=== PATIENT | female | born 1950 | race Caucasian/White ===

== ENCOUNTER 2017-01-18 14:03 | Emergency (ER) | payer OTHER ==
[~2017-01-18] VITALS: Ht 154.9 cm; Wt 81.5 kg
[~2017-01-18 14:03] MED LIST: ACYC5OIN3 EXT; ASPI325T45 PO; BNT10 PO; CALC-310 PO; LSN5 PO; MELA1TAB54 PO; MULT-506 PO; POLY335019 PO; PRLSR20 PO; RANI300T2 PO
[2017-01-18 14:18] VITALS: Ht 154.9 cm; Wt 81.5 kg
[2017-01-18] MEDS ORDERED: SULF800T23 PO (14:48)
[2017-01-18] MEDS ORDERED: MoRPHine SULFATE 4 MG/ML 1 ML CARP\\VIAL IV STA ×2 (14:50→17:41)
--- NOTE | 2017-01-18 14:50 | EMERGENCY ROOM VISIT NOTE ---
History First contact with patient: 14:27 Chief Complaint: ABDOMINAL PAIN Stated Complaint: PAIN IN STOMACH/BACK Nursing Triage Summary: Triage note: pt reports "i have a lot of right abd pain that goes into my back i have a hx of pancreatitis." pt reports nausea. pt reports symptoms since Monday night. History of Present Illness The patient is a 66 year old female with history of multiple sclerosis, hypertension, CTD stage III and is status post cholecystectomy who presents to the Emergency Room with complaints of abdominal pain. She reports that pain started on Monday, is located in the right upper quadrant and radiates around the right sided to her back. She tried taking Tylenol, but this didn't improve her pain much, it went from an 8 to a 6 out of 10. She feels this episode of pain is exactly like her previous episodes of pancreatitis. The only changes that she has been on Bactrim since Monday for a UTI. Her urinary symptoms and hematuria have improved. She does not have a gallbladder, but she is seeing Dr. Cai, and is getting an ERCP on February 03. She was able to eat breakfast this morning. Currently her pain is an 8 out of 10. Review of Systems See HPI for pertinent positives & negatives. A total of 10 systems reviewed and were otherwise negative. Past Medical/Surgical History Medical Problems: (1) Acute pancreatitis (2) Chronic kidney disease (3) Diverticulosis (4) Elevated liver enzymes (5) Gallstones (6) GERD (gastroesophageal reflux disease) (7) GERD (gastroesophageal reflux disease) (8) HTN (hypertension) (9) Hyperlipidemia (10) Kidney disease, chronic, stage III (GFR 30-59 ml/min) (11) Multiple sclerosis (12) Pancreatic divisum (13) Pancreatitis Surgical Problems: (1) History of abdominal hernia (2) History of back surgery (3) Hx of cholecystectomy (4) S/P bilateral breast reduction (5) S/P bladder repair (6) s/p removal of fibroid in uterus (7) S/P tubal ligation Family History FH: brain aneurysm SISTER FH: cancer MOTHER (Breast CA) SISTER (Breast CA) FH: hypertension FH: multiple sclerosis DAUGHTER Social History Smoking Status: Never Smoker Alcohol Use: none Marital Status: in relationship Housing Status: lives with significant other Occupation Status: employed Current/Historical Medications Scheduled Aspirin (Aspirin), 325 MG PO DAILY Calcium Citrate-Vitamin D (Calcium Citrate + D), 1 TAB PO BID Dicyclomine HCl (Dicyclomine HCl), 10 MG PO BIDM Furosemide (Lasix), 20-40 MG PO DAILY Lisinopril (Lisinopril), 5 MG PO DAILY Melatonin (Melatonin), 5 MG PO HS Multivitamin (Multivitamin), 1 TAB PO DAILY Omeprazole (Prilosec), 20 MG PO QAM Ranitidine (Zantac), 300 MG PO HS Sulfamethoxazole-Trimethoprim (Bactrim Ds 800MG/160MG), 1 TAB PO BID Scheduled PRN Polyethylene Glycol 3350 (Miralax), 17 GM PO DAILY PRN for Constipation Allergies Coded Allergies: Adhesives (Verified Allergy, Unknown, RASH, 01/18/17) Ibuprofen (Verified Allergy, Unknown, 01/18/17) Physical Exam Vital Signs Date Time Temp Pulse Resp B/P Pulse Ox O2 Delivery O2 Flow Rate FiO2 01/18/17 19:13 36.6 73 19 149/58 94 01/18/17 18:28 73 19 149/58 94 Room Air 01/18/17 17:00 71 20 142/72 96 Room Air 01/18/17 15:40 65 20 150/60 91 Room Air 01/18/17 14:18 36.6 75 18 140/64 97 Room Air Physical Exam GENERAL: Awake, alert, well-appearing, in mild distress HENT: Normocephalic, atraumatic. Oropharynx unremarkable. EYES: Normal conjunctiva. Sclera non-icteric. NECK: Supple. No nuchal rigidity. FROM. No JVD. RESPIRATORY: Clear to auscultation. CARDIAC: Regular rate, normal rhythm. Extremities warm and well perfused. Pulses equal. ABDOMEN: Soft, non-distended. Tenderness to the right upper quadrant. No rebound or guarding. No masses. RECTAL: Deferred. MUSCULOSKELETAL: Chest examination reveals no tenderness. The back is symmetrical on inspection without obvious abnormality. There is no CVA tenderness to palpation. No joint edema. LOWER EXTREMITIES: Calves are equal size bilaterally and non-tender. No edema. No discoloration. NEURO: Normal sensorium. No sensory or motor deficits noted. SKIN: No rash or jaundice noted. Medical Decision & Procedures ER Provider Diagnostic Interpretation: KUB CLINICAL HISTORY: Right upper quadrant abdominal pain. FINDINGS: 2 AP supine abdominal radiographs are correlated with abdominal CT dated 11/07/2016 and MRCP dated 11/08/2016. There is a nonobstructed abdominal bowel gas pattern noting mild colonic fecal retention. There is no evidence of intraperitoneal free air on these supine views. Cholecystectomy clips are seen in the right upper quadrant. There is no radiographic evidence of nephrolithiasis. Phleboliths are observed in the pelvis. The skeletal structures are osteopenic. There is moderate lumbosacral spondylosis and scoliosis. Advanced sclerotic change is noted in the pubic symphysis. IMPRESSION: 1. No acute abnormality. 2. Nonobstructed abdominal bowel gas pattern. SINGLE VIEW CHEST CLINICAL HISTORY: CHF. FINDINGS: An AP, portable, upright chest radiograph is compared to study dated 11/07/2016. The examination is degraded by portable technique, large body habitus, and patient rotation. The heart is mildly enlarged. The pulmonary vasculature is noncongested. Chronic interstitial thickening is similar to previous. No airspace consolidation, large pleural effusion, or pneumothorax is seen. The skeletal structures are osteopenic. The bony thorax is grossly intact. Degenerative change and a chronic Hill-Sachs deformity are noted in the right shoulder. Cholecystectomy clips are identified in the right upper quadrant. IMPRESSION: Cardiomegaly with no acute cardiopulmonary abnormality. Laboratory Results 01/18/17 15:04 Red Blood Count 4.50, Mean Corpuscular Volume 88.7, Mean Corpuscular Hemoglobin 29.8, Mean Corpuscular Hemoglobin Concent 33.6, Mean Platelet Volume 10.9, Neutrophils (%) (Auto) 62.7, Lymphocytes (%) (Auto) 28.2, Monocytes (%) (Auto) 8.1, Eosinophils (%) (Auto) 0.6, Basophils (%) (Auto) 0.2, Neutrophils # (Auto) 3.25, Lymphocytes # (Auto) 1.46, Monocytes # (Auto) 0.42, Eosinophils # (Auto) 0.03, Basophils # (Auto) 0.01 01/18/17 15:04 Test 01/18/17 15:04 01/18/17 17:41 White Blood Count 5.18 K/uL (4.8-10.8) Red Blood Count 4.50 M/uL (4.2-5.4) Hemoglobin 13.4 g/dL (12.0-16.0) Hematocrit 39.9 % (37-47) Mean Corpuscular Volume 88.7 fL (80-100) Mean Corpuscular Hemoglobin 29.8 pg (25-34) Mean Corpuscular Hemoglobin Concent 33.6 g/dl (32-36) Platelet Count 211 K/uL (130-400) Mean Platelet Volume 10.9 fL (7.4-10.4) Neutrophils (%) (Auto) 62.7 % Lymphocytes (%) (Auto) 28.2 % Monocytes (%) (Auto) 8.1 % Eosinophils (%) (Auto) 0.6 % Basophils (%) (Auto) 0.2 % Neutrophils # (Auto) 3.25 K/uL (1.4-6.5) Lymphocytes # (Auto) 1.46 K/uL (1.2-3.4) Monocytes # (Auto) 0.42 K/uL (0.11-0.59) Eosinophils # (Auto) 0.03 K/uL (0-0.5) Basophils # (Auto) 0.01 K/uL (0-0.2) RDW Standard Deviation 45.8 fL (36.4-46.3) RDW Coefficient of Variation 14.1 % (11.5-14.5) Immature Granulocyte % (Auto) 0.2 % Immature Granulocyte # (Auto) 0.01 K/uL (0.00-0.02) Anion Gap 10.0 mmol/L (3-11) Est Creatinine Clear Calc Drug Dose 31.9 ml/min Estimated GFR () 36.0 Estimated GFR (Non- 31.1 BUN/Creatinine Ratio 13.0 (10-20) Calcium Level 9.0 mg/dl (8.5-10.1) Total Bilirubin 0.8 mg/dl (0.2-1) Aspartate Amino Transf (AST/SGOT) 24 U/L (15-37) Alanine Aminotransferase (ALT/SGPT) 34 U/L (12-78) Alkaline Phosphatase 121 U/L (45-117) Total Protein 7.0 gm/dl (6.4-8.2) Albumin 3.9 gm/dl (3.4-5.0) Globulin 3.1 gm/dl (2.5-4.0) Albumin/Globulin Ratio 1.3 (0.9-2) Lipase 161 U/L (73-393) Bedside Lactic Acid Venous 0.48 mmol/L (0.90-1.70) Medications Administered Medications (Trade) Dose Ordered Sig/Alycia Route Start Time Stop Time Status Last Admin Dose Admin Sodium Chloride (Nss 1000ml) 1,000 ml @ 999 mls/hr Q1H1M ONCE IV 01/18/17 15:00 01/18/17 16:00 DC 01/18/17 15:43 999 MLS/HR Morphine Sulfate (MoRPHine SULFATE INJ) 4 mg NOW STAT IV 01/18/17 14:50 01/18/17 14:51 DC 01/18/17 15:43 4 MG Morphine Sulfate (MoRPHine SULFATE INJ) 4 mg NOW STAT IV 01/18/17 17:41 01/18/17 17:42 DC 01/18/17 17:59 4 MG ED Course 1430: I evaluated the patient in room B9. A complete history and physical examination were performed. 14:40: I ordered a CBC, CMP, lipase, urine dipstick, and provided her with 4 mg of IV morphine. As well as 1 L of normal saline. 16:19: I also ordered a chest x-ray and [id number] lactic acid. 17:30: I ordered a KUB and another 4 mg of IV morphine as her pain is somewhat returned. 18:00: Patient felt better. Gave her some crackers and peanut butter, which she was able to eat without difficulty. 18:26: She had an ambulatory trial, which he handled well. She denied any return of her abdominal pain and requested to go home. We discussed following up with her PCP and getting repeat BMP within a week. We tried to arrange a follow-up appointment for her but her PCPs office is closed 18:35: She was discharged home in good condition. Medical Decision This is a 66-year-old female with history of recurrent pancreatitis, multiple sclerosis, hypertension, CT stage III and is status post cholecystectomy who presents with abdominal pain except in the right upper quadrant radiating around to the right side. Differential includes: Pancreatitis, retained bile duct cyst, diverticulitis, gastritis, mesenteric ischemia. She had an IV placed and labs drawn. She was provided with 4 mg of IV morphine, and then a further 4 mg 3 hours later when her pain returned. Her lipase was 171, so pancreatitis was actually unlikely. Her white count was normal, however her creatinine was found to be 1.70 on a baseline of 1.0. She was also on Bactrim for a UTI, she had been taking it for 5 days and had resolution of her symptoms as this is likely an uncomplicated UTI and this was stopped. This is likely either prerenal due to dehydration, or as a side effect of Bactrim, which she has been on for 5 days for UTI. She was provided with a liter of IV fluids. KUB did not show any abnormalities. Her pain had improved significantly during her time in the ED. I discussed the case with Dr. Curry. We both believe that she is safe to be discharged home with follow-up with her PCP. She has an ERCP booked for February 03 which will evaluate if she has a retained bile duct stone. She should follow-up with her PCP in a week to recheck her BMP as well. She did not want any pain medications , as they make her feel unwell when she is on them. [place] Drug Monitoring Program Search Results: patient reviewed within database, no issues identified Impression Primary Impression: Right upper quadrant abdominal pain Additional Impression: Pancreatitis Departure Information Dispostion Home / Self-Care Condition GOOD Referrals No Doctor, Assigned (PCP) Patient Instructions My [facility] Additional Instructions Call your PCP to make an appointment for follow up within the week. You will need a BMP test to check your kidney function. Drink plenty of fluids in the meantime, make sure to avoid fatty foods as well. If you develop worsening pain, or have fevers, chills, vomiting, or diarrhea, please return to the ED. Resident Tracking Resident Involvement: Resident Care Provided Care Provided: Adult ED Problem Qualifiers
[2017-01-18] MEDS ORDERED: SODIUM CHLORIDE 0.9% 1000ML 1,000 ML IV ONE (15:00)
[2017-01-18 15:16] LABS: BASO % 0.2 %; BASO ABS # 0.01 K/uL (0-0.2); COMPLETE YES; EOS % 0.6 %; HEMATOCRIT 39.9 % (37-47); IG% 0.2 %; LYMPH % 28.2 %; LYMPH ABS # 1.46 K/uL (1.2-3.4); MEAN CELL VOLUME 88.7 fL (80-100); MEAN CORPUSCULAR HEMOGLOBIN 29.8 pg (25-34); MEAN CORPUSCULAR HGB CONC 33.6 g/dl (32-36); MEAN PLATELET VOLUME 10.9 fL (7.4-10.4); MONO % 8.1 %; NEUT % 62.7 %; PLATELET COUNT 211 K/uL (130-400); WHITE BLOOD COUNT 5.18 K/uL (4.8-10.8)
[2017-01-18 15:40] LABS: CREATININE 1.7 mg/dl (0.60-1.20); POTASSIUM 3.9 mmol/L (3.5-5.1)
[2017-01-18 15:43] LABS: ALB/GLOB RATIO 1.3 (0.9-2)
--- NOTE | 2017-01-18 16:39 | DIAGNOSTIC IMAGING REPORT ---
SINGLE VIEW CHEST CLINICAL HISTORY: CHF. FINDINGS: An AP, portable, upright chest radiograph is compared to study dated 11/07/2016. The examination is degraded by portable technique, large body habitus, and patient rotation. The heart is mildly enlarged. The pulmonary vasculature is noncongested. Chronic interstitial thickening is similar to previous. No airspace consolidation, large pleural effusion, or pneumothorax is seen. The skeletal structures are osteopenic. The bony thorax is grossly intact. Degenerative change and a chronic Hill-Sachs deformity are noted in the right shoulder. Cholecystectomy clips are identified in the right upper quadrant. IMPRESSION: Cardiomegaly with no acute cardiopulmonary abnormality. Electronically signed by: North Weber M.D. 01/18/2017 4:37 PM Dictated Date/Time: 01/18/2017 4:36 PM
--- NOTE | 2017-01-18 18:44 | DIAGNOSTIC IMAGING REPORT ---
KUB CLINICAL HISTORY: Right upper quadrant abdominal pain. FINDINGS: 2 AP supine abdominal radiographs are correlated with abdominal CT dated 11/07/2016 and MRCP dated 11/08/2016. There is a nonobstructed abdominal bowel gas pattern noting mild colonic fecal retention. There is no evidence of intraperitoneal free air on these supine views. Cholecystectomy clips are seen in the right upper quadrant. There is no radiographic evidence of nephrolithiasis. Phleboliths are observed in the pelvis. The skeletal structures are osteopenic. There is moderate lumbosacral spondylosis and scoliosis. Advanced sclerotic change is noted in the pubic symphysis. IMPRESSION: 1. No acute abnormality. 2. Nonobstructed abdominal bowel gas pattern. Electronically signed by: North Weber M.D. 01/18/2017 6:42 PM Dictated Date/Time: 01/18/2017 6:41 PM
[2017-01-18 19:13] VITALS: BP 149/58; PULSE 73; TEMP 36.6; O2SAT 94
[2017-01-19] MEDS ORDERED: DICY10CA12 PO (14:17)
[2017-01-19] MEDS ORDERED: LISI-729 PO (14:17)
[2017-03-27] MEDS ORDERED: FLM4 PO (18:14)
[2017-03-27] MEDS ORDERED: ATOR-24 PO (18:14)
[2017-05-05] MEDS ORDERED: FURO-85 PO (05:24)
[2017-05-06] MEDS ORDERED: TRMCR130WC TOP (02:27)
== END 2017-01-18 19:14 | disposition home or self-care (01) ==
LOC: C.EDB 14:06
DX: K85.90 Acute pancreatitis without necrosis or infection, unspecified (principal); G35 Multiple sclerosis; N18.3 Chronic kidney disease, stage 3 (moderate); I12.9 Hypertensive chronic kidney disease with stage 1 through stage 4 chronic kidney disease, or unspecified chronic kidney disease; N39.0 Urinary tract infection, site not specified; Z90.49 Acquired absence of other specified parts of digestive tract; K21.9 Gastro-esophageal reflux disease without esophagitis; Z98.51 Tubal ligation status; Z80.3 Family history of malignant neoplasm of breast; Z82.49 Family history of ischemic heart disease and other diseases of the circulatory system; Z82.0 Family history of epilepsy and other diseases of the nervous system; Z79.82 Long term (current) use of aspirin; Z79.899 Other long term (current) drug therapy

== ENCOUNTER 2017-02-03 11:33 | Day surgery (SDC) | payer OTHER ==
[2017-01-19 14:17] VITALS: BMI 33.0
[~2017-02-03] VITALS: Ht 154.9 cm; Wt 79.5 kg
--- NOTE | 2017-02-03 09:23 | Endo History and Physical ---
History & Physical Date of Service: Feb 03, 2017. Chief Complaint: Recurrent abdominal pain, suspected SOD Referring Physician: History of Present Illness Patient with a history of recurrent abdominal s/p cholecystectomy. Several episodes have been associated with significant elevation of her liver associated enzymes. Past Medical History Reflux, Hypertension, Kidney Disease Past Surgical History Hx Cardiac Surgery: No Hx Abdominal Surgery: Yes (TUBAL LIGATION, ABDOMINAL HERNIA, UTERINE FIBROID) Hx Post-Op Nausea and Vomiting: No Hx Cancer Surgery: No Hx Thoracic Surgery: No Hx Orthopedic: Yes (LUMBAR DISCECTOMY) Hx Urinary Tract Surgery: Yes (BLADDER REPAIR) Social History Smoking Status: Never Smoker Hx Substance Use: No Hx Alcohol Use: No Allergies Coded Allergies: Ibuprofen (Verified Allergy, Mild, HIVES, 01/19/17) Adhesives (Verified Allergy, Unknown, RASH, 01/19/17) Current Medications Reported Home Medications Medications Dose Route/Sig Max Daily Dose Days Date Category Dose Instructions Dicyclomine Hcl 10 Mg Cap 1 Cap PO HS 01/19/17 Reported Prinivil (Lisinopril) 5 Mg Tab 5 Mg PO QAM 01/19/17 Reported Prilosec (Omeprazole) 20 Mg Capcr 20 Mg PO QAM 06/19/16 Reported Melatonin 5 Mg Tab 5 Mg PO HS 10/23/15 Reported Lasix (Furosemide) 20 Mg Tab 20-40 Mg PO DAILY 09/10/15 Reported Calcium Citrate + D (Calcium Citrate-Vitamin D) 1 Tab Tab 1 Tab PO BID 11/24/14 Reported Multivitamin (Multivitamins) Tab 1 Tab PO QAM 11/24/14 Reported Zantac (Ranitidine HCl) 300 Mg Tab 300 Mg PO HS 01/13/14 Reported Miralax (Polyethylene Glycol 3350) 1 17 Gm PO DAILY PRN 01/13/14 Reported Aspirin 325 Mg Tab 325 Mg PO HS 06/06/13 Reported HOLD ONE WEEK PRIOR Vital Signs Weight (Kilograms): 79.55 Height (Feet): 5 Height (Inches): 0.5 Physical Exam General Appearance: no apparent distress Respiratory/Chest: Auscultation: breath sounds normal Cardiovascular: Heart Auscultation: RRR Abdomen: Inspection & Palpation: soft Assessment and Plan Patient presents for ERCP for evaluation of SOD (mild dilation of CBD + recurrent elevation of LAEs). We have discussed the risks of ERCP to include infection, perforation, pain, pancreatitis (up to 20% in this patient population ), bleeding, and failed cannulation. Plan ERCP today LR 1 liter prior to ERCP (prevention of pancreatitis)
[~2017-02-03 11:33] MED LIST changes: -ACYC5OIN3 EXT; -BNT10 PO; +DICY10CA12 PO; +LACTATED RINGER'S 1000ML 1,000 ML IV SCH; +LISI-729 PO; -LSN5 PO
[2017-02-03] MEDS ORDERED: LACTATED RINGER'S 1000ML 1,000 ML IV ONE (12:00)
[2017-02-03] MEDS ORDERED: GLYCOPYRROLATE INJ 0.2 MG/ML VIAL ONE (12:04)
[2017-02-03] MEDS ORDERED: NEOSTIGMINE METHYLSULFATE 5 MG/5 ML SYR ONE (12:04)
[2017-02-03] MEDS ORDERED: LIDOCAINE HCL 2% 2 ML VIAL (20MG/ML) ONE (12:04)
[2017-02-03] MEDS ORDERED: FENTANYL CITRATE INJ 50 MCG/1 ML 2 ML VIAL ONE (12:04)
[2017-02-03] MEDS ORDERED: DEXAMETHASONE SOD INJ 4 MG/ML VIAL ONE (12:04)
[2017-02-03] MEDS ORDERED: PROPOFOL IV EMULSION 10 MG/ML 20 ML VIAL IV ONE (12:04)
[2017-02-03] MEDS ORDERED: ONDANSETRON INJ 2 MG/ML 2 ML VIAL ONE (12:04)
[2017-02-03] MEDS ORDERED: ROCURONIUM BROMIDE 10 MG/ML 5 ML VIAL ONE (12:04)
[2017-02-03] MEDS ORDERED: MIDAZOLAM HCL 1 MG/ML 2ML VIAL ONE (12:04)
[2017-02-03] MEDS ORDERED: INDOMETHACIN 50 MG SUPP PR ONE ×2 (12:26→12:30)
[2017-02-03 12:28] VITALS: BP 143/58; PULSE 82; TEMP 36.4; O2SAT 98; Ht 154.9 cm; Wt 79.5 kg
--- NOTE | 2017-02-03 14:02 | GI REPORT ---
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 Estimated blood loss: None Estimated Blood Loss: Estimated blood loss was minimal. Procedure: Pre-Anesthesia Assessment: - Prior to the procedure, a History and Physical was performed, and patient medications, allergies and sensitivities were reviewed. The patient's tolerance of previous anesthesia was reviewed. - The risks and benefits of the procedure and the sedation options and risks were discussed with the patient. All questions were answered and informed consent was obtained. - Patient identification and proposed procedure were verified prior to the procedure by the physician, the nurse and the technical product manager. The procedure was verified in the procedure room. - Pre-procedure physical examination revealed no contraindications to sedation. - ASA Grade Assessment: III - A patient with severe systemic disease. - After reviewing the risks and benefits, the patient was deemed in satisfactory condition to undergo the procedure. - The anesthesia plan was to use general anesthesia. - Immediately prior to administration of medications, the patient was re-assessed for adequacy to receive sedatives. - The heart rate, respiratory rate, oxygen saturations, blood pressure, adequacy of pulmonary ventilation, and response to care were monitored throughout the procedure. - The physical status of the patient was re-assessed after the procedure. After obtaining informed consent, the scope was passed under direct vision. Throughout the procedure, the patient's blood pressure, pulse, and oxygen saturations were monitored continuously. The Scope was introduced through the mouth, and advanced to the duodenum and used to inject contrast into the bile duct. The ERCP was accomplished without difficulty. The patient tolerated the procedure well. Findings: A risk developer film of the abdomen was obtained. Surgical clips, consistent with previous cholecystectomy, were seen in the area of the right upper quadrant of the abdomen. The esophagus was successfully intubated under direct vision without detailed examination of the pharynx, larynx, and associated structures, and upper GI tract. The upper GI tract was grossly normal. The major papilla was small. The bile duct could not be cannulated despite use of multiple cannula and wire combinations (Omni 35 and 0.035 in Acrobat, Rx 39 and 0.025 in Dream wire, and Omni 35 with a 0.025 in Acrobat). As I was unable to cannulate the procedure was discontinued. The endoscope was withdrawn from the patient. Impression: - The major papilla appeared to be small. - Failed biliary cannulation Recommendation: - The patient will be observed post-procedure, until all discharge criteria are met. - Continue present medications. - Refer to Tertiary center at appointment to be scheduled (will discuss referral with advanced endoscopy at [facility] [place] Jac Cai D.O. Jac Cai, DO 02/03/2017 2:02:12 PM This report has been signed electronically. Note Initiated On: 02/03/2017 12:52 PM I attest to the content of the Intraoperative Record and orders documented therein, exceptions below
--- NOTE | 2017-02-03 14:15 | [facility] Post Operative Brief Note ---
Immediate Operative Summary Operative Date Feb 03, 2017. Pre-Operative Diagnosis Recurrent abdominal pain, suspected sphincter of Oddi Post-Operative Diagnosis SoD Procedure(s) Performed Endoscopic Retrograde Cholangiopancreatogram with a Failed Cannulation Surgeon Dr. Jac Cai Fruit Inspector Surgeon(s) None Estimated Blood Loss Zero Findings Diminutive papilla Unable to cannulate any ducts today Specimens No specimen Anesthesia General Complication(s) None Disposition Recovery Room / PACU
--- NOTE | 2017-02-03 14:17 | Discharge Instructions ---
Endoscopy Patient Instructions Date / Procedure(s) Performed Feb 03, 2017. ERCP Allergy Information Coded Allergies: Ibuprofen (Verified Allergy, Mild, HIVES, 02/03/17) Adhesives (Verified Allergy, Unknown, RASH, 02/03/17) Discharge Date / Findings Feb 03, 2017. Unable to cannulate any ducts today Small papilla Medication Instructions Reported Home Medications Medications Dose Route/Sig Max Daily Dose Days Date Category Dose Instructions Dicyclomine Hcl 10 Mg Cap 1 Cap PO HS 01/19/17 Reported Prinivil (Lisinopril) 5 Mg Tab 5 Mg PO QAM 01/19/17 Reported Prilosec (Omeprazole) 20 Mg Capcr 20 Mg PO QAM 06/19/16 Reported Melatonin 5 Mg Tab 5 Mg PO HS 10/23/15 Reported Lasix (Furosemide) 20 Mg Tab 20-40 Mg PO DAILY 09/10/15 Reported Calcium Citrate + D (Calcium Citrate-Vitamin D) 1 Tab Tab 1 Tab PO BID 11/24/14 Reported Multivitamin (Multivitamins) Tab 1 Tab PO QAM 11/24/14 Reported Zantac (Ranitidine HCl) 300 Mg Tab 300 Mg PO HS 01/13/14 Reported Miralax (Polyethylene Glycol 3350) 1 Pow Pow 17 Gm PO DAILY PRN 01/13/14 Reported Aspirin 325 Mg Tab 325 Mg PO HS 06/06/13 Reported HOLD ONE WEEK PRIOR Provider Instructions Activity Restrictions - No exercising or heavy lifting for 24 hours. - Do not drink alcohol the day of the procedure. - Do not drive a car or operate machinery until the day after the procedure. - Do not make any important decisions or sign important papers in 24 hours after the procedure. Following Day: - Return to full activity which may include returning to work/school. Diet Clear liquid diet today Treatment For Common After Affects For mild abdominal pain, bloating, or excessive gas: - Rest - Eat lightly - Lie on right side Follow-Up Information We will dicuss a referral to a tertiary center for another attempt at ERCP Anesthesia Information What You Should Know You have had a procedure that required some medicine to reduce anxiety and discomfort. This treatment is called moderate sedation. After receiving the treatment, you may be sleepy, but you will be able to breathe on your own. The effects of the treatment may last for several hours. Follow these instructions along with Activity/Diet recommendations noted above: * Do NOT do anything where dizziness or clumsiness would be dangerous. * Rest quietly at home today, then you can be up and about tomorrow. * Have a responsible person stay with you the rest of today. * You may have had an I.V. today. If so, you may take the dressing off later today. Recommendations Call your doctor if: * Trouble breathing * Continuous vomiting for more than 24 hours * Temperature above 101 degrees * Severe abdominal pain or bloating * Pain not relieved by pain medicine ordered * There is increased drainage or redness from any incision * A large amount of rectal bleeding greater than 2-3 tablespoons. (If you had a polyp/s removed or have hemorrhoids, a small amount of blood - from the rectum is to be expected.) * You have any unanswered questions or concerns. IN THE EVENT OF A SERIOUS EMERGENCY, GO TO THE NEAREST EMERGENCY ROOM Your discharge instructions were prepared by provider Jac Cai. Patient Instructions Signature Page Abigail Desouza Patient (or Guardian) Signature/Date: I have read and understand the instructions given to me by my caregivers. Caregiver/RN/Doctor Signature/Date: The above-named patient and/or guardian has received patient instructions on this date. + Original Patient Signature Page (only) stays with chart. Please make copy for patient.
[2017-02-03] MEDS ORDERED: ONDANSETRON INJ 2 MG/ML 2 ML VIAL IV PRN (14:45)
[2017-02-03 15:00] VITALS: BP 145/65; PULSE 66; TEMP 36.7; O2SAT 92
--- NOTE | 2017-02-03 15:03 | DIAGNOSTIC IMAGING REPORT ---
INTRAOPERATIVE RADIOGRAPH CLINICAL HISTORY: Intraoperative bile duct exploration. Fluoroscopy time: 54 seconds. FINDINGS: A single spot fluoroscopic image of the right upper quadrant is presented. Cholecystectomy clips are noted. The endoscope projects over the stomach. IMPRESSION: Intraoperative image from a bile duct exploration procedure. See operative report for detailed findings. Electronically signed by: North Weber M.D. 02/03/2017 3:02 PM Dictated Date/Time: 02/03/2017 3:01 PM
[2017-02-03 15:30] VITALS: BP 146/66; PULSE 56; TEMP 36.6; O2SAT 95
--- NOTE | 2017-02-03 15:33 | Anesthesiology Progress Note ---
Anesthesia Post Op Note Date & Time Feb 03, 2017 at 15:33 Vital Signs Pain Intensity: 0 Vital Signs Past 12 Hours Date Time Temp Pulse Resp B/P Pulse Ox O2 Delivery O2 Flow Rate FiO2 02/03/17 14:50 36.8 71 19 138/61 94 Room Air 02/03/17 14:40 71 17 132/58 96 Room Air 02/03/17 14:30 68 19 143/61 100 Mask 10 02/03/17 14:20 67 16 145/51 100 Mask 10 02/03/17 14:14 36.4 74 13 142/52 100 Mask 10 02/03/17 12:28 36.4 82 20 143/58 98 Room Air Notes Mental Status: alert / awake / arousable, participated in evaluation Pt Amnestic to Procedure: Yes Nausea / Vomiting: adequately controlled Pain: adequately controlled Airway Patency, RR, SpO2: stable & adequate BP & HR: stable & adequate Hydration State: stable & adequate Anesthetic Complications: no major complications apparent
[2017-02-03] MEDS ORDERED: EpHEDrine SULFATE INJ 50 MG/ML AMP IV PRN (15:45)
[2017-02-03] MEDS ORDERED: ATROPINE SULFATE 0.1 MG/ML 5ML SYR IV PRN (15:45)
[2017-02-03 16:00] VITALS: BP 153/67; PULSE 59; TEMP 36.8; O2SAT 94
[2017-03-27] MEDS ORDERED: FLM4 PO (18:14)
[2017-03-27] MEDS ORDERED: ATOR-24 PO (18:14)
[2017-05-05] MEDS ORDERED: FURO-85 PO (05:24)
[2017-05-06] MEDS ORDERED: TRMCR130WC TOP (02:27)
== END 2017-02-03 16:10 | disposition home or self-care (01) ==
LOC: C.ACU 11:33
PROVIDERS: ATTEND Internal Medicine Gastroenterology
DX: K83.8 Other specified diseases of biliary tract (principal); K21.0 Gastro-esophageal reflux disease with esophagitis; I10 Essential (primary) hypertension; Z98.1 Arthrodesis status; Z98.890 Other specified postprocedural states; Z98.51 Tubal ligation status

== ENCOUNTER 2017-02-06 08:30 | Emergency (ER) | payer OTHER ==
[~2017-02-06] VITALS: Ht 152.4 cm; Wt 75.0 kg
[~2017-02-06 08:30] MED LIST changes: -LACTATED RINGER'S 1000ML 1,000 ML IV SCH
[2017-02-06 08:38] VITALS: TEMP 36.5; Ht 152.4 cm; Wt 75.0 kg
--- NOTE | 2017-02-06 09:38 | DIAGNOSTIC IMAGING REPORT ---
LEFT FOOT 3 VIEWS CLINICAL HISTORY: Left foot injury. FINDINGS: 3 views of left foot are obtained. No prior studies are available for comparison at the time of dictation. The skeletal structures are osteopenic. There is a Lisfranc type fracture/dislocation seen at the base of the second metatarsal. There is approximately 2.5 mm of lateral distraction of the second metatarsal shaft. Overlying soft tissue edema is noted. No additional fracture is clearly seen. There is a large plantar calcaneal enthesophyte. IMPRESSION: Lisfranc type fracture/dislocation at the base of the second metatarsal as above. Electronically signed by: North Weber M.D. 02/06/2017 9:37 AM Dictated Date/Time: 02/06/2017 9:30 AM
[2017-02-06] MEDS ORDERED: HYDROCODONE/ACETAMOPHEN 5/325MG TAB PO STA (09:48)
[2017-02-06] MEDS ORDERED: HYDR-5688 PO (09:58)
--- NOTE | 2017-02-06 09:59 | EMERGENCY ROOM VISIT NOTE ---
ED Visit Note First contact with patient: 08:53 CHIEF COMPLAINT: Left foot injury at work yesterday Patient is a 66-year-old white female who presents the emergency department accompanied by her for evaluation of left foot pain. 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 She noted pain immediately in the dorsum of the foot. She elevated the foot and took Tylenol for discomfort. She notes a throbbing, 10/10 pain presently and is unable to bear weight. She denies any ankle pain. No numbness or weakness. REVIEW OF SYSTEMS: Review of systems as per HPI. All other systems reviewed were negative. At least 6 systems reviewed. PMH: Electronic medical records are reviewed and summarized as above/below. See Problem List. SOCIAL HISTORY: Patient lives at home with her . Nonsmoker. PHYSICAL EXAM: Vital Signs: Reviewed Nurse's notes. CONSTITUTIONAL: Patient is a well-appearing 66-year-old white female who is awake and alert and in no acute distress. MUSCULOSKELETAL: Examination of the left foot notes diffuse soft tissue swelling and ecchymosis across the dorsum of the foot. Patient is tender over palpation of the first and second metatarsals. Skin is otherwise intact. Range of motion was not assessed due to her injury. Sensation to light touch is intact over the foot and toes. Capillary refills less than 2 seconds. EMERGENCY DEPARTMENT COURSE: X-rays of the left foot were obtained and consistent with a Lisfranc fracture dislocation at the base of the second metatarsal. Patient was placed in a short leg posterior Ortho-Glass splint and instructed on a nonweight bearing gait using a walker. She was medicated with 2 tablets of [place] 5 mg orally in the emergency department prior to discharge. She will need to follow-up with orthopedics as covered by her worker's compensation insurance. She will discuss this with her employer later today. Differential diagnosis included fracture, dislocation, sprain, contusion, among others. LEFT FOOT 3 VIEWS CLINICAL HISTORY: Left foot injury. FINDINGS: 3 views of left foot are obtained. No prior studies are available for comparison at the time of dictation. The skeletal structures are osteopenic. There is a Lisfranc type fracture/dislocation seen at the base of the second metatarsal. There is approximately 2.5 mm of lateral distraction of the second metatarsal shaft. Overlying soft tissue edema is noted. No additional fracture is clearly seen. There is a large plantar calcaneal enthesophyte. IMPRESSION: Lisfranc type fracture/dislocation at the base of the second metatarsal as above. Problem List Medical Problems: (1) Acute pancreatitis Status: Resolved (2) Chronic kidney disease Status: Chronic (3) Diverticulosis Status: Chronic (4) Gallstones Status: Resolved (5) GERD (gastroesophageal reflux disease) Status: Chronic (6) GERD (gastroesophageal reflux disease) Status: Chronic (7) HTN (hypertension) Status: Chronic (8) Hyperlipidemia Status: Chronic (9) Kidney disease, chronic, stage III (GFR 30-59 ml/min) Status: Chronic (10) Multiple sclerosis Status: Chronic (11) Pancreatic divisum Status: Chronic (12) Pancreatitis Status: Resolved Surgical Problems: (1) History of abdominal hernia Status: Resolved (2) History of back surgery Status: Chronic (3) Hx of cholecystectomy Status: Chronic (4) S/P bilateral breast reduction Status: Chronic (5) S/P bladder repair Status: Chronic (6) s/p removal of fibroid in uterus Status: Chronic (7) S/P tubal ligation Status: Chronic Current/Historical Medications Scheduled Aspirin (Aspirin), 325 MG PO HS Calcium Citrate-Vitamin D (Calcium Citrate + D), 1 TAB PO BID Dicyclomine Hcl (Dicyclomine Hcl), 1 CAP PO HS Furosemide (Lasix), 20-40 MG PO DAILY Lisinopril (Prinivil), 5 MG PO QAM Melatonin (Melatonin), 5 MG PO HS Multivitamin (Multivitamin), 1 TAB PO QAM Omeprazole (Prilosec), 20 MG PO QAM Ranitidine (Zantac), 300 MG PO HS Scheduled PRN Hydrocodone/Acetaminophen 5MG/325MG ([place] 5MG/325MG), 1-2 TABLETS PO Q4 PRN for Pain Polyethylene Glycol 3350 (Miralax), 17 GM PO DAILY PRN for Constipation Allergies Coded Allergies: Ibuprofen (Verified Allergy, Mild, HIVES, 02/03/17) Adhesives (Verified Allergy, Unknown, RASH, 02/03/17) Vital Signs Date Time Temp Pulse Resp B/P Pulse Ox O2 Delivery O2 Flow Rate FiO2 02/06/17 10:18 78 161/76 96 02/06/17 08:38 36.5 82 16 157/73 96 Room Air Medications Administered Medications (Trade) Dose Ordered Sig/Alycia Route Start Time Stop Time Status Last Admin Dose Admin Acetaminophen/ Hydrocodone Bitart ([place] 5/325 Tab) 2 tab NOW STAT PO 02/06/17 09:48 02/06/17 09:49 DC 02/06/17 09:59 2 TAB Departure Information Impression Primary Impression: Lisfranc fracture Additional Impression: Work related injury Prescriptions Hydrocodone/Acetaminophen 5MG/325MG ([place] 5MG/325MG) Tab 1-2 TABLETS PO Q4 Y for Pain, #30 TAB For Initial Treatment Prov: Katt Marcano PA 02/06/17 Referrals Indy Diop D.O. (PCP) Patient Instructions My [facility] Additional Instructions DO NOT drive, drink alcohol, operate machinery, or perform dangerous activities today. You were given medications in the ER that can affect your ability to safely function or operate a vehicle. Hydrocodone/Acetaminophen ([place]) 5/325 mg: Take 1-2 pills every four hours for breakthrough pain. Avoid alcohol, operating machinery or dangerous equipment, working on ladders or roofs, DRIVING, or situations where being under the influence may be dangerous. It is recommended to use an [id number] stool softener such as Colace, 100mg twice daily while taking this medication to avoid constipation. Ice compresses for 20 minutes at a time four times daily for 2-3 days. Use the walker as instructed with no weight on the left foot. Rest and elevate your injury. Do not get the splint wet. If your splint feels excessively tight, you have worsening pain, develop numbness or tingling, or your digits appear blue, loosen the alina wrap. Then reapply the ailna wrap gently without removing the splint. If your symptoms are not quickly relieved return to the ER for re- evaluation. Continue current medications. Return to the ER immediately for any numbness, tingling, severe pain, extreme swelling in the extremity or as needed. Follow-up with orthopedic surgery as covered by your workers compensation insurance this week for further care and evaluation of your fracture. Problem Qualifiers
[2017-02-06 10:18] VITALS: BP 161/76; PULSE 78; O2SAT 96
[2017-03-27] MEDS ORDERED: FLM4 PO (18:14)
[2017-03-27] MEDS ORDERED: ATOR-24 PO (18:14)
[2017-05-05] MEDS ORDERED: FURO-85 PO (05:24)
[2017-05-06] MEDS ORDERED: TRMCR130WC TOP (02:27)
== END 2017-02-06 10:19 | disposition home or self-care (01) ==
LOC: C.EDB 08:32
DX: S92.322A Displaced fracture of second metatarsal bone, left foot, initial encounter for closed fracture (principal); X50.0XXA Overexertion from strenuous movement or load, initial encounter; Y92.511 Restaurant or cafe as the place of occurrence of the external cause; Y99.0 Civilian activity done for income or pay; K21.9 Gastro-esophageal reflux disease without esophagitis; I12.9 Hypertensive chronic kidney disease with stage 1 through stage 4 chronic kidney disease, or unspecified chronic kidney disease; N18.3 Chronic kidney disease, stage 3 (moderate); G35 Multiple sclerosis; Z90.49 Acquired absence of other specified parts of digestive tract; Z98.51 Tubal ligation status; Z79.82 Long term (current) use of aspirin; Z79.899 Other long term (current) drug therapy

== ENCOUNTER 2017-02-13 13:39 | Emergency (ER) | payer OTHER ==
[~2017-02-13] VITALS: Ht 152.4 cm; Wt 76.0 kg
[~2017-02-13 13:39] MED LIST changes: -CALC-310 PO; +HYDR-5688 PO; -MELA1TAB54 PO; -MULT-506 PO; -POLY335019 PO; -PRLSR20 PO
[2017-02-13 13:58] VITALS: TEMP 36.6; O2SAT 95; Ht 152.4 cm; Wt 76.0 kg
--- NOTE | 2017-02-13 15:07 | DIAGNOSTIC IMAGING REPORT ---
LEFT ELBOW MIN 3 VIEWS ROUTINE CLINICAL HISTORY: fall; L posterior elbow pain trauma. Pain. COMPARISON: None. DISCUSSION: The bones and joint spaces appear intact. There is no evidence of fracture, dislocation or bony disease. Evidence for minimal calcific medial epicondylitis. No significant joint effusion. IMPRESSION: Calcific medial epicondylitis. No acute bony abnormality. Electronically signed by: Caleb Calle M.D. 02/13/2017 3:05 PM Dictated Date/Time: 02/13/2017 3:04 PM
[2017-02-13 15:24] VITALS: BP 141/72; PULSE 68
[2017-02-13] MEDS ORDERED: HYDR-5688 PO (15:25)
--- NOTE | 2017-02-14 10:38 | EMERGENCY ROOM VISIT NOTE ---
ED Visit Note First contact with patient: 14:02 Chief Complaint: Left elbow pain. History of Present Illness: Ms. Layton is a 66-year-old white female who is brought into the ED via wheelchair accompanied by male friend complaining of posterior left elbow point. Historically patient tripped and fell on February 06 and sustained of Lisfranc fracture of her right foot. She was casted and has been using a walker for ambulation. Patient reports over the last 2-3 days since using her walker she has noted increasing posterior left elbow pain. She does not remember injuring it in the fall but feels that was her only recent trauma and expresses concern. Currently she describes her pain as a deep achy sensation. She rates her discomfort 3/10. Her pain worsens with palpation of the distal humerus and flexion and extension of the elbow. She has not identified any alleviating factors related to the pain. She has not taken any medication specifically for this pain but does report the medication she takes for fractures does decrease her discomfort. She denies any associated symptoms including shoulder pain, forearm pain, wrist pain, hand pain, arm weakness/numbness/tingling. She also denies any previous significant injuries or surgeries to the humerus or the elbow. Review of Systems: As noted above in history of present illness. Past Medical History: As previously noted, hypertension, unspecified urinary problems, kidney stones, status post back and breast surgery. Current Medications: Medications Dose Route/Sig Max Daily Dose Days Date Category Dose Instructions [place] 5MG/325MG (Acetaminophen/Hydrocodone Bitart) Tab 1-2 Tablets PO Q4H PRN 02/13/17 Reported PRN PAIN Dicyclomine Hcl 10 Mg Cap 1 Cap PO HS 01/19/17 Reported Prinivil (Lisinopril) 5 Mg Tab 5 Mg PO QAM 01/19/17 Reported Prilosec (Omeprazole) 20 Mg Capcr 20 Mg PO QAM 06/19/16 Reported Melatonin 5 Mg Tab 5 Mg PO HS 10/23/15 Reported Lasix (Furosemide) 20 Mg Tab 20-40 Mg PO DAILY 09/10/15 Reported Calcium Citrate + D (Calcium Citrate-Vitamin D) 1 Tab Tab 1 Tab PO BID 11/24/14 Reported Zantac (Ranitidine HCl) 300 Mg Tab 300 Mg PO HS 01/13/14 Reported Miralax (Polyethylene Glycol 3350) 1 Pow 17 Gm PO DAILY PRN 01/13/14 Reported Aspirin 325 Mg Tab 325 Mg PO HS 06/06/13 Reported HOLD ONE WEEK PRIOR Allergies to Medications: Ibuprofen. Social History: Patient is currently employed; she feels safe in her home environment; she denies tobacco use; she admits to alcohol use. Physical Examination: Vital Signs: Date Time Temp Pulse Resp B/P Pulse Ox O2 Delivery O2 Flow Rate FiO2 02/13/17 15:24 68 141/72 02/13/17 13:58 36.6 77 18 133/64 95 Room Air GENERAL: 66-year-old female in mild distress due to pain, nontoxic-appearing, afebrile and hemodynamically stable. NEUROLOGICAL: Awake, alert and oriented to person, place and time. Answering questions appropriately and following commands. SKIN: Warm, dry and pink. Left Elbow: 2-3 cm contusion noted over the distal humerus over the posterior elbow. LEFT UPPER EXTREMITY: No gross bony deformity. Soft tissue injury as noted above under SKIN. No tenderness throughout the shoulder or proximal humerus. Mild tenderness over the area where it is contused but I do not appreciate any bony deformity or crepitus. Full range of motion in flexion and extension of the elbow and pronation and supination of the forearm. 4/5 muscle strength in all movements of the shoulder, elbow and forearm. Throughout the distal extremity is skin is warm and pink and capillary refill is brisk. Distal pulses are intact. She was able to distinguish light sensations through all dermatomes. ED Course: Patient is assessed as noted above. Patient was given ice for comfort; she was offered pain medications and refused. Left Elbow X-Rays: Were read by myself and the radiologist showing no acute fractures or dislocations. Calcified medial epicondylitis was noted. I discussed with the patient a possible sling but because of her current walker use related to her foot fracture it was decided against. Patient was educated about tonight's findings and instructed on her treatment plan; she verbalizes understanding and agreement with this plan. Clinical Impression: Posterior left elbow contusion. Disposition: Patient discharged home in stable condition accompanied by a male friend; prior to departure she was reassessed and subjectively reported she was feeling the same. Plan: Patient was encouraged to continue her current treatment plan and to use ibuprofen every 6 hours as needed for pain as long as she was not taking her [place]. Patient was encouraged use ice on the area for 5 times a day for 20-30 minutes. Patient was encouraged to follow-up with family physician if no better in 4-5 days. Patient was encouraged return the ED for worsening/uncontrolled pain, uncontrolled swelling, arm weakness/numbness/tingling or any new/concerning symptoms.
[2017-05-05] MEDS ORDERED: FURO-85 PO (05:24)
[2017-10-12] MEDS ORDERED: PRLSR20 PO (02:07)
[2017-10-12] MEDS ORDERED: TRMCR130WC TOP (02:27)
[2017-10-12] MEDS ORDERED: MELA1TAB54 PO (09:13)
[2017-10-12] MEDS ORDERED: CALC-310 PO (11:06)
[2017-10-12] MEDS ORDERED: MULT-506 PO (11:06)
[2017-10-12] MEDS ORDERED: ATOR-24 PO (18:14)
[2017-10-12] MEDS ORDERED: FLM4 PO (18:14)
[2017-10-12] MEDS ORDERED: POLY335019 PO (20:22)
[2017-10-12] MEDS ORDERED: ASPI325T39 PO (21:18)
[2017-10-12] MEDS ORDERED: CEPH500C2 PO (23:12)
== END 2017-02-13 15:40 | disposition home or self-care (01) ==
LOC: C.EDB 13:41 → C.EDD 15:40
DX: S50.02XA Contusion of left elbow, initial encounter (principal); W18.09XA Striking against other object with subsequent fall, initial encounter; I10 Essential (primary) hypertension

== ENCOUNTER 2017-03-27 17:54 | Inpatient (IN) | payer OTHER ==
[~2017-03-27] VITALS: Ht 153.7 cm; Wt 81.4 kg
--- NOTE | 2017-03-27 18:12 | EMERGENCY ROOM VISIT NOTE ---
History Report prepared by Sonia: Víctor Banks Under the Supervision of: Dr. Deyvi Esteban M.D. First contact with patient: 18:01 Chief Complaint: ABDOMINAL PAIN Stated Complaint: STOMACH PAIN AND BLOATING Nursing Triage Summary: Pt states had ERCP in [place] today. Pt reports chills. Diffuse abd pain and bloating. Nausea. Pt called MD at [facility] and was told "it's not normal to have this pain and to go to the ER." Pain started approx 1300. History of Present Illness The patient is a 67 year old female who presents to the Emergency Room with complaints of persistent abdominal pain that started 5 hours ago. The patient had an ERCP done earlier today in [place] to check for stones in her ducts since she kept getting pancreatitis. After the procedure, she complained of diffuse discomfort in her abdomen, chills, bloating and nausea. She called her doctor and he recommended she present to the ED if the symptoms persist. The patient denies chest pain, shortness of breath, back pain, vomiting, or diarrhea at this time. Source of History: patient Onset: 5 hours ago Position: abdomen Timing: other (persistent) Associated Symptoms: + chills, + nausea, No SOB, No back pain, No chest pain , No diarrhea, No vomiting Note: Other associated symptoms: bloating Review of Systems See HPI for pertinent positives & negatives. A total of 10 systems reviewed and were otherwise negative. Past Medical & Surgical Medical Problems: (1) Acute pancreatitis (2) Acute pancreatitis (3) Chronic kidney disease (4) Diverticulosis (5) Elevated liver enzymes (6) Gallstones (7) GERD (gastroesophageal reflux disease) (8) GERD (gastroesophageal reflux disease) (9) HTN (hypertension) (10) Hyperlipidemia (11) Kidney disease, chronic, stage III (GFR 30-59 ml/min) (12) Multiple sclerosis (13) Pancreatic divisum (14) Pancreatitis Surgical Problems: (1) History of abdominal hernia (2) History of back surgery (3) Hx of cholecystectomy (4) S/P bilateral breast reduction (5) S/P bladder repair (6) s/p removal of fibroid in uterus (7) S/P tubal ligation Family History FH: brain aneurysm SISTER FH: cancer MOTHER (Breast CA) SISTER (Breast CA) FH: hypertension FH: multiple sclerosis DAUGHTER Social History Smoking Status: Never Smoker Alcohol Use: none Marital Status: in relationship Housing Status: lives with significant other Occupation Status: employed Current/Historical Medications Scheduled Aspirin (Aspirin), 325 MG PO DAILY Atorvastatin (Lipitor), 40 MG PO QAM Calcium Citrate-Vitamin D (Calcium Citrate + D), 1 TAB PO DAILY Furosemide (Lasix), 20-40 MG PO DAILY Lisinopril (Prinivil), 5 MG PO QAM Melatonin (Melatonin), 5 MG PO HS Multivitamin (Multivitamin), 1 TAB PO QAM Omeprazole (Prilosec), 20 MG PO QAM Ranitidine (Zantac), 300 MG PO HS Tamsulosin HCl (Tamsulosin HCl), 0.4 MG PO HS Scheduled PRN Dicyclomine Hcl (Dicyclomine Hcl), 1 CAP PO DAILY PRN for abdominal pain Polyethylene Glycol 3350 (Miralax), 17 GM PO DAILY PRN for Constipation Allergies Coded Allergies: Ibuprofen (Verified Allergy, Mild, HIVES, 03/27/17) Adhesives (Verified Allergy, Unknown, RASH, 03/27/17) Physical Exam Vital Signs Date Time Temp Pulse Resp B/P Pulse Ox O2 Delivery O2 Flow Rate FiO2 03/27/17 19:55 76 20 135/58 96 Room Air 03/27/17 17:58 37.0 87 18 135/71 95 Room Air Physical Exam GENERAL: Patient is awake, alert, and in no acute distress. Patient is resting comfortably and showing no signs of anxiety EYES: The conjunctivae are clear. The pupils are round and reactive. EARS, NOSE, MOUTH AND THROAT: The nose is without any evidence of any deformity. Mucous membranes are moist tongue is midline NECK: The neck is nontender and supple. RESPIRATORY: Normal respiratory effort is noted there is no evidence of wheezing rhonchi or rales CARDIOVASCULAR: Regular rate and rhythm noted there no murmurs rubs or gallops normal S1 normal S2 GASTROINTESTINAL: Abdomen is moderately distended and diffusely tender, there was no guarding or rigidity appreciated. MUSCULOSKELETAL/EXTREMITIES: There is no evidence of gross deformity full range of motion is noted in the hips and shoulders SKIN: There is no obvious evidence of any rash. There are no petechiae, pallor or cyanosis noted. NEUROLOGIC: Patient is awake alert and oriented x3 Medical Decision & Procedures ER Provider Diagnostic Interpretation: CT results as stated below per my review and radiologist interpretation. CT SCAN OF THE ABDOMEN AND PELVIS WITHOUT IV CONTRAST CLINICAL HISTORY: Upper abdominal pain. COMPARISON STUDY: Prior abdominal CT scans, most recently dated 11/07/2016. TECHNIQUE: CT scan of the abdomen and pelvis is performed from the lung bases to the proximal femora. Images are reviewed in the axial, sagittal, and coronal planes. IV contrast was not administered for this examination as per the referring clinician. Note that the examination was performed in significantly suboptimal fashion without oral and IV contrast. Automated dose control exposure was utilized. CT DOSE: 596.77 mGy.cm FINDINGS: Lung bases: The heart is top normal in size and without pericardial effusion. There is patchy airspace consolidation identified at the right lung base. The left lung base appears clear. No pleural effusion is seen. Scattered calcified granulomas are observed. There is a small hiatal hernia. Liver: The unenhanced liver is normal in size, contour, and attenuation. Pneumobilia is noted. There is no intrahepatic biliary ductal dilatation. Gallbladder: Surgically absent noting clips in the gallbladder fossa. Spleen: Normal in size and attenuation. Pancreas: Minimal stranding is suggested around the pancreatic head. The unenhanced pancreas is otherwise grossly unremarkable. Adrenal glands: Unremarkable. Kidneys: The unenhanced kidneys demonstrate cortical atrophy and are without hydronephrosis. There are no renal calculi identified. There is no evidence of contour deforming renal mass lesion. Abdominal vasculature: The abdominal aorta is normal in course and caliber noting mild atherosclerotic calcification. Bowel: The small bowel and colon are normal in course and caliber. There is mild to moderate sigmoid diverticulosis without CT evidence of acute diverticulitis. The appendix is well-visualized and normal. Peritoneum: There is no intraperitoneal free air or abdominal ascites. Lymphadenopathy: None. Pelvic viscera: The bladder, uterus, and adnexa are normal as visualized. Skeletal structures: The skeletal structures are osteopenic. There is moderate lumbosacral spondylosis and scoliosis. No lytic or blastic lesions are seen. Sclerotic change is identified at the pubic symphysis, left greater than right. IMPRESSION: 1. Suboptimal examination without oral and IV contrast. 2. Question mild stranding around the pancreatic head. Correlate clinically and with serum lipase levels for evidence of mild acute pancreatitis. 3. There is patchy airspace consolidation at the right lung base typical in appearance for pneumonia. Clinical correlation will be required. Radiographic follow-up to resolution is recommended. 4. Mild to moderate sigmoid diverticulosis without CT evidence of acute diverticulitis. 5. There are changes from previous cholecystectomy. There is pneumobilia, likely related to previous sphincterotomy. Correlation with clinical findings and the patient's surgical history will be required. 6. Additional changes as above. Electronically signed by: North Weber M.D. 03/27/2017 7:02 PM Dictated Date/Time: 03/27/2017 6:55 PM Laboratory Results 03/27/17 18:20 Red Blood Count 4.64, Mean Corpuscular Volume 92.5, Mean Corpuscular Hemoglobin 30.2, Mean Corpuscular Hemoglobin Concent 32.6, Mean Platelet Volume 11.0, Neutrophils (%) (Auto) 85.6, Lymphocytes (%) (Auto) 6.3, Monocytes (%) (Auto) 7.7, Eosinophils (%) (Auto) 0.1, Basophils (%) (Auto) 0.1, Neutrophils # (Auto) 10.55, Lymphocytes # (Auto) 0.77, Monocytes # (Auto) 0.95, Eosinophils # (Auto) 0.01, Basophils # (Auto) 0.01 03/27/17 18:20 Test 03/27/17 18:20 White Blood Count 12.31 K/uL (4.8-10.8) Red Blood Count 4.64 M/uL (4.2-5.4) Hemoglobin 14.0 g/dL (12.0-16.0) Hematocrit 42.9 % (37-47) Mean Corpuscular Volume 92.5 fL (80-100) Mean Corpuscular Hemoglobin 30.2 pg (25-34) Mean Corpuscular Hemoglobin Concent 32.6 g/dl (32-36) Platelet Count 183 K/uL (130-400) Mean Platelet Volume 11.0 fL (7.4-10.4) Neutrophils (%) (Auto) 85.6 % Lymphocytes (%) (Auto) 6.3 % Monocytes (%) (Auto) 7.7 % Eosinophils (%) (Auto) 0.1 % Basophils (%) (Auto) 0.1 % Neutrophils # (Auto) 10.55 K/uL (1.4-6.5) Lymphocytes # (Auto) 0.77 K/uL (1.2-3.4) Monocytes # (Auto) 0.95 K/uL (0.11-0.59) Eosinophils # (Auto) 0.01 K/uL (0-0.5) Basophils # (Auto) 0.01 K/uL (0-0.2) RDW Standard Deviation 48.8 fL (36.4-46.3) RDW Coefficient of Variation 14.5 % (11.5-14.5) Immature Granulocyte % (Auto) 0.2 % Immature Granulocyte # (Auto) 0.02 K/uL (0.00-0.02) Anion Gap 6.0 mmol/L (3-11) Est Creatinine Clear Calc Drug Dose 52.7 ml/min Estimated GFR () 68.0 Estimated GFR (Non- 58.7 BUN/Creatinine Ratio 16.6 (10-20) Calcium Level 9.0 mg/dl (8.5-10.1) Total Bilirubin 1.3 mg/dl (0.2-1) Direct Bilirubin 0.2 mg/dl (0-0.2) Aspartate Amino Transf (AST/SGOT) 16 U/L (15-37) Alanine Aminotransferase (ALT/SGPT) 21 U/L (12-78) Alkaline Phosphatase 115 U/L (45-117) Total Protein 6.8 gm/dl (6.4-8.2) Albumin 3.5 gm/dl (3.4-5.0) Lipase 546 U/L (73-393) Laboratory results per my review. Medications Administered Medications (Trade) Dose Ordered Sig/Alycia Route Start Time Stop Time Status Last Admin Dose Admin Sodium Chloride (Nss 1000ml) 1,000 ml @ 999 mls/hr Q1H1M STAT IV 03/27/17 18:18 03/27/17 19:18 DC 03/27/17 18:26 999 MLS/HR Morphine Sulfate (MoRPHine SULFATE INJ) 4 mg Q15M PRN IV 03/27/17 18:30 03/27/17 21:55 DC 03/27/17 18:25 4 MG Ondansetron HCl 4 mg 4 mg NOW STAT IV 03/27/17 18:18 03/27/17 18:19 DC 03/27/17 18:25 4 MG Pantoprazole Sodium/Syringe (Protonix Inj/ Syringe) 10 ml @ 5 mls/min NOW ONCE IV 03/27/17 19:45 03/27/17 19:46 DC 03/27/17 20:04 5 MLS/MIN Famotidine (Pepcid 20mg/100 ml) 20 mg ONE STAT IV 03/27/17 19:41 03/27/17 19:42 DC 03/27/17 20:04 20 MG ED Course 1800: The patient was evaluated in room A2. A complete history and physical examination were performed. 1817: Ordered Zofran Inj 4 mg IV, NSS 1000 ml @ 999 mls/hr IV. 1829: Ordered Morphine Sulfate 4 mg IV. 1937: At this time, I discussed the patient's case with Dr. Cai - [facility] and he recommended that the patient be brought into the hospital for serial lipase and fluids. 1940: Ordered Famotidine 20 mg IV. 1944: Ordered Pantoprazole Sodium 40 mg / Syrine 10 ml @ 5 mls/min IV. 1947: At this time, I discussed the patient's case with Dr. Dewitt - Hospitalist [facility] and he agreed to accept the patient for further evaluation. Medical Decision Differential diagnosis: Etiologies such as appendicitis, diverticulitis, PUD, biliary pathology, UTI, pancreatitis, obstruction, mesenteric ischemia, aortic pathology, infections, inflammatory bowel disease, renal colic, as well as others were entertained. Nursing notes reviewed. The patient is a 67-year-old female who has a history of pancreatitis. The patient has a history of a cholecystectomy in the past. She was evaluated by her primary foundry finisher recently was sent to [facility] for an ERCP because of the patient's difficult . The patient had an ERCP today and started having bloating and upper abdominal pain. She presented to the emergency department for an evaluation. The patient was treated with IV fluids IV pain medicine and IV antiemetics. On subsequent reevaluation she was feeling much better. She was also given proton pump inhibitors and Pepcid. I discussed her presentation with her primary foundry finisher. [facility] to evaluate the patient in emergency department for further management and disposition. The patient was found have an elevation in her lipase although was not significant she did have signs of pancreatitis on CAT scan. It is possible that her recent procedure cause the symptoms. There was no signs of free air and my suspicion for post ERCP rupture is low at this time although she may require further imaging if symptoms do not improve. Consults Time Called: 1932 Consulting Physician: Dr. Cai - [facility] Returned Call: 1937 At this time, I discussed the patient's case with Dr. Cai and he recommended that the patient be brought into the hospital for serial lipase and fluids. Additional Consults: Time Called: 1942 Consulted Physician: Dr. Dewitt - [facility] Returned Call: 1947 Additional Comments: At this time, I discussed the patient's case with Dr. Dewitt and he agreed to accept the patient for further evaluation. Impression Primary Impression: Pancreatitis Additional Impressions: Abdominal pain Post-op pain Scribe Attestation The scribe's documentation has been prepared under my direction and personally reviewed by me in its entirety. I confirm that the note above accurately reflects all work, treatment, procedures, and medical decision making performed by me. Departure Information Dispostion Being Evaluated By Hospitalist Indy Stratton D.O. (PCP) Problem Qualifiers Primary Impression: Pancreatitis Chronicity: acute Pancreatitis type: unspecified pancreatitis type Acute pancreatitis complication: unspecified Qualified Codes: K85.90 - Acute pancreatitis without necrosis or infection, unspecified Additional Impressions: Abdominal pain Abdominal location: upper abdomen, unspecified Qualified Codes: R10.10 - Upper abdominal pain, unspecified
[2017-03-27] MEDS ORDERED: FURO-85 PO (18:14)
[2017-03-27] MEDS ORDERED: SODIUM CHLORIDE 0.9% 1000ML 1,000 ML IV STA (18:18)
[2017-03-27] MEDS ORDERED: ONDANSETRON INJ 2 MG/ML 2 ML VIAL IV STA (18:18)
[2017-03-27] MEDS ORDERED: MoRPHine SULFATE 4 MG/ML 1 ML CARP\\VIAL IV PRN (18:30)
[2017-03-27 18:37] LABS: BASO % 0.1 %; BASO ABS # 0.01 K/uL (0-0.2); COMPLETE YES; EOS % 0.1 %; HEMATOCRIT 42.9 % (37-47); IG% 0.2 %; LYMPH % 6.3 %; LYMPH ABS # 0.77 K/uL (1.2-3.4); MEAN CELL VOLUME 92.5 fL (80-100); MEAN CORPUSCULAR HEMOGLOBIN 30.2 pg (25-34); MEAN CORPUSCULAR HGB CONC 32.6 g/dl (32-36); MONO % 7.7 %; NEUT % 85.6 %; PLATELET COUNT 183 K/uL (130-400); RED BLOOD COUNT 4.64 M/uL (4.2-5.4); WHITE BLOOD COUNT 12.31 K/uL (4.8-10.8)
--- NOTE | 2017-03-27 19:03 | DIAGNOSTIC IMAGING REPORT ---
CT SCAN OF THE ABDOMEN AND PELVIS WITHOUT IV CONTRAST CLINICAL HISTORY: Upper abdominal pain. COMPARISON STUDY: Prior abdominal CT scans, most recently dated 11/07/2016. TECHNIQUE: CT scan of the abdomen and pelvis is performed from the lung bases to the proximal femora. Images are reviewed in the axial, sagittal, and coronal planes. IV contrast was not administered for this examination as per the referring clinician. Note that the examination was performed in significantly suboptimal fashion without oral and IV contrast. Automated dose control exposure was utilized. CT DOSE: 596.77 mGy.cm FINDINGS: Lung bases: The heart is top normal in size and without pericardial effusion. There is patchy airspace consolidation identified at the right lung base. The left lung base appears clear. No pleural effusion is seen. Scattered calcified granulomas are observed. There is a small hiatal hernia. Liver: The unenhanced liver is normal in size, contour, and attenuation. Pneumobilia is noted. There is no intrahepatic biliary ductal dilatation. Gallbladder: Surgically absent noting clips in the gallbladder fossa. Spleen: Normal in size and attenuation. Pancreas: Minimal stranding is suggested around the pancreatic head. The unenhanced pancreas is otherwise grossly unremarkable. Adrenal glands: Unremarkable. Kidneys: The unenhanced kidneys demonstrate cortical atrophy and are without hydronephrosis. There are no renal calculi identified. There is no evidence of contour deforming renal mass lesion. Abdominal vasculature: The abdominal aorta is normal in course and caliber noting mild atherosclerotic calcification. Bowel: The small bowel and colon are normal in course and caliber. There is mild to moderate sigmoid diverticulosis without CT evidence of acute diverticulitis. The appendix is well-visualized and normal. Peritoneum: There is no intraperitoneal free air or abdominal ascites. Lymphadenopathy: None. Pelvic viscera: The bladder, uterus, and adnexa are normal as visualized. Skeletal structures: The skeletal structures are osteopenic. There is moderate lumbosacral spondylosis and scoliosis. No lytic or blastic lesions are seen. Sclerotic change is identified at the pubic symphysis, left greater than right. IMPRESSION: 1. Suboptimal examination without oral and IV contrast. 2. Question mild stranding around the pancreatic head. Correlate clinically and with serum lipase levels for evidence of mild acute pancreatitis. 3. There is patchy airspace consolidation at the right lung base typical in appearance for pneumonia. Clinical correlation will be required. Radiographic follow-up to resolution is recommended. 4. Mild to moderate sigmoid diverticulosis without CT evidence of acute diverticulitis. 5. There are changes from previous cholecystectomy. There is pneumobilia, likely related to previous sphincterotomy. Correlation with clinical findings and the patient's surgical history will be required. 6. Additional changes as above. Electronically signed by: North Weber M.D. 03/27/2017 7:02 PM Dictated Date/Time: 03/27/2017 6:55 PM
[2017-03-27 19:25] LABS: BUN/CREATININE RATIO 16.6 (10-20); POTASSIUM 3.8 mmol/L (3.5-5.1)
[2017-03-27] MEDS ORDERED: FAMOTIDINE 20MG/102 ML D5W IV STA (19:41)
[2017-03-27] MEDS ORDERED: PANTOprazole INJ 40 MG in SYRINGE 0 ML IV ONE (19:45)
[2017-03-27] MEDS ORDERED: ONDANSETRON INJ 2 MG/ML 2 ML VIAL IV PRN (20:15)
[2017-03-27] MEDS ORDERED: ACETAMINOPHEN 325 MG TAB PO PRN (20:15)
--- NOTE | 2017-03-27 21:30 | History and Physical ---
History & Physical Date & Time of Service: March 27, 2017 at 20:47 Chief Complaint: Stomach Pain And Bloating Primary Care Physician: Indy Diop D.O. History of Present Illness Source: patient, clinic records, hospital records This is a 67 y/o female with PMH of recurrent acute pancreatitis, s/p cholecystectomy 11/2015, fatty liver, GERD, HTN, HL, CKD stage III, multiple sclerosis, and other problems listed below who presents to the ED for abdominal pain. Patient underwent [place] this [place] Dr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 On way home from procedure patient stopped a diner and developed epigastric abdominal pain, chills, subjective warmth, bloating, nausea. She had eaten pudding and peaches after the procedure. Patient called [facility] and was told to present to ER if symptoms persist. Patient states abdominal pain was severe rated 8/10 which improved to 6/10 with morphine given in ER. The pain does not radiate. It feels similar to prior pancreatitis. Last BM was normal this morning. Patient is currently in a boot for L foot fracture sustained in January 2017. Using ice packs at night for pain/ swelling. Otherwise was feeling at baseline prior to procedure. Denies fever, URI symptoms, cough, SOB, chest pain, vomiting, diarrhea, GI bleeding, urinary symptoms, weakness. Past Medical/Surgical History Medical Problems: (1) Acute pancreatitis Status: Resolved (2) Chronic kidney disease Status: Chronic (3) Diverticulosis Status: Chronic (4) Gallstones Status: Resolved (5) GERD (gastroesophageal reflux disease) Status: Chronic (6) GERD (gastroesophageal reflux disease) Status: Chronic (7) HTN (hypertension) Status: Chronic (8) Hyperlipidemia Status: Chronic (9) Kidney disease, chronic, stage III (GFR 30-59 ml/min) Status: Chronic (10) Multiple sclerosis Status: Chronic (11) Pancreatic divisum Status: Chronic (12) Pancreatitis Status: Resolved Surgical Problems: (1) History of abdominal hernia Status: Resolved (2) History of back surgery Status: Chronic (3) Hx of cholecystectomy Status: Chronic (4) S/P bilateral breast reduction Status: Chronic (5) S/P bladder repair Status: Chronic (6) s/p removal of fibroid in uterus Status: Chronic (7) S/P tubal ligation Status: Chronic Family History FH: brain aneurysm SISTER FH: cancer MOTHER (Breast CA) SISTER (Breast CA) FH: hypertension FH: multiple sclerosis DAUGHTER Social History Smoking Status: Never Smoker Marital Status: in relationship Housing status: lives with significant other, other Occupational Status: employed Immunizations History of Influenza Vaccine: Yes Influenza Vaccine Date: Sep 15, 2013 History of Tetanus Vaccine?: Yes Tetanus Immunization Date: Jan 14, 2008 History of Pneumococcal: Yes Pneumococcal Date: Sep 15, 2013 History of Hepatitis B Vaccine: No Multi-Drug Resistant Organisms History of MDRO: No Allergies Coded Allergies: Ibuprofen (Verified Allergy, Mild, HIVES, 03/27/17) Adhesives (Verified Allergy, Unknown, RASH, 03/27/17) Home Medications Scheduled Aspirin (Aspirin), 325 MG PO DAILY Atorvastatin (Lipitor), 40 MG PO QAM Calcium Citrate-Vitamin D (Calcium Citrate + D), 1 TAB PO DAILY Furosemide (Lasix), 20-40 MG PO DAILY Lisinopril (Prinivil), 5 MG PO QAM Melatonin (Melatonin), 5 MG PO HS Multivitamin (Multivitamin), 1 TAB PO QAM Omeprazole (Prilosec), 20 MG PO QAM Ranitidine (Zantac), 300 MG PO HS Tamsulosin HCl (Tamsulosin HCl), 0.4 MG PO HS Scheduled PRN Dicyclomine Hcl (Dicyclomine Hcl), 1 CAP PO DAILY PRN for abdominal pain Polyethylene Glycol 3350 (Miralax), 17 GM PO DAILY PRN for Constipation Review of Systems Ten systems reviewed and negative except as listed in HPI. Physical Exam Vital Signs Date Time Temp Pulse Resp B/P Pulse Ox O2 Delivery O2 Flow Rate FiO2 03/27/17 19:55 76 20 135/58 96 Room Air 03/27/17 17:58 37.0 87 18 135/71 95 Room Air General Appearance: no apparent distress, + obese, + pertinent finding ( pleasant alert 67 year old female, lying in bed, no distres) Head: normocephalic, atraumatic Eyes: normal inspection, PERRL ENT: hearing grossly normal, pharynx normal Neck: supple, trachea midline Respiratory/Chest: lungs clear, normal breath sounds, no respiratory distress, no accessory muscle use Cardiovascular: regular rate, rhythm, no murmur Abdomen/GI: normal bowel sounds, soft, + pertinent finding (moderate tenderness in epigastrium. diffuse mild tenderness throughout remainder of abdomen. obese abdomen. ) Extremities/Musculoskelatal: no calf tenderness, + pertinent finding (1+ pedal edema left foot. RLE no edema. ) Neurologic/Psych: alert, normal mood/affect, oriented x 3 Skin: normal color, warm/dry Diagnostics Laboratory Results Results Past 24 Hours Test 03/27/17 18:20 Range/Units White Blood Count 12.31 4.8-10.8 K/uL Red Blood Count 4.64 4.2-5.4 M/uL Hemoglobin 14.0 12.0-16.0 g/dL Hematocrit 42.9 37-47 % Mean Corpuscular Volume 92.5 80-100 fL Mean Corpuscular Hemoglobin 30.2 25-34 pg Mean Corpuscular Hemoglobin Concent 32.6 32-36 g/dl Platelet Count 183 130-400 K/uL Mean Platelet Volume 11.0 7.4-10.4 fL Neutrophils (%) (Auto) 85.6 % Lymphocytes (%) (Auto) 6.3 % Monocytes (%) (Auto) 7.7 % Eosinophils (%) (Auto) 0.1 % Basophils (%) (Auto) 0.1 % Neutrophils # (Auto) 10.55 1.4-6.5 K/uL Lymphocytes # (Auto) 0.77 1.2-3.4 K/uL Monocytes # (Auto) 0.95 0.11-0.59 K/uL Eosinophils # (Auto) 0.01 0-0.5 K/uL Basophils # (Auto) 0.01 0-0.2 K/uL RDW Standard Deviation 48.8 36.4-46.3 fL RDW Coefficient of Variation 14.5 11.5-14.5 % Immature Granulocyte % (Auto) 0.2 % Immature Granulocyte # (Auto) 0.02 0.00-0.02 K/uL Sodium Level 142 136-145 mmol/L Potassium Level 3.8 3.5-5.1 mmol/L Chloride Level 107 98-107 mmol/L Carbon Dioxide Level 29 21-32 mmol/L Anion Gap 6.0 3-11 mmol/L Blood Urea Nitrogen 17 7-18 mg/dl Creatinine 1.00 0.60-1.20 mg/dl Est Creatinine Clear Calc Drug Dose 52.7 ml/min Estimated GFR () 68.0 Estimated GFR (Non- 58.7 BUN/Creatinine Ratio 16.6 10-20 Random Glucose 114 70-99 mg/dl Calcium Level 9.0 8.5-10.1 mg/dl Total Bilirubin 1.3 0.2-1 mg/dl Direct Bilirubin 0.2 0-0.2 mg/dl Aspartate Amino Transf (AST/SGOT) 16 15-37 U/L Alanine Aminotransferase (ALT/SGPT) 21 12-78 U/L Alkaline Phosphatase 115 45-117 U/L Total Protein 6.8 6.4-8.2 gm/dl Albumin 3.5 3.4-5.0 gm/dl Lipase 546 73-393 U/L Diagnostic Radiology CT SCAN OF THE ABDOMEN AND PELVIS WITHOUT IV CONTRAST CLINICAL HISTORY: Upper abdominal pain. COMPARISON STUDY: Prior abdominal CT scans, most recently dated 11/07/2016. TECHNIQUE: CT scan of the abdomen and pelvis is performed from the lung bases to the proximal femora. Images are reviewed in the axial, sagittal, and coronal planes. IV contrast was not administered for this examination as per the referring clinician. Note that the examination was performed in significantly suboptimal fashion without oral and IV contrast. Automated dose control exposure was utilized. CT DOSE: 596.77 mGy.cm FINDINGS: Lung bases: The heart is top normal in size and without pericardial effusion. There is patchy airspace consolidation identified at the right lung base. The left lung base appears clear. No pleural effusion is seen. Scattered calcified granulomas are observed. There is a small hiatal hernia. Liver: The unenhanced liver is normal in size, contour, and attenuation. Pneumobilia is noted. There is no intrahepatic biliary ductal dilatation. Gallbladder: Surgically absent noting clips in the gallbladder fossa. Spleen: Normal in size and attenuation. Pancreas: Minimal stranding is suggested around the pancreatic head. The unenhanced pancreas is otherwise grossly unremarkable. Adrenal glands: Unremarkable. Kidneys: The unenhanced kidneys demonstrate cortical atrophy and are without hydronephrosis. There are no renal calculi identified. There is no evidence of contour deforming renal mass lesion. Abdominal vasculature: The abdominal aorta is normal in course and caliber noting mild atherosclerotic calcification. Bowel: The small bowel and colon are normal in course and caliber. There is mild to moderate sigmoid diverticulosis without CT evidence of acute diverticulitis. The appendix is well-visualized and normal. Peritoneum: There is no intraperitoneal free air or abdominal ascites. Lymphadenopathy: None. Pelvic viscera: The bladder, uterus, and adnexa are normal as visualized. Skeletal structures: The skeletal structures are osteopenic. There is moderate lumbosacral spondylosis and scoliosis. No lytic or blastic lesions are seen. Sclerotic change is identified at the pubic symphysis, left greater than right. IMPRESSION: 1. Suboptimal examination without oral and IV contrast. 2. Question mild stranding around the pancreatic head. Correlate clinically and with serum lipase levels for evidence of mild acute pancreatitis. 3. There is patchy airspace consolidation at the right lung base typical in appearance for pneumonia. Clinical correlation will be required. Radiographic follow-up to resolution is recommended. 4. Mild to moderate sigmoid diverticulosis without CT evidence of acute diverticulitis. 5. There are changes from previous cholecystectomy. There is pneumobilia, likely related to previous sphincterotomy. Correlation with clinical findings and the patient's surgical history will be required. 6. Additional changes as above. Impression Assessment and Plan ABDOMINAL PAIN Due to acute pancreatitis s/[place] [facility] [place] earlier today 03/27/17 ERCP report- papillary stenosis with distal CBD stricture, s/p sphincterotomy and balloon sphincteroplasty Hx recurrent pancreatitis; s/p cholecystectomy 12/2015 Afebrile; WBC 12.3; hemodynamically stable Lipase is 546, total bili 1.3, other LFTs WNL CT a/p: ? mild stranding around pancreatic head, correlate clinically for mild acute pancreatitis, R lung base consolidation, mild-moderate sigmoid diverticulosis without acute diverticulitis, prior cholecystectomy, pneumobilia likely due to sphincterotomy NPO except essential meds Continue IV fluids- NSS at 150 mL/hour Pain control with IV morphine PRN IV PPI daily Recheck lipase/ LFT's in am Consult GI; case d/w Dr. Cai by ER physician RIGHT LUNG BASE CONSOLIDATION Clinically no pneumonia; no cough/ SOB HTN Stable Continue lisinopril Hold Lasix DYSLIPIDEMIA Hold statin for now CKD STAGE III Creat is at baseline Monitor renal function CAROTID STENOSIS Hold aspirin for 1 week post procedure as per Dr. Hawk's note MULTIPLE SCLEROSIS Stable; not undergoing treatment currently DVT PROPHYLAXIS SCD's CODE STATUS FULL CODE DISPOSITION Admit to med/ surg Follows with Dr. Indy Diop for primary care Patient seen in collaboration with Dr. Dewitt. Please see his addendum. Agree with above h and p. Briefly 67f with hx of recurrent pancreatitis who had ercp yesterday morning at [facility] and was discharged home and later developed abdominal pain and came to [facility]. [place] nauseous. Currently pain is better with pain meds.Denies any chest pain or sob. Afebrile. Hemodynamically stable. 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 Y/N: Yes Risk Level: Moderate
[2017-03-27 21:45] VITALS: BP 146/60; PULSE 74; TEMP 36.8; O2SAT 97; Ht 153.7 cm; Wt 81.4 kg
[2017-03-27] MEDS: SODIUM CHLORIDE 0.9% 1000ML 1,000 ML IV SCH (22:13)
[2017-03-27] MEDS: MoRPHine SULFATE 4 MG/ML 1 ML CARP\\VIAL IV PRN (23:28)
[2017-03-27 23:29] LABS: URINE APPEARANCE CLEAR (CLEAR); URINE BILIRUBIN NEG (NEG); URINE COLOR YELLOW; URINE NITRITE NEG (NEG); URINE PH 7.5 (4.5-7.5); URINE SPECIFIC GRAVITY 1.014 (1.000-1.030); UROBILINOGEN NEG (NEG)
[2017-03-27 23:31] LABS: MANUAL MICROSCOPIC REQUIRED? NO; REVIEW REQ? NO
[2017-03-28 00:14] VITALS: BP 113/71; PULSE 70; TEMP 36.8; O2SAT 95
[2017-03-28] MEDS: SODIUM CHLORIDE 0.9% 1000ML 1,000 ML IV SCH ×4 (04:16→23:50)
[2017-03-28] MEDS: MoRPHine SULFATE 4 MG/ML 1 ML CARP\\VIAL IV PRN ×3 (05:12→16:38)
[2017-03-28 05:53] LABS: HEMATOCRIT 38.1 % (37-47); MEAN CELL VOLUME 93.8 fL (80-100); MEAN CORPUSCULAR HEMOGLOBIN 30.3 pg (25-34); MEAN CORPUSCULAR HGB CONC 32.3 g/dl (32-36); MEAN PLATELET VOLUME 10.8 fL (7.4-10.4); PLATELET COUNT 188 K/uL (130-400); RED BLOOD COUNT 4.06 M/uL (4.2-5.4); WHITE BLOOD COUNT 12.79 K/uL (4.8-10.8)
[2017-03-28 06:35] LABS: BUN/CREATININE RATIO 13.8 (10-20); CALCIUM 8.4 mg/dl (8.5-10.1); CREATININE 0.91 mg/dl (0.60-1.20); POTASSIUM 3.8 mmol/L (3.5-5.1)
--- NOTE | 2017-03-28 07:41 | Gastrointestinal Consultation ---
Gastrointestinal Consultation Date of Consultation: March 28, 2017 Consulting Physician: Tab Reason for Consultation: acute panc after ERCP History of Present Illness Patient is a 67 year old female w/ PMH significant for MS, CKD III, HTN, GERD, Hyperlipidemia, recurrent pancreatitis, fatty liver, h/o cholecystectomy who was admitted on 03/28 for post ERCP abdominal pain - GI is consulted for management. ERCP for pancreatic divisum following a history for recurrent acute pancreatitis in 2010, 2014 and 2015. She underwent cholecystectomy in 2015 after EUS with sludge. After another episode of pancreatitis in June 2016, EUS in July with dilated pancreatic duct in the pancreatic body and dilated CBD, with recommendation to offer ERCP if another occurrence of pancreatitis. Pt was seen and evaluated this AM. She reports around noon yesterday there was gradual onset of epigastric and RUQ pain with associated nausea, fever, and chills. This felt exactly the same as previous episodes of pancreatitis. She contacted [facility] who suggested she be evaluated in the ED. Since admission , nausea, fever and chills have resolved. She has infrequent bouts of epigastric and RUQ pain that is resolved with pain medications. No vomiting. Overall she feels 75% improved from yesterday. Denies fever, chills, chest pain , SOB, abdominal pain, black/bloody stools. CT abd 03/27/17: Suboptimal examination without oral and IV contrast.Question mild stranding around the pancreatic head. Correlate clinically and with serum lipase levels for evidence of mild acute pancreatitis. There is patchy airspace consolidation at the right lung base typical in appearance for pneumonia. Clinical correlation will be required. Radiographic follow-up to resolution is recommended. Mild to moderate sigmoid diverticulosis without CT evidence of acute diverticulitis. There are changes from previous cholecystectomy. There is pneumobilia, likely related to previous sphincterotomy. Correlation with clinical findings and the patient's surgical history will be required. ERCP 03/27/17: Papillary stenosis with distal CBD stricture. Needle knife sphincterotomy required for access, followed by balloon sphincteroplasty. No stones on sweep. Avoid aspirin and nonsteroidal anti-inflammatory medicines for 1 week. Repeat ERCP for pancreas divisum treatment if today's procedure does not correct recurrent acute pancreatitis. Past Medical/Surgical History Medical Problems: (1) Abdominal pain Status: Acute (2) Chronic kidney disease Status: Chronic (3) GERD (gastroesophageal reflux disease) Status: Chronic (4) Hematuria Status: Acute (5) Intractable right lower quadrant abdominal pain Status: Acute (6) Left elbow contusion Status: Acute (7) Lisfranc fracture Status: Acute (8) Post-op pain Status: Acute (9) Right upper quadrant abdominal pain Status: Acute (10) Work related injury Status: Acute Past Medical History: Acute pancreatitis, CKD, MS, diverticulosis, gallstones, GERD, HTN, dyslipidemia , pancreatic divisum Past Surgical History: cholecystectomy, back surgery, abdominal hernia, breast reduction, bladder repair, uterine fibroids, tubal ligation, EGD, EUS, ERCP Family History FH: brain aneurysm SISTER FH: cancer MOTHER (Breast CA) SISTER (Breast CA) FH: hypertension FH: multiple sclerosis DAUGHTER Social History Smoking Status: Never Smoker Alcohol Use: none Marital Status: in relationship Housing Status: lives with significant other Occupation Status: employed Allergies Coded Allergies: Ibuprofen (Verified Allergy, Mild, HIVES, 03/27/17) Adhesives (Verified Allergy, Unknown, RASH, 03/27/17) Current Medications Home Meds and Scripts Medications Dose Route/Sig Max Daily Dose Days Date Category Dose Instructions Tamsulosin HCl 0.4 Mg Cap 0.4 Mg PO HS 03/27/17 Reported Lipitor (Atorvastatin Calcium) 40 Mg Tab 40 Mg PO QAM 03/27/17 Reported Dicyclomine Hcl 10 Mg Cap 1 Cap PO DAILY PRN 01/19/17 Reported Prinivil (Lisinopril) 5 Mg Tab 5 Mg PO QAM 01/19/17 Reported Prilosec (Omeprazole) 20 Mg Capcr 20 Mg PO QAM 06/19/16 Reported Melatonin 5 Mg Tab 5 Mg PO HS 10/23/15 Reported Lasix (Furosemide) 20 Mg Tab 20-40 Mg PO DAILY 09/10/15 Reported Calcium Citrate + D (Calcium Citrate-Vitamin D) 1 Tab Tab 1 Tab PO DAILY 11/24/14 Reported Multivitamin (Multivitamins) Tab 1 Tab PO QAM 11/24/14 Reported Zantac (Ranitidine HCl) 300 Mg Tab 300 Mg PO HS 01/13/14 Reported Miralax (Polyethylene Glycol 3350) 1 Pow Pow 17 Gm PO DAILY PRN 01/13/14 Reported Aspirin 325 Mg Tab 325 Mg PO DAILY 06/06/13 Reported HOLD ONE WEEK PRIOR Review of Systems Constitutional: No fever Respiratory: No cough, No shortness of breath Cardiac: No chest pain, No edema Abdomen: + pain, No constipation, No diarrhea, No nausea, No vomiting Physical Exam Date Time Temp Pulse Resp B/P Pulse Ox O2 Delivery O2 Flow Rate FiO2 03/28/17 00:14 36.8 70 20 113/71 95 Room Air 03/28/17 00:00 Room Air 03/27/17 21:45 36.8 74 18 146/60 97 Room Air 03/27/17 19:55 76 20 135/58 96 Room Air 03/27/17 17:58 37.0 87 18 135/71 95 Room Air General Appearance: no apparent distress (pt was sitting upright in bed watching TV) Eyes: PERRL ENT: hearing grossly normal Neck: supple Respiratory/Chest: normal breath sounds, no respiratory distress Cardiovascular: regular rate, rhythm, no murmur Abdomen: normal bowel sounds, soft, no organomegaly, no pulsatile mass, + tenderness (mild epigastric tenderness) Neurologic/Psych: alert, normal mood/affect, oriented x 3 Skin: normal color, no jaundice, warm/dry, no rash Laboratory Results Last 24 Hours Test 03/27/17 18:20 03/27/17 22:45 03/28/17 05:10 White Blood Count 12.31 K/uL 12.79 K/uL Red Blood Count 4.64 M/uL 4.06 M/uL Hemoglobin 14.0 g/dL 12.3 g/dL Hematocrit 42.9 % 38.1 % Mean Corpuscular Volume 92.5 fL 93.8 fL Mean Corpuscular Hemoglobin 30.2 pg 30.3 pg Mean Corpuscular Hemoglobin Concent 32.6 g/dl 32.3 g/dl Platelet Count 183 K/uL 188 K/uL Mean Platelet Volume 11.0 fL 10.8 fL Neutrophils (%) (Auto) 85.6 % Lymphocytes (%) (Auto) 6.3 % Monocytes (%) (Auto) 7.7 % Eosinophils (%) (Auto) 0.1 % Basophils (%) (Auto) 0.1 % Neutrophils # (Auto) 10.55 K/uL Lymphocytes # (Auto) 0.77 K/uL Monocytes # (Auto) 0.95 K/uL Eosinophils # (Auto) 0.01 K/uL Basophils # (Auto) 0.01 K/uL RDW Standard Deviation 48.8 fL 50.5 fL RDW Coefficient of Variation 14.5 % 14.7 % Immature Granulocyte % (Auto) 0.2 % Immature Granulocyte # (Auto) 0.02 K/uL Sodium Level 142 mmol/L 144 mmol/L Potassium Level 3.8 mmol/L 3.8 mmol/L Chloride Level 107 mmol/L 111 mmol/L Carbon Dioxide Level 29 mmol/L 28 mmol/L Anion Gap 6.0 mmol/L 5.0 mmol/L Blood Urea Nitrogen 17 mg/dl 13 mg/dl Creatinine 1.00 mg/dl 0.91 mg/dl Est Creatinine Clear Calc Drug Dose 52.7 ml/min 58.1 ml/min Estimated GFR () 68.0 76.2 Estimated GFR (Non- 58.7 65.7 BUN/Creatinine Ratio 16.6 13.8 Random Glucose 114 mg/dl 88 mg/dl Calcium Level 9.0 mg/dl 8.4 mg/dl Total Bilirubin 1.3 mg/dl 1.8 mg/dl Direct Bilirubin 0.2 mg/dl 0.3 mg/dl Aspartate Amino Transf (AST/SGOT) 16 U/L 11 U/L Alanine Aminotransferase (ALT/SGPT) 21 U/L 16 U/L Alkaline Phosphatase 115 U/L 95 U/L Total Protein 6.8 gm/dl 5.7 gm/dl Albumin 3.5 gm/dl 2.8 gm/dl Lipase 546 U/L 306 U/L Urine Color YELLOW Urine Appearance CLEAR Urine pH 7.5 Urine Specific Driscoll 1.014 Urine Protein NEG Urine Glucose (UA) NEG Urine Ketones NEG Urine Occult Blood 2+ Urine Nitrite NEG Urine Bilirubin NEG Urine Urobilinogen NEG Urine Leukocyte Esterase LARGE Urine WBC (Auto) >30 /hpf Urine RBC (Auto) >30 /hpf Urine Hyaline Casts (Auto) 1-5 /lpf Urine Epithelial Cells (Auto) 10-20 /lpf Urine Bacteria (Auto) NEG Impression Patient is a 67 year old female with gradual onset epigastric abdominal pain, nausea and subjective fever and chills with suspected pancreatitis following ERCP on 03/27/17. CT was suboptimal with mild stranding around the pancreatic head with mildly elevated lipase of 546 on admission, this AM is 306. Plan NPO for bowel rest IVF for hydration 200mL/hr x 48 hours Antiemetics as needed Pain medications as needed Advance to clear liquids tonight and low fat diet if tolerated tomorrow AM if pt continue to improve quickly. ATTESTATION: I have performed a history and physical examination of this patient and reviewed the electronic record. Specifically, on physical examination there is epigastric tenderness but patient reports pain has almost completely resolved. I have discussed the case with MINERVA Wheat. The above note reflects my findings, conclusions, and recommendations. Juan Barth MD
[2017-03-28 07:50] VITALS: BP 112/71; PULSE 62; TEMP 36.8; O2SAT 93
[2017-03-28] MEDS: LISINOPRIL 5 MG TAB PO SCH (08:19)
[2017-03-28] MEDS: PANTOprazole INJ 40 MG in SYRINGE 0 ML IV SCH (10:53)
[2017-03-28 15:34] VITALS: BP 121/72; PULSE 58; TEMP 36.6; O2SAT 97
--- NOTE | 2017-03-28 17:44 | Progress Note ---
Internal Med Progress Note Date of Service: March 28, 2017. Provider Documentation: SUBJECTIVE: The patient was seen and examined Pain and other symptoms are better Clears started OBJECTIVE: Vital Signs-as noted below Exam: General-no distress Eyes-normal ENT-normal Neck-supple Lungs-clear to auscultate bilaterally Heart-Regular Abdomen-Benign,no masses,bowel sound present Minimally tender epigastrium Extremities-No edema Neuro-AAOx3 Lab data as noted below. ASSESSMENT & PLAN: Acute Pancreatitis s/p ERCP at [facility] [place] (Dr. Hawk) earlier today 03/27/17 Presented with ABDOMINAL PAIN ERCP report- papillary stenosis with distal CBD stricture, s/p sphincterotomy and balloon sphincteroplasty History of recurrent pancreatitis; s/p cholecystectomy 12/2015 CT Abdomen and Pelvis : mild stranding around pancreatic head, correlate clinically for mild acute pancreatitis, R lung base consolidation, mild- moderate sigmoid diverticulosis without acute diverticulitis, prior cholecystectomy, pneumobilia likely due to sphincterotomy NPO except essential meds Continue IV fluids- NSS at 150 mL/hour Pain control with IV morphine PRN IV PPI daily Lipase is improving and patient is symptomatically better Consult GI-appreciate input RIGHT LUNG BASE CONSOLIDATION Clinically no pneumonia; no cough/ SOB Will not give any antibiotic, WCC is improving HTN Stable Continue lisinopril Hold Lasix DYSLIPIDEMIA Hold statin for now CKD STAGE III Creat is at baseline Monitor renal function CAROTID STENOSIS Hold aspirin for 1 week post procedure as per Dr. Hawk's note MULTIPLE SCLEROSIS Stable; not undergoing treatment currently No acute symptoms DVT PROPHYLAXIS SCD's CODE STATUS FULL CODE DISPOSITION Admit to med/ surg Follows with Dr. Indy Diop for primary care Vital Signs: Date Time Temp Pulse Resp B/P Pulse Ox O2 Delivery O2 Flow Rate FiO2 03/28/17 16:00 Room Air 03/28/17 15:34 36.6 58 16 121/72 97 Room Air 03/28/17 08:00 Room Air 03/28/17 07:50 36.8 62 18 112/71 93 Room Air 03/28/17 00:14 36.8 70 20 113/71 95 Room Air 03/28/17 00:00 Room Air 03/27/17 21:45 36.8 74 18 146/60 97 Room Air 03/27/17 19:55 76 20 135/58 96 Room Air 03/27/17 17:58 37.0 87 18 135/71 95 Room Air Lab Results: Results Past 24 Hours Test 03/27/17 18:20 03/27/17 22:45 03/28/17 05:10 Range/Units White Blood Count 12.31 12.79 4.8-10.8 K/uL Red Blood Count 4.64 4.06 4.2-5.4 M/uL Hemoglobin 14.0 12.3 12.0-16.0 g/dL Hematocrit 42.9 38.1 37-47 % Mean Corpuscular Volume 92.5 93.8 80-100 fL Mean Corpuscular Hemoglobin 30.2 30.3 25-34 pg Mean Corpuscular Hemoglobin Concent 32.6 32.3 32-36 g/dl Platelet Count 183 188 130-400 K/uL Mean Platelet Volume 11.0 10.8 7.4-10.4 fL Neutrophils (%) (Auto) 85.6 % Lymphocytes (%) (Auto) 6.3 % Monocytes (%) (Auto) 7.7 % Eosinophils (%) (Auto) 0.1 % Basophils (%) (Auto) 0.1 % Neutrophils # (Auto) 10.55 1.4-6.5 K/uL Lymphocytes # (Auto) 0.77 1.2-3.4 K/uL Monocytes # (Auto) 0.95 0.11-0.59 K/uL Eosinophils # (Auto) 0.01 0-0.5 K/uL Basophils # (Auto) 0.01 0-0.2 K/uL RDW Standard Deviation 48.8 50.5 36.4-46.3 fL RDW Coefficient of Variation 14.5 14.7 11.5-14.5 % Immature Granulocyte % (Auto) 0.2 % Immature Granulocyte # (Auto) 0.02 0.00-0.02 K/uL Sodium Level 142 144 136-145 mmol/L Potassium Level 3.8 3.8 3.5-5.1 mmol/L Chloride Level 107 111 98-107 mmol/L Carbon Dioxide Level 29 28 21-32 mmol/L Anion Gap 6.0 5.0 3-11 mmol/L Blood Urea Nitrogen 17 13 7-18 mg/dl Creatinine 1.00 0.91 0.60-1.20 mg/dl Est Creatinine Clear Calc Drug Dose 52.7 58.1 ml/min Estimated GFR () 68.0 76.2 Estimated GFR (Non- 58.7 65.7 BUN/Creatinine Ratio 16.6 13.8 10-20 Random Glucose 114 88 70-99 mg/dl Calcium Level 9.0 8.4 8.5-10.1 mg/dl Total Bilirubin 1.3 1.8 0.2-1 mg/dl Direct Bilirubin 0.2 0.3 0-0.2 mg/dl Aspartate Amino Transf (AST/SGOT) 16 11 15-37 U/L Alanine Aminotransferase (ALT/SGPT) 21 16 12-78 U/L Alkaline Phosphatase 115 95 45-117 U/L Total Protein 6.8 5.7 6.4-8.2 gm/dl Albumin 3.5 2.8 3.4-5.0 gm/dl Lipase 546 306 73-393 U/L Urine Color YELLOW Urine Appearance CLEAR CLEAR Urine pH 7.5 4.5-7.5 Urine Specific [place] 1.014 1.000-1.030 Urine Protein NEG NEG Urine Glucose (UA) NEG NEG Urine Ketones NEG NEG Urine Occult Blood 2+ NEG Urine Nitrite NEG NEG Urine Bilirubin NEG NEG Urine Urobilinogen NEG NEG Urine Leukocyte Esterase LARGE NEG Urine WBC (Auto) >30 0-5 /hpf Urine RBC (Auto) >30 0-4 /hpf Urine Hyaline Casts (Auto) 1-5 0-5 /lpf Urine Epithelial Cells (Auto) 10-20 0-5 /lpf Urine Bacteria (Auto) NEG NEG
[2017-03-28] MEDS: TRAMADOL HCL 50 MG TAB PO PRN (20:30)
[2017-03-28 23:51] VITALS: BP 148/57; PULSE 63; TEMP 36.6; O2SAT 95
[2017-03-29] MEDS: TRAMADOL HCL 50 MG TAB PO PRN ×2 (02:07→18:21)
[2017-03-29] MEDS: SODIUM CHLORIDE 0.9% 1000ML 1,000 ML IV SCH ×3 (06:24→19:49)
[2017-03-29 08:04] VITALS: BP 136/78; PULSE 60; TEMP 36.9; O2SAT 92
[2017-03-29] MEDS: LISINOPRIL 5 MG TAB PO SCH (08:14)
--- NOTE | 2017-03-29 09:08 | Gastroenterology Progress Note ---
Progress Note Date of Service: March 29, 2017 Subjective Pt evaluation today including: conversation w/ patient, physical exam, lab review Pt was seen and examined this morning. Diet was advanced last night to clear liquids and to regular low fat diet this AM. She did not have any increase in her abdominal pain with dietary advancement. Still complaints of intermittent RUQ pain. Spontaneous - feels like a spasm. Epigastric pain resolved. Review of Systems Constitutional: No chills, No fever Respiratory: No cough, No shortness of breath Cardiac: No chest pain, No edema Abdomen: + pain, No constipation, No diarrhea, No nausea, No vomiting Skin: + itch (itch with morphine - this has been held) Medications Current Inpatient Medications Medications (Trade) Dose Ordered Sig/Alycia Route Start Time Stop Time Status Last Admin Dose Admin Acetaminophen (Tylenol Tab) 650 mg Q4H PRN PO 03/27/17 20:15 04/26/17 20:14 Ondansetron HCl 4 mg 4 mg Q6H PRN IV 03/27/17 20:15 04/26/17 20:14 03/27/17 23:28 4 MG Sodium Chloride (Nss 1000ml) 1,000 ml @ 150 mls/hr Q6H40M IV 03/27/17 22:00 04/26/17 21:59 03/29/17 06:24 150 MLS/HR Morphine Sulfate (MoRPHine SULFATE INJ) 4 mg Q4H PRN IV 03/27/17 20:45 04/10/17 20:44 03/28/17 16:38 4 MG Lisinopril 5 mg 5 mg QAM PO 03/28/17 09:00 04/27/17 08:59 03/29/17 08:14 5 MG Pantoprazole Sodium/Syringe (Protonix Inj/ Syringe) 10 ml @ 5 mls/min DAILY@11 IV 03/28/17 11:00 04/27/17 10:59 03/28/17 10:53 5 MLS/MIN Tramadol HCl (Ultram Tab) not relieved by tylenol @ Q6H PRN PO 03/28/17 20:15 04/27/17 20:14 03/29/17 02:07 50 MG Diphenhydramine HCl (Benadryl Cap) 25 mg Q6H PRN PO 03/28/17 20:15 04/27/17 20:14 03/29/17 08:13 25 MG Objective Vital Signs Date Time Temp Pulse Resp B/P Pulse Ox O2 Delivery O2 Flow Rate FiO2 03/29/17 08:04 36.9 60 18 136/78 92 Room Air 03/29/17 00:00 Room Air 03/28/17 23:51 36.6 63 16 148/57 95 Room Air 03/28/17 20:00 Room Air 03/28/17 16:00 Room Air 03/28/17 15:34 36.6 58 16 121/72 97 Room Air Physical Exam General Appearance: no apparent distress Eyes: PERRL ENT: hearing grossly normal Neck: supple Respiratory/Chest: normal breath sounds, no respiratory distress Cardiovascular: regular rate, rhythm Abdomen: normal bowel sounds, soft, no organomegaly, no pulsatile mass, + tenderness (mild RUQ) Neurologic/Psych: alert, normal mood/affect, oriented x 3 Skin: normal color Laboratory Results Last 24 Hours Test 03/29/17 08:38 Assessment and Plan Patient is a 67 year old female with gradual onset epigastric abdominal pain, nausea and subjective fever and chills with suspected pancreatitis following ERCP on 03/27/17. CT was suboptimal with mild stranding around the pancreatic head with mildly elevated lipase of 546 on admission, this AM is 306. She is tolerating regular diet without nausea or vomiting. AM labs are pending Plan IVF for hydration 200mL/hr x 48 hours Antiemetics as needed Pain medications as needed Low fat diet as tolerated GI to sign off. Please call with any questions or concerns. ATTESTATION: I have performed a history and physical examination of this patient and reviewed the electronic record. Specifically, on physical examination there is minimal epigastric tenderness. I have discussed the case with MINERVA Wheat. The above note reflects my findings, conclusions, and recommendations. Juan Barth MD
[2017-03-29] MEDS: PANTOprazole INJ 40 MG in SYRINGE 0 ML IV SCH (11:00)
--- NOTE | 2017-03-29 12:38 | Progress Note ---
Internal Med Progress Note Date of Service: March 29, 2017. Provider Documentation: SUBJECTIVE: The patient was seen and examined Pain and other symptoms are almost gone Advanced diet as tolerated OBJECTIVE: Vital Signs-as noted below Exam: General-no distress at rest Eyes-normal ENT-normal Neck-supple Lungs-clear to auscultate bilaterally Heart-Regular Abdomen-Benign,no masses,bowel sound present No tenderness in epigastrium Minimal tenderness in RUQ Extremities-No edema Neuro-AAOx3 Lab data as noted below. ASSESSMENT & PLAN: [place] [facility] [place] today [place]/27/17 Presented with ABDOMINAL PAIN ERCP report- papillary stenosis with distal CBD stricture, s/p sphincterotomy and balloon sphincteroplasty History of recurrent pancreatitis; s/p cholecystectomy 12/2015 CT Abdomen and Pelvis : mild stranding around pancreatic head, correlate clinically for mild acute pancreatitis, R lung base consolidation, mild- moderate sigmoid diverticulosis without acute diverticulitis, prior cholecystectomy, pneumobilia likely due to sphincterotomy NPO except essential meds Continue IV fluids- NSS at 150 mL/hour Pain control with IV morphine PRN IV PPI daily Lipase is improving and patient is symptomatically better Consult GI-appreciate input. GI signed off 03/29/17 Lipase is Again up today Tolerating regular diet Will check Lipase again before discharge. RIGHT LUNG BASE CONSOLIDATION Clinically no pneumonia; no cough/ SOB Will not give any antibiotic, Some discomfort rith lower chest area and RUQ Check CBC HTN Stable Continue lisinopril Hold Lasix DYSLIPIDEMIA Hold statin for now CKD STAGE III Creat is at baseline Monitor renal function CAROTID STENOSIS Hold aspirin for 1 week post procedure as per Dr. Hawk's note MULTIPLE SCLEROSIS Stable; not undergoing treatment currently No acute symptoms DVT PROPHYLAXIS SCD's CODE STATUS FULL CODE DISPOSITION Admit to med/ surg Follows with Dr. Indy Diop for primary care Vital Signs: Date Time Temp Pulse Resp B/P Pulse Ox O2 Delivery O2 Flow Rate FiO2 03/29/17 10:42 Room Air 03/29/17 08:04 36.9 60 18 136/78 92 Room Air 03/29/17 00:00 Room Air 03/28/17 23:51 36.6 63 16 148/57 95 Room Air 03/28/17 20:00 Room Air 03/28/17 16:00 Room Air 03/28/17 15:34 36.6 58 16 121/72 97 Room Air Lab Results: Results Past 24 Hours Test 03/29/17 08:38 Range/Units Total Bilirubin 1.4 0.2-1 mg/dl Direct Bilirubin 0.3 0-0.2 mg/dl Aspartate Amino Transf (AST/SGOT) 11 15-37 U/L Alanine Aminotransferase (ALT/SGPT) 15 12-78 U/L Alkaline Phosphatase 83 45-117 U/L Total Protein 5.5 6.4-8.2 gm/dl Albumin 2.6 3.4-5.0 gm/dl Lipase 994 73-393 U/L
[2017-03-29 15:04] LABS: HEMATOCRIT 38.4 % (37-47); MEAN CELL VOLUME 95.3 fL (80-100); MEAN CORPUSCULAR HEMOGLOBIN 29.5 pg (25-34); MEAN PLATELET VOLUME 10.9 fL (7.4-10.4); PLATELET COUNT 178 K/uL (130-400); RED BLOOD COUNT 4.03 M/uL (4.2-5.4); WHITE BLOOD COUNT 6.71 K/uL (4.8-10.8)
[2017-03-29 15:38] VITALS: BP 144/84; PULSE 60; TEMP 36.7; O2SAT 95
[2017-03-29 15:40] LABS: BUN/CREATININE RATIO 9.7 (10-20); CALCIUM 8.4 mg/dl (8.5-10.1); CREATININE 0.98 mg/dl (0.60-1.20); POTASSIUM 3.8 mmol/L (3.5-5.1)
[2017-03-29 22:57] VITALS: BP 132/81; PULSE 59; TEMP 36.5; O2SAT 95
[2017-03-30] MEDS: SODIUM CHLORIDE 0.9% 1000ML 1,000 ML IV SCH ×2 (03:51→09:18)
--- NOTE | 2017-03-30 07:30 | Gastroenterology Progress Note ---
Progress Note Date of Service: March 30, 2017 Subjective Pt evaluation today including: conversation w/ patient, physical exam, chart review, lab review Pt was seen and evaluated this AM. She is doing well. Tolerated dinner last night. She slept through the night 10-6 this morning without any discomfort. She is doing well this morning, she was told she was held overnight because her lipase yesterday increased to 900. She is not symptomatic - no abdominal pain, nausea, vomiting and is tolerating PO intake. Denies fever, chills, chest pain, SOB, black/bloody stools. Review of Systems Constitutional: No chills, No fever Respiratory: No cough, No shortness of breath Cardiac: No chest pain Abdomen: No GI bleeding, No constipation, No diarrhea, No nausea, No pain, No vomiting Medications Current Inpatient Medications Medications (Trade) Dose Ordered Sig/Alycia Route Start Time Stop Time Status Last Admin Dose Admin Acetaminophen (Tylenol Tab) 650 mg Q4H PRN PO 03/27/17 20:15 04/26/17 20:14 03/29/17 22:06 650 MG Ondansetron HCl 4 mg 4 mg Q6H PRN IV 03/27/17 20:15 04/26/17 20:14 03/27/17 23:28 4 MG Sodium Chloride (Nss 1000ml) 1,000 ml @ 150 mls/hr Q6H40M IV 03/27/17 22:00 04/26/17 21:59 03/30/17 03:51 150 MLS/HR Morphine Sulfate (MoRPHine SULFATE INJ) 4 mg Q4H PRN IV 03/27/17 20:45 04/10/17 20:44 03/28/17 16:38 4 MG Lisinopril 5 mg 5 mg QAM PO 03/28/17 09:00 04/27/17 08:59 03/29/17 08:14 5 MG Pantoprazole Sodium/Syringe (Protonix Inj/ Syringe) 10 ml @ 5 mls/min DAILY@11 IV 03/28/17 11:00 04/27/17 10:59 03/29/17 11:00 5 MLS/MIN Tramadol HCl (Ultram Tab) not relieved by tylenol @ Q6H PRN PO 03/28/17 20:15 04/27/17 20:14 03/29/17 18:21 50 MG Diphenhydramine HCl (Benadryl Cap) 25 mg Q6H PRN PO 03/28/17 20:15 04/27/17 20:14 03/29/17 08:13 25 MG Objective Vital Signs Date Time Temp Pulse Resp B/P Pulse Ox O2 Delivery O2 Flow Rate FiO2 03/30/17 00:00 Room Air 03/29/17 22:57 36.5 59 18 132/81 95 Room Air 03/29/17 21:15 Room Air 03/29/17 15:38 36.7 60 18 144/84 95 Room Air 03/29/17 10:42 Room Air 03/29/17 08:04 36.9 60 18 136/78 92 Room Air Physical Exam General Appearance: no apparent distress Eyes: PERRL ENT: hearing grossly normal Neck: supple Respiratory/Chest: lungs clear, no respiratory distress Cardiovascular: regular rate, rhythm Abdomen: normal bowel sounds, non tender, soft, no organomegaly, no pulsatile mass Neurologic/Psych: alert, normal mood/affect, oriented x 3 Skin: normal color Laboratory Results Last 24 Hours Test 03/29/17 08:38 03/29/17 14:59 Total Bilirubin 1.4 mg/dl Direct Bilirubin 0.3 mg/dl Aspartate Amino Transf (AST/SGOT) 11 U/L Alanine Aminotransferase (ALT/SGPT) 15 U/L Alkaline Phosphatase 83 U/L Total Protein 5.5 gm/dl Albumin 2.6 gm/dl Lipase 994 U/L 769 U/L White Blood Count 6.71 K/uL Red Blood Count 4.03 M/uL Hemoglobin 11.9 g/dL Hematocrit 38.4 % Mean Corpuscular Volume 95.3 fL Mean Corpuscular Hemoglobin 29.5 pg Mean Corpuscular Hemoglobin Concent 31.0 g/dl RDW Standard Deviation 50.9 fL RDW Coefficient of Variation 14.5 % Platelet Count 178 K/uL Mean Platelet Volume 10.9 fL Sodium Level 146 mmol/L Potassium Level 3.8 mmol/L Chloride Level 112 mmol/L Carbon Dioxide Level 28 mmol/L Anion Gap 6.0 mmol/L Blood Urea Nitrogen 10 mg/dl Creatinine 0.98 mg/dl Est Creatinine Clear Calc Drug Dose 54.0 ml/min Estimated GFR () 69.7 Estimated GFR (Non- 60.1 BUN/Creatinine Ratio 9.7 Random Glucose 87 mg/dl Calcium Level 8.4 mg/dl Assessment and Plan Patient is a 67 year old female with gradual onset epigastric abdominal pain, nausea and subjective fever and chills with suspected pancreatitis following ERCP on 03/27/17. CT was suboptimal with mild stranding around the pancreatic head with mildly elevated lipase of 546 on admission, this AM is 306. She is tolerating regular diet without nausea or vomiting. AM labs are pending Plan Antiemetics as needed Pain medications as needed Low fat diet as tolerated GI to sign off. No GI contraindication to discharge. Please call with any questions or concerns. ATTESTATION: I have performed a history and physical examination of this patient and reviewed the electronic record. Specifically, on physical examination there is no tenderness. I have discussed the case with MINERVA Wheat. The above note reflects my findings, conclusions, and recommendations. Juan Barth MD
[2017-03-30] MEDS: LISINOPRIL 5 MG TAB PO SCH (07:50)
[2017-03-30 07:57] VITALS: BP 144/78; PULSE 55; TEMP 36.4; O2SAT 97
[2017-03-30] MEDS: PANTOprazole INJ 40 MG in SYRINGE 0 ML IV SCH (09:18)
--- NOTE | 2017-03-30 11:35 | Progress Note ---
Internal Med Progress Note Date of Service: March 30, 2017. Provider Documentation: SUBJECTIVE: The patient was seen and examined Pain and other symptoms are almost gone Tolerating Regular diet Ready to be discharged OBJECTIVE: Vital Signs-as noted below Exam: General-no distress at rest Eyes-normal ENT-normal Neck-supple Lungs-clear to auscultate bilaterally Heart-Regular Abdomen-Benign,no masses,bowel sound present No tenderness in epigastrium Bowel soumd present Extremities-No edema Neuro-AAOx3 Lab data as noted below. ASSESSMENT & PLAN: Acute Pancreatitis s/p [place] [facility] [place] Hawk) earlier today 03/27/17 Presented with ABDOMINAL PAIN ERCP report- papillary stenosis with distal CBD stricture, s/p sphincterotomy and balloon sphincteroplasty History of recurrent pancreatitis; s/p cholecystectomy 12/2015 CT Abdomen and Pelvis : mild stranding around pancreatic head, correlate clinically for mild acute pancreatitis, R lung base consolidation, mild- moderate sigmoid diverticulosis without acute diverticulitis, prior cholecystectomy, pneumobilia likely due to sphincterotomy NPO except essential meds Continue IV fluids- NSS at 150 mL/hour Pain control with IV morphine PRN IV PPI daily Lipase is improving and patient is symptomatically better Consult GI-appreciate input. GI signed off 03/29/17 Tolerating Regular diet No more pain ,Lipase is stable Ready to be discharged today RIGHT LUNG BASE CONSOLIDATION Clinically no pneumonia; no cough/ SOB Will not give any antibiotic, Some discomfort rith lower chest area and RUQ Check CBC -no increase in WCC HTN Stable Continue lisinopril Hold Lasix DYSLIPIDEMIA Hold statin for now CKD STAGE III Creat is at baseline Monitor renal function Stable and normal CAROTID STENOSIS Hold aspirin for 1 week post procedure as per Dr. Hawk's note MULTIPLE SCLEROSIS Stable; not undergoing treatment currently No acute symptoms DVT PROPHYLAXIS SCD's CODE STATUS FULL CODE DISPOSITION Admit to med/ surg Follows with Dr. Indy Diop for primary care Vital Signs: Date Time Temp Pulse Resp B/P Pulse Ox O2 Delivery O2 Flow Rate FiO2 03/30/17 11:17 Room Air 03/30/17 07:57 36.4 55 18 144/78 97 Room Air 03/30/17 00:00 Room Air 03/29/17 22:57 36.5 59 18 132/81 95 Room Air 03/29/17 21:15 Room Air 03/29/17 15:38 36.7 60 18 144/84 95 Room Air Lab Results: Results Past 24 Hours Test 03/29/17 14:59 03/30/17 10:12 Range/Units White Blood Count 6.71 4.8-10.8 K/uL Red Blood Count 4.03 4.2-5.4 M/uL Hemoglobin 11.9 12.0-16.0 g/dL Hematocrit 38.4 37-47 % Mean Corpuscular Volume 95.3 80-100 fL Mean Corpuscular Hemoglobin 29.5 25-34 pg Mean Corpuscular Hemoglobin Concent 31.0 32-36 g/dl RDW Standard Deviation 50.9 36.4-46.3 fL RDW Coefficient of Variation 14.5 11.5-14.5 % Platelet Count 178 130-400 K/uL Mean Platelet Volume 10.9 7.4-10.4 fL Sodium Level 146 136-145 mmol/L Potassium Level 3.8 3.5-5.1 mmol/L Chloride Level 112 98-107 mmol/L Carbon Dioxide Level 28 21-32 mmol/L Anion Gap 6.0 3-11 mmol/L Blood Urea Nitrogen 10 7-18 mg/dl Creatinine 0.98 0.60-1.20 mg/dl Est Creatinine Clear Calc Drug Dose 54.0 ml/min Estimated GFR () 69.7 Estimated GFR (Non- 60.1 BUN/Creatinine Ratio 9.7 10-20 Random Glucose 87 70-99 mg/dl Calcium Level 8.4 8.5-10.1 mg/dl Lipase 769 787 73-393 U/L
--- NOTE | 2017-03-30 13:53 | Discharge Instructions ---
Discharge Instructions Date of Service March 30, 2017. Admission Reason for Admission: Abdominal Pain, Acute Pancreatitis Discharge Discharge Diagnosis / Problem: Acute Pancreatitis Discharge Goals Goal(s): Prevent Disease Progression Activity Recommendations Activity Limitations: resume your previous activity . Instructions / Follow-Up Instructions / Follow-Up Dr Isabela Diop on 04/06/17 at 10:45 Current Hospital Diet Patient's current hospital diet: Low Fat Diet Discharge Diet Recommended Diet: Low Fat Diet Pending Studies Studies pending at discharge: no Medical Emergencies . Who to Call and When: Medical Emergencies: If at any time you feel your situation is an emergency, please call 911 immediately. . Non-Emergent Contact Non-Emergency issues call your: Primary Care Provider . Past History Medical & Surgical History: (1) Acute pancreatitis (2) Post-op pain (3) Multiple sclerosis (4) HTN (hypertension) (5) Gallstones (6) Kidney disease, chronic, stage III (GFR 30-59 ml/min) (7) Pancreatic divisum (8) S/P tubal ligation (9) S/P bilateral breast reduction (10) S/P bladder repair (11) s/p removal of fibroid in uterus . "Provider Documentation" section prepared by David Herrera. . VTE Core Measure Inpt VTE Proph given/why not?: SCD's
[2017-03-30 13:56] VITALS: BP 144/78; PULSE 55; TEMP 36.4; O2SAT 97
--- NOTE | 2017-03-31 09:26 | Discharge Summary ---
Discharge Summary Date of Service March 31, 2017. Discharge Summary Admission Date: March 27, 2017 at 20:14 Discharge Date: March 30, 2017 Discharge Disposition: Home Principal Diagnosis: Abdominal Pain, Acute Pancreatitis Secondary Diagnoses/Problems: Please see H&P and Hospital Progress note Consultations: GI Medication Reconciliation Continued Medications: Aspirin (Aspirin) 325 Mg Tab 325 MG PO DAILY HOLD ONE WEEK PRIOR Atorvastatin (Lipitor) 40 Mg Tab 40 MG PO QAM, TAB Calcium Citrate-Vitamin D (Calcium Citrate + D) 1 Tab Tab 1 TAB PO DAILY Dicyclomine Hcl (Dicyclomine Hcl) 10 Mg Cap 1 CAP PO DAILY PRN for abdominal pain, CAP 3 Refills Furosemide (Lasix) 20 Mg Tab 20-40 MG PO DAILY for Ankle Swelling/Edema Lisinopril (Prinivil) 5 Mg Tab 5 MG PO QAM, TAB Melatonin (Melatonin) 5 Mg Tab 5 MG PO HS Multivitamin (Multivitamin) Tab 1 TAB PO QAM Omeprazole (Prilosec) 20 Mg Capcr 20 MG PO QAM, CAP Polyethylene Glycol 3350 (Miralax) 1 Pow Pow 17 GM PO DAILY PRN for Constipation Ranitidine (Zantac) 300 Mg Tab 300 MG PO HS Tamsulosin HCl (Tamsulosin HCl) 0.4 Mg Cap 0.4 MG PO HS Admission Information HPI (per Admitting provider): This is a 67 y/o female with PMH of recurrent acute pancreatitis, s/p cholecystectomy 11/2015, fatty liver, GERD, HTN, HL, CKD stage III, multiple sclerosis, and other problems listed below who presents to the ED for abdominal pain. Patient underwent ERCP this morning by Dr. Hawk at [facility]- found to have papillary stenosis with distal CBD stricture, s/p sphincterotomy and balloon sphincteroplasty. On way home from procedure patient stopped a diner and developed epigastric abdominal pain, chills, subjective warmth, bloating, nausea. She had eaten pudding and peaches after the procedure. Patient called [facility] and was told to present to ER if symptoms persist. Patient states abdominal pain was severe rated 8/10 which improved to 6/10 with morphine given in ER. The pain does not radiate. It feels similar to prior pancreatitis. Last BM was normal this morning. Patient is currently in a boot for L foot fracture sustained in January 2017. Using ice packs at night for pain/ swelling. Otherwise was feeling at baseline prior to procedure. Denies fever, URI symptoms, cough, SOB, chest pain, vomiting, diarrhea, GI bleeding, urinary symptoms, weakness. Past Medical/Surgical History Medical Problems: (1) Acute pancreatitis Status: Resolved (2) Chronic kidney disease Status: Chronic (3) Diverticulosis Status: Chronic (4) Gallstones Status: Resolved (5) GERD (gastroesophageal reflux disease) Status: Chronic (6) GERD (gastroesophageal reflux disease) Status: Chronic (7) HTN (hypertension) Status: Chronic (8) Hyperlipidemia Status: Chronic (9) Kidney disease, chronic, stage III (GFR 30-59 ml/min) Status: Chronic (10) Multiple sclerosis Status: Chronic (11) Pancreatic divisum Status: Chronic (12) Pancreatitis Status: Resolved Surgical Problems: (1) History of abdominal hernia Status: Resolved (2) History of back surgery Status: Chronic (3) Hx of cholecystectomy Status: Chronic (4) S/P bilateral breast reduction Status: Chronic (5) S/P bladder repair Status: Chronic (6) s/p removal of fibroid in uterus Status: Chronic (7) S/P tubal ligation Status: Chronic Family History FH: brain aneurysm SISTER FH: cancer MOTHER (Breast CA) SISTER (Breast CA) FH: hypertension FH: multiple sclerosis DAUGHTER Social History Smoking Status: Never Smoker Marital Status: in relationship Housing status: lives with significant other, other Occupational Status: employed Immunizations History of Influenza Vaccine: Yes Influenza Vaccine Date: Sep 15, 2013 History of Tetanus Vaccine?: Yes Tetanus Immunization Date: Jan 14, 2008 History of Pneumococcal: Yes Pneumococcal Date: Sep 15, 2013 History of Hepatitis B Vaccine: No Multi-Drug Resistant Organisms History of MDRO: No Allergies Coded Allergies: Ibuprofen (Verified Allergy, Mild, HIVES, 03/27/17) Adhesives (Verified Allergy, Unknown, RASH, 03/27/17) Home Medications Scheduled Aspirin (Aspirin), 325 MG PO DAILY Atorvastatin (Lipitor), 40 MG PO QAM Calcium Citrate-Vitamin D (Calcium Citrate + D), 1 TAB PO DAILY Furosemide (Lasix), 20-40 MG PO DAILY Lisinopril (Prinivil), 5 MG PO QAM Melatonin (Melatonin), 5 MG PO HS Multivitamin (Multivitamin), 1 TAB PO QAM Omeprazole (Prilosec), 20 MG PO QAM Ranitidine (Zantac), 300 MG PO HS Tamsulosin HCl (Tamsulosin HCl), 0.4 MG PO HS Scheduled PRN Dicyclomine Hcl (Dicyclomine Hcl), 1 CAP PO DAILY PRN for abdominal pain Polyethylene Glycol 3350 (Miralax), 17 GM PO DAILY PRN for Constipation Review of Systems Ten systems reviewed and negative except as listed in HPI. Physical Ex - H&P Physical Exam Vital Signs Date Time Temp Pulse Resp B/P Pulse Ox O2 Delivery O2 Flow Rate FiO2 03/27/17 19:55 76 20 135/58 96 Room Air 03/27/17 17:58 37.0 87 18 135/71 95 Room Air General Appearance: no apparent distress, + obese, + pertinent finding ( pleasant alert 67 year old female, lying in bed, no distres) Head: normocephalic, atraumatic Eyes: normal inspection, PERRL ENT: hearing grossly normal, pharynx normal Neck: supple, trachea midline Respiratory/Chest: lungs clear, normal breath sounds, no respiratory distress, no accessory muscle use Cardiovascular: regular rate, rhythm, no murmur Abdomen/GI: normal bowel sounds, soft, + pertinent finding (moderate tenderness in epigastrium. diffuse mild tenderness throughout remainder of abdomen. obese abdomen. ) Extremities/Musculoskelatal: no calf tenderness, + pertinent finding (1+ pedal edema left foot. RLE no edema. ) Neurologic/Psych: alert, normal mood/affect, oriented x 3 Skin: normal color, warm/dry Diagnostics - H&P Diagnostics Laboratory Results Results Past 24 Hours Test 03/27/17 18:20 Range/Units White Blood Count 12.31 4.8-10.8 K/uL Red Blood Count 4.64 4.2-5.4 M/uL Hemoglobin 14.0 12.0-16.0 g/dL Hematocrit 42.9 37-47 % Mean Corpuscular Volume 92.5 80-100 fL Mean Corpuscular Hemoglobin 30.2 25-34 pg Mean Corpuscular Hemoglobin Concent 32.6 32-36 g/dl Platelet Count 183 130-400 K/uL Mean Platelet Volume 11.0 7.4-10.4 fL Neutrophils (%) (Auto) 85.6 % Lymphocytes (%) (Auto) 6.3 % Monocytes (%) (Auto) 7.7 % Eosinophils (%) (Auto) 0.1 % Basophils (%) (Auto) 0.1 % Neutrophils # (Auto) 10.55 1.4-6.5 K/uL Lymphocytes # (Auto) 0.77 1.2-3.4 K/uL Monocytes # (Auto) 0.95 0.11-0.59 K/uL Eosinophils # (Auto) 0.01 0-0.5 K/uL Basophils # (Auto) 0.01 0-0.2 K/uL RDW Standard Deviation 48.8 36.4-46.3 fL RDW Coefficient of Variation 14.5 11.5-14.5 % Immature Granulocyte % (Auto) 0.2 % Immature Granulocyte # (Auto) 0.02 0.00-0.02 K/uL Sodium Level 142 136-145 mmol/L Potassium Level 3.8 3.5-5.1 mmol/L Chloride Level 107 98-107 mmol/L Carbon Dioxide Level 29 21-32 mmol/L Anion Gap 6.0 3-11 mmol/L Blood Urea Nitrogen 17 7-18 mg/dl Creatinine 1.00 0.60-1.20 mg/dl Est Creatinine Clear Calc Drug Dose 52.7 ml/min Estimated GFR () 68.0 Estimated GFR (Non- 58.7 BUN/Creatinine Ratio 16.6 10-20 Random Glucose 114 70-99 mg/dl Calcium Level 9.0 8.5-10.1 mg/dl Total Bilirubin 1.3 0.2-1 mg/dl Direct Bilirubin 0.2 0-0.2 mg/dl Aspartate Amino Transf (AST/SGOT) 16 15-37 U/L Alanine Aminotransferase (ALT/SGPT) 21 12-78 U/L Alkaline Phosphatase 115 45-117 U/L Total Protein 6.8 6.4-8.2 gm/dl Albumin 3.5 3.4-5.0 gm/dl Lipase 546 73-393 U/L Diagnostic Radiology CT SCAN OF THE ABDOMEN AND PELVIS WITHOUT IV CONTRAST CLINICAL HISTORY: Upper abdominal pain. COMPARISON STUDY: Prior abdominal CT scans, most recently dated 11/07/2016. TECHNIQUE: CT scan of the abdomen and pelvis is performed from the lung bases to the proximal femora. Images are reviewed in the axial, sagittal, and coronal planes. IV contrast was not administered for this examination as per the referring clinician. Note that the examination was performed in significantly suboptimal fashion without oral and IV contrast. Automated dose control exposure was utilized. CT DOSE: 596.77 mGy.cm FINDINGS: Lung bases: The heart is top normal in size and without pericardial effusion. There is patchy airspace consolidation identified at the right lung base. The left lung base appears clear. No pleural effusion is seen. Scattered calcified granulomas are observed. There is a small hiatal hernia. Liver: The unenhanced liver is normal in size, contour, and attenuation. Pneumobilia is noted. There is no intrahepatic biliary ductal dilatation. Gallbladder: Surgically absent noting clips in the gallbladder fossa. Spleen: Normal in size and attenuation. Pancreas: Minimal stranding is suggested around the pancreatic head. The unenhanced pancreas is otherwise grossly unremarkable. Adrenal glands: Unremarkable. Kidneys: The unenhanced kidneys demonstrate cortical atrophy and are without hydronephrosis. There are no renal calculi identified. There is no evidence of contour deforming renal mass lesion. Abdominal vasculature: The abdominal aorta is normal in course and caliber noting mild atherosclerotic calcification. Bowel: The small bowel and colon are normal in course and caliber. There is mild to moderate sigmoid diverticulosis without CT evidence of acute diverticulitis. The appendix is well-visualized and normal. Peritoneum: There is no intraperitoneal free air or abdominal ascites. Lymphadenopathy: None. Pelvic viscera: The bladder, uterus, and adnexa are normal as visualized. Skeletal structures: The skeletal structures are osteopenic. There is moderate lumbosacral spondylosis and scoliosis. No lytic or blastic lesions are seen. Sclerotic change is identified at the pubic symphysis, left greater than right. IMPRESSION: 1. Suboptimal examination without oral and IV contrast. 2. Question mild stranding around the pancreatic head. Correlate clinically and with serum lipase levels for evidence of mild acute pancreatitis. 3. There is patchy airspace consolidation at the right lung base typical in appearance for pneumonia. Clinical correlation will be required. Radiographic follow-up to resolution is recommended. 4. Mild to moderate sigmoid diverticulosis without CT evidence of acute diverticulitis. 5. There are changes from previous cholecystectomy. There is pneumobilia, likely related to previous sphincterotomy. Correlation with clinical findings and the patient's surgical history will be required. 6. Additional changes as above. Impression - H&P Impression Assessment and Plan ABDOMINAL PAIN Due to acute pancreatitis s/p ERCP at [facility] (Dr. Hawk) earlier today 03/27/17 ERCP report- papillary stenosis with distal CBD stricture, s/p sphincterotomy and balloon sphincteroplasty Hx recurrent pancreatitis; s/p cholecystectomy 12/2015 Afebrile; WBC 12.3; hemodynamically stable Lipase is 546, total bili 1.3, other LFTs WNL CT a/p: ? mild stranding around pancreatic head, correlate clinically for mild acute pancreatitis, R lung base consolidation, mild-moderate sigmoid diverticulosis without acute diverticulitis, prior cholecystectomy, pneumobilia likely due to sphincterotomy NPO except essential meds Continue IV fluids- NSS at 150 mL/hour Pain control with IV morphine PRN IV PPI daily Recheck lipase/ LFT's in am Consult GI; case d/w Dr. Cai by ER physician RIGHT LUNG BASE CONSOLIDATION Clinically no pneumonia; no cough/ SOB HTN Stable Continue lisinopril Hold Lasix DYSLIPIDEMIA Hold statin for now CKD STAGE III Creat is at baseline Monitor renal function CAROTID STENOSIS Hold aspirin for 1 week post procedure as per Dr. Hawk's note MULTIPLE SCLEROSIS Stable; not undergoing treatment currently DVT PROPHYLAXIS SCD's CODE STATUS FULL CODE DISPOSITION Admit to med/ surg Follows with Dr. Indy Diop for primary care Patient seen in collaboration with Dr. Dewitt. Please see his addendum. Agree with above h and p. Briefly 67f with hx of recurrent pancreatitis who had ercp yesterday morning at [place] and was discharged home and later developed abdominal pain and came to [facility] ER. [place] nauseous. Currently pain is better with pain meds.Denies any chest pain or sob. Afebrile. Hemodynamically stable. 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 Y/N: Yes Risk Level: Moderate Physical Exam (per Admitting): General Appearance: no apparent distress, + obese, + pertinent finding ( pleasant alert 67 year old female, lying in bed, no distres) Head: normocephalic, atraumatic Eyes: normal inspection, PERRL ENT: hearing grossly normal, pharynx normal Neck: supple, trachea midline Respiratory/Chest: lungs clear, normal breath sounds, no respiratory distress, no accessory muscle use Cardiovascular: regular rate, rhythm, no murmur Abdomen/GI: normal bowel sounds, soft, + pertinent finding (moderate tenderness in epigastrium. diffuse mild tenderness throughout remainder of abdomen. obese abdomen. ) Extremities/Musculoskelatal: no calf tenderness, + pertinent finding (1+ pedal edema left foot. RLE no edema. ) Neurologic/Psych: alert, normal mood/affect, oriented x 3 Skin: normal color, warm/dry Hospital Course Acute Pancreatitis s/p ERCP at [facility] (Dr. Hawk) earlier today 03/27/17 Presented with ABDOMINAL PAIN ERCP report- papillary stenosis with distal CBD stricture, s/p sphincterotomy and balloon sphincteroplasty History of recurrent pancreatitis; s/p cholecystectomy 12/2015 CT Abdomen and Pelvis : mild stranding around pancreatic head, correlate clinically for mild acute pancreatitis, R lung base consolidation, mild- moderate sigmoid diverticulosis without acute diverticulitis, prior cholecystectomy, pneumobilia likely due to sphincterotomy NPO except essential meds Continue IV fluids- NSS at 150 mL/hour Pain control with IV morphine PRN IV PPI daily Lipase is improving and patient is symptomatically better Consult GI-appreciate input. GI signed off 03/29/17 Tolerating Regular diet No more pain ,Lipase is stable Ready to be discharged today RIGHT LUNG BASE CONSOLIDATION Clinically no pneumonia; no cough/ SOB Will not give any antibiotic, Some discomfort rith lower chest area and RUQ Check CBC -no increase in WCC HTN Stable Continue lisinopril Hold Lasix DYSLIPIDEMIA Hold statin for now CKD STAGE III Creat is at baseline Monitor renal function Stable and normal CAROTID STENOSIS Hold aspirin for 1 week post procedure as per Dr. Hawk's note MULTIPLE SCLEROSIS Stable; not undergoing treatment currently No acute symptoms DVT PROPHYLAXIS SCD's CODE STATUS FULL CODE DISPOSITION Admit to med/ surg Follows with Dr. Indy Diop for primary care Total time spent on discharge = 35 minutes This includes examination of the patient, discharge planning, medication reconciliation, and communication with other providers. Discharge Instructions Date of Service March 30, 2017. Admission Reason for Admission: Abdominal Pain, Acute Pancreatitis Discharge Discharge Diagnosis / Problem: Acute Pancreatitis Discharge Goals Goal(s): Prevent Disease Progression Activity Recommendations Activity Limitations: resume your previous activity . Instructions / Follow-Up Instructions / Follow-Up Dr Isabela Diop on 04/06/17 at 10:45 Current Hospital Diet Patient's current hospital diet: Low Fat Diet Discharge Diet Recommended Diet: Low Fat Diet Pending Studies Studies pending at discharge: no Medical Emergencies . Who to Call and When: Medical Emergencies: If at any time you feel your situation is an emergency, please call 911 immediately. . Non-Emergent Contact Non-Emergency issues call your: Primary Care Provider . Past History Medical & Surgical History: (1) Acute pancreatitis (2) Post-op pain (3) Multiple sclerosis (4) HTN (hypertension) (5) Gallstones (6) Kidney disease, chronic, stage III (GFR 30-59 ml/min) (7) Pancreatic divisum (8) S/P tubal ligation (9) S/P bilateral breast reduction (10) S/P bladder repair (11) s/p removal of fibroid in uterus . "Provider Documentation" section prepared by David Herrera. . VTE Core Measure Inpt VTE Proph given/why not?: SCD's <Electronically signed by David Herrera M.D.> Signed: 03/30/17 9096 Additional Copies To Indy Diop D.O.
--- NOTE | 2017-04-11 09:16 | EDITING REQUIRED CODING QUERY ---
CODING QUERY Dear Dr. Herrera, To promote full compliance with coding requirements relating to patient care, provider participation is requested in all cases of family educator uncertainty. Please assist us with the question(s) below: Please gamaliel those that apply with a (X) in the parentheses. Coding Question(s): Complication ( ) Complication of ERCP/Sphincterotomy ( ) Not a Complication of ERCP/Sphincterotomy ( ) Other: Please explain ( + ) Unable to determine Please pass it to GI for documentation in their note and then I will put it in. Medical Documentation a/p Pancreatitis s/p ercp s/p sphincterotomy yesterday at [place] pain control , iv fluids, antiemetics Gi consult Acute Pancreatitis s/p [place] [facility] [place]) earlier today 03/27/17 Presented with ABDOMINAL PAIN ERCP report- papillary stenosis with distal CBD stricture, s/p sphincterotomy and balloon sphincteroplasty History of recurrent pancreatitis; s/p cholecystectomy 12/2015 CT Abdomen and Pelvis : mild stranding around pancreatic head, correlate clinically for mild acute pancreatitis, R lung base consolidation, mild-moderate sigmoid diverticulosis without acute diverticulitis, prior cholecystectomy, pneumobilia likely due to sphincterotomy NPO except essential meds Continue IV fluids- NSS at 150 mL/hour Pain control with IV morphine PRN IV PPI daily Lipase is improving and patient is symptomatically better Consult GI-appreciate input. GI signed off 03/29/17 Tolerating Regular diet No more pain ,Lipase is stable Ready to be discharged today Impression Patient is a 67 year old female with gradual onset epigastric abdominal pain, nausea and subjective fever and chills with suspected pancreatitis following ERCP on 03/27/17. CT was suboptimal with mild stranding around the pancreatic head with mildly elevated lipase of 546 on admission, this AM is 306. Physician's Response(s): Thank you for your time. Luba Montiel POST CLOSER Principal Diagnosis: "_that condition established after study, to be chiefly responsible for occasioning the admission of the patient to the hospital for care." Co-Existing Principal Diagnosis: "_when two or more diagnoses equally meet the criteria for principal diagnosis as determined by the circumstances of admission, diagnostic work up, and/or therapy provided, and the Alphabetic Index, Tabular List, or another coding guideline does not provide sequencing direction, any one of the diagnoses may be sequenced first." "When the physician has documented what appears to be a current diagnosis in the body of the record, but has not included the diagnosis in the final diagnostic statement, the physician should be asked whether the diagnosis should be added." (Source Coding [facility] 2 QTR90. p3-4)
[2017-05-05] MEDS ORDERED: FURO-85 PO (05:24)
[2017-10-12] MEDS ORDERED: PRLSR20 PO (02:07)
[2017-10-12] MEDS ORDERED: TRMCR130WC TOP (02:27)
[2017-10-12] MEDS ORDERED: MELA1TAB54 PO (09:13)
[2017-10-12] MEDS ORDERED: MULT-506 PO (11:06)
[2017-10-12] MEDS ORDERED: CALC-310 PO (11:06)
[2017-10-12] MEDS ORDERED: FLM4 PO (18:14)
[2017-10-12] MEDS ORDERED: ATOR-24 PO (18:14)
[2017-10-12] MEDS ORDERED: POLY335019 PO (20:22)
[2017-10-12] MEDS ORDERED: ASPI325T39 PO (21:18)
[2017-10-12] MEDS ORDERED: CEPH500C2 PO (23:12)
== END 2017-03-30 15:00 | disposition home or self-care (01) | DRG 440 ==
LOC: ENRESERVTM → ENRESERVDT → C.EDB 17:55 → C.MS2W 20:14
PROVIDERS: ADMIT Internal Medicine; ATTEND Internal Medicine
DX: K85.90 Acute pancreatitis without necrosis or infection, unspecified (principal); I12.9 Hypertensive chronic kidney disease with stage 1 through stage 4 chronic kidney disease, or unspecified chronic kidney disease; K76.0 Fatty (change of) liver, not elsewhere classified; K21.9 Gastro-esophageal reflux disease without esophagitis; I65.29 Occlusion and stenosis of unspecified carotid artery; H91.90 Unspecified hearing loss, unspecified ear; N18.3 Chronic kidney disease, stage 3 (moderate); G35 Multiple sclerosis; E78.5 Hyperlipidemia, unspecified; K57.90 Diverticulosis of intestine, part unspecified, without perforation or abscess without bleeding; G89.18 Other acute postprocedural pain; Z90.49 Acquired absence of other specified parts of digestive tract; Z79.82 Long term (current) use of aspirin; Z79.899 Other long term (current) drug therapy

== ENCOUNTER 2017-04-29 23:19 | Emergency (ER) | payer OTHER ==
[~2017-04-29] VITALS: Ht 153.7 cm; Wt 76.5 kg
[~2017-04-29 23:19] MED LIST changes: -HYDR-5688 PO
[2017-04-29 23:36] VITALS: TEMP 36.6; Ht 153.7 cm; Wt 76.5 kg
[2017-04-29] MEDS ORDERED: ONDANSETRON INJ 2 MG/ML 2 ML VIAL IV STA (23:48)
[2017-04-29] MEDS ORDERED: HYDROmorphone INJ 0.5 MG/0.5 ML SYR IV STA (23:48)
[2017-04-29] MEDS ORDERED: SODIUM CHLORIDE 0.9% 1000ML 1,000 ML IV STA (23:48)
--- NOTE | 2017-04-29 23:52 | EMERGENCY ROOM VISIT NOTE ---
History Report prepared by Sonia: Dai Bob Under the Supervision of: Dr. Arthur Douglass M.D. First contact with patient: 23:44 Chief Complaint: ABDOMINAL PAIN Stated Complaint: STOMACH PAIN History of Present Illness The patient is a 67 year old female who presents to the Emergency Room with complaints of abdominal pain beginning 1 week ago. She said the pain has been worsening and has been the worst the past 2 days. She reports that she has a history of pancreatitis and feels like this may be causing her symptoms. The patient reports that she has felt nauseous and has been bloated. She denies vomiting, fevers, chills, headaches, chest pain, neck pain, back pain, and shortness of breath. Source of History: patient Onset: 1 week ago Position: abdomen Timing: worsening Associated Symptoms: + nausea, No fevers, No chills, No headache, No neck pain, No chest pain, No SOB, No vomiting, No back pain Review of Systems See HPI for pertinent positives & negatives. A total of 10 systems reviewed and were otherwise negative. Past Medical & Surgical Medical Problems: (1) Acute pancreatitis (2) Acute pancreatitis (3) Chronic kidney disease (4) Diverticulosis (5) Elevated liver enzymes (6) Gallstones (7) GERD (gastroesophageal reflux disease) (8) GERD (gastroesophageal reflux disease) (9) HTN (hypertension) (10) Hyperlipidemia (11) Kidney disease, chronic, stage III (GFR 30-59 ml/min) (12) Multiple sclerosis (13) Pancreatic divisum (14) Pancreatitis Surgical Problems: (1) History of abdominal hernia (2) History of back surgery (3) Hx of cholecystectomy (4) S/P bilateral breast reduction (5) S/P bladder repair (6) s/p removal of fibroid in uterus (7) S/P tubal ligation Family History FH: brain aneurysm SISTER FH: cancer MOTHER (Breast CA) SISTER (Breast CA) FH: hypertension FH: multiple sclerosis DAUGHTER Social History Smoking Status: Never Smoker Alcohol Use: none Marital Status: in relationship Housing Status: lives with significant other Occupation Status: employed Current/Historical Medications Scheduled Aspirin (Aspirin), 325 MG PO DAILY Atorvastatin (Lipitor), 40 MG PO QAM Calcium Citrate-Vitamin D (Calcium Citrate + D), 1 TAB PO DAILY Furosemide (Lasix), 20-40 MG PO DAILY Lisinopril (Prinivil), 5 MG PO QAM Melatonin (Melatonin), 5 MG PO HS Multivitamin (Multivitamin), 1 TAB PO QAM Omeprazole (Prilosec), 20 MG PO QAM Ondasetron Odt (Zofran Odt), 4 MG SL Q6H Ranitidine (Zantac), 300 MG PO HS Tamsulosin HCl (Tamsulosin HCl), 0.4 MG PO HS Scheduled PRN Dicyclomine Hcl (Dicyclomine Hcl), 1 CAP PO DAILY PRN for abdominal pain Oxycodone Immediate Rel Tab (Roxicodone Ir), 1-2 TAB PO Q4H PRN for Severe Pain Polyethylene Glycol 3350 (Miralax), 17 GM PO DAILY PRN for Constipation Allergies Coded Allergies: Ibuprofen (Verified Allergy, Mild, HIVES, 04/30/17) Morphine (Verified Allergy, Mild, pruritis, 04/30/17) Adhesives (Verified Allergy, Unknown, RASH, 04/30/17) Physical Exam Vital Signs Date Time Temp Pulse Resp B/P (MAP) Pulse Ox O2 Delivery O2 Flow Rate FiO2 04/30/17 01:22 74 16 109/58 94 04/29/17 23:36 36.6 61 18 95 Room Air Physical Exam GENERAL: Patient is anxious appearing and in mild distress. HEENT: No acute trauma, normocephalic atraumatic, mucous membranes moist, no nasal congestion, no scleral icterus. NECK: No stridor, no adenopathy, no meningismus, trachea is midline. LUNGS: No dyspnea. Clear to auscultation and equal bilaterally. No wheeze, no rhonchi. HEART: Regular rate and rhythm. No murmurs, rubs, gallops appreciated. ABDOMEN: Soft, epigastric TTP, bowel sounds positive, no masses appreciated, no peritonitis. BACK: No midline tenderness, no CVA tenderness EXTREMITIES: Normal motion all extremities, no cyanosis, no edema. Boot on left leg. NEUROLOGIC: Alert and oriented, no acute motor or sensory deficits, no focal weakness, cranial nerves grossly intact. SKIN: No rash, no jaundice, no diaphoresis. Medical Decision & Procedures Laboratory Results 04/30/17 00:02 Red Blood Count 4.24, Mean Corpuscular Volume 93.2, Mean Corpuscular Hemoglobin 30.7, Mean Corpuscular Hemoglobin Concent 32.9, Mean Platelet Volume 10.3, Neutrophils (%) (Auto) 52.0, Lymphocytes (%) (Auto) 35.7, Monocytes (%) (Auto) 10.4, Eosinophils (%) (Auto) 1.4, Basophils (%) (Auto) 0.3, Neutrophils # (Auto ) 3.27, Lymphocytes # (Auto) 2.24, Monocytes # (Auto) 0.65, Eosinophils # (Auto ) 0.09, Basophils # (Auto) 0.02 04/30/17 00:02 Test 04/29/17 23:48 04/30/17 00:02 Urine Color YELLOW Urine Appearance CLEAR (CLEAR) Urine pH 6.0 (4.5-7.5) Urine Specific [place] 1.011 (1.000-1.030) Urine Protein NEG (NEG) Urine Glucose (UA) NEG (NEG) Urine Ketones NEG (NEG) Urine Occult Blood 2+ (NEG) Urine Nitrite NEG (NEG) Urine Bilirubin NEG (NEG) Urine Urobilinogen NEG (NEG) Urine Leukocyte Esterase LARGE (NEG) Urine WBC (Auto) >30 /hpf (0-5) Urine RBC (Auto) 10-30 /hpf (0-4) Urine Hyaline Casts (Auto) 1-5 /lpf (0-5) Urine Epithelial Cells (Auto) >30 /lpf (0-5) Urine Bacteria (Auto) NEG (NEG) Urine Renal Epithelial Cells 5-10 /lpf (0-5) White Blood Count 6.28 K/uL (4.8-10.8) Red Blood Count 4.24 M/uL (4.2-5.4) Hemoglobin 13.0 g/dL (12.0-16.0) Hematocrit 39.5 % (37-47) Mean Corpuscular Volume 93.2 fL (80-100) Mean Corpuscular Hemoglobin 30.7 pg (25-34) Mean Corpuscular Hemoglobin Concent 32.9 g/dl (32-36) Platelet Count 193 K/uL (130-400) Mean Platelet Volume 10.3 fL (7.4-10.4) Neutrophils (%) (Auto) 52.0 % Lymphocytes (%) (Auto) 35.7 % Monocytes (%) (Auto) 10.4 % Eosinophils (%) (Auto) 1.4 % Basophils (%) (Auto) 0.3 % Neutrophils # (Auto) 3.27 K/uL (1.4-6.5) Lymphocytes # (Auto) 2.24 K/uL (1.2-3.4) Monocytes # (Auto) 0.65 K/uL (0.11-0.59) Eosinophils # (Auto) 0.09 K/uL (0-0.5) Basophils # (Auto) 0.02 K/uL (0-0.2) RDW Standard Deviation 48.1 fL (36.4-46.3) RDW Coefficient of Variation 14.1 % (11.5-14.5) Immature Granulocyte % (Auto) 0.2 % Immature Granulocyte # (Auto) 0.01 K/uL (0.00-0.02) Anion Gap 9.0 mmol/L (3-11) Est Creatinine Clear Calc Drug Dose 42.7 ml/min Estimated GFR () 54.5 Estimated GFR (Non- 47.1 BUN/Creatinine Ratio 21.4 (10-20) Calcium Level 8.5 mg/dl (8.5-10.1) Total Bilirubin 0.6 mg/dl (0.2-1) Direct Bilirubin 0.2 mg/dl (0-0.2) Aspartate Amino Transf (AST/SGOT) 16 U/L (15-37) Alanine Aminotransferase (ALT/SGPT) 24 U/L (12-78) Alkaline Phosphatase 119 U/L (45-117) Total Protein 6.7 gm/dl (6.4-8.2) Albumin 3.5 gm/dl (3.4-5.0) Lipase 210 U/L (73-393) Laboratory results as reviewed by me. Medications Administered Medications (Trade) Dose Ordered Sig/Alycia Route Start Time Stop Time Status Last Admin Dose Admin Ondansetron HCl (Zofran Inj) 4 mg NOW STAT IV 04/29/17 23:48 04/29/17 23:50 DC 04/30/17 00:10 4 MG Sodium Chloride 1,000 ml @ 999 mls/hr Q1H1M STAT IV 04/29/17 23:48 04/30/17 00:48 DC 04/30/17 00:11 999 MLS/HR Hydromorphone HCl (Dilaudid Inj) 0.5 mg NOW STAT IV 04/29/17 23:48 04/29/17 23:51 DC 04/30/17 00:11 0.5 MG Oxycodone HCl (Roxicodone Immediate Rel 5MG Home Pack) 1 homepack UD ONCE PO 04/30/17 01:00 04/30/17 01:01 DC 04/30/17 01:22 1 HOMEPACK Ondansetron HCl (ZOFRAN ODT 4MG Home Pack) 1 homepack UD ONCE PO 04/30/17 01:00 04/30/17 01:01 DC 04/30/17 01:22 1 HOMEPACK ED Course 2345: The patient was evaluated in room B9. A complete history and physical exam was performed. 2348: Ordered Hydromorphone HCl 0.5 mg IV, Sodium Chloride 1,000 ml @ 999 mls/ hr IV, Ondansetron HCl 4 mg IV. 0100: Ordered Ondansetron HCl 1 homepack PO, Oxycodone HCl 1 homepack PO. 0101: The patient reports resolution of her pain. She would like to see how she does at home over the next few days. I offered admission, but she declined. I reviewed narcotic use with her and I reviewed symptoms requiring immediate return. 0105: Reevaluated the patient. Discussed results and discharge instructions: She verbalized understanding and agreement. The patient is ready for discharge. Medical Decision Differential: Cholecystitis, Gallbladder disfunction, Hepatic Disfunction, Gastritis/PUD, Pancreatitis, ACS, Aortic Pathology, amongst other pathologies entertained. Blood pressure screening: Patient was found to have an elevated blood pressure and was referred to their primary doctor for recheck and further treatment. Medication Reconciliation: I attest that I have personally reviewed the patient 's current medication list. 67 yr old female well known to department for periodic visits regarding pancreatitis. Today with mild symptoms which resolved with above meds and feeling much better. Labs look good. No cardiac symptoms. States similar to previous episodes of pancreatitis and does not feel further testing necessary. With normal labs and patient feeling better with single dose pain medications she wishes to try outpatient treatment which seems reasonable. Discussed importance of simple, light clear liquid diet. Reviewed at length symptoms requiring RTED. Reviewed restrictions on narcotics and risks. She will follow up with PCP regarding this and her elevated BP. Impression Primary Impression: Epigastric abdominal pain Scribe Attestation The scribe's documentation has been prepared under my direction and personally reviewed by me in its entirety. I confirm that the note above accurately reflects all work, treatment, procedures, and medical decision making performed by me. Departure Information Dispostion Home / Self-Care Prescriptions Ondasetron Odt (ZOFRAN ODT) 4 Mg Tab 4 MG SL Q6H for Nausea, #12 TAB Prov: Arthur Douglass M.D. 04/30/17 Oxycodone Immediate Rel Tab (ROXICODONE IR) 5 Mg Tab 1-2 TAB PO Q4H Y for Severe Pain, #12 TAB Prov: Arthur Douglass M.D. 04/30/17 Referrals Indy Diop D.O. (PCP) Patient Instructions My [facility] Additional Instructions Stick to a light, clear, liquid diet over the next 24-48 hours before gradually returning to normal diet. Return immediately if worsening pain, fevers, vomiting, passing out or other concerns. Discuss your symptoms, along with the blood in your urine with your primary care provider. You have received a narcotic pain medication prescription. These medications may cause drowsiness and should not be used with other sedative medications. Do not drive, drink alcohol, perform dangerous activities, nor make important decisions after taking these medications. care home use or inappropriate use may lead to addiction. Your blood pressure was elevated during this visit. This is quite common in many people who are being evaluated in the Emergency Department for many reasons. However, it is important that you have your Primary Care Provider recheck your blood pressure and discuss whether treatment will be needed. medical terminologist elevated blood pressure can lead to strokes, heart attacks, kidney failure amongst other medical issues. If you develop severe headaches, chest pain, weakness in arms or legs, or other concerning symptoms call 911.
[2017-04-30 00:13] LABS: BASO % 0.3 %; BASO ABS # 0.02 K/uL (0-0.2); COMPLETE YES; EOS % 1.4 %; HEMATOCRIT 39.5 % (37-47); IG% 0.2 %; LYMPH % 35.7 %; LYMPH ABS # 2.24 K/uL (1.2-3.4); MEAN CELL VOLUME 93.2 fL (80-100); MEAN CORPUSCULAR HEMOGLOBIN 30.7 pg (25-34); MEAN CORPUSCULAR HGB CONC 32.9 g/dl (32-36); MEAN PLATELET VOLUME 10.3 fL (7.4-10.4); MONO % 10.4 %; PLATELET COUNT 193 K/uL (130-400); RED BLOOD COUNT 4.24 M/uL (4.2-5.4); WHITE BLOOD COUNT 6.28 K/uL (4.8-10.8)
[2017-04-30 00:35] LABS: BUN/CREATININE RATIO 21.4 (10-20); CALCIUM 8.5 mg/dl (8.5-10.1); CREATININE 1.2 mg/dl (0.60-1.20)
[2017-04-30 00:37] LABS: URINE APPEARANCE CLEAR (CLEAR); URINE BILIRUBIN NEG (NEG); URINE COLOR YELLOW; URINE EPITHELIAL CELL AUTO >30 /lpf (0-5); URINE NITRITE NEG (NEG); URINE SPECIFIC GRAVITY 1.011 (1.000-1.030); UROBILINOGEN NEG (NEG); ZZUR CULT IF INDIC CLEAN CATCH YES
[2017-04-30 00:49] LABS: MANUAL MICROSCOPIC REQUIRED? NO; REVIEW REQ? YES
[2017-04-30] MEDS ORDERED: ONDANSETRON HOME PACK 4MG OD TAB PO ONE (01:00)
[2017-04-30] MEDS ORDERED: OXYCODONE IR HOME PACK PO ONE (01:00)
[2017-04-30] MEDS ORDERED: ONDA4TAB10 SL (01:01)
[2017-04-30] MEDS ORDERED: OXYC1TAB3 PO (01:01)
[2017-04-30 01:22] VITALS: BP 109/58; PULSE 74; O2SAT 94
--- NOTE | 2017-05-02 14:44 | Pharmacy Progress Note ---
ED Pharmacist Culture FollowUp Date of Service: May 02, 2017. Enterococcus faecalis at 50,000 CFU/mL isolated from urine culture. Urinalysis was abnormal, but also with a significant amount of epithelial cells. Isolation likely a contaminant. No intervention required at this time. Case discussed with Dr. Douglass.
[2017-05-05] MEDS ORDERED: FURO-85 PO (05:24)
[2017-10-12] MEDS ORDERED: PRLSR20 PO (02:07)
[2017-10-12] MEDS ORDERED: TRMCR130WC TOP (02:27)
[2017-10-12] MEDS ORDERED: MELA1TAB54 PO (09:13)
[2017-10-12] MEDS ORDERED: MULT-506 PO (11:06)
[2017-10-12] MEDS ORDERED: CALC-310 PO (11:06)
[2017-10-12] MEDS ORDERED: ATOR-24 PO (18:14)
[2017-10-12] MEDS ORDERED: FLM4 PO (18:14)
[2017-10-12] MEDS ORDERED: POLY335019 PO (20:22)
[2017-10-12] MEDS ORDERED: ASPI325T39 PO (21:18)
[2017-10-12] MEDS ORDERED: CEPH500C2 PO (23:12)
== END 2017-04-30 01:28 | disposition home or self-care (01) ==
LOC: C.EDB 23:20
DX: R10.13 Epigastric pain (principal); N18.3 Chronic kidney disease, stage 3 (moderate); K21.9 Gastro-esophageal reflux disease without esophagitis; I12.9 Hypertensive chronic kidney disease with stage 1 through stage 4 chronic kidney disease, or unspecified chronic kidney disease; G35 Multiple sclerosis; Z90.49 Acquired absence of other specified parts of digestive tract; Z98.51 Tubal ligation status; Z80.3 Family history of malignant neoplasm of breast; Z82.49 Family history of ischemic heart disease and other diseases of the circulatory system; Z82.0 Family history of epilepsy and other diseases of the nervous system; Z79.82 Long term (current) use of aspirin; Z79.899 Other long term (current) drug therapy

== ENCOUNTER 2017-05-05 21:28 | Inpatient (IN) | payer OTHER ==
[~2017-05-05] VITALS: Ht 152.4 cm; Wt 76.0 kg
[~2017-05-05 21:28] MED LIST changes: +FURO-85 PO; +ONDA4TAB10 SL; +OXYC1TAB3 PO
[2017-05-05] MEDS ORDERED: SODIUM CHLORIDE 0.9% 1000ML 1,000 ML IV STA (21:39)
[2017-05-05] MEDS ORDERED: ONDANSETRON INJ 2 MG/ML 2 ML VIAL IV STA (21:39)
--- NOTE | 2017-05-05 22:01 | DIAGNOSTIC IMAGING REPORT ---
CHEST ONE VIEW PORTABLE CLINICAL HISTORY: ABDOMINAL PAIN/GI nausea COMPARISON STUDY: 01/18/2017 FINDINGS: The bones soft tissues and hemidiaphragms are normal. The cardiomediastinal silhouette is normal. The lungs are clear. The pulmonary vasculature is normal. IMPRESSION: Negative chest. Electronically signed by: Caleb Calle M.D. 05/05/2017 10:00 PM Dictated Date/Time: 05/05/2017 10:00 PM
[2017-05-05 22:10] LABS: BASO % 0.2 %; BASO ABS # 0.01 K/uL (0-0.2); COMPLETE YES; EOS % 1.9 %; HEMATOCRIT 38.2 % (37-47); IG% 0.2 %; LYMPH % 31.8 %; LYMPH ABS # 2.05 K/uL (1.2-3.4); MEAN CELL VOLUME 92.9 fL (80-100); MEAN CORPUSCULAR HEMOGLOBIN 30.4 pg (25-34); MEAN CORPUSCULAR HGB CONC 32.7 g/dl (32-36); MEAN PLATELET VOLUME 10.7 fL (7.4-10.4); MONO % 9.9 %; PLATELET COUNT 178 K/uL (130-400); RED BLOOD COUNT 4.11 M/uL (4.2-5.4); WHITE BLOOD COUNT 6.44 K/uL (4.8-10.8)
[2017-05-05 22:18] LABS: INR 0.9 (0.9-1.1)
[2017-05-05 22:26] LABS: BUN/CREATININE RATIO 13.2 (10-20); CREATININE 1.7 mg/dl (0.60-1.20)
[2017-05-05 22:29] LABS: URINE APPEARANCE CLEAR (CLEAR); URINE BILIRUBIN NEG (NEG); URINE COLOR YELLOW; URINE EPITHELIAL CELL AUTO 20-30 /lpf (0-5); URINE NITRITE NEG (NEG); URINE PH 7.5 (4.5-7.5); URINE SPECIFIC GRAVITY 1.013 (1.000-1.030); UROBILINOGEN NEG (NEG); ZZUR CULT IF INDIC CLEAN CATCH YES
[2017-05-05 22:31] LABS: MANUAL MICROSCOPIC REQUIRED? NO; REVIEW REQ? NO
[2017-05-05] MEDS ORDERED: FENTANYL CITRATE INJ 50 MCG/1 ML 2 ML VIAL IV ONE (22:45)
[2017-05-06] MEDS ORDERED: MoRPHine SULFATE 4 MG/ML 1 ML CARP\\VIAL IV STA (00:20)
[2017-05-06] MEDS ORDERED: HYDROmorphone INJ 1 MG/ML SYR IV STA (00:28)
--- NOTE | 2017-05-06 00:48 | EMERGENCY ROOM VISIT NOTE ---
History Report prepared by Sonia: Geoffrey Marcelino Under the Supervision of: Dr. Deyvi Vera D.O. First contact with patient: 21:38 Chief Complaint: ABDOMINAL PAIN Stated Complaint: ABDOMINAL PAIN, PANCREATITIS Nursing Triage Summary: was in ed this past monday with abd pain. "My numbers were not high enough for me to stay" history of pancreatitis. pain started Wed but pain became "really bad" today History of Present Illness The patient is a 67 year old female who presents to the Emergency Room with complaints of worsening abdominal pain that started two days ago. She rates her pain as a 10/10 in severity. The patient states that she has a history of pancreatitis. She states that she had a ERCP procedure done in [place] in January. The patient reports that they told her she had a chance of getting pancreatitis within 24 hours of the procedure and she reports that she did end up developing pancreatitis. The patient states that she was here in the ED five days ago because she was experiencing symptoms similar to her current symptoms but milder. She states that she was discharged home the next day with pancreatitis and wasn't admitted because her "levels were not high enough". She reports that she has been experiencing the abdominal pain two days ago and reports that the pain is worse today. The patient states that she has been able to eat but it hasn't been as much as usual. The patient denies any current fever. Source of History: patient Onset: two days ago Position: abdomen Symptom Intensity: 10/10 Timing: worsening Associated Symptoms: No fevers Review of Systems See HPI for pertinent positives & negatives. A total of 10 systems reviewed and were otherwise negative. Past Medical & Surgical Medical Problems: (1) Acute pancreatitis (2) Acute pancreatitis (3) Chronic kidney disease (4) Diverticulosis (5) Elevated liver enzymes (6) Gallstones (7) GERD (gastroesophageal reflux disease) (8) GERD (gastroesophageal reflux disease) (9) HTN (hypertension) (10) Hyperlipidemia (11) Kidney disease, chronic, stage III (GFR 30-59 ml/min) (12) Multiple sclerosis (13) Pancreatic divisum (14) Pancreatitis Surgical Problems: (1) History of abdominal hernia (2) History of back surgery (3) Hx of cholecystectomy (4) S/P bilateral breast reduction (5) S/P bladder repair (6) s/p removal of fibroid in uterus (7) S/P tubal ligation Family History FH: brain aneurysm SISTER FH: cancer MOTHER (Breast CA) SISTER (Breast CA) FH: hypertension FH: multiple sclerosis DAUGHTER Social History Smoking Status: Never Smoker Alcohol Use: none Marital Status: in relationship Housing Status: lives with significant other Occupation Status: employed Current/Historical Medications Scheduled Aspirin (Aspirin), 325 MG PO DAILY Atorvastatin (Lipitor), 40 MG PO QAM Calcium Citrate-Vitamin D (Calcium Citrate + D), 1 TAB PO DAILY Furosemide (Lasix), 20 MG PO BID Lisinopril (Prinivil), 5 MG PO QAM Melatonin (Melatonin), 5 MG PO HS Multivitamin (Multivitamin), 1 TAB PO QAM Omeprazole (Prilosec), 20 MG PO QAM Ondasetron Odt (Zofran Odt), 4 MG SL Q6H Ranitidine (Zantac), 300 MG PO HS Tamsulosin HCl (Tamsulosin HCl), 0.4 MG PO HS Scheduled PRN Dicyclomine Hcl (Dicyclomine Hcl), 1 CAP PO DAILY PRN for abdominal pain Oxycodone Immediate Rel Tab (Roxicodone Ir), 1-2 TAB PO Q4H PRN for Severe Pain Polyethylene Glycol 3350 (Miralax), 17 GM PO DAILY PRN for Constipation Allergies Coded Allergies: Ibuprofen (Verified Allergy, Mild, HIVES, 04/30/17) Morphine (Verified Allergy, Mild, pruritis, 04/30/17) Adhesives (Verified Allergy, Unknown, RASH, 04/30/17) Physical Exam Vital Signs Date Time Temp Pulse Resp B/P (MAP) Pulse Ox O2 Delivery O2 Flow Rate FiO2 05/06/17 00:40 64 18 142/53 93 Room Air 05/05/17 22:58 63 18 129/52 95 Room Air 05/05/17 21:30 36.6 60 16 140/73 97 Room Air Physical Exam CONSTITUTIONAL/VITAL SIGNS: Reviewed / noted above. GENERAL: Non-toxic in appearance. INTEGUMENTARY: Warm, dry, and [place]. HEAD: Normocephalic. EYES: without scleral icterus or trauma. ENT/OROPHARYNX: clear and moist. LYMPHADENOPATHY/NECK: Is supple without lymphadenopathy or meningismus. RESPIRATORY: Lungs clear and equal. CARDIOVASCULAR: Regular rate and rhythm. GI/ABDOMEN: Soft. Mild tenderness to upper abdomen. No organomegaly or pulsatile mass. No rebound or guarding. Normal bowel sounds. EXTREMITIES: Warm and well perfused. BACK: No CVA tenderness. NEUROLOGICAL: Intact without focal deficits. PSYCHIATRIC: normal affect. MUSCULOSKELETAL: Normally developed with good muscle tone. Medical Decision & Procedures ER Provider Diagnostic Interpretation: X ray results and stated below per my interpretation and radiology interpretation. CHEST ONE VIEW PORTABLE CLINICAL HISTORY: ABDOMINAL PAIN/GI nausea COMPARISON STUDY: 01/18/2017 FINDINGS: The bones soft tissues and hemidiaphragms are normal. The cardiomediastinal silhouette is normal. The lungs are clear. The pulmonary vasculature is normal. IMPRESSION: Negative chest. Electronically signed by: Caleb Calle M.D. 05/05/2017 10:00 PM Dictated Date/Time: 05/05/2017 10:00 PM Laboratory Results 05/05/17 21:50 Red Blood Count 4.11, Mean Corpuscular Volume 92.9, Mean Corpuscular Hemoglobin 30.4, Mean Corpuscular Hemoglobin Concent 32.7, Mean Platelet Volume 10.7, Neutrophils (%) (Auto) 56.0, Lymphocytes (%) (Auto) 31.8, Monocytes (%) (Auto) 9.9, Eosinophils (%) (Auto) 1.9, Basophils (%) (Auto) 0.2, Neutrophils # (Auto) 3.61, Lymphocytes # (Auto) 2.05, Monocytes # (Auto) 0.64, Eosinophils # (Auto) 0.12, Basophils # (Auto) 0.01 05/05/17 21:50 Test 05/05/17 21:48 05/05/17 21:50 05/05/17 22:03 Urine Color YELLOW Urine Appearance CLEAR (CLEAR) Urine pH 7.5 (4.5-7.5) Urine Specific [place] 1.013 (1.000-1.030) Urine Protein NEG (NEG) Urine Glucose (UA) NEG (NEG) Urine Ketones NEG (NEG) Urine Occult Blood 1+ (NEG) Urine Nitrite NEG (NEG) Urine Bilirubin NEG (NEG) Urine Urobilinogen NEG (NEG) Urine Leukocyte Esterase MODERATE (NEG) Urine WBC (Auto) >30 /hpf (0-5) Urine RBC (Auto) 10-30 /hpf (0-4) Urine Hyaline Casts (Auto) 0 /lpf (0-5) Urine Epithelial Cells (Auto) 20-30 /lpf (0-5) Urine Bacteria (Auto) NEG (NEG) White Blood Count 6.44 K/uL (4.8-10.8) Red Blood Count 4.11 M/uL (4.2-5.4) Hemoglobin 12.5 g/dL (12.0-16.0) Hematocrit 38.2 % (37-47) Mean Corpuscular Volume 92.9 fL (80-100) Mean Corpuscular Hemoglobin 30.4 pg (25-34) Mean Corpuscular Hemoglobin Concent 32.7 g/dl (32-36) Platelet Count 178 K/uL (130-400) Mean Platelet Volume 10.7 fL (7.4-10.4) Neutrophils (%) (Auto) 56.0 % Lymphocytes (%) (Auto) 31.8 % Monocytes (%) (Auto) 9.9 % Eosinophils (%) (Auto) 1.9 % Basophils (%) (Auto) 0.2 % Neutrophils # (Auto) 3.61 K/uL (1.4-6.5) Lymphocytes # (Auto) 2.05 K/uL (1.2-3.4) Monocytes # (Auto) 0.64 K/uL (0.11-0.59) Eosinophils # (Auto) 0.12 K/uL (0-0.5) Basophils # (Auto) 0.01 K/uL (0-0.2) RDW Standard Deviation 48.3 fL (36.4-46.3) RDW Coefficient of Variation 14.2 % (11.5-14.5) Immature Granulocyte % (Auto) 0.2 % Immature Granulocyte # (Auto) 0.01 K/uL (0.00-0.02) Prothrombin Time 10.0 SECONDS (9.0-12.0) Prothromb Time International Ratio 0.9 (0.9-1.1) Activated Partial Thromboplast Time 26.4 SECONDS (21.0-31.0) Partial Thromboplastin Ratio 1.0 Anion Gap 7.0 mmol/L (3-11) Est Creatinine Clear Calc Drug Dose 29.7 ml/min Estimated GFR () 35.8 Estimated GFR (Non- 30.9 BUN/Creatinine Ratio 13.2 (10-20) Calcium Level 9.0 mg/dl (8.5-10.1) Total Bilirubin 0.7 mg/dl (0.2-1) Direct Bilirubin 0.2 mg/dl (0-0.2) Aspartate Amino Transf (AST/SGOT) 18 U/L (15-37) Alanine Aminotransferase (ALT/SGPT) 22 U/L (12-78) Alkaline Phosphatase 112 U/L (45-117) Total Protein 6.5 gm/dl (6.4-8.2) Albumin 3.5 gm/dl (3.4-5.0) Lipase 1162 U/L (73-393) Bedside Troponin I < 0.030 ng/ml (0-0.045) Laboratory results as stated above per my review. Medications Administered Medications (Trade) Dose Ordered Sig/Alycia Route Start Time Stop Time Status Last Admin Dose Admin Sodium Chloride 1,000 ml @ 999 mls/hr Q1H1M STAT IV 05/05/17 21:39 05/05/17 22:39 DC 05/05/17 22:06 999 MLS/HR Ondansetron HCl (Zofran Inj) 4 mg NOW STAT IV 05/05/17 21:39 05/05/17 21:40 DC 05/05/17 22:06 4 MG Fentanyl Citrate (Fentanyl Inj) 50 mcg NOW ONCE IV 05/05/17 22:45 05/05/17 22:46 DC 05/05/17 22:57 50 MCG Hydromorphone HCl (Dilaudid Inj) 1 mg NOW STAT IV 05/06/17 00:28 05/06/17 00:30 DC 05/06/17 00:39 1 MG ECG Indication: abdominal pain Rate (beats per minute): 64 Rhythm: normal sinus Findings: no acute ischemic change, no ectopy ED Course 9: Zofran Injection 4 mg IV, Sodium Chloride 1000 ml @ 999 mls/hr IV. 2148: Previous medical records were reviewed. The patient was evaluated in room C09. A complete history and physical examination was performed. 2245: Fentanyl Injection 50 mcg IV. 0020: Morphine Sulfate 4 mg IV. 0025: I discussed the patient's case with Dr. Mandel, [facility] Hospitalist. He understands the patient's condition and agrees to accept the patient. The patient will be further evaluated. 0028: Dilaudid Injection 1 mg IV. Medical Decision Differential considered: pancreatitis, hepatitis, or acute cholecystitis, AAA, UTI, pyelonephritis, kidney stones, appendicitis, diverticulitis, shingles, bowel obstruction mesenteric ischemia, intussusception,hernia. Medication Reconciliation: I attest that I have personally reviewed the patient' s current medication list. Patient was found to have a slightly elevated blood pressure due to circumstances. I do not believe that the patient requires hypertension monitoring. This is a 67-year-old female who presents to the ED with a chief complaint of epigastric abdominal pain. The patient states that her symptoms started on Monday but worse today. She has some associated nausea. Her vital signs are stable. Her physical exam revealed epigastric tenderness. EKG shows a normal sinus rhythm. Troponin was negative. Lipase is 1162. BUN is 27. Creatinine is 1.7. Complete metabolic panel was otherwise unremarkable. CBC is normal. Urine did not show infection. The patient was told the results. She was treated with IV fentanyl IV morphine as well as IV fluids and IV Zofran. She'll be seen by the hospitalist for further inpatient evaluation. Consults Time Called: 002 Consulting Physician: Dr. Mandel, [facility] Hospitalist Returned Call: [phone] I discussed the patient's case with Dr. Mandel [facility] Hospitalist. He understands the patient's condition and agrees to accept the patient. The patient will be further evaluated. Impression Primary Impression: Acute pancreatitis Additional Impressions: Dehydration Renal insufficiency Scribe Attestation The scribe's documentation has been prepared under my direction and personally reviewed by me in its entirety. I confirm that the note above accurately reflects all work, treatment, procedures, and medical decision making performed by me. Departure Information Dispostion Being Evaluated By Hospitalist (Dr. Mandel, [facility] Hospitalist) Referrals Indy Diop D.O. (PCP) Patient Instructions My [facility] [address] Problem Qualifiers
[2017-05-06] MEDS ORDERED: ONDANSETRON INJ 2 MG/ML 2 ML VIAL IV PRN (01:45)
--- NOTE | 2017-05-06 02:19 | History and Physical ---
History & Physical Date & Time of Service: May 06, 2017 at 01:53 Chief Complaint: Abdominal Pain, Pancreatitis Primary Care Physician: Indy Diop D.O. History of Present Illness Source: patient, clinic records, hospital records 67 year old female with PMH of recurrent pancreatitis, MS, fatty liver, CKD stage 3. Dyslipidemia, cholecystectomy who was admitted back on 03/28 for post ERCP abdominal pain presents to the Emergency Room with complaints of worsening abdominal pain that started two days ago. Pt was in the ER last week for abdominal pain that was mild compared to today. She was given IVF and pain med and discharged home. She said that the pain got better. She said that the pain started again on Monday and worsening last night. She described the pain as cramping, grade 10/10 in severity, non radiated and associated with nausea. She had a normal BM yesterday morning. Denies any chest pain, palpitation, dizziness, fever, vomiting, diarrhea and chills. Past Medical/Surgical History Medical Problems: (1) Acute pancreatitis Status: Resolved (2) Chronic kidney disease Status: Chronic (3) Diverticulosis Status: Chronic (4) Gallstones Status: Resolved (5) GERD (gastroesophageal reflux disease) Status: Chronic (6) GERD (gastroesophageal reflux disease) Status: Chronic (7) HTN (hypertension) Status: Chronic (8) Hyperlipidemia Status: Chronic (9) Kidney disease, chronic, stage III (GFR 30-59 ml/min) Status: Chronic (10) Multiple sclerosis Status: Chronic (11) Pancreatic divisum Status: Chronic (12) Pancreatitis Status: Resolved Surgical Problems: (1) History of abdominal hernia Status: Resolved (2) History of back surgery Status: Chronic (3) Hx of cholecystectomy Status: Chronic (4) S/P bilateral breast reduction Status: Chronic (5) S/P bladder repair Status: Chronic (6) s/p removal of fibroid in uterus Status: Chronic (7) S/P tubal ligation Status: Chronic Family History FH: brain aneurysm SISTER FH: cancer MOTHER (Breast CA) SISTER (Breast CA) FH: hypertension FH: multiple sclerosis DAUGHTER Social History Smoking Status: Never Smoker Marital Status: in relationship Housing status: lives with significant other, other Occupational Status: employed Immunizations History of Influenza Vaccine: Yes Influenza Vaccine Date: Sep 15, 2013 History of Tetanus Vaccine?: Yes Tetanus Immunization Date: Jan 14, 2008 History of Pneumococcal: Yes Pneumococcal Date: Sep 15, 2013 History of Hepatitis B Vaccine: No Multi-Drug Resistant Organisms History of MDRO: No Allergies Coded Allergies: Ibuprofen (Verified Allergy, Mild, HIVES, 04/30/17) Morphine (Verified Allergy, Mild, pruritis, 04/30/17) Adhesives (Verified Allergy, Unknown, RASH, 04/30/17) Home Medications Scheduled Aspirin (Aspirin), 325 MG PO DAILY Atorvastatin (Lipitor), 40 MG PO QAM Calcium Citrate-Vitamin D (Calcium Citrate + D), 1 TAB PO DAILY Furosemide (Lasix), 20 MG PO BID Lisinopril (Prinivil), 5 MG PO QAM Multivitamin (Multivitamin), 1 TAB PO QAM Omeprazole (Prilosec), 20 MG PO QAM Ondasetron Odt (Zofran Odt), 4 MG SL Q6H Ranitidine (Zantac), 300 MG PO HS Tamsulosin HCl (Tamsulosin HCl), 0.4 MG PO HS Triamcinolone Acet (Aristocort 0.1%), 1 APPL TOP BID Scheduled PRN Melatonin (Melatonin), 5 MG PO HS PRN for Insomnia Oxycodone Immediate Rel Tab (Roxicodone Ir), 1-2 TAB PO Q4H PRN for Severe Pain Polyethylene Glycol 3350 (Miralax), 17 GM PO DAILY PRN for Constipation Review of Systems Constitutional: No fever, No chills, No sweats Eyes: No eye pain, No discharge ENT: No hearing loss, No nasal symptoms, No sore throat Respiratory: No cough, No sputum, No wheezing, No shortness of breath Cardiovascular: No chest pain, No orthopnea, No palpitations Abdomen: + pain, + nausea, No vomiting, No diarrhea Musculoskeletal: No calf pain Genitourinary - Female: No dysuria, No urinary frequency, No urinary urgency Neurologic: No memory loss, No paralysis Psychiatric: No substance abuse Endocrine: No excessive thirst Hematologic / Lymphatic: No night sweats Integumentary: No rash, No itch Physical Exam Vital Signs Date Time Temp Pulse Resp B/P (MAP) Pulse Ox O2 Delivery O2 Flow Rate FiO2 05/06/17 00:40 64 18 142/53 93 Room Air 05/05/17 22:58 63 18 129/52 95 Room Air 05/05/17 21:30 36.6 60 16 140/73 97 Room Air General Appearance: WD/WN, no apparent distress Head: normocephalic, atraumatic Eyes: normal inspection, PERRL, EOMI ENT: normal ENT inspection, hearing grossly normal Neck: no JVD, + pertinent finding (left carotid bruit) Respiratory/Chest: lungs clear, normal breath sounds, no respiratory distress, no accessory muscle use Cardiovascular: regular rate, rhythm, no JVD, + systolic murmur Abdomen/GI: normal bowel sounds, + tenderness (Mid epigastric , non distended) Back: normal inspection, no CVA tenderness Extremities/Musculoskelatal: no calf tenderness Neurologic/Psych: alert, normal mood/affect, normal reflexes, oriented x 3 Skin: warm/dry, no rash Diagnostics Laboratory Results Results Past 24 Hours Test 05/05/17 21:48 05/05/17 21:50 05/05/17 22:03 Range/Units Urine Color YELLOW Urine Appearance CLEAR CLEAR Urine pH 7.5 4.5-7.5 Urine Specific [place] 1.013 1.000-1.030 Urine Protein NEG NEG Urine Glucose (UA) NEG NEG Urine Ketones NEG NEG Urine Occult Blood 1+ NEG Urine Nitrite NEG NEG Urine Bilirubin NEG NEG Urine Urobilinogen NEG NEG Urine Leukocyte Esterase MODERATE NEG Urine WBC (Auto) >30 0-5 /hpf Urine RBC (Auto) 10-30 0-4 /hpf Urine Hyaline Casts (Auto) 0 0-5 /lpf Urine Epithelial Cells (Auto) 20-30 0-5 /lpf Urine Bacteria (Auto) NEG NEG White Blood Count 6.44 4.8-10.8 K/uL Red Blood Count 4.11 4.2-5.4 M/uL Hemoglobin 12.5 12.0-16.0 g/dL Hematocrit 38.2 37-47 % Mean Corpuscular Volume 92.9 80-100 fL Mean Corpuscular Hemoglobin 30.4 25-34 pg Mean Corpuscular Hemoglobin Concent 32.7 32-36 g/dl Platelet Count 178 130-400 K/uL Mean Platelet Volume 10.7 7.4-10.4 fL Neutrophils (%) (Auto) 56.0 % Lymphocytes (%) (Auto) 31.8 % Monocytes (%) (Auto) 9.9 % Eosinophils (%) (Auto) 1.9 % Basophils (%) (Auto) 0.2 % Neutrophils # (Auto) 3.61 1.4-6.5 K/uL Lymphocytes # (Auto) 2.05 1.2-3.4 K/uL Monocytes # (Auto) 0.64 0.11-0.59 K/uL Eosinophils # (Auto) 0.12 0-0.5 K/uL Basophils # (Auto) 0.01 0-0.2 K/uL RDW Standard Deviation 48.3 36.4-46.3 fL RDW Coefficient of Variation 14.2 11.5-14.5 % Immature Granulocyte % (Auto) 0.2 % Immature Granulocyte # (Auto) 0.01 0.00-0.02 K/uL Prothrombin Time 10.0 9.0-12.0 SECONDS Prothromb Time International Ratio 0.9 0.9-1.1 Activated Partial Thromboplast Time 26.4 21.0-31.0 SECONDS Partial Thromboplastin Ratio 1.0 Sodium Level 140 136-145 mmol/L Potassium Level 4.0 3.5-5.1 mmol/L Chloride Level 103 98-107 mmol/L Carbon Dioxide Level 30 21-32 mmol/L Anion Gap 7.0 3-11 mmol/L Blood Urea Nitrogen 22 7-18 mg/dl Creatinine 1.70 0.60-1.20 mg/dl Est Creatinine Clear Calc Drug Dose 29.7 ml/min Estimated GFR () 35.8 Estimated GFR (Non- 30.9 BUN/Creatinine Ratio 13.2 10-20 Random Glucose 105 70-99 mg/dl Calcium Level 9.0 8.5-10.1 mg/dl Total Bilirubin 0.7 0.2-1 mg/dl Direct Bilirubin 0.2 0-0.2 mg/dl Aspartate Amino Transf (AST/SGOT) 18 15-37 U/L Alanine Aminotransferase (ALT/SGPT) 22 12-78 U/L Alkaline Phosphatase 112 45-117 U/L Total Protein 6.5 6.4-8.2 gm/dl Albumin 3.5 3.4-5.0 gm/dl Lipase 1162 73-393 U/L Bedside Troponin I < 0.030 0-0.045 ng/ml Microbiology Results 05/05/17 Urine Culture, Received Pending EKG CHEST ONE VIEW PORTABLE CLINICAL HISTORY: ABDOMINAL PAIN/GI nausea COMPARISON STUDY: 01/18/2017 FINDINGS: The bones soft tissues and hemidiaphragms are normal. The cardiomediastinal silhouette is normal. The lungs are clear. The pulmonary vasculature is normal. IMPRESSION: Negative chest. Electronically signed by: Caleb Calle M.D. 05/05/2017 10:00 PM Dictated Date/Time: 05/05/2017 10:00 PM Impression Assessment and Plan ACUTE PANCREATITIS Hx of recurrent pancreatitis, s/p cholecystectomy 12/2015 Lipase 1162 on admission Afebrile; WBC WNL, Hemodynamically stable Continue IV fluids- NSS at 150 mL/hour Pain control with IV morphine PRN PPI and Zofran Recheck lipase in am MIKEL ON CKD STAGE 3 Possible related to poor oral intake Creatine on admission 1.7 Creatine baseline around 1.2 Hold Lisinopril, Lasix avoid nephrotoxic agent Monitor BMP HTN Stable Hold lisinopril and Lasix DYSLIPIDEMIA Continue Statin CAROTID STENOSIS Continue Aspirin MULTIPLE SCLEROSIS Stable; not undergoing treatment currently DVT PROPHYLAXIS on Heparin subq CODE STATUS FULL NO MECH VENTILATION DISPOSITION Admit to med/ surg Follows with Dr. Indy Diop for primary care Level of Care Med/Surg Resuscitation Status FULL NO MECH VENTILATION VTE Prophylaxis VTE Risk Assessment Done? Y/N: Yes Risk Level: Moderate Given or contraindicated: Unfractionated heparin SQ
[2017-05-06 02:21] VITALS: O2SAT 93
[2017-05-06] MEDS ORDERED: MoRPHine SULFATE 2 MG/ML CARP IV PRN (02:30)
[2017-05-06] MEDS: SODIUM CHLORIDE 0.9% 1000ML 1,000 ML IV SCH ×3 (02:56→18:45)
[2017-05-06 03:02] VITALS: BP 108/69; PULSE 58; TEMP 36.6; Ht 152.4 cm; Wt 76.0 kg
[2017-05-06] MEDS: HEPARIN SOD 5000 UNIT/0.5 ML CARP SQ SCH ×3 (05:56→21:56)
[2017-05-06 07:05] LABS: HEMATOCRIT 35.3 % (37-47); MEAN CELL VOLUME 93.6 fL (80-100); MEAN CORPUSCULAR HEMOGLOBIN 30.8 pg (25-34); MEAN CORPUSCULAR HGB CONC 32.9 g/dl (32-36); MEAN PLATELET VOLUME 10.9 fL (7.4-10.4); PLATELET COUNT 158 K/uL (130-400); RED BLOOD COUNT 3.77 M/uL (4.2-5.4); WHITE BLOOD COUNT 4.32 K/uL (4.8-10.8)
[2017-05-06 07:24] VITALS: BP 102/67; PULSE 57; TEMP 36.5; O2SAT 96
[2017-05-06 07:40] LABS: BUN/CREATININE RATIO 14.7 (10-20); CALCIUM 8.5 mg/dl (8.5-10.1); CREATININE 1.3 mg/dl (0.60-1.20); POTASSIUM 3.9 mmol/L (3.5-5.1)
[2017-05-06 07:42] LABS: ALB/GLOB RATIO 1.2 (0.9-2)
[2017-05-06] MEDS: PANTOprazole SOD 40 MG TAB PO SCH (07:57)
[2017-05-06] MEDS: MULTIVITAMIN TAB PO SCH (07:57)
[2017-05-06] MEDS: ASPIRIN 325 MG ECTAB PO SCH (07:58)
[2017-05-06] MEDS: CALCIUM 600MG + VIT D 400 IU TAB PO SCH (07:58)
[2017-05-06] MEDS ORDERED: ATORVASTATIN 40 MG TAB PO SCH (08:00)
[2017-05-06] MEDS ORDERED: TRIAMCINOLONE ACET 0.1% CR 15 GM TUBE EXT SCH (08:00)
[2017-05-06] MEDS: HYDROmorphone INJ 1 MG/ML SYR IV PRN ×2 (11:01→18:45)
--- NOTE | 2017-05-06 13:43 | Progress Note ---
Internal Med Progress Note Date of Service: May 06, 2017. Provider Documentation: SUBJECTIVE: mentions that abdominal pain much improved after IV Dilaudid no nausea willing to advance diet to clears OBJECTIVE: Vital Signs-as noted below Exam: General-no sign of distress Eyes-sclera non icteric ENT-NAd Neck-no JVD noted Lungs-CTA , no wheeze or rales Heart-regular S1/S2 Abdomen-soft, mild epigastric , mid abdomen tenderness,no rebound ,bowel sound active Extremities-no lower ext edema Neuro-AAO x3, no focal neurological deficit Lab data as noted below. ASSESSMENT & PLAN: ACUTE PANCREATITIS Hx of recurrent pancreatitis, s/p cholecystectomy 12/2015 Lipase 1162 on admission; improved to 656 with IV hydration , bowel rest abdominal pain has improved no nausea -ordered for clear liquid diet Pain control with IV Dilaudid PRN( pt reports adverse reaction to Morphine ) follows with GI Dr Cai GI eval requested MIKEL ON CKD STAGE 3 Possible related to poor oral intake-acute pancreatitis Creatine on admission 1.7-improved with IV hydration Creatine baseline around 1.2 Hold Lisinopril, Lasix avoid nephrotoxic agent Monitor BMP HTN Stable Hold lisinopril and Lasix for MIKEL DYSLIPIDEMIA hold Statin-acute pancreatitis CAROTID STENOSIS Continue Aspirin MULTIPLE SCLEROSIS Stable; not undergoing treatment currently DVT PROPHYLAXIS on Heparin subq CODE STATUS FULL NO [facility] VENTILATION DISPOSITION discharge home when medically stable Follows with Dr. Indy Diop for primary care GI follow up with Dr Jac Cai Vital Signs: Date Time Temp Pulse Resp B/P (MAP) Pulse Ox O2 Delivery O2 Flow Rate FiO2 05/06/17 08:30 Room Air 05/06/17 07:24 36.5 57 18 102/67 (79) 96 05/06/17 03:02 36.6 58 18 108/69 Room Air 05/06/17 02:21 63 18 132/58 93 05/06/17 00:40 64 18 142/53 93 Room Air 05/05/17 22:58 63 18 129/52 95 Room Air 05/05/17 21:30 36.6 60 16 140/73 97 Room Air Lab Results: Results Past 24 Hours Test 05/05/17 21:48 05/05/17 21:50 05/05/17 22:03 05/06/17 06:36 Range/Units Urine Color YELLOW Urine Appearance CLEAR CLEAR Urine pH 7.5 4.5-7.5 Urine Specific [place] 1.013 1.000-1.030 Urine Protein NEG NEG Urine Glucose (UA) NEG NEG Urine Ketones NEG NEG Urine Occult Blood 1+ NEG Urine Nitrite NEG NEG Urine Bilirubin NEG NEG Urine Urobilinogen NEG NEG Urine Leukocyte Esterase MODERATE NEG Urine WBC (Auto) >30 0-5 /hpf Urine RBC (Auto) 10-30 0-4 /hpf Urine Hyaline Casts (Auto) 0 0-5 /lpf Urine Epithelial Cells (Auto) 20-30 0-5 /lpf Urine Bacteria (Auto) NEG NEG White Blood Count 6.44 4.32 4.8-10.8 K/uL Red Blood Count 4.11 3.77 4.2-5.4 M/uL Hemoglobin 12.5 11.6 12.0-16.0 g/dL Hematocrit 38.2 35.3 37-47 % Mean Corpuscular Volume 92.9 93.6 80-100 fL Mean Corpuscular Hemoglobin 30.4 30.8 25-34 pg Mean Corpuscular Hemoglobin Concent 32.7 32.9 32-36 g/dl Platelet Count 178 158 130-400 K/uL Mean Platelet Volume 10.7 10.9 7.4-10.4 fL Neutrophils (%) (Auto) 56.0 % Lymphocytes (%) (Auto) 31.8 % Monocytes (%) (Auto) 9.9 % Eosinophils (%) (Auto) 1.9 % Basophils (%) (Auto) 0.2 % Neutrophils # (Auto) 3.61 1.4-6.5 K/uL Lymphocytes # (Auto) 2.05 1.2-3.4 K/uL Monocytes # (Auto) 0.64 0.11-0.59 K/uL Eosinophils # (Auto) 0.12 0-0.5 K/uL Basophils # (Auto) 0.01 0-0.2 K/uL RDW Standard Deviation 48.3 48.5 36.4-46.3 fL RDW Coefficient of Variation 14.2 14.2 11.5-14.5 % Immature Granulocyte % (Auto) 0.2 % Immature Granulocyte # (Auto) 0.01 0.00-0.02 K/uL Prothrombin Time 10.0 9.0-12.0 SECONDS Prothromb Time International Ratio 0.9 0.9-1.1 Activated Partial Thromboplast Time 26.4 21.0-31.0 SECONDS Partial Thromboplastin Ratio 1.0 Sodium Level 140 142 136-145 mmol/L Potassium Level 4.0 3.9 3.5-5.1 mmol/L Chloride Level 103 107 98-107 mmol/L Carbon Dioxide Level 30 28 21-32 mmol/L Anion Gap 7.0 7.0 3-11 mmol/L Blood Urea Nitrogen 22 19 7-18 mg/dl Creatinine 1.70 1.30 0.60-1.20 mg/dl Est Creatinine Clear Calc Drug Dose 29.7 38.8 ml/min Estimated GFR () 35.8 49.5 Estimated GFR (Non- 30.9 42.7 BUN/Creatinine Ratio 13.2 14.7 10-20 Random Glucose 105 91 70-99 mg/dl Calcium Level 9.0 8.5 8.5-10.1 mg/dl Total Bilirubin 0.7 0.9 0.2-1 mg/dl Direct Bilirubin 0.2 0-0.2 mg/dl Aspartate Amino Transf (AST/SGOT) 18 14 15-37 U/L Alanine Aminotransferase (ALT/SGPT) 22 20 12-78 U/L Alkaline Phosphatase 112 97 45-117 U/L Total Protein 6.5 5.6 6.4-8.2 gm/dl Albumin 3.5 3.1 3.4-5.0 gm/dl Lipase 1162 656 73-393 U/L Bedside Troponin I < 0.030 0-0.045 ng/ml Globulin 2.5 2.5-4.0 gm/dl Albumin/Globulin Ratio 1.2 0.9-2 Microbiology Results 05/05/17 Urine Culture - Preliminary, Resulted NO GROWTH - LESS THAN 1,000 COLONIES/...
[2017-05-06 14:59] VITALS: BP 129/79; PULSE 61; TEMP 36.5; O2SAT 100
[2017-05-06] MEDS ORDERED: TAMSULOSIN HCL 0.4 MG CAP PO SCH (21:00)
[2017-05-06] MEDS ORDERED: RANITIDINE HCL 150 MG TAB PO SCH (21:00)
[2017-05-07 00:04] VITALS: BP 118/77; PULSE 57; TEMP 36.5; O2SAT 96
[2017-05-07] MEDS: SODIUM CHLORIDE 0.9% 1000ML 1,000 ML IV SCH ×2 (02:36→10:49)
[2017-05-07] MEDS: HYDROmorphone INJ 1 MG/ML SYR IV PRN (03:10)
[2017-05-07] MEDS: HEPARIN SOD 5000 UNIT/0.5 ML CARP SQ SCH ×2 (05:55→14:15)
[2017-05-07 07:06] LABS: BUN/CREATININE RATIO 10.6 (10-20); CREATININE 0.99 mg/dl (0.60-1.20); POTASSIUM 3.9 mmol/L (3.5-5.1)
[2017-05-07 07:14] VITALS: BP 125/77; PULSE 62; TEMP 36.4; O2SAT 97
[2017-05-07 07:28] LABS: CALCIUM 8.1 mg/dl (8.5-10.1)
[2017-05-07] MEDS: PANTOprazole SOD 40 MG TAB PO SCH (07:51)
[2017-05-07] MEDS: MULTIVITAMIN TAB PO SCH (07:51)
[2017-05-07] MEDS: ASPIRIN 325 MG ECTAB PO SCH (07:51)
[2017-05-07] MEDS: CALCIUM 600MG + VIT D 400 IU TAB PO SCH (07:51)
--- NOTE | 2017-05-07 14:18 | Progress Note ---
Subjective Date of Service: May 07, 2017. Subjective Pt evaluation today including: conversation w/ patient, physical exam, lab review, review of studies, review of inpatient medication list Saw/examined the patient in room 460 She's doing well tolerating clears - no nausea/vomiting No fevers/chills abdominal pain resolved Problem List Medical Problems: (1) Chronic kidney disease Status: Chronic (2) Dehydration Status: Acute (3) Epigastric abdominal pain Status: Acute (4) GERD (gastroesophageal reflux disease) Status: Chronic (5) Hematuria Status: Acute (6) Intractable right lower quadrant abdominal pain Status: Acute (7) Left elbow contusion Status: Acute (8) Lisfranc fracture Status: Acute (9) Post-op pain Status: Acute (10) Renal insufficiency Status: Acute (11) Right upper quadrant abdominal pain Status: Acute (12) Work related injury Status: Acute Review of Systems Constitutional: No fever, No chills Respiratory: No shortness of breath Cardiac: No chest pain Abdomen: No pain (resolved), No nausea, No vomiting, No diarrhea Medications Current Inpatient Medications Medications (Trade) Dose Ordered Sig/Alycia Route Start Time Stop Time Status Last Admin Dose Admin Heparin Sodium (Porcine) (Heparin Sq 5000 Unit/0.5ml) 5,000 unit Q8H SQ 05/06/17 06:00 06/05/17 05:59 05/07/17 05:55 5,000 UNIT Ondansetron HCl (Zofran Inj) 4 mg Q6H PRN IV 05/06/17 01:45 06/05/17 01:44 Sodium Chloride 1,000 ml @ 125 mls/hr Q8H IV 05/06/17 02:30 06/05/17 02:29 05/07/17 10:49 125 MLS/HR Aspirin (Ecotrin Tab) 325 mg DAILY PO 05/06/17 08:00 06/05/17 08:59 05/07/17 07:51 325 MG Atorvastatin Calcium (Lipitor Tab) 40 mg QAM PO 05/06/17 08:00 06/05/17 08:59 Future Hold 05/06/17 07:57 40 MG Multivitamins (Multivitamin Tab) 1 tab QAM PO 05/06/17 08:00 06/05/17 08:59 05/07/17 07:51 1 TAB Tamsulosin HCl (Flomax Cap) 0.4 mg HS PO 05/06/17 21:00 06/05/17 20:59 05/06/17 21:57 0.4 MG Calcium/Vitamin D (Caltrate Plus Tab) 1 tab DAILY PO 05/06/17 08:00 06/05/17 08:59 05/07/17 07:51 1 TAB Pantoprazole Sodium (Protonix Tab) 40 mg QAM PO 05/06/17 08:00 06/05/17 08:59 05/07/17 07:51 40 MG Ranitidine HCl (zANTac TAB) 300 mg HS PO 05/06/17 21:00 06/05/17 20:59 05/06/17 21:56 300 MG Hydromorphone HCl (Dilaudid Inj) 1 mg Q6 PRN IV 05/06/17 10:00 05/20/17 09:59 05/07/17 03:10 1 MG Objective Vital Signs Date Time Temp Pulse Resp B/P (MAP) Pulse Ox O2 Delivery O2 Flow Rate FiO2 05/07/17 08:30 Room Air 05/07/17 07:14 36.4 62 20 125/77 (93) 97 05/07/17 00:04 36.5 57 18 118/77 (91) 96 Room Air 05/07/17 00:00 Room Air 05/06/17 20:00 Room Air 05/06/17 16:30 Room Air 05/06/17 14:59 36.5 61 18 129/79 (96) 100 Physical Exam General Appearance: no apparent distress Respiratory/Chest: chest non-tender, lungs clear, normal breath sounds, no respiratory distress, no accessory muscle use Cardiovascular: regular rate, rhythm, no edema, no murmur Abdomen: normal bowel sounds, non tender, soft Laboratory Results Last 24 Hours Test 05/07/17 06:13 Sodium Level 145 mmol/L Potassium Level 3.9 mmol/L Chloride Level 113 mmol/L Carbon Dioxide Level 26 mmol/L Anion Gap 6.0 mmol/L Blood Urea Nitrogen 10 mg/dl Creatinine 0.99 mg/dl Est Creatinine Clear Calc Drug Dose 50.9 ml/min Estimated GFR () 68.8 Estimated GFR (Non- 59.4 BUN/Creatinine Ratio 10.6 Random Glucose 85 mg/dl Calcium Level 8.1 mg/dl Lipase 365 U/L Assessment and Plan This is a 67 year old female with chronic and recurrent pancreatitis, multiple sclerosis, CKD stage 3, HLD, GERD presents with acute pancreatitis Acute, Recurrent Pancreatitis lipase elevated on admission given IVFs, Dilaudid PRN clears - tolerating well had a recent MRCP and bile duct dilatation at [facility] recently lipase normalized, pain controlled, tolerating diet GI consult pending - possible d/c with outpatient f/u with GI in [facility] Acute Kidney Injury superimposed on CKD stage 3 creat 1.7 on admission given IVFs now down to 0.99, closer to baseline HLD statin held, can continue on discharge DVT ppx subq heparin FULL, NO VENT
[2017-05-07 14:39] VITALS: BP 174/79; PULSE 70; TEMP 36.4; O2SAT 100
--- NOTE | 2017-05-07 16:33 | GASTROINTESTINAL CONSULTATION ---
DATE OF CONSULTATION: 05/07/2017 ATTENDING PHYSICIAN: Dr. Pacheco. CONSULTING PHYSICIAN: Dr. Charles. REASON FOR CONSULTATION: Recurrent pancreatitis. HISTORY OF PRESENT ILLNESS: Abigail Desouza is a 67-year-old female with an extensive past medical history that includes recurrent episodes of pancreatitis. She was most recently seen by the [facility] GI group on 03/28/2017 with an episode of pancreatitis. She had previously undergone a cholecystectomy and had multiple ERCPs in the past secondary to pancreas divisum. In July of 2016, she had her common bile duct dilated by Dr. Hawk at [facility] and she is following with Dr. Cai here in [place]. 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 She presented to the Department of Emergency Medicine on April 29 with complaints of abdominal pain and did have no elevation of her lipase level. She was subsequently discharged to home. She returned to the ER on May 06 with complaints of abdominal pain and on laboratory studies at that time she was noted to have an elevation of her lipase level to 1162. She was treated conservatively with IV fluids, narcotic analgesics and antiemetics and subsequently had a decline in her lipase level to today's level of 365. At the time that I saw the patient today, she states that she feels much improved, her abdominal pain is completely gone. She denies any nausea, vomiting, hematemesis, melena, hematochezia. She further denies any fevers or chills. She states that she would like to eat and be discharged and make a followup appointment with Dr. Cai or Dr. Hawk for further evaluation of her symptoms. It should be noted that the patient denies any alcohol intake and denies any new pharmaceuticals or [id number] medication ingestions and has no other complaints at present. PAST MEDICAL HISTORY: Significant for MS, chronic kidney disease stage III, hypertension, GERD, hyperlipidemia, recurrent pancreatitis, and fatty liver disease and pancreas divisum. PAST SURGICAL HISTORY: Includes cholecystectomy, back surgery, abdominal hernia repair, breast reduction, bladder repair, uterine fibroid removal, tubal ligation. She has also had multiple ERCPs with sphincterotomy of the ampulla secondary to a papillary stenosis. ALLERGIES: ADHESIVES, IBUPROFEN AND MORPHINE. MEDICATIONS: At present include Flomax 0.4 mg p.o. at bedtime, Zantac 300 mg p.o. at bedtime, Dilaudid 1 mg IV q. 6 hours p.r.n. pain, aspirin 325 mg p.o. daily, multivitamin 1 tab p.o. q.a.m., Caltrate plus vitamin D 1 tab p.o. daily, pantoprazole 40 mg p.o. q.a.m., heparin 5,000 units subQ q. 8 hours, Zofran 4 mg IV q. 6 p.r.n. nausea. SOCIAL HISTORY: She is . She denies any tobacco, alcohol or illicit drug use. FAMILY HISTORY: Negative for GI malignancy or inflammatory bowel disease. REVIEW OF SYSTEMS: Negative 10 system review other than pertinent positives listed in the HPI. PHYSICAL EXAMINATION: VITAL SIGNS: Include a temp of 36.4, pulse 70, respirations 18, blood pressure 174/79. Pulse ox 100% on room air. GENERAL: She is alert, oriented x3, cooperative, obese, in no acute distress. HEAD: Normocephalic, atraumatic. EYES: Pupils equal, round. Extraocular muscles are intact. ENT: External evaluation of ears and nose are normal. Oropharynx is clear. NECK: Soft and supple. There is no JVD or lymphadenopathy. CHEST: Clear to auscultation bilaterally. CARDIOVASCULAR SYSTEM: Regular rate and rhythm. ABDOMEN: Soft, nontender, nondistended. Positive bowel sounds. EXTREMITIES: No clubbing, cyanosis, or edema. LABORATORY STUDIES: From today include a white blood cell count of 4.32, hemoglobin 11.6, hematocrit 35.3 and a platelet count of 158. Her sodium is 145, potassium 3.9, chloride 113, bicarbonate 26, BUN 10, creatinine 0.99, blood glucose level of 85. IMPRESSION: A 67-year-old female with history of pancreas divisum as well as recurrent episodes of pancreatitis. PLAN: At the present time, the patient's symptoms are completely resolved. I would recommend advancing her diet to see if she tolerates this. I would recommend that she follow up with Dr. Cai and Dr. Hawk for further outpatient therapy and I instructed her to contact Dr. Cai's office with any worsening symptoms or to present back to the ER. She was in agreement with this plan. Once again, thanks for allowing me to participate in the care of this patient. If you have any further questions, please do not hesitate in contacting me.
--- NOTE | 2017-05-07 17:02 | Discharge Instructions ---
Discharge Instructions Date of Service May 07, 2017. Admission Reason for Admission: Acute Pancreatitis Discharge Discharge Diagnosis / Problem: Acute, Recurrent Pancreatitis Discharge Goals Goal(s): Decrease discomfort, Improve function, Diagnostic testing, Therapeutic intervention Activity Recommendations Activity Limitations: resume your previous activity . Instructions / Follow-Up Instructions / Follow-Up Please follow-up with your primary care physician and gastroenterology as an outpatient You may need to go back to in [place] for further testing (MRCP) Current Hospital Diet Patient's current hospital diet: Clear Liquid Diet Discharge Diet Recommended Diet: Low Fat Diet Pending Studies Studies pending at discharge: no Medical Emergencies . Who to Call and When: Medical Emergencies: If at any time you feel your situation is an emergency, please call 911 immediately. . Non-Emergent Contact Non-Emergency issues call your: Primary Care Provider, [employer] . . "Provider Documentation" section prepared by Donta Javed. . VTE Core Measure Inpt VTE Proph given/why not?: Unfractionated heparin SQ
--- NOTE | 2017-05-07 17:04 | Discharge Summary ---
Discharge Summary Date of Service May 07, 2017. Discharge Summary Admission Date: May 06, 2017 at 01:47 Discharge Date: May 07, 2017 Discharge Disposition: Home Principal Diagnosis: Acute, Recurrent Pancreatitis Medication Reconciliation Continued Medications: Aspirin (Aspirin) 325 Mg Tab 325 MG PO DAILY Atorvastatin (Lipitor) 40 Mg Tab 40 MG PO QAM, TAB Calcium Citrate-Vitamin D (Calcium Citrate + D) 1 Tab Tab 1 TAB PO DAILY Furosemide (Lasix) 20 Mg Tab 20 MG PO BID for Ankle Swelling/Edema Lisinopril (Prinivil) 5 Mg Tab 5 MG PO QAM, TAB Melatonin (Melatonin) 5 Mg Tab 5 MG PO HS PRN for Insomnia Multivitamin (Multivitamin) Tab 1 TAB PO QAM Omeprazole (Prilosec) 20 Mg Capcr 20 MG PO QAM, CAP Ondasetron Odt (Zofran Odt) 4 Mg Tab 4 MG SL Q6H for Nausea, #12 TAB Oxycodone Immediate Rel Tab (Roxicodone Ir) 5 Mg Tab 1-2 TAB PO Q4H PRN for Severe Pain, #12 TAB Polyethylene Glycol 3350 (Miralax) 1 Pow Pow 17 GM PO DAILY PRN for Constipation Ranitidine (Zantac) 300 Mg Tab 300 MG PO HS Tamsulosin HCl (Tamsulosin HCl) 0.4 Mg Cap 0.4 MG PO HS Triamcinolone Acet (Aristocort 0.1%) 90 Appln/30 Gm Cr 1 APPL TOP BID Admission Information HPI (per Admitting provider): 67 year old female with PMH of recurrent pancreatitis, MS, fatty liver, CKD stage 3. Dyslipidemia, cholecystectomy who was admitted back on 03/28 for post ERCP abdominal pain presents to the Emergency Room with complaints of worsening abdominal pain that started two days ago. Pt was in the ER last week for abdominal pain that was mild compared to today. She was given IVF and pain med and discharged home. She said that the pain got better. She said that the pain started again on Monday and worsening last night. She described the pain as cramping, grade 10/10 in severity, non radiated and associated with nausea. She had a normal BM yesterday morning. Denies any chest pain, palpitation, dizziness, fever, vomiting, diarrhea and chills. Physical Exam (per Admitting): General Appearance: WD/WN, no apparent distress Head: normocephalic, atraumatic Eyes: normal inspection, PERRL, EOMI ENT: normal ENT inspection, hearing grossly normal Neck: no JVD, + pertinent finding (left carotid bruit) Respiratory/Chest: lungs clear, normal breath sounds, no respiratory distress, no accessory muscle use Cardiovascular: regular rate, rhythm, no JVD, + systolic murmur Abdomen/GI: normal bowel sounds, + tenderness (Mid epigastric , non distended) Back: normal inspection, no CVA tenderness Extremities/Musculoskelatal: no calf tenderness Neurologic/Psych: alert, normal mood/affect, normal reflexes, oriented x 3 Skin: warm/dry, no rash Hospital Course This is a 67 year old female with chronic and recurrent pancreatitis, multiple sclerosis, CKD stage 3, HLD, GERD presents with acute pancreatitis Acute, Recurrent Pancreatitis lipase elevated on admission given IVFs, Dilaudid PRN clears - tolerating well had a recent MRCP and bile duct dilatation at [facility] recently lipase normalized, pain controlled, tolerating diet GI consult pending - possible d/c with outpatient f/u with GI in [facility] Acute Kidney Injury superimposed on CKD stage 3 creat 1.7 on admission given IVFs now down to 0.99, closer to baseline HLD statin held, can continue on discharge DVT ppx subq heparin FULL, NO VENT Total time spent on discharge = 20 minutes This includes examination of the patient, discharge planning, medication reconciliation, and communication with other providers. Discharge Instructions Please follow-up with your primary care physician and gastroenterology as an outpatient You may need to go back to GI in [place] for further testing (MRCP)
[2017-05-07 17:13] VITALS: BP 174/79; PULSE 70; TEMP 36.4; O2SAT 100
[2017-10-12] MEDS ORDERED: PRLSR20 PO (02:07)
[2017-10-12] MEDS ORDERED: TRMCR130WC TOP (02:27)
[2017-10-12] MEDS ORDERED: MELA1TAB54 PO (09:13)
[2017-10-12] MEDS ORDERED: MULT-506 PO (11:06)
[2017-10-12] MEDS ORDERED: CALC-310 PO (11:06)
[2017-10-12] MEDS ORDERED: FLM4 PO (18:14)
[2017-10-12] MEDS ORDERED: ATOR-24 PO (18:14)
[2017-10-12] MEDS ORDERED: POLY335019 PO (20:22)
[2017-10-12] MEDS ORDERED: ASPI325T39 PO (21:18)
[2017-10-12] MEDS ORDERED: CEPH500C2 PO (23:12)
== END 2017-05-07 18:05 | disposition home or self-care (01) | DRG 439 ==
LOC: C.EDB 21:29 → C.MS4W 05-06 01:47 → ENRESERV 05-06 02:15
PROVIDERS: ADMIT Internal Medicine; ATTEND Family Medicine
DX: K85.90 Acute pancreatitis without necrosis or infection, unspecified (principal); N17.9 Acute kidney failure, unspecified; E86.0 Dehydration; N18.3 Chronic kidney disease, stage 3 (moderate); K21.9 Gastro-esophageal reflux disease without esophagitis; I12.9 Hypertensive chronic kidney disease with stage 1 through stage 4 chronic kidney disease, or unspecified chronic kidney disease; E78.5 Hyperlipidemia, unspecified; G35 Multiple sclerosis; Z79.82 Long term (current) use of aspirin; Z90.49 Acquired absence of other specified parts of digestive tract

== ENCOUNTER → 2017-06-14 | Outpatient (CLI) | payer OTHER ==
[~2017-06-14] MED LIST changes: +ASPI325T39 PO; +ATOR-24 PO; +CALC-310 PO; -DICY10CA12 PO; +DICY10CA55 PO; +FLM4 PO; +MELA1TAB54 PO; +MULT-506 PO; +POLY335019 PO; +PRLSR20 PO; +TRMCR130WC TOP
== END | disposition home or self-care (01) ==
LOC: C.LABSPEC 10:10
PROVIDERS: ATTEND Urology
DX: N39.0 Urinary tract infection, site not specified (principal)

== ENCOUNTER 2017-07-12 18:26 | Inpatient (IN) | payer OTHER ==
[~2017-07-12] VITALS: Ht 152.4 cm; Wt 83.0 kg
[~2017-07-12 18:26] MED LIST changes: -ASPI325T39 PO; -DICY10CA55 PO
[2017-07-12] MEDS ORDERED: HYDROmorphone INJ 0.5 MG/0.5 ML SYR IV STA (19:41)
[2017-07-12] MEDS ORDERED: SODIUM CHLORIDE 0.9% 1000ML 1,000 ML IV STA (19:41)
[2017-07-12] MEDS ORDERED: ONDANSETRON INJ 2 MG/ML 2 ML VIAL IV STA (19:41)
[2017-07-12] MEDS ORDERED: OPTIRAY 320 IV PRN (20:15)
[2017-07-12 20:16] LABS: URINE APPEARANCE CLOUDY (CLEAR); URINE BILIRUBIN NEG (NEG); URINE COLOR YELLOW; URINE EPITHELIAL CELL AUTO >30 /lpf (0-5); URINE NITRITE NEG (NEG); URINE PH 8.5 (4.5-7.5); URINE SPECIFIC GRAVITY 1.018 (1.000-1.030); UROBILINOGEN NEG (NEG); ZZUR CULT IF INDIC CLEAN CATCH YES
[2017-07-12 20:17] LABS: MANUAL MICROSCOPIC REQUIRED? NO; REVIEW REQ? NO
[2017-07-12 20:18] LABS: SULFASALICYLIC ACID POS (NEG)
[2017-07-12 20:23] LABS: BASO % 0.1 %; BASO ABS # 0.01 K/uL (0-0.2); COMPLETE YES; EOS % 0.7 %; HEMATOCRIT 40.8 % (37-47); IG% 0.2 %; LYMPH % 17.7 %; LYMPH ABS # 1.57 K/uL (1.2-3.4); MEAN CELL VOLUME 91.7 fL (80-100); MEAN CORPUSCULAR HEMOGLOBIN 30.3 pg (25-34); MEAN CORPUSCULAR HGB CONC 33.1 g/dl (32-36); MEAN PLATELET VOLUME 10.8 fL (7.4-10.4); NEUT % 72.3 %; PLATELET COUNT 213 K/uL (130-400); RED BLOOD COUNT 4.45 M/uL (4.2-5.4); WHITE BLOOD COUNT 8.85 K/uL (4.8-10.8)
[2017-07-12 21:14] LABS: ALKALINE PHOSPHATASE 141 U/L (45-117); ALT/SGPT 21 U/L (12-78); AST/SGOT 25 U/L (15-37); BLOOD UREA NITROGEN 14 mg/dl (7-18); BUN/CREATININE RATIO 14.4 (10-20); CALCIUM 9.3 mg/dl (8.5-10.1); CARBON DIOXIDE 31 mmol/L (21-32); CHLORIDE 106 mmol/L (98-107); GLUCOSE 96 mg/dl (70-99); POTASSIUM 3.8 mmol/L (3.5-5.1); SODIUM 141 mmol/L (136-145)
[2017-07-12] MEDS ORDERED: ASPI325T39 PO (21:18)
--- NOTE | 2017-07-12 21:54 | DIAGNOSTIC IMAGING REPORT ---
ABD/PELVIS IV CONTRAST ONLY CLINICAL HISTORY: 67 years-old Female presenting with epigastric pain . TECHNIQUE: Multidetector CT of the abdomen and pelvis was performed after the administration of intravenous contrast. IV contrast: 116 mL of Optiray 320. A dose lowering technique was used consistent with the principles of ALARA (as low as reasonably achievable). COMPARISON: 03/27/2017. CT DOSE (mGy.cm): The estimated cumulative dose is 543.58 mGy.cm. FINDINGS: Hand Drawer In topogram: Cholecystectomy clips. Lung bases: Interval resolution of right lower lobe opacities. Minimal dependent opacities likely atelectasis. Top normal heart size. Aortic valve calcification suggested. No pericardial or pleural effusion. Liver: Normal morphology. No liver lesion. Patent hepatic vasculature. Biliary: Persistent pneumobilia likely from prior sphincterotomy. Gallbladder surgically absent. Pancreas: Suggestion of pancreas divisum. Mild parenchymal atrophy primarily in the pancreatic head. Spleen: Normal. Adrenal glands: Normal. Kidneys and ureters: Well-defined hypodensities in the kidneys, some too small to characterize but likely cysts. No hydronephrosis. No nephrolithiasis. Ureters normal. Bladder: Incompletely evaluated secondary to underdistention. Pelvic organs: Uterus and ovaries normal. Bowel: Diverticulosis of the sigmoid. Mild stool burden in normal caliber colon. No bowel obstruction. Mild apparent wall thickening of the pylorus, nonspecific. Peritoneal cavity: No free fluid or intraperitoneal gas. Vasculature: Atherosclerosis of the normal caliber abdominal aorta. IVC patent. Lymph nodes: No enlarged lymph nodes in the abdomen or pelvis. Abdominal wall: Small fat-containing umbilical hernia. Musculoskeletal: Degenerative changes of the spine. Degenerative changes of the pubic symphysis/osteitis pubis. IMPRESSION: 1. Chronic pneumobilia likely from prior sphincterotomy. 2. Pancreas divisum. No evidence of pancreatitis. Notably, this does not exclude the diagnosis. Correlate with lipase. 3. Mild apparent wall thickening of the pylorus, nonspecific. This appearance is not significantly changed from prior. This may be due to underdistention, although gastritis could be considered. 4. Interval resolution of right lower lobe pneumonia. Electronically signed by: Tommy Vargas M.D. 07/12/2017 9:53 PM Dictated Date/Time: 07/12/2017 9:45 PM
[2017-07-12 22:11] LABS: AMYLASE 4745 U/L (25-115)
[2017-07-12] MEDS: LACTATED RINGER'S 1000ML 1,000 ML IV SCH (22:15)
[2017-07-12] MEDS ORDERED: ACETAMINOPHEN 325 MG TAB PO PRN (23:00)
[2017-07-12] MEDS ORDERED: HYDROmorphone INJ 0.5 MG/0.5 ML SYR IV PRN (23:00)
[2017-07-12] MEDS ORDERED: POLYETHYLENE (MIRALAX) 17 GM PACK PO PRN (23:00)
[2017-07-12] MEDS ORDERED: ONDANSETRON INJ 2 MG/ML 2 ML VIAL IV PRN (23:00)
[2017-07-13 00:05] VITALS: BP 151/82; PULSE 60; TEMP 36.6; O2SAT 96; Ht 152.4 cm; Wt 83.0 kg
--- NOTE | 2017-07-13 00:45 | HISTORY & PHYSICAL EXAMINATION ---
DATE OF ADMISSION: 07/12/2017 PRIMARY CARE DOCTOR: Dr. Diop. CHIEF COMPLAINT: Abdominal pain. HISTORY OF PRESENT ILLNESS: History obtained from patient and records. Medical history significant for recurrent pancreatitis status post biliary sphincterotomy, pancreatic divisum as per records, MS, hypertension, reflux, hyperlipidemia. Recent confinement 04/2017 for recurrent pancreatitis (fourth episode), improved with conservative management. She had a followup with her cross tie turner last week. Consideration for minor duct sphincterotomy procedure if with recurrence as per note. This afternoon the patient noted epigastric discomfort, achy, reminiscent of pancreatitis pain, some nausea, no vomiting, good bowel movement. Denies fatty food intake. Denies dysuria symptoms. Patient brought to the Emergency Room. MEDICAL HISTORY: As above. SURGERIES: Cholecystectomy, bilateral tubal ligation, breast reduction, bladder defect procedure. HOME MEDICATIONS: Include aspirin, Lipitor, Caltrate, Lasix, Prinivil, melatonin, multivitamins, Prilosec, MiraLax, Zantac, tamsulosin. ALLERGIES: ADHESIVES, IBUPROFEN, MORPHINE. FAMILY HISTORY: Breast cancer, MS, brain aneurysm. PERSONAL SOCIAL HISTORY: Nonsmoker, no chronic intake of alcoholic beverages. 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 REVIEW OF SYSTEMS: As per HPI, all other ROS negative. PHYSICAL EXAMINATION: VITAL SIGNS: Blood pressure was noted to be 175/80, later 140/70, pulse rate 90, RR 18, temperature 36.5, sats 98 on room air. GENERAL: Noted to be comfortable, obese, no respiratory distress, pleasant. SKIN: Normal color. HEENT: [place] palpebral conjunctivae. Dry mucosa. NECK: Short neck. LUNGS: Decreased breath sounds. HEART: Regular rate and rhythm. ABDOMEN: Epigastric tenderness. EXTREMITIES: Minimal LE edema, no tenderness. NEUROLOGIC: No gross focality. LABORATORY DATA: Hemoglobin 13.5, hematocrit 40, white cells 8.8, platelets 213. Sodium noted to be 140, potassium 3.8, chloride 106, CO2 of 31, BUN 14, creatinine 1, glucose was noted to be 96. Lipase was noted to be 80,000. CT abdomen and pelvis showed pancreatic divisum, thickening, chronic pneumobilia from prior sphincterotomy. ASSESSMENT: 1. 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 2. Hypertension, slightly elevated. 3. Multiple sclerosis, deficits at baseline PLAN: [facility] IVF, bowel rest. Analgesia. GI consult RE recurrent pancreatitis (Px known to Dr. Cai) DVT prophylaxis, Lovenox subcu. Full code. MTDD
[2017-07-13 00:46] LABS: INR 0.9 (0.9-1.1); PROTHROMBIN TIME (PATIENT) 10.1 SECONDS (9.0-12.0)
--- NOTE | 2017-07-13 01:06 | EMERGENCY ROOM VISIT NOTE ---
History Report prepared by Sonia: Pamela Crowder Under the Supervision of: Dr. Darren Muñoz D.O. First contact with patient: 19:27 Chief Complaint: ABDOMINAL PAIN Stated Complaint: STOMACH PAIN Nursing Triage Summary: patient to ed via triage c/o abdominal pain, states "It started this afternoon. I have a hx of pancreatitis, I was fine this morning, then the pain come on after lunch." History of Present Illness The patient is a 67 year old female who presents to the Emergency Room with complaints of persistent abdominal pain starting this afternoon. The patient has had pancreatitis 3 or 4 times in the past. Her current pain feels consistent with her previous pancreatitis. The pain is in her upper abdomen and wraps around to her back. She has not taken anything for the pain. Nothing seems to improve or worsen her pain. She has had nausea and several episodes of vomiting. She is unable to keep anything down. She has not eaten since lunch. She denies any dysuria. She has some swelling in her legs since she broke her foot 4 months ago. She denies any history of kidney stones. She has had a cholecystectomy. She still has her appendix. She has had an ERCP before which did not find any cause for her pancreatitis. Source of History: patient Onset: this afternoon Position: abdomen (upper) Quality: other (like pancreatitis) Timing: other (persistent) Associated Symptoms: + nausea, + vomiting, No urinary symptoms Review of Systems See HPI for pertinent positives & negatives. A total of 10 systems reviewed and were otherwise negative. Past Medical & Surgical Medical Problems: (1) Acute pancreatitis (2) Acute pancreatitis (3) Chronic kidney disease (4) Diverticulosis (5) Elevated liver enzymes (6) Gallstones (7) GERD (gastroesophageal reflux disease) (8) GERD (gastroesophageal reflux disease) (9) HTN (hypertension) (10) Hyperlipidemia (11) Kidney disease, chronic, stage III (GFR 30-59 ml/min) (12) Multiple sclerosis (13) Pancreatic divisum (14) Pancreatitis Surgical Problems: (1) History of abdominal hernia (2) History of back surgery (3) Hx of cholecystectomy (4) S/P bilateral breast reduction (5) S/P bladder repair (6) s/p removal of fibroid in uterus (7) S/P tubal ligation Family History FH: brain aneurysm SISTER FH: cancer MOTHER (Breast CA) SISTER (Breast CA) FH: hypertension FH: multiple sclerosis DAUGHTER Social History Smoking Status: Never Smoker Alcohol Use: none Marital Status: in relationship Housing Status: lives with significant other Occupation Status: employed Current/Historical Medications Scheduled Aspirin (Aspirin Ec), 325 MG PO HS Atorvastatin (Lipitor), 40 MG PO HS Calcium Citrate-Vitamin D (Calcium Citrate + D), 1 TAB PO DAILY Furosemide (Lasix), 20 MG PO HOLD Lisinopril (Prinivil), 5 MG PO QAM Multivitamin (Multivitamin), 1 TAB PO QAM Omeprazole (Prilosec), 20 MG PO QAM Ondasetron Odt (Zofran Odt), 4 MG SL Q6H Ranitidine (Zantac), 300 MG PO HS Tamsulosin HCl (Tamsulosin HCl), 0.4 MG PO HS Scheduled PRN Melatonin (Melatonin), 5 MG PO HS PRN for Insomnia Oxycodone Immediate Rel Tab (Roxicodone Ir), 1-2 TAB PO Q4H PRN for Severe Pain Polyethylene Glycol 3350 (Miralax), 17 GM PO DAILY PRN for Constipation Triamcinolone Acet (Aristocort 0.1%), 1 APPL TOP BID PRN for RASH Allergies Coded Allergies: Ibuprofen (Verified Allergy, Mild, HIVES, 04/30/17) Morphine (Verified Allergy, Mild, pruritis, 04/30/17) Adhesives (Verified Allergy, Unknown, RASH, 04/30/17) Physical Exam Vital Signs Date Time Temp Pulse Resp B/P (MAP) Pulse Ox O2 Delivery O2 Flow Rate FiO2 07/12/17 20:18 76 16 144/70 98 Room Air 07/12/17 18:40 36.5 67 20 175/80 99 Room Air Physical Exam GENERAL: sitting up in bed, mild distress, nontoxic EYE EXAM: normal conjunctiva OROPHARYNX: no exudate, no erythema, lips, buccal mucosa, and tongue normal and mucous membranes are moist NECK: supple, no nuchal rigidity, no adenopathy, non-tender LUNGS: Clear to auscultation. Normal chest wall mechanics HEART: no murmurs, S1 normal and S2 normal ABDOMEN: abdomen soft, tender to palpation in the epigastric region, normo- active bowel sounds, no masses, no rebound or guarding. BACK: Back is symmetrical on inspection and there is no deformity, no midline tenderness, no CVA tenderness. SKIN: no rashes and no bruising UPPER EXTREMITIES: upper extremities are grossly normal. LOWER EXTREMITIES: No pitting edema. NEURO EXAM: Normal sensorium, cranial nerves II-XII grossly intact, normal speech, no gross weakness of arms, no gross weakness of legs. Medical Decision & Procedures ER Provider Diagnostic Interpretation: Radiology results as stated below per my review and the radiologist's interpretation: ABD/PELVIS IV CONTRAST ONLY CLINICAL HISTORY: 67 years-old Female presenting with epigastric pain . TECHNIQUE: Multidetector CT of the abdomen and pelvis was performed after the administration of intravenous contrast. IV contrast: 116 mL of Optiray 320. A dose lowering technique was used consistent with the principles of ALARA (as low as reasonably achievable). COMPARISON: 03/27/2017. CT DOSE (mGy.cm): The estimated cumulative dose is 543.58 mGy.cm. FINDINGS: [employer] Starter topogram: Cholecystectomy clips. Lung bases: Interval resolution of right lower lobe opacities. Minimal dependent opacities likely atelectasis. Top normal heart size. Aortic valve calcification suggested. No pericardial or pleural effusion. Liver: Normal morphology. No liver lesion. Patent hepatic vasculature. Biliary: Persistent pneumobilia likely from prior sphincterotomy. Gallbladder surgically absent. Pancreas: Suggestion of pancreas divisum. Mild parenchymal atrophy primarily in the pancreatic head. Spleen: Normal. Adrenal glands: Normal. Kidneys and ureters: Well-defined hypodensities in the kidneys, some too small to characterize but likely cysts. No hydronephrosis. No nephrolithiasis. Ureters normal. Bladder: Incompletely evaluated secondary to underdistention. Pelvic organs: Uterus and ovaries normal. Bowel: Diverticulosis of the sigmoid. Mild stool burden in normal caliber colon. No bowel obstruction. Mild apparent wall thickening of the pylorus, nonspecific. Peritoneal cavity: No free fluid or intraperitoneal gas. Vasculature: Atherosclerosis of the normal caliber abdominal aorta. IVC patent. Lymph nodes: No enlarged lymph nodes in the abdomen or pelvis. Abdominal wall: Small fat-containing umbilical hernia. Musculoskeletal: Degenerative changes of the spine. Degenerative changes of the pubic symphysis/osteitis pubis. IMPRESSION: 1. Chronic pneumobilia likely from prior sphincterotomy. 2. Pancreas divisum. No evidence of pancreatitis. Notably, this does not exclude the diagnosis. Correlate with lipase. 3. Mild apparent wall thickening of the pylorus, nonspecific. This appearance is not significantly changed from prior. This may be due to underdistention, although gastritis could be considered. 4. Interval resolution of right lower lobe pneumonia. Electronically signed by: Tommy Vargas M.D. 07/12/2017 9:53 PM Dictated Date/Time: 07/12/2017 9:45 PM Laboratory Results 07/12/17 20:05 Red Blood Count 4.45, Mean Corpuscular Volume 91.7, Mean Corpuscular Hemoglobin 30.3, Mean Corpuscular Hemoglobin Concent 33.1, Mean Platelet Volume 10.8, Neutrophils (%) (Auto) 72.3, Lymphocytes (%) (Auto) 17.7, Monocytes (%) (Auto) 9.0, Eosinophils (%) (Auto) 0.7, Basophils (%) (Auto) 0.1, Neutrophils # (Auto) 6.39, Lymphocytes # (Auto) 1.57, Monocytes # (Auto) 0.80, Eosinophils # (Auto) 0.06, Basophils # (Auto) 0.01 07/12/17 20:05 Test 07/12/17 00:00 07/12/17 20:05 Urine Color YELLOW Urine Appearance CLOUDY (CLEAR) Urine pH 8.5 (4.5-7.5) Urine Specific [place] 1.018 (1.000-1.030) Urine Protein TRACE (NEG) Urine Glucose (UA) NEG (NEG) Urine Ketones NEG (NEG) Urine Occult Blood 2+ (NEG) Urine Nitrite NEG (NEG) Urine Bilirubin NEG (NEG) Urine Urobilinogen NEG (NEG) Urine Leukocyte Esterase MODERATE (NEG) Urine WBC (Auto) >30 /hpf (0-5) Urine RBC (Auto) >30 /hpf (0-4) Urine Hyaline Casts (Auto) 5-10 /lpf (0-5) Urine Epithelial Cells (Auto) >30 /lpf (0-5) Urine Bacteria (Auto) NEG (NEG) White Blood Count 8.85 K/uL (4.8-10.8) Red Blood Count 4.45 M/uL (4.2-5.4) Hemoglobin 13.5 g/dL (12.0-16.0) Hematocrit 40.8 % (37-47) Mean Corpuscular Volume 91.7 fL (80-100) Mean Corpuscular Hemoglobin 30.3 pg (25-34) Mean Corpuscular Hemoglobin Concent 33.1 g/dl (32-36) Platelet Count 213 K/uL (130-400) Mean Platelet Volume 10.8 fL (7.4-10.4) Neutrophils (%) (Auto) 72.3 % Lymphocytes (%) (Auto) 17.7 % Monocytes (%) (Auto) 9.0 % Eosinophils (%) (Auto) 0.7 % Basophils (%) (Auto) 0.1 % Neutrophils # (Auto) 6.39 K/uL (1.4-6.5) Lymphocytes # (Auto) 1.57 K/uL (1.2-3.4) Monocytes # (Auto) 0.80 K/uL (0.11-0.59) Eosinophils # (Auto) 0.06 K/uL (0-0.5) Basophils # (Auto) 0.01 K/uL (0-0.2) RDW Standard Deviation 47.9 fL (36.4-46.3) RDW Coefficient of Variation 14.1 % (11.5-14.5) Immature Granulocyte % (Auto) 0.2 % Immature Granulocyte # (Auto) 0.02 K/uL (0.00-0.02) Prothrombin Time 10.1 SECONDS (9.0-12.0) Prothromb Time International Ratio 0.9 (0.9-1.1) Anion Gap 4.0 mmol/L (3-11) Est Creatinine Clear Calc Drug Dose 52.4 ml/min Estimated GFR () 68.0 Estimated GFR (Non- 58.7 BUN/Creatinine Ratio 14.4 (10-20) Calcium Level 9.3 mg/dl (8.5-10.1) Magnesium Level 2.0 mg/dl (1.8-2.4) Total Bilirubin 0.7 mg/dl (0.2-1) Direct Bilirubin mg/dl (0-0.2) Aspartate Amino Transf (AST/SGOT) 25 U/L (15-37) Alanine Aminotransferase (ALT/SGPT) 21 U/L (12-78) Alkaline Phosphatase 141 U/L (45-117) Total Protein 7.0 gm/dl (6.4-8.2) Albumin 3.6 gm/dl (3.4-5.0) Amylase Level 4745 U/L (25-115) Lipase 43972 U/L (73-393) Chemistry Specimen Hemolysis Laboratory results per my review. Medications Administered Medications (Trade) Dose Ordered Sig/Alycia Route Start Time Stop Time Status Last Admin Dose Admin Sodium Chloride 1,000 ml @ 999 mls/hr Q1H1M STAT IV 07/12/17 19:41 07/12/17 20:41 DC 07/12/17 20:19 999 MLS/HR Hydromorphone HCl (Dilaudid Inj) 0.5 mg NOW STAT IV 07/12/17 19:41 07/12/17 19:43 DC 07/12/17 20:20 0.5 MG Ondansetron HCl (Zofran Inj) 4 mg NOW STAT IV 07/12/17 19:41 07/12/17 19:43 DC 07/12/17 20:20 4 MG ED Course ED COURSE: Vital signs were reviewed and showed hypertension. The patients medical record was reviewed The above diagnostic studies were performed and reviewed. ED treatments and interventions as stated above. 1939: The patient was evaluated in room C3. A complete history and physical examination was performed. 1940: Zofran Inj 4 mg IV, Dilaudid Inj 0.5 mg IV, NSS 1000 ml @ 999 mls/hr IV. 2156: I reviewed the patient's case with Dr. Nicholson, [facility] hospitalist. He will evaluate the patient for further management. 2157: Upon reevaluation, the patient is feeling better.I discussed my findings with the patient and she understands and agrees with the treatment plan. Based on the patients age, coexisting illnesses, exam and lab findings the decision to treat as an inpatient was made. The patient remained stable while under my care. The patient will be evaluated for further management. Medical Decision Differential diagnoses includes but is not limited to gastritis, peptic ulcer disease, GERD, gallbladder disease, pancreatitis, small bowel obstruction, acute coronary syndrome, pericarditis, ischemic bowel, irritable bowel disease, irritable bowel syndrome, appendicitis, diverticulitis, malignancy, hernia, urinary tract infection, torsion, perforation, trauma, infectious. Patient is a 67-year-old female presents here for epigastric abdominal pain radiating to her right side which has been worsening. She notes that this feels exactly like her previous bouts of pancreatitis. On exam she is tender. CT was unremarkable. Lipase was elevated at 80,000. Patient was given fluids and Dilaudid. She was updated at bedside. Previous cholecystectomy. She was admitted to internal medicine with pancreatitis. Medication Reconcilliation Current Medication List: was personally reviewed by me Blood Pressure Screening Patient's blood pressure: Elevated blood pressure Blood pressure disposition: Elevated BP felt to be situational Consults Time Called: 2155 Consulting Physician: Dr. Nicholson, [facility] hospitalist Returned Call: [phone] I reviewed the patient's case with him. He will evaluate the patient for further management. Impression Primary Impression: Pancreatitis Scribe Attestation The scribe's documentation has been prepared under my direction and personally reviewed by me in its entirety. I confirm that the note above accurately reflects all work, treatment, procedures, and medical decision making performed by me. Departure Information Dispostion Being Evaluated By Hospitalist Referrals Indy Diop D.O. (PCP) Patient Instructions My [facility] Problem Qualifiers Primary Impression: Pancreatitis Chronicity: acute Pancreatitis type: unspecified pancreatitis type Acute pancreatitis complication: unspecified Qualified Codes: K85.90 - Acute pancreatitis without necrosis or infection, unspecified
[2017-07-13] MEDS: LACTATED RINGER'S 1000ML 1,000 ML IV SCH ×5 (04:20→23:58)
[2017-07-13] MEDS: OXYCODONE HCL IR 5 MG TAB (IMMEDIATE RELEASE) PO PRN ×4 (04:50→21:57)
[2017-07-13] MEDS: PANTOprazole SOD 40 MG TAB PO SCH (07:35)
[2017-07-13] MEDS: MULTIVITAMIN TAB PO SCH (07:35)
[2017-07-13] MEDS: LISINOPRIL 5 MG TAB PO SCH (07:36)
[2017-07-13 07:54] LABS: BASO % 0.2 %; BASO ABS # 0.01 K/uL (0-0.2); COMPLETE YES; EOS % 1.4 %; HEMATOCRIT 40.1 % (37-47); IG% 0.2 %; LYMPH % 39.7 %; MEAN CELL VOLUME 93.3 fL (80-100); MEAN CORPUSCULAR HEMOGLOBIN 29.8 pg (25-34); MEAN CORPUSCULAR HGB CONC 31.9 g/dl (32-36); MEAN PLATELET VOLUME 10.8 fL (7.4-10.4); MONO % 8.8 %; NEUT % 49.7 %; PLATELET COUNT 206 K/uL (130-400); WHITE BLOOD COUNT 5.54 K/uL (4.8-10.8)
[2017-07-13 08:05] VITALS: BP 149/85; PULSE 54; TEMP 36.5; O2SAT 96
[2017-07-13 08:10] LABS: BUN/CREATININE RATIO 12.8 (10-20); CALCIUM 8.7 mg/dl (8.5-10.1); CREATININE 0.96 mg/dl (0.60-1.20); POTASSIUM 3.7 mmol/L (3.5-5.1)
[2017-07-13] MEDS: ENOXAPARIN 40 MG/0.4 ML SYR SQ SCH (08:46)
--- NOTE | 2017-07-13 11:45 | Gastrointestinal Consultation ---
Gastrointestinal Consultation Date of Consultation: Jul 13, 2017 History of Present Illness Patient is a 67 year old female admitted for recurrent pancreatitis. She has been struggling with recurrent pancreatitis for a number of years and was found to have pancreatic divisum, had any evidence of chronic pancreatitis and recently underwent endoscopic therapy with biliary sphincterotomy in March [address] Hawk in [place]. She has been relatively asymptomatic since that time with no pain nausea or vomiting. Unfortunately, yesterday she had the acute onset of epigastric to right upper quadrant abdominal pain very similar to her pain she's had in the past. The pain didn't cause emesis as well as persistent nausea with radiation to her back. She denies any alcohol, fatty foods and occurred sudden onset. Upon presentation to the emergency room she was noted to have a lipase of greater than 80,000, she had CT scan did not show any fluid collections or pancreatic inflammation and/or edema. Hand has been made nothing by mouth with IV fluids and IV pain control. She says her pain now is down to about 6 or 7. She's not had any respiratory troubles, her kidney function is normal, and no fevers. She's had no alarm symptoms such as weight loss and/or chronic issues. Past Medical/Surgical History Medical Problems: (1) Chronic kidney disease Status: Chronic (2) Dehydration Status: Acute (3) Epigastric abdominal pain Status: Acute (4) GERD (gastroesophageal reflux disease) Status: Chronic (5) Hematuria Status: Acute (6) Intractable right lower quadrant abdominal pain Status: Acute (7) Left elbow contusion Status: Acute (8) Lisfranc fracture Status: Acute (9) Post-op pain Status: Acute (10) Renal insufficiency Status: Acute (11) Right upper quadrant abdominal pain Status: Acute (12) Work related injury Status: Acute Family History FH: brain aneurysm SISTER FH: cancer MOTHER (Breast CA) SISTER (Breast CA) FH: hypertension FH: multiple sclerosis DAUGHTER Social History Smoking Status: Never Smoker Alcohol Use: none Marital Status: in relationship Housing Status: lives with significant other Occupation Status: employed Allergies Coded Allergies: Ibuprofen (Verified Allergy, Mild, HIVES, 04/30/17) Morphine (Verified Allergy, Mild, pruritis, 04/30/17) Adhesives (Verified Allergy, Unknown, RASH, 04/30/17) Current Medications Home Meds and Scripts Medications Dose Route/Sig Max Daily Dose Days Date Category Aspirin Ec (Aspirin) 325 Mg Tab 325 Mg PO HS 07/12/17 Reported Aristocort 0.1% (Triamcinolone Acet) 90 Appln/30 Gm Cr 1 Appl TOP BID PRN 05/06/17 Reported Zofran Odt (Ondansetron HCl) 4 Mg Tab 4 Mg SL Q6H 04/30/17 Rx Roxicodone Ir (Oxycodone HCl) 5 Mg Tab 1-2 Tab PO Q4H PRN 04/30/17 Rx Tamsulosin HCl 0.4 Mg Cap 0.4 Mg PO HS 03/27/17 Reported Lipitor (Atorvastatin Calcium) 40 Mg Tab 40 Mg PO HS 03/27/17 Reported Prinivil (Lisinopril) 5 Mg Tab 5 Mg PO QAM 01/19/17 Reported Prilosec (Omeprazole) 20 Mg Capcr 20 Mg PO QAM 06/19/16 Reported Melatonin 5 Mg Tab 5 Mg PO HS PRN 10/23/15 Reported Lasix (Furosemide) 20 Mg Tab 20 Mg PO HOLD 09/10/15 Reported Calcium Citrate + D (Calcium Citrate-Vitamin D) 1 Tab Tab 1 Tab PO DAILY 11/24/14 Reported Multivitamin (Multivitamins) Tab 1 Tab PO QAM 11/24/14 Reported Zantac (Ranitidine HCl) 300 Mg Tab 300 Mg PO HS 01/13/14 Reported Miralax (Polyethylene Glycol 3350) 1 Pow 17 Gm PO DAILY PRN 01/13/14 Reported Review of Systems Constitutional: + see HPI Eyes: No see HPI, No worsening of vision, No eye pain, No redness, No discharge , No diplopia, No problem reported ENT: No see HPI, No hearing loss, No unusual epistaxis, No nasal symptoms, No sore throat, No tinnitus, No dental problems, No trouble swallowing, No pain on swallowing, No problem reported Respiratory: No see HPI, No cough, No sputum, No wheezing, No shortness of breath, No dyspnea on exertion, No dyspnea at rest, No hemoptysis, No problem reported Cardiac: No see HPI, No chest pain, No orthopnea, No PND, No edema, No claudication, No palpitations, No problem reported Abdomen: + see HPI Musculoskeletal: No see HPI, No joint pain, No muscle pain, No swelling, No calf pain, No problem reported Physical Exam Date Time Temp Pulse Resp B/P (MAP) Pulse Ox O2 Delivery O2 Flow Rate FiO2 07/13/17 08:05 36.5 54 17 149/85 (106) 96 Room Air 07/13/17 08:00 Room Air 07/13/17 00:05 36.6 60 16 151/82 96 Room Air 07/13/17 00:00 Room Air 07/12/17 22:20 76 16 145/76 96 Room Air 07/12/17 20:18 76 16 144/70 98 Room Air 07/12/17 18:40 36.5 67 20 175/80 99 Room Air General Appearance: WD/WN, no apparent distress Eyes: normal inspection Neck: supple Respiratory/Chest: chest non-tender, lungs clear, normal breath sounds Cardiovascular: regular rate, rhythm, no edema Abdomen: normal bowel sounds, + pertinent finding (mild tenderness in the right upper quadrant) 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 nml as tested, no motor/sensory deficits Laboratory Results Last 24 Hours Test 07/12/17 20:05 07/13/17 07:26 White Blood Count 8.85 K/uL 5.54 K/uL Red Blood Count 4.45 M/uL 4.30 M/uL Hemoglobin 13.5 g/dL 12.8 g/dL Hematocrit 40.8 % 40.1 % Mean Corpuscular Volume 91.7 fL 93.3 fL Mean Corpuscular Hemoglobin 30.3 pg 29.8 pg Mean Corpuscular Hemoglobin Concent 33.1 g/dl 31.9 g/dl Platelet Count 213 K/uL 206 K/uL Mean Platelet Volume 10.8 fL 10.8 fL Neutrophils (%) (Auto) 72.3 % 49.7 % Lymphocytes (%) (Auto) 17.7 % 39.7 % Monocytes (%) (Auto) 9.0 % 8.8 % Eosinophils (%) (Auto) 0.7 % 1.4 % Basophils (%) (Auto) 0.1 % 0.2 % Neutrophils # (Auto) 6.39 K/uL 2.75 K/uL Lymphocytes # (Auto) 1.57 K/uL 2.20 K/uL Monocytes # (Auto) 0.80 K/uL 0.49 K/uL Eosinophils # (Auto) 0.06 K/uL 0.08 K/uL Basophils # (Auto) 0.01 K/uL 0.01 K/uL RDW Standard Deviation 47.9 fL 48.8 fL RDW Coefficient of Variation 14.1 % 14.5 % Immature Granulocyte % (Auto) 0.2 % 0.2 % Immature Granulocyte # (Auto) 0.02 K/uL 0.01 K/uL Prothrombin Time 10.1 SECONDS Prothromb Time International Ratio 0.9 Sodium Level 141 mmol/L 144 mmol/L Potassium Level 3.8 mmol/L 3.7 mmol/L Chloride Level 106 mmol/L 107 mmol/L Carbon Dioxide Level 31 mmol/L 32 mmol/L Anion Gap 4.0 mmol/L 5.0 mmol/L Blood Urea Nitrogen 14 mg/dl 12 mg/dl Creatinine 1.00 mg/dl 0.96 mg/dl Est Creatinine Clear Calc Drug Dose 52.4 ml/min 55.1 ml/min Estimated GFR () 68.0 71.4 Estimated GFR (Non- 58.7 61.6 BUN/Creatinine Ratio 14.4 12.8 Random Glucose 96 mg/dl 84 mg/dl Calcium Level 9.3 mg/dl 8.7 mg/dl Magnesium Level 2.0 mg/dl Total Bilirubin 0.7 mg/dl Direct Bilirubin mg/dl Aspartate Amino Transf (AST/SGOT) 25 U/L Alanine Aminotransferase (ALT/SGPT) 21 U/L Alkaline Phosphatase 141 U/L Total Protein 7.0 gm/dl Albumin 3.6 gm/dl Amylase Level 4745 U/L Lipase 66001 U/L 7647 U/L Chemistry Specimen Hemolysis Hepatitis C Antibody Screen NEG Impression Patient is a 67 year old female with recurrent pancreatitis in the setting of pancreatic divisum. Normal LFTs today, with no evidence of biliary extraction. Pancreatic divisum is protective from biliary pancreatitis. Given that she's had recurrent pancreatitis, pancreatic minor duct sphincterotomy should be pursued after resolution of his symptoms. She should follow up with Dr. Cai as an outpatient to arrange outpatient ERCP. Plan 1. Continue IV fluids at 200 mL an hour with lactated Ringer's 2. IV pain control 3. Anti-medics as needed 4. Advance diet as tolerated starting with clears, however I would wait until pain has resolved for now will remain nothing by mouth. Call with any questions.
[2017-07-13 16:13] VITALS: BP 148/79; PULSE 60; TEMP 36.6; O2SAT 93
--- NOTE | 2017-07-13 21:05 | Progress Note ---
Subjective Date of Service: Jul 13, 2017. Subjective Pt evaluation today including: conversation w/ patient, physical exam, lab review, review of studies, review of inpatient medication list Saw/examined the patient in room 456 +abdominal pain, around 6/10 no fevers/chills, no SOB/CP no nausea/vomiting/diarrhea Problem List Medical Problems: (1) Chronic kidney disease Status: Chronic (2) Dehydration Status: Acute (3) Epigastric abdominal pain Status: Acute (4) GERD (gastroesophageal reflux disease) Status: Chronic (5) Hematuria Status: Acute (6) Intractable right lower quadrant abdominal pain Status: Acute (7) Left elbow contusion Status: Acute (8) Lisfranc fracture Status: Acute (9) Post-op pain Status: Acute (10) Renal insufficiency Status: Acute (11) Right upper quadrant abdominal pain Status: Acute (12) Work related injury Status: Acute Review of Systems Constitutional: No fever, No chills Respiratory: No cough, No sputum, No shortness of breath Abdomen: + pain, No nausea, No vomiting, No diarrhea, No constipation, No GI bleeding Medications Current Inpatient Medications Medications (Trade) Dose Ordered Sig/Alycia Route Start Time Stop Time Status Last Admin Dose Admin Ioversol (Optiray 320) 111 ml UD PRN IV 07/12/17 20:15 07/16/17 20:14 Lactated Ringer's 1,000 ml @ 200 mls/hr Q5H IV 07/12/17 22:15 08/11/17 22:14 07/13/17 18:53 200 MLS/HR Enoxaparin Sodium (Lovenox Inj) 40 mg Q24H SQ 07/13/17 09:00 08/12/17 08:59 07/13/17 08:46 40 MG Acetaminophen (Tylenol Tab) 650 mg Q4H PRN PO 07/12/17 23:00 08/11/17 22:59 Aspirin (Ecotrin Tab) 325 mg HS PO 07/13/17 21:00 08/12/17 20:59 Lisinopril (Zestril Tab) 5 mg QAM PO 07/13/17 08:00 08/12/17 08:59 07/13/17 07:36 5 MG Multivitamins (Multivitamin Tab) 1 tab QAM PO 07/13/17 08:00 08/12/17 08:59 07/13/17 07:35 1 TAB Oxycodone HCl (Roxicodone Immediate Rel Tab) pain not relieved by tylenol Q4H PRN PO 07/12/17 23:00 07/26/17 22:59 07/13/17 16:29 5 MG Tamsulosin HCl (Flomax Cap) 0.4 mg HS PO 07/13/17 21:00 08/12/17 20:59 Pantoprazole Sodium (Protonix Tab) 40 mg QAM PO 07/13/17 08:00 08/12/17 08:59 07/13/17 07:35 40 MG Polyethylene (Miralax Powder Packet) 17 gm DAILY PRN PO 07/12/17 23:00 08/11/17 22:59 Ranitidine HCl (zANTac TAB) 300 mg HS PO 07/13/17 21:00 08/12/17 20:59 Hydromorphone HCl (Dilaudid Inj) 0.5 mg Q3H PRN IV 07/12/17 23:00 07/26/17 22:59 07/13/17 00:01 0.5 MG Ondansetron HCl (Zofran Inj) 4 mg Q6H PRN IV 07/12/17 23:00 08/11/17 22:59 Objective Vital Signs Date Time Temp Pulse Resp B/P (MAP) Pulse Ox O2 Delivery O2 Flow Rate FiO2 07/13/17 16:13 36.6 60 20 148/79 (102) 93 Room Air 07/13/17 16:00 Room Air 07/13/17 08:05 36.5 54 17 149/85 (106) 96 Room Air 07/13/17 08:00 Room Air 07/13/17 00:05 36.6 60 16 151/82 96 Room Air 07/13/17 00:00 Room Air 07/12/17 22:20 76 16 145/76 96 Room Air Physical Exam General Appearance: no apparent distress Respiratory/Chest: lungs clear, normal breath sounds, no respiratory distress, no accessory muscle use Cardiovascular: regular rate, rhythm, no edema, no murmur Abdomen: normal bowel sounds, soft, + tenderness (+6/10, epigastric pain) Extremities: normal inspection, no pedal edema Neurologic/Psychiatric: no motor/sensory deficits, alert, normal mood/affect Laboratory Results Last 24 Hours Test 8/31/17 07:26 White Blood Count 5.54 K/uL Red Blood Count 4.30 M/uL Hemoglobin 12.8 g/dL Hematocrit 40.1 % Mean Corpuscular Volume 93.3 fL Mean Corpuscular Hemoglobin 29.8 pg Mean Corpuscular Hemoglobin Concent 31.9 g/dl Platelet Count 206 K/uL Mean Platelet Volume 10.8 fL Neutrophils (%) (Auto) 49.7 % Lymphocytes (%) (Auto) 39.7 % Monocytes (%) (Auto) 8.8 % Eosinophils (%) (Auto) 1.4 % Basophils (%) (Auto) 0.2 % Neutrophils # (Auto) 2.75 K/uL Lymphocytes # (Auto) 2.20 K/uL Monocytes # (Auto) 0.49 K/uL Eosinophils # (Auto) 0.08 K/uL Basophils # (Auto) 0.01 K/uL RDW Standard Deviation 48.8 fL RDW Coefficient of Variation 14.5 % Immature Granulocyte % (Auto) 0.2 % Immature Granulocyte # (Auto) 0.01 K/uL Sodium Level 144 mmol/L Potassium Level 3.7 mmol/L Chloride Level 107 mmol/L Carbon Dioxide Level 32 mmol/L Anion Gap 5.0 mmol/L Blood Urea Nitrogen 12 mg/dl Creatinine 0.96 mg/dl Est Creatinine Clear Calc Drug Dose 55.1 ml/min Estimated GFR () 71.4 Estimated GFR (Non- 61.6 BUN/Creatinine Ratio 12.8 Random Glucose 84 mg/dl Calcium Level 8.7 mg/dl Lipase 7647 U/L Hepatitis C Antibody Screen NEG Assessment and Plan This is a 67 year old female with chronic and recurrent pancreatitis, multiple sclerosis, CKD stage 3, HLD, GERD presents with acute pancreatitis Acute, Recurrent Pancreatitis Lipase >80k on admission pain is around 6/10 continue LR @ 200mL/hr continue analgesics PRN once pain resolved - can advance diet, for now NPO MRCP pending - appreciate GI input follows with GI as outpatient at [facility] CKD stage 3 avoid nephrotoxic agents when possible HLD statin held, can continue on discharge DVT ppx Lovenox FULL CODE
[2017-07-13] MEDS: ASPIRIN 325 MG ECTAB PO SCH (21:56)
[2017-07-13] MEDS: TAMSULOSIN HCL 0.4 MG CAP PO SCH (21:56)
[2017-07-13] MEDS: RANITIDINE HCL 150 MG TAB PO SCH (21:57)
[2017-07-13 23:53] VITALS: BP 95/59; PULSE 67; TEMP 36.6; O2SAT 97
[2017-07-14] VITALS: BP 128/77; PULSE 58; TEMP 36.6; O2SAT 95
--- NOTE | 2017-07-14 00:09 | DIAGNOSTIC IMAGING REPORT ---
MRCP HISTORY: 67 years-old Female Known pancreatic divisum, recurrent pancreatitis, ? PD stricture COMPARISON: CT abdomen and pelvis 07/12/2017 MRCP 11/08/2016 TECHNIQUE: MRCP of the abdomen was performed without IV contrast. FINDINGS: The large [id number] business management associate images demonstrate dextroscoliosis. T2 hyperintense lesions of the kidneys suggests cysts. Bibasilar opacities of the lungs suggest atelectasis. Pneumobilia within the common bile duct and intrahepatic ducts again noted. There is apparent mild nonspecific wall thickening of the pylorus again seen, better evaluated on comparison CT. Pancreatic divisum is redemonstrated without pancreatic ductal dilation or focal stricturing identified. The common bile duct measures up to 8 mm transversely, unchanged. Mild intrahepatic biliary ductal dilation is also noted which is unchanged. Prior cholecystectomy. No filling defects within the common bile duct are identified. The exam is mildly limited secondary to patient motion. Pancreatic duct measures up to 3 mm. IMPRESSION: 1. Prior cholecystectomy with unchanged mild intrahepatic and extrahepatic biliary ductal dilation, likely physiologic secondary to postcholecystectomy state. 2. Pneumobilia, likely from prior sphincterotomy. 3. Pancreatic divisum without pancreatic ductal dilation. The above report was generated using voice recognition software. It may contain grammatical, syntax or spelling errors. Electronically signed by: Alfa Miller M.D. 07/14/2017 12:07 AM Dictated Date/Time: 07/13/2017 11:56 PM
[2017-07-14] MEDS: OXYCODONE HCL IR 5 MG TAB (IMMEDIATE RELEASE) PO PRN ×3 (04:37→21:10)
[2017-07-14] MEDS: LACTATED RINGER'S 1000ML 1,000 ML IV SCH ×4 (04:38→22:20)
[2017-07-14 07:30] VITALS: BP 123/72; PULSE 57; TEMP 36.7; O2SAT 95
[2017-07-14] MEDS: PANTOprazole SOD 40 MG TAB PO SCH (08:08)
[2017-07-14] MEDS: MULTIVITAMIN TAB PO SCH (08:08)
[2017-07-14] MEDS: LISINOPRIL 5 MG TAB PO SCH (08:08)
[2017-07-14] MEDS: ENOXAPARIN 40 MG/0.4 ML SYR SQ SCH (08:09)
--- NOTE | 2017-07-14 10:44 | Gastroenterology Progress Note ---
Progress Note Date of Service: Jul 14, 2017 Subjective Pt evaluation today including: conversation w/ patient, physical exam, chart review, lab review, review of inpatient medication list Pt reports feeling well, denies any n/v, abd pain. She would like some liquids. MRCP yesterday w/o filling defect. Lipase improving Review of Systems Constitutional: No fever, No chills Respiratory: No cough, No shortness of breath Cardiac: No chest pain Abdomen: No pain, No nausea, No vomiting Medications Current Inpatient Medications Medications (Trade) Dose Ordered Sig/Alycia Route Start Time Stop Time Status Last Admin Dose Admin Ioversol (Optiray 320) 111 ml UD PRN IV 07/12/17 20:15 07/16/17 20:14 Lactated Ringer's 1,000 ml @ 200 mls/hr Q5H IV 07/12/17 22:15 08/11/17 22:14 07/14/17 10:07 200 MLS/HR Enoxaparin Sodium (Lovenox Inj) 40 mg Q24H SQ 07/13/17 09:00 08/12/17 08:59 07/14/17 08:09 40 MG Acetaminophen (Tylenol Tab) 650 mg Q4H PRN PO 07/12/17 23:00 08/11/17 22:59 Aspirin (Ecotrin Tab) 325 mg HS PO 07/13/17 21:00 08/12/17 20:59 07/13/17 21:56 325 MG Lisinopril (Zestril Tab) 5 mg QAM PO 07/13/17 08:00 08/12/17 08:59 07/14/17 08:08 5 MG Multivitamins (Multivitamin Tab) 1 tab QAM PO 07/13/17 08:00 08/12/17 08:59 07/14/17 08:08 1 TAB Oxycodone HCl (Roxicodone Immediate Rel Tab) pain not relieved by tylenol Q4H PRN PO 07/12/17 23:00 07/26/17 22:59 07/14/17 04:37 10 MG Tamsulosin HCl (Flomax Cap) 0.4 mg HS PO 07/13/17 21:00 08/12/17 20:59 07/13/17 21:56 0.4 MG Pantoprazole Sodium (Protonix Tab) 40 mg QAM PO 07/13/17 08:00 08/12/17 08:59 07/14/17 08:08 40 MG Polyethylene (Miralax Powder Packet) 17 gm DAILY PRN PO 07/12/17 23:00 08/11/17 22:59 Ranitidine HCl (zANTac TAB) 300 mg HS PO 07/13/17 21:00 08/12/17 20:59 07/13/17 21:57 300 MG Hydromorphone HCl (Dilaudid Inj) 0.5 mg Q3H PRN IV 07/12/17 23:00 07/26/17 22:59 07/13/17 00:01 0.5 MG Ondansetron HCl (Zofran Inj) 4 mg Q6H PRN IV 07/12/17 23:00 08/11/17 22:59 Objective Vital Signs Date Time Temp Pulse Resp B/P (MAP) Pulse Ox O2 Delivery O2 Flow Rate FiO2 07/14/17 08:00 Room Air 07/14/17 07:30 36.7 57 18 123/72 (89) 95 07/14/17 00:00 Room Air 07/14/17 00:00 36.6 58 18 128/77 (94) 95 Room Air 07/13/17 16:13 36.6 60 20 148/79 (102) 93 Room Air 07/13/17 16:00 Room Air Physical Exam General Appearance: WD/WN, no apparent distress Eyes: normal inspection, PERRL, EOMI Neck: supple, no JVD, trachea midline Respiratory/Chest: normal breath sounds, no respiratory distress, no accessory muscle use Cardiovascular: regular rate, rhythm, no gallop, no murmur Abdomen: normal bowel sounds, non tender, soft Extremities: normal inspection, no pedal edema, no calf tenderness Neurologic/Psych: alert, normal mood/affect, oriented x 3 Skin: normal color, no jaundice, no rash Laboratory Results Last 24 Hours Test 07/14/17 10:36 Assessment and Plan Patient is a 67 year old female with recurrent pancreatitis in the setting of pancreatic divisum. Normal LFTs today, with no evidence of biliary extraction, no filling defect on MRCP. Plans - LR down to 150ml/hr - CL diet - Antiemetics and analgesic prn - Outpt repeat ERCP for sphincterectomy ; will help arrange upon DC. I have seen, examined, and agree with the plan as outlined by MINERVA Nick -Improving slowly -Advance diet as tolerated -Outpatient ERCP with minor sphincterotomy and follow up with Dr. Cai
--- NOTE | 2017-07-14 17:26 | Progress Note ---
Subjective Date of Service: Jul 14, 2017. Subjective Pt evaluation today including: conversation w/ patient, physical exam, lab review, review of studies, review of inpatient medication list Saw/examined the patient in room 456 She's doing better than yesterday pain is down to a 5/10 No nausea/vomiting, no fevers/chills Problem List Medical Problems: (1) Chronic kidney disease Status: Chronic (2) Dehydration Status: Acute (3) Epigastric abdominal pain Status: Acute (4) GERD (gastroesophageal reflux disease) Status: Chronic (5) Hematuria Status: Acute (6) Intractable right lower quadrant abdominal pain Status: Acute (7) Left elbow contusion Status: Acute (8) Lisfranc fracture Status: Acute (9) Post-op pain Status: Acute (10) Renal insufficiency Status: Acute (11) Right upper quadrant abdominal pain Status: Acute (12) Work related injury Status: Acute Review of Systems Constitutional: No fever, No chills Abdomen: + pain, No nausea, No vomiting, No diarrhea Medications Current Inpatient Medications Medications (Trade) Dose Ordered Sig/Alycia Route Start Time Stop Time Status Last Admin Dose Admin Ioversol (Optiray 320) 111 ml UD PRN IV 07/12/17 20:15 07/16/17 20:14 Lactated Ringer's 1,000 ml @ 150 mls/hr Q6H40M IV 07/12/17 22:15 08/11/17 22:14 07/14/17 16:33 150 MLS/HR Enoxaparin Sodium (Lovenox Inj) 40 mg Q24H SQ 07/13/17 09:00 08/12/17 08:59 07/14/17 08:09 40 MG Acetaminophen (Tylenol Tab) 650 mg Q4H PRN PO 07/12/17 23:00 08/11/17 22:59 Aspirin (Ecotrin Tab) 325 mg HS PO 07/13/17 21:00 08/12/17 20:59 07/13/17 21:56 325 MG Lisinopril (Zestril Tab) 5 mg QAM PO 07/13/17 08:00 08/12/17 08:59 07/14/17 08:08 5 MG Multivitamins (Multivitamin Tab) 1 tab QAM PO 07/13/17 08:00 08/12/17 08:59 07/14/17 08:08 1 TAB Oxycodone HCl (Roxicodone Immediate Rel Tab) pain not relieved by tylenol Q4H PRN PO 07/12/17 23:00 07/26/17 22:59 07/14/17 13:32 10 MG Tamsulosin HCl (Flomax Cap) 0.4 mg HS PO 07/13/17 21:00 08/12/17 20:59 07/13/17 21:56 0.4 MG Pantoprazole Sodium (Protonix Tab) 40 mg QAM PO 07/13/17 08:00 08/12/17 08:59 07/14/17 08:08 40 MG Polyethylene (Miralax Powder Packet) 17 gm DAILY PRN PO 07/12/17 23:00 08/11/17 22:59 Ranitidine HCl (zANTac TAB) 300 mg HS PO 07/13/17 21:00 08/12/17 20:59 07/13/17 21:57 300 MG Hydromorphone HCl (Dilaudid Inj) 0.5 mg Q3H PRN IV 07/12/17 23:00 07/26/17 22:59 07/13/17 00:01 0.5 MG Ondansetron HCl (Zofran Inj) 4 mg Q6H PRN IV 07/12/17 23:00 08/11/17 22:59 Diphenhydramine HCl 50 mg/Syringe 1 ml @ 1 mls/min Q8 PRN IV 07/14/17 17:30 08/13/17 17:29 UNV Objective Vital Signs Date Time Temp Pulse Resp B/P (MAP) Pulse Ox O2 Delivery O2 Flow Rate FiO2 07/14/17 16:03 Room Air 07/14/17 08:00 Room Air 07/14/17 07:30 36.7 57 18 123/72 (89) 95 07/14/17 00:00 Room Air 07/14/17 00:00 36.6 58 18 128/77 (94) 95 Room Air Physical Exam General Appearance: no apparent distress Respiratory/Chest: lungs clear, normal breath sounds, no respiratory distress, no accessory muscle use Cardiovascular: regular rate, rhythm, no edema, no murmur Abdomen: normal bowel sounds, non tender, soft Extremities: normal inspection, no pedal edema Neurologic/Psychiatric: no motor/sensory deficits, alert, normal mood/affect Laboratory Results Last 24 Hours Test 07/14/17 10:55 Lipase 507 U/L Assessment and Plan This is a 67 year old female with chronic and recurrent pancreatitis, multiple sclerosis, CKD stage 3, HLD, GERD presents with acute pancreatitis Acute, Recurrent Pancreatitis 07/14 MRCP - no dilatation decreased rate to 150mL/hr analgesics PRN clears advance if pain improved lipase improving 07/13 Lipase >80k on admission pain is around 6/10 continue LR @ 200mL/hr continue analgesics PRN once pain resolved - can advance diet, for now NPO MRCP pending - appreciate GI input follows with GI as outpatient at [facility] CKD stage 3 avoid nephrotoxic agents when possible HLD statin held, can continue on discharge DVT ppx Lovenox FULL CODE
[2017-07-14] MEDS ORDERED: DiphenhydrAMINE INJ 50 MG in SYRINGE 0 ML IV PRN (17:30)
[2017-07-14] MEDS: DiphenhydrAMINE HCL 50 MG/ML VIAL IV PRN (17:39)
[2017-07-14] MEDS: RANITIDINE HCL 150 MG TAB PO SCH (21:09)
[2017-07-14] MEDS: ASPIRIN 325 MG ECTAB PO SCH (21:09)
[2017-07-14] MEDS: TAMSULOSIN HCL 0.4 MG CAP PO SCH (21:10)
[2017-07-14 23:52] VITALS: BP 131/74; PULSE 61; TEMP 36.6; O2SAT 95
[2017-07-15] MEDS: DiphenhydrAMINE HCL 50 MG/ML VIAL IV PRN ×2 (02:39→12:26)
[2017-07-15] MEDS: OXYCODONE HCL IR 5 MG TAB (IMMEDIATE RELEASE) PO PRN ×3 (02:40→21:18)
[2017-07-15] MEDS: LACTATED RINGER'S 1000ML 1,000 ML IV SCH ×3 (04:45→18:16)
[2017-07-15 08:09] VITALS: BP 136/68; PULSE 63; TEMP 36.5; O2SAT 96
[2017-07-15] MEDS: MULTIVITAMIN TAB PO SCH (08:24)
[2017-07-15] MEDS: PANTOprazole SOD 40 MG TAB PO SCH (08:24)
[2017-07-15] MEDS: LISINOPRIL 5 MG TAB PO SCH (08:24)
[2017-07-15] MEDS: ENOXAPARIN 40 MG/0.4 ML SYR SQ SCH (08:25)
[2017-07-15 08:58] LABS: BUN/CREATININE RATIO 8.5 (10-20); CALCIUM 8.8 mg/dl (8.5-10.1); CREATININE 0.96 mg/dl (0.60-1.20); POTASSIUM 3.8 mmol/L (3.5-5.1)
[2017-07-15 10:58] LABS: HEMATOCRIT 34.4 % (37-47); MEAN CELL VOLUME 91.7 fL (80-100); MEAN CORPUSCULAR HEMOGLOBIN 29.9 pg (25-34); MEAN CORPUSCULAR HGB CONC 32.6 g/dl (32-36); MEAN PLATELET VOLUME 10.1 fL (7.4-10.4); PLATELET COUNT 165 K/uL (130-400); RED BLOOD COUNT 3.75 M/uL (4.2-5.4)
--- NOTE | 2017-07-15 11:38 | Progress Note ---
Subjective Date of Service: Jul 15, 2017. Subjective Pt evaluation today including: conversation w/ patient, physical exam, lab review, review of studies, review of inpatient medication list Saw/examined the patient in room 456 Ambulating the hallways +abdominal pain persists, but improving, around a 5/10 No fevers/chills, no nausea/vomiting/diarrhea Problem List Medical Problems: (1) Chronic kidney disease Status: Chronic (2) Dehydration Status: Acute (3) Epigastric abdominal pain Status: Acute (4) GERD (gastroesophageal reflux disease) Status: Chronic (5) Hematuria Status: Acute (6) Intractable right lower quadrant abdominal pain Status: Acute (7) Left elbow contusion Status: Acute (8) Lisfranc fracture Status: Acute (9) Post-op pain Status: Acute (10) Renal insufficiency Status: Acute (11) Right upper quadrant abdominal pain Status: Acute (12) Work related injury Status: Acute Review of Systems Constitutional: No fever, No chills Respiratory: No shortness of breath Cardiac: No chest pain Abdomen: + pain, No nausea, No vomiting, No diarrhea Medications Current Inpatient Medications Medications (Trade) Dose Ordered Sig/Alycia Route Start Time Stop Time Status Last Admin Dose Admin Ioversol (Optiray 320) 111 ml UD PRN IV 07/12/17 20:15 07/16/17 20:14 Lactated Ringer's 1,000 ml @ 150 mls/hr Q6H40M IV 07/12/17 22:15 08/11/17 22:14 07/15/17 04:45 150 MLS/HR Enoxaparin Sodium (Lovenox Inj) 40 mg Q24H SQ 07/13/17 09:00 08/12/17 08:59 07/15/17 08:25 40 MG Acetaminophen (Tylenol Tab) 650 mg Q4H PRN PO 07/12/17 23:00 08/11/17 22:59 Aspirin (Ecotrin Tab) 325 mg HS PO 07/13/17 21:00 08/12/17 20:59 07/14/17 21:09 325 MG Lisinopril (Zestril Tab) 5 mg QAM PO 07/13/17 08:00 08/12/17 08:59 07/15/17 08:24 5 MG Multivitamins (Multivitamin Tab) 1 tab QAM PO 07/13/17 08:00 08/12/17 08:59 07/15/17 08:24 1 TAB Oxycodone HCl (Roxicodone Immediate Rel Tab) pain not relieved by tylenol Q4H PRN PO 07/12/17 23:00 07/26/17 22:59 07/15/17 08:24 5 MG Tamsulosin HCl (Flomax Cap) 0.4 mg HS PO 07/13/17 21:00 08/12/17 20:59 07/14/17 21:10 0.4 MG Pantoprazole Sodium (Protonix Tab) 40 mg QAM PO 07/13/17 08:00 08/12/17 08:59 07/15/17 08:24 40 MG Polyethylene (Miralax Powder Packet) 17 gm DAILY PRN PO 07/12/17 23:00 08/11/17 22:59 Ranitidine HCl (zANTac TAB) 300 mg HS PO 07/13/17 21:00 08/12/17 20:59 07/14/17 21:09 300 MG Hydromorphone HCl (Dilaudid Inj) 0.5 mg Q3H PRN IV 07/12/17 23:00 07/26/17 22:59 07/13/17 00:01 0.5 MG Ondansetron HCl (Zofran Inj) 4 mg Q6H PRN IV 07/12/17 23:00 08/11/17 22:59 Diphenhydramine HCl (Benadryl Inj) 50 mg Q8H PRN IV 07/14/17 17:45 08/13/17 17:44 07/15/17 02:39 50 MG Objective Vital Signs Date Time Temp Pulse Resp B/P (MAP) Pulse Ox O2 Delivery O2 Flow Rate FiO2 07/15/17 08:15 Room Air 07/15/17 08:09 36.5 63 22 136/68 (90) 96 Room Air 07/14/17 23:59 Room Air 07/14/17 23:52 36.6 61 18 131/74 (93) 95 Room Air 07/14/17 20:00 Room Air 07/14/17 16:03 Room Air Physical Exam General Appearance: no apparent distress Respiratory/Chest: lungs clear, normal breath sounds, no respiratory distress, no accessory muscle use Cardiovascular: regular rate, rhythm, no edema, no murmur Abdomen: normal bowel sounds, soft, + tenderness (epigastric) Laboratory Results Last 24 Hours Test 07/15/17 08:01 07/15/17 10:49 Sodium Level 144 mmol/L Potassium Level 3.8 mmol/L Chloride Level 107 mmol/L Carbon Dioxide Level 32 mmol/L Anion Gap 5.0 mmol/L Blood Urea Nitrogen 8 mg/dl Creatinine 0.96 mg/dl Est Creatinine Clear Calc Drug Dose 55.1 ml/min Estimated GFR () 71.4 Estimated GFR (Non- 61.6 BUN/Creatinine Ratio 8.5 Random Glucose 82 mg/dl Calcium Level 8.8 mg/dl Lipase 253 U/L White Blood Count 4.10 K/uL Red Blood Count 3.75 M/uL Hemoglobin 11.2 g/dL Hematocrit 34.4 % Mean Corpuscular Volume 91.7 fL Mean Corpuscular Hemoglobin 29.9 pg Mean Corpuscular Hemoglobin Concent 32.6 g/dl RDW Standard Deviation 47.3 fL RDW Coefficient of Variation 14.0 % Platelet Count 165 K/uL Mean Platelet Volume 10.1 fL Assessment and Plan This is a 67 year old female with chronic and recurrent pancreatitis, multiple sclerosis, CKD stage 3, HLD, GERD presents with acute pancreatitis Acute, Recurrent Pancreatitis 07/15 will continue clears today lipase has normalized advance diet in AM (07/16) Percocet PRN 07/14 MRCP - no dilatation decreased rate to 150mL/hr analgesics PRN clears advance if pain improved lipase improving 07/13 Lipase >80k on admission pain is around 6/10 continue LR @ 200mL/hr continue analgesics PRN once pain resolved - can advance diet, for now NPO MRCP pending - appreciate GI input follows with GI as outpatient at [facility] CKD stage 3 avoid nephrotoxic agents when possible HLD statin held, can continue on discharge DVT ppx Lovenox FULL CODE
[2017-07-15 15:06] VITALS: BP 116/80; PULSE 57; TEMP 36.4; O2SAT 98
[2017-07-15] MEDS: TAMSULOSIN HCL 0.4 MG CAP PO SCH (21:19)
[2017-07-15] MEDS: RANITIDINE HCL 150 MG TAB PO SCH (21:19)
[2017-07-15] MEDS: ASPIRIN 325 MG ECTAB PO SCH (21:19)
[2017-07-16] VITALS: BP 120/65; PULSE 68; TEMP 36.7; O2SAT 95
[2017-07-16] MEDS: LACTATED RINGER'S 1000ML 1,000 ML IV SCH (00:54)
[2017-07-16] MEDS: OXYCODONE HCL IR 5 MG TAB (IMMEDIATE RELEASE) PO PRN ×2 (03:44→20:59)
[2017-07-16] MEDS: DiphenhydrAMINE HCL 50 MG/ML VIAL IV PRN ×2 (03:45→20:59)
[2017-07-16 07:34] VITALS: BP 158/73; PULSE 67; TEMP 36.6; O2SAT 96
[2017-07-16] MEDS ORDERED: NURSING VERBAL MED ORDER ONE (08:00)
[2017-07-16] MEDS: MULTIVITAMIN TAB PO SCH (08:08)
[2017-07-16] MEDS: ENOXAPARIN 40 MG/0.4 ML SYR SQ SCH (08:08)
[2017-07-16] MEDS: PANTOprazole SOD 40 MG TAB PO SCH (08:08)
[2017-07-16] MEDS: LISINOPRIL 5 MG TAB PO SCH (08:08)
--- NOTE | 2017-07-16 12:59 | Progress Note ---
Subjective Date of Service: Jul 16, 2017. Subjective Pt evaluation today including: conversation w/ patient, physical exam, lab review, review of studies, review of inpatient medication list Saw/examined the patient in room 456 She feels better today, abdominal pain is minimal tolerating clears no fevers/chills Problem List Medical Problems: (1) Chronic kidney disease Status: Chronic (2) Dehydration Status: Acute (3) Epigastric abdominal pain Status: Acute (4) GERD (gastroesophageal reflux disease) Status: Chronic (5) Hematuria Status: Acute (6) Intractable right lower quadrant abdominal pain Status: Acute (7) Left elbow contusion Status: Acute (8) Lisfranc fracture Status: Acute (9) Post-op pain Status: Acute (10) Renal insufficiency Status: Acute (11) Right upper quadrant abdominal pain Status: Acute (12) Work related injury Status: Acute Review of Systems Constitutional: No fever, No chills Abdomen: + pain, No nausea, No vomiting, No diarrhea Medications Current Inpatient Medications Medications (Trade) Dose Ordered Sig/Alycia Route Start Time Stop Time Status Last Admin Dose Admin Ioversol (Optiray 320) 111 ml UD PRN IV 07/12/17 20:15 07/16/17 20:14 Enoxaparin Sodium (Lovenox Inj) 40 mg Q24H SQ 07/13/17 09:00 08/12/17 08:59 07/16/17 08:08 40 MG Acetaminophen (Tylenol Tab) 650 mg Q4H PRN PO 07/12/17 23:00 08/11/17 22:59 Aspirin (Ecotrin Tab) 325 mg HS PO 07/13/17 21:00 08/12/17 20:59 07/15/17 21:19 325 MG Lisinopril (Zestril Tab) 5 mg QAM PO 07/13/17 08:00 08/12/17 08:59 07/16/17 08:08 5 MG Multivitamins (Multivitamin Tab) 1 tab QAM PO 07/13/17 08:00 08/12/17 08:59 07/16/17 08:08 1 TAB Oxycodone HCl (Roxicodone Immediate Rel Tab) pain not relieved by tylenol Q4H PRN PO 07/12/17 23:00 07/26/17 22:59 07/16/17 03:44 5 MG Tamsulosin HCl (Flomax Cap) 0.4 mg HS PO 07/13/17 21:00 08/12/17 20:59 07/15/17 21:19 0.4 MG Pantoprazole Sodium (Protonix Tab) 40 mg QAM PO 07/13/17 08:00 08/12/17 08:59 07/16/17 08:08 40 MG Polyethylene (Miralax Powder Packet) 17 gm DAILY PRN PO 07/12/17 23:00 08/11/17 22:59 Ranitidine HCl (zANTac TAB) 300 mg HS PO 07/13/17 21:00 08/12/17 20:59 07/15/17 21:19 300 MG Hydromorphone HCl (Dilaudid Inj) 0.5 mg Q3H PRN IV 07/12/17 23:00 07/26/17 22:59 07/13/17 00:01 0.5 MG Ondansetron HCl (Zofran Inj) 4 mg Q6H PRN IV 07/12/17 23:00 08/11/17 22:59 Diphenhydramine HCl (Benadryl Inj) 50 mg Q8H PRN IV 07/14/17 17:45 08/13/17 17:44 07/16/17 03:45 50 MG Objective Vital Signs Date Time Temp Pulse Resp B/P (MAP) Pulse Ox O2 Delivery O2 Flow Rate FiO2 07/16/17 08:00 Room Air 07/16/17 07:34 36.6 67 18 158/73 (101) 96 Room Air 07/16/17 00:00 36.7 68 18 120/65 (83) 95 Room Air 07/15/17 23:59 Room Air 07/15/17 20:00 Room Air 07/15/17 16:15 Room Air 07/15/17 15:06 36.4 57 22 116/80 (92) 98 Room Air Physical Exam General Appearance: no apparent distress, + obese Respiratory/Chest: lungs clear, normal breath sounds, no respiratory distress, no accessory muscle use Cardiovascular: regular rate, rhythm, no edema, no murmur Abdomen: normal bowel sounds, soft, + tenderness (mildly tender) Assessment and Plan This is a 67 year old female with chronic and recurrent pancreatitis, multiple sclerosis, CKD stage 3, HLD, GERD presents with acute pancreatitis Acute, Recurrent Pancreatitis 07/16 abdominal pain subsiding will advance diet from clears to full liquids lipase has normalized continue analgesics as needed 07/15 will continue clears today lipase has normalized advance diet in AM (07/16) Percocet PRN 07/14 MRCP - no dilatation decreased rate to 150mL/hr analgesics PRN clears advance if pain improved lipase improving 07/13 Lipase >80k on admission pain is around 6/10 continue LR @ 200mL/hr continue analgesics PRN once pain resolved - can advance diet, for now NPO MRCP pending - appreciate GI input follows with GI as outpatient at [facility] CKD stage 3 avoid nephrotoxic agents when possible HLD statin held, can continue on discharge DVT ppx Lovenox FULL CODE
[2017-07-16 16:00] VITALS: BP 106/69; PULSE 67; TEMP 36.5; O2SAT 97
[2017-07-16] MEDS: TAMSULOSIN HCL 0.4 MG CAP PO SCH (20:59)
[2017-07-16] MEDS: ASPIRIN 325 MG ECTAB PO SCH (20:59)
[2017-07-16] MEDS: RANITIDINE HCL 150 MG TAB PO SCH (20:59)
[2017-07-17] VITALS: BP 138/73; PULSE 59; TEMP 36.7; O2SAT 93
[2017-07-17 07:37] LABS: HEMATOCRIT 35.9 % (37-47); MEAN CELL VOLUME 91.3 fL (80-100); MEAN CORPUSCULAR HEMOGLOBIN 29.8 pg (25-34); MEAN CORPUSCULAR HGB CONC 32.6 g/dl (32-36); MEAN PLATELET VOLUME 10.8 fL (7.4-10.4); PLATELET COUNT 157 K/uL (130-400); RED BLOOD COUNT 3.93 M/uL (4.2-5.4); WHITE BLOOD COUNT 3.09 K/uL (4.8-10.8)
[2017-07-17 07:55] VITALS: BP 165/85; PULSE 66; TEMP 36.4; O2SAT 100
[2017-07-17 08:11] LABS: BUN/CREATININE RATIO 6.2 (10-20); CALCIUM 8.4 mg/dl (8.5-10.1); CREATININE 0.98 mg/dl (0.60-1.20); POTASSIUM 3.5 mmol/L (3.5-5.1)
[2017-07-17] MEDS: LISINOPRIL 5 MG TAB PO SCH (08:13)
[2017-07-17] MEDS: PANTOprazole SOD 40 MG TAB PO SCH (08:13)
[2017-07-17] MEDS: MULTIVITAMIN TAB PO SCH (08:14)
[2017-07-17] MEDS: ENOXAPARIN 40 MG/0.4 ML SYR SQ SCH (08:14)
[2017-07-17] MEDS: OXYCODONE HCL IR 5 MG TAB (IMMEDIATE RELEASE) PO PRN (08:16)
[2017-07-17 09:30] VITALS: BP 121/72
--- NOTE | 2017-07-17 11:45 | Progress Note ---
Subjective Date of Service: Jul 17, 2017. Subjective Pt evaluation today including: conversation w/ patient, physical exam, lab review, review of studies, review of inpatient medication list Saw/examined the patient in room 456 No problems/issues to note today, pain is much improved tolerating a regular diet for breakfast today no fevers/chills Problem List Medical Problems: (1) Chronic kidney disease Status: Chronic (2) Dehydration Status: Acute (3) Epigastric abdominal pain Status: Acute (4) GERD (gastroesophageal reflux disease) Status: Chronic (5) Hematuria Status: Acute (6) Intractable right lower quadrant abdominal pain Status: Acute (7) Left elbow contusion Status: Acute (8) Lisfranc fracture Status: Acute (9) Post-op pain Status: Acute (10) Renal insufficiency Status: Acute (11) Right upper quadrant abdominal pain Status: Acute (12) Work related injury Status: Acute Review of Systems Constitutional: No fever, No chills Abdomen: + pain (nearly resolved), No nausea, No vomiting, No diarrhea, No constipation, No GI bleeding Medications Current Inpatient Medications Medications (Trade) Dose Ordered Sig/Alycia Route Start Time Stop Time Status Last Admin Dose Admin Enoxaparin Sodium (Lovenox Inj) 40 mg Q24H SQ 07/13/17 09:00 08/12/17 08:59 07/17/17 08:14 40 MG Acetaminophen (Tylenol Tab) 650 mg Q4H PRN PO 07/12/17 23:00 08/11/17 22:59 Aspirin (Ecotrin Tab) 325 mg HS PO 07/13/17 21:00 08/12/17 20:59 07/16/17 20:59 325 MG Lisinopril (Zestril Tab) 5 mg QAM PO 07/13/17 08:00 08/12/17 08:59 07/17/17 08:13 5 MG Multivitamins (Multivitamin Tab) 1 tab QAM PO 07/13/17 08:00 08/12/17 08:59 07/17/17 08:14 1 TAB Oxycodone HCl (Roxicodone Immediate Rel Tab) pain not relieved by tylenol Q4H PRN PO 07/12/17 23:00 07/26/17 22:59 07/17/17 08:16 5 MG Tamsulosin HCl (Flomax Cap) 0.4 mg HS PO 07/13/17 21:00 08/12/17 20:59 07/16/17 20:59 0.4 MG Pantoprazole Sodium (Protonix Tab) 40 mg QAM PO 07/13/17 08:00 08/12/17 08:59 07/17/17 08:13 40 MG Polyethylene (Miralax Powder Packet) 17 gm DAILY PRN PO 07/12/17 23:00 08/11/17 22:59 Ranitidine HCl (zANTac TAB) 300 mg HS PO 07/13/17 21:00 08/12/17 20:59 07/16/17 20:59 300 MG Hydromorphone HCl (Dilaudid Inj) 0.5 mg Q3H PRN IV 07/12/17 23:00 07/26/17 22:59 07/13/17 00:01 0.5 MG Ondansetron HCl (Zofran Inj) 4 mg Q6H PRN IV 07/12/17 23:00 08/11/17 22:59 Diphenhydramine HCl (Benadryl Inj) 50 mg Q8H PRN IV 07/14/17 17:45 08/13/17 17:44 07/16/17 20:59 50 MG Objective Vital Signs Date Time Temp Pulse Resp B/P (MAP) Pulse Ox O2 Delivery O2 Flow Rate FiO2 07/17/17 09:30 121/72 (88) 07/17/17 08:00 Room Air 07/17/17 07:55 36.4 66 20 165/85 (111) 100 Room Air 07/17/17 00:00 36.7 59 20 138/73 (94) 93 Room Air 07/16/17 23:59 Room Air 07/16/17 20:00 Room Air 07/16/17 17:00 Room Air 07/16/17 16:00 36.5 67 20 106/69 (81) 97 Room Air Physical Exam General Appearance: no apparent distress Respiratory/Chest: no respiratory distress, no accessory muscle use Abdomen: normal bowel sounds, non tender, soft Laboratory Results Last 24 Hours Test 07/17/17 07:18 White Blood Count 3.09 K/uL Red Blood Count 3.93 M/uL Hemoglobin 11.7 g/dL Hematocrit 35.9 % Mean Corpuscular Volume 91.3 fL Mean Corpuscular Hemoglobin 29.8 pg Mean Corpuscular Hemoglobin Concent 32.6 g/dl RDW Standard Deviation 47.5 fL RDW Coefficient of Variation 14.1 % Platelet Count 157 K/uL Mean Platelet Volume 10.8 fL Sodium Level 144 mmol/L Potassium Level 3.5 mmol/L Chloride Level 110 mmol/L Carbon Dioxide Level 28 mmol/L Anion Gap 6.0 mmol/L Blood Urea Nitrogen 6 mg/dl Creatinine 0.98 mg/dl Est Creatinine Clear Calc Drug Dose 53.9 ml/min Estimated GFR () 69.7 Estimated GFR (Non- 60.1 BUN/Creatinine Ratio 6.2 Random Glucose 85 mg/dl Calcium Level 8.4 mg/dl Assessment and Plan This is a 67 year old female with chronic and recurrent pancreatitis, multiple sclerosis, CKD stage 3, HLD, GERD presents with acute pancreatitis Acute, Recurrent Pancreatitis 07/17 can likely d/c home today she is tolerating her diet will d/c with a small supply of tramadol for pain outpatient PCP follow-up outpatient ERCP with Dr. Cai 07/16 abdominal pain subsiding will advance diet from clears to full liquids lipase has normalized continue analgesics as needed 07/15 will continue clears today lipase has normalized advance diet in AM (07/16) Percocet PRN 07/14 MRCP - no dilatation decreased rate to 150mL/hr analgesics PRN clears advance if pain improved lipase improving 07/13 Lipase >80k on admission pain is around 6/10 continue LR @ 200mL/hr continue analgesics PRN once pain resolved - can advance diet, for now NPO MRCP pending - appreciate GI input follows with GI as outpatient at [facility] CKD stage 3 avoid nephrotoxic agents when possible HLD statin held, can continue on discharge DVT ppx Lovenox FULL CODE
[2017-07-17 12:00] VITALS: O2SAT 100
--- NOTE | 2017-07-17 12:33 | Discharge Instructions ---
Discharge Instructions Date of Service Jul 17, 2017. Admission Reason for Admission: Pancreatitis Discharge Discharge Diagnosis / Problem: Acute, Recurrent Pancreatitis Discharge Goals Goal(s): Decrease discomfort, Improve function, Diagnostic testing, Therapeutic intervention Activity Recommendations Activity Limitations: resume your previous activity . Instructions / Follow-Up Instructions / Follow-Up Please follow-up with Dr. Cai, gastroenterology, for an ERCP as an outpatient Please follow-up with your primary care doctor - you will get a phone call with a date and time Current Hospital Diet Patient's current hospital diet: Low Fat Diet Discharge Diet Recommended Diet: Low Fat Diet Pending Studies Studies pending at discharge: no Medical Emergencies . Who to Call and When: Medical Emergencies: If at any time you feel your situation is an emergency, please call 911 immediately. . Non-Emergent Contact Non-Emergency issues call your: Primary Care Provider, Correspondence Clerk . . "Provider Documentation" section prepared by Donta Javed. . VTE Core Measure Inpt VTE Proph given/why not?: Enoxaparin (Lovenox)SQ
--- NOTE | 2017-07-17 12:38 | Discharge Summary ---
Discharge Summary Date of Service Jul 17, 2017. Discharge Summary Admission Date: Jul 12, 2017 at 22:13 Discharge Date: Jul 17, 2017 Discharge Disposition: Home Principal Diagnosis: Acute, Recurrent pancreatitis Medication Reconciliation Continued Medications: Aspirin (Aspirin Ec) 325 Mg Tab 325 MG PO HS Atorvastatin (Lipitor) 40 Mg Tab 40 MG PO HS, TAB Calcium Citrate-Vitamin D (Calcium Citrate + D) 1 Tab Tab 1 TAB PO DAILY Furosemide (Lasix) 20 Mg Tab 20 MG PO HOLD for Ankle Swelling/Edema Lisinopril (Prinivil) 5 Mg Tab 5 MG PO QAM, TAB Melatonin (Melatonin) 5 Mg Tab 5 MG PO HS PRN for Insomnia Multivitamin (Multivitamin) Tab 1 TAB PO QAM Omeprazole (Prilosec) 20 Mg Capcr 20 MG PO QAM, CAP Ondasetron Odt (Zofran Odt) 4 Mg Tab 4 MG SL Q6H for Nausea, #12 TAB Oxycodone Immediate Rel Tab (Roxicodone Ir) 5 Mg Tab 1-2 TAB PO Q4H PRN for Severe Pain, #12 TAB Polyethylene Glycol 3350 (Miralax) 1 Pow Pow 17 GM PO DAILY PRN for Constipation Ranitidine (Zantac) 300 Mg Tab 300 MG PO HS Tamsulosin HCl (Tamsulosin HCl) 0.4 Mg Cap 0.4 MG PO HS Triamcinolone Acet (Aristocort 0.1%) 90 Appln/30 Gm Cr 1 APPL TOP BID PRN for RASH Admission Information Physical Exam (per Admitting): DATE OF ADMISSION: 07/12/2017 PRIMARY CARE DOCTOR: Dr. Diop. CHIEF COMPLAINT: Abdominal pain. HISTORY OF PRESENT ILLNESS: History obtained from patient and records. Medical history significant for recurrent pancreatitis status post biliary sphincterotomy, pancreatic divisum as per records, MS, hypertension, reflux, hyperlipidemia. Recent confinement 04/2017 for recurrent pancreatitis (fourth episode), improved with conservative management. She had a followup with her practice advisor last week. Consideration for minor duct sphincterotomy procedure if with recurrence as per note. This afternoon the patient noted epigastric discomfort, achy, reminiscent of pancreatitis pain, some nausea, no vomiting, good bowel movement. Denies fatty food intake. Denies dysuria symptoms. Patient brought to the Emergency Room. MEDICAL HISTORY: As above. SURGERIES: Cholecystectomy, bilateral tubal ligation, breast reduction, bladder defect procedure. HOME MEDICATIONS: Include aspirin, Lipitor, Caltrate, Lasix, Prinivil, melatonin, multivitamins, Prilosec, MiraLax, Zantac, tamsulosin. ALLERGIES: ADHESIVES, IBUPROFEN, MORPHINE. FAMILY HISTORY: Breast cancer, MS, brain aneurysm. PERSONAL SOCIAL HISTORY: Nonsmoker, no chronic intake of alcoholic beverages. 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 REVIEW OF SYSTEMS: As per HPI, all other ROS negative. PHYSICAL EXAMINATION: VITAL SIGNS: Blood pressure was noted to be 175/80, later 140/70, pulse rate 90, RR 18, temperature 36.5, sats 98 on room air. GENERAL: Noted to be comfortable, obese, no respiratory distress, pleasant. SKIN: Normal color. HEENT: [place] palpebral conjunctivae. Dry mucosa. NECK: Short neck. LUNGS: Decreased breath sounds. HEART: Regular rate and rhythm. ABDOMEN: Epigastric tenderness. EXTREMITIES: Minimal LE edema, no tenderness. NEUROLOGIC: No gross focality. LABORATORY DATA: Hemoglobin 13.5, hematocrit 40, white cells 8.8, platelets 213. Sodium noted to be 140, potassium 3.8, chloride 106, CO2 of 31, BUN 14, creatinine 1, glucose was noted to be 96. Lipase was noted to be 80,000. CT abdomen and pelvis showed pancreatic divisum, thickening, chronic pneumobilia from prior sphincterotomy. ASSESSMENT: 1. 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 2. Hypertension, slightly elevated. 3. Multiple sclerosis, deficits at baseline PLAN: GMF IVF, bowel rest. Analgesia. GI consult RE recurrent pancreatitis (Px known to Dr. Cai) DVT prophylaxis, Lovenox subcu. Full code. Hospital Course This is a 67 year old female with chronic and recurrent pancreatitis, multiple sclerosis, CKD stage 3, HLD, GERD presents with acute pancreatitis Acute, Recurrent Pancreatitis 07/17 can likely d/c home today she is tolerating her diet will d/c with a small supply of tramadol for pain outpatient PCP follow-up outpatient ERCP with Dr. Cai 07/16 abdominal pain subsiding will advance diet from clears to full liquids lipase has normalized continue analgesics as needed 07/15 will continue clears today lipase has normalized advance diet in AM (07/16) Percocet PRN 07/14 MRCP - no dilatation decreased rate to 150mL/hr analgesics PRN clears advance if pain improved lipase improving 07/13 Lipase >80k on admission pain is around 6/10 continue LR @ 200mL/hr continue analgesics PRN once pain resolved - can advance diet, for now NPO MRCP pending - appreciate GI input follows with GI as outpatient at [facility] CKD stage 3 avoid nephrotoxic agents when possible HLD statin held, can continue on discharge DVT ppx Lovenox FULL CODE Total time spent on discharge = 25 minutes This includes examination of the patient, discharge planning, medication reconciliation, and communication with other providers. Discharge Instructions Please follow-up with Dr. Cai, gastroenterology, for an ERCP as an outpatient Please follow-up with your primary care doctor - you will get a phone call with a date and time
[2017-07-17 13:07] VITALS: BP 121/72; PULSE 66; TEMP 36.4; O2SAT 100
== END 2017-07-17 13:55 | disposition home or self-care (01) | DRG 438 ==
LOC: C.EDB 18:26 → C.MS4W 22:13 → ENRESERV 22:59
PROVIDERS: ADMIT Family Medicine; ATTEND Family Medicine
DX: Q45.3 Other congenital malformations of pancreas and pancreatic duct (principal); K85.90 Acute pancreatitis without necrosis or infection, unspecified; K21.9 Gastro-esophageal reflux disease without esophagitis; I12.9 Hypertensive chronic kidney disease with stage 1 through stage 4 chronic kidney disease, or unspecified chronic kidney disease; N18.3 Chronic kidney disease, stage 3 (moderate); G35 Multiple sclerosis; E78.5 Hyperlipidemia, unspecified; Z79.82 Long term (current) use of aspirin; Z79.899 Other long term (current) drug therapy

== ENCOUNTER → 2017-07-19 | Outpatient (CLI) | payer OTHER ==
[~2017-07-19] MED LIST changes: +ASPI325T39 PO; -ASPI325T45 PO; +CEPH500C PO; +DICY10CA55 PO; +HYDR-5688 PO
--- NOTE | 2017-07-19 13:49 | MAMMOGRAPHY REPORT ---
BILATERAL DIGITAL SCREENING MAMMOGRAM TOMOSYNTHESIS WITH CAD: 07/19/2017 CLINICAL HISTORY: Routine screening. Patient has no complaints. TECHNIQUE: Breast tomosynthesis in addition to standard 2D mammography was performed. Current study was also evaluated with a Computer Aided Detection (CAD) system. COMPARISON: Comparison is made to exams dated: 07/13/2016 mammogram, 07/02/2015 mammogram, 06/30/2014 m ammogram, 06/19/2013 mammogram, 05/17/2012 mammogram, and 05/11/2011 mammogram - [facility] ter. BREAST COMPOSITION: The tissue of both breasts is heterogeneously dense, which may obscure small mas ses. FINDINGS: There is evidence of prior reduction mammoplasty. A few scattered stable benign-appearing calcifications bilaterally. No new suspicious mass, architectural distortion or cluster of microcal cifications is seen. IMPRESSION: ACR BI-RADS CATEGORY 1: NEGATIVE There is no mammographic evidence of malignancy. A 1 year screening mammogram is recommended. The pa tient will receive written notification of the results. Approximately 10% of breast cancers are not detected with mammography. A negative mammographic report should not delay biopsy if a clinically suggestive mass is present. Emma Catalan M.D. ay/:07/19/2017 08:30:43 Drafter Patent: Fermin Lange M, [facility] letter sent: Normal 1/2 BI-RADS Code: ACR BI-RADS Category 1: Negative
== END | disposition home or self-care (01) ==
LOC: C.MAMM 07:41
PROVIDERS: ATTEND Student in an Organized Health Care Education/Training Program
DX: Z12.31 Encounter for screening mammogram for malignant neoplasm of breast (principal)

== ENCOUNTER 2017-07-28 08:31 | Observation (INO) | payer OTHER ==
[2017-07-24 08:44] VITALS: BMI 33.0
[~2017-07-28] VITALS: Ht 154.9 cm; Wt 79.5 kg
[2017-07-28] VITALS (9 sets, daily range): BP systolic 130–216; BP diastolic 63–86; PULSE 59–68; TEMP 36.3–37.1; O2SAT 96–98; Ht 154.9 cm; Wt 79.5 kg
[~2017-07-28 08:31] MED LIST changes: -CEPH500C PO; -DICY10CA55 PO; -HYDR-5688 PO; +LACTATED RINGER'S 1000ML 1,000 ML IV SCH; -ONDA4TAB10 SL; -OXYC1TAB3 PO
[2017-07-28] MEDS ORDERED: LACTATED RINGER'S 1000ML 1,000 ML IV ONE (09:08)
[2017-07-28] MEDS ORDERED: INDOMETHACIN 50 MG SUPP PR ONE (09:15)
[2017-07-28] MEDS ORDERED: ONDANSETRON INJ 2 MG/ML 2 ML VIAL ONE (09:32)
[2017-07-28] MEDS ORDERED: DEXAMETHASONE SOD INJ 4 MG/ML VIAL ONE (09:32)
[2017-07-28] MEDS ORDERED: PROPOFOL IV EMULSION 10 MG/ML 20 ML VIAL IV ONE (09:32)
[2017-07-28] MEDS ORDERED: LIDOCAINE HCL 2% 2 ML VIAL (20MG/ML) ONE (09:32)
[2017-07-28] MEDS ORDERED: MIDAZOLAM HCL 1 MG/ML 2ML VIAL ONE (09:33)
[2017-07-28] MEDS ORDERED: FENTANYL CITRATE INJ 50 MCG/1 ML 2 ML VIAL ONE (09:33)
[2017-07-28] MEDS ORDERED: ATROPINE SULFATE 0.1 MG/ML 5ML SYR IV PRN (09:45)
[2017-07-28] MEDS ORDERED: FENTANYL CITRATE INJ 50 MCG/1 ML 2 ML VIAL IV PRN (09:45)
[2017-07-28] MEDS ORDERED: ONDANSETRON INJ 2 MG/ML 2 ML VIAL IV PRN ×2 (09:45→11:45)
[2017-07-28] MEDS ORDERED: EpHEDrine SULFATE INJ 50 MG/ML AMP IV PRN (09:45)
--- NOTE | 2017-07-28 09:45 | Endo History and Physical ---
History & Physical Date of Service: Jul 28, 2017. Chief Complaint: Recurrent pancreatitis Referring Physician: History of Present Illness 67-year-old female with a history of recurrent pancreatitis. She underwent an ERCP about 6 months ago at [facility] with a biliary sphincterotomy. Since that time she's had 2 separate admissions for pancreatitis presumed secondary to pancreatic divisum. She presents today for ERCP and minor duct sphincterotomy. Past Medical History Reflux, Hypertension, Kidney Disease Past Surgical History Hx Cardiac Surgery: No Hx Abdominal Surgery: Yes (gallbladder removed,tubal ligation) Hx Post-Op Nausea and Vomiting: No Hx Cancer Surgery: No Hx Thoracic Surgery: Yes (lower back) Hx Orthopedic: Yes Hx Urinary Tract Surgery: No Social History Smoking Status: Never Smoker Hx Substance Use: No Hx Alcohol Use: No Allergies Coded Allergies: Ibuprofen (Verified Allergy, Mild, HIVES, 07/28/17) Morphine (Verified Allergy, Mild, pruritis, 07/28/17) Adhesives (Verified Allergy, Unknown, RASH, 07/28/17) Current Medications Reported Home Medications Medications Dose Route/Sig Max Daily Dose Days Date Category Dose Instructions Aspirin Ec (Aspirin) 325 Mg Tab 325 Mg PO HS 07/12/17 Reported ENCOURAGED TO CALL SURGEON OFFICE PER PRE OP INSTRUCTION - PT REPORTS STOPPED TAKING THIS 07/21/17 BECAUSE SHE WAS TOLD TO DO SO PRIOR TO HER LAST PROCEDURE OF THE SAME KIND Aristocort 0.1% (Triamcinolone Acet) 90 Appln/30 Gm Cr 1 Appl TOP BID PRN 05/06/17 Reported Tamsulosin HCl 0.4 Mg Cap 0.4 Mg PO HS 03/27/17 Reported Lipitor (Atorvastatin Calcium) 40 Mg Tab 40 Mg PO HS 03/27/17 Reported Prinivil (Lisinopril) 5 Mg Tab 5 Mg PO QAM 01/19/17 Reported Prilosec (Omeprazole) 20 Mg Capcr 20 Mg PO QAM 06/19/16 Reported Melatonin 5 Mg Tab 5 Mg PO HS PRN 10/23/15 Reported Lasix (Furosemide) 20 Mg Tab 20 Mg PO QAM 09/10/15 Reported Calcium Citrate + D (Calcium Citrate-Vitamin D) 1 Tab Tab 1 Tab PO DAILY 11/24/14 Reported ON HOLD PER PCP - HAS NOT BEEN TAKING OVER THE LAST FEW WEEKS Multivitamin (Multivitamins) Tab 1 Tab PO QAM 11/24/14 Reported Zantac (Ranitidine HCl) 300 Mg Tab 300 Mg PO HS 01/13/14 Reported Miralax (Polyethylene Glycol 3350) 1 Pow Pow 17 Gm PO DAILY PRN 01/13/14 Reported Vital Signs Weight (Kilograms): 79.55 Height (Feet): 5 Height (Inches): 1 Date Time Temp Pulse Resp B/P (MAP) Pulse Ox O2 Delivery O2 Flow Rate FiO2 07/28/17 09:00 36.6 66 22 172/63 (99) 97 Room Air Physical Exam General Appearance: no apparent distress Respiratory/Chest: Auscultation: breath sounds normal Cardiovascular: Heart Auscultation: RRR Abdomen: Inspection & Palpation: soft Assessment and Plan We have discussed the risks of ERCP to include bleeding, infection, perforation , pain, pancreatitis and failed cannulation. Plan ERCP today with minor duct sphincterotomy.
[2017-07-28] MEDS ORDERED: LACTATED RINGER'S 1000ML 1,000 ML IV SCH (10:08)
--- NOTE | 2017-07-28 11:53 | DIAGNOSTIC IMAGING REPORT ---
ERCP BILIARY DUCTAL CLINICAL HISTORY: ERCP IN OR 07/28/17bile duct distention COMPARISON STUDY: MRCP dated 07/13/2017 FLUOROSCOPY TIME: 51 seconds. FINDINGS: Successful retrograde cannulation of the common bile duct. This is followed by sweeping of the common duct. No significant filling defects are appreciated. Pancreatic duct is not identified on these images. IMPRESSION: Successful ERCP with no filling defects of the common bile duct identified. The above report was generated using voice recognition software. It may contain grammatical, syntax or spelling errors. Electronically signed by: Caleb Calle M.D. 07/28/2017 11:52 AM Dictated Date/Time: 07/28/2017 11:50 AM
--- NOTE | 2017-07-28 11:55 | Anesthesiology Progress Note ---
Anesthesia Post Op Note Date & Time Jul 28, 2017 at 11:55 Vital Signs Pain Intensity: 0 Vital Signs Past 12 Hours Date Time Temp Pulse Resp B/P (MAP) Pulse Ox O2 Delivery O2 Flow Rate FiO2 07/28/17 11:45 36.8 60 16 189/74 98 Room Air 07/28/17 11:35 58 16 183/52 100 Oxymask 10 07/28/17 11:25 63 16 160/69 100 Oxymask 10 07/28/17 11:19 36.1 57 16 196/87 100 Oxymask 10 07/28/17 09:00 36.6 66 22 172/63 (99) 97 Room Air Notes Mental Status: alert / awake / arousable, participated in evaluation Pt Amnestic to Procedure: Yes Nausea / Vomiting: adequately controlled Pain: adequately controlled Airway Patency, RR, SpO2: stable & adequate BP & HR: stable & adequate Hydration State: stable & adequate Anesthetic Complications: no major complications apparent
[2017-07-28] MEDS ORDERED: HydrALAZINE HCL 20 MG/ML VIAL ONE (12:19)
[2017-07-28] MEDS ORDERED: NURSING VERBAL MED ORDER ONE (12:30)
--- NOTE | 2017-07-28 12:30 | [facility] Post Operative Brief Note ---
Immediate Operative Summary Operative Date Jul 28, 2017. Pre-Operative Diagnosis Pancreatitis Post-Operative Diagnosis Normal appearing common bile duct Unable to identify the minor ampulla Procedure(s) Performed Endoscopic Retrograde Cholangiopancreatogram Surgeon Dr. Cai Advertising Analyst Surgeon(s) none Estimated Blood Loss 0 ml Findings Normal common bile duct Unable to identify the minor ampulla Specimens No biopsies Drains none Anesthesia Gen. Complication(s) None Disposition Recovery Room / PACU
--- NOTE | 2017-07-28 12:33 | Discharge Instructions ---
Endoscopy Patient Instructions Date / Procedure(s) Performed Jul 28, 2017. ERCP Allergy Information Coded Allergies: Ibuprofen (Verified Allergy, Mild, HIVES, 07/28/17) Morphine (Verified Allergy, Mild, pruritis, 07/28/17) Adhesives (Verified Allergy, Unknown, RASH, 07/28/17) Discharge Date / Findings Jul 28, 2017. Open biliary sphincterotomy Normal common bile duct Unable to identify the minor ampulla Medication Instructions Reported Home Medications Medications Dose Route/Sig Max Daily Dose Days Date Category Dose Instructions Aspirin Ec (Aspirin) 325 Mg Tab 325 Mg PO HS 07/12/17 Reported ENCOURAGED TO CALL SURGEON OFFICE PER PRE OP INSTRUCTION - PT REPORTS STOPPED TAKING THIS 07/21/17 BECAUSE SHE WAS TOLD TO DO SO PRIOR TO HER LAST PROCEDURE OF THE SAME KIND Aristocort 0.1% (Triamcinolone Acet) 90 Appln/30 Gm Cr 1 Appl TOP BID PRN 05/06/17 Reported Tamsulosin HCl 0.4 Mg Cap 0.4 Mg PO HS 03/27/17 Reported Lipitor (Atorvastatin Calcium) 40 Mg Tab 40 Mg PO HS 03/27/17 Reported Prinivil (Lisinopril) 5 Mg Tab 5 Mg PO QAM 01/19/17 Reported Prilosec (Omeprazole) 20 Mg Capcr 20 Mg PO QAM 06/19/16 Reported Melatonin 5 Mg Tab 5 Mg PO HS PRN 10/23/15 Reported Lasix (Furosemide) 20 Mg Tab 20 Mg PO QAM 09/10/15 Reported Calcium Citrate + D (Calcium Citrate-Vitamin D) 1 Tab Tab 1 Tab PO DAILY 11/24/14 Reported ON HOLD PER PCP - HAS NOT BEEN TAKING OVER THE LAST FEW WEEKS Multivitamin (Multivitamins) Tab 1 Tab PO QAM 11/24/14 Reported Zantac (Ranitidine HCl) 300 Mg Tab 300 Mg PO HS 01/13/14 Reported Miralax (Polyethylene Glycol 3350) 1 Pow Pow 17 Gm PO DAILY PRN 01/13/14 Reported Provider Instructions Activity Restrictions - No exercising or heavy lifting for 24 hours. - Do not drink alcohol the day of the procedure. - Do not drive a car or operate machinery until the day after the procedure. - Do not make any important decisions or sign important papers in 24 hours after the procedure. Following Day: - Return to full activity which may include returning to work/school. Diet Clear liquid diet today Regular diet on 07/29/17 Treatment For Common After Affects For mild abdominal pain, bloating, or excessive gas: - Rest - Eat lightly - Lie on right side Follow-Up Information Repeat study to be arranged at a tertiary center due to inability to identify the minor ampulla. Anesthesia Information What You Should Know You have had a procedure that required some medicine to reduce anxiety and discomfort. This treatment is called moderate sedation. After receiving the treatment, you may be sleepy, but you will be able to breathe on your own. The effects of the treatment may last for several hours. Follow these instructions along with Activity/Diet recommendations noted above: * Do NOT do anything where dizziness or clumsiness would be dangerous. * Rest quietly at home today, then you can be up and about tomorrow. * Have a responsible person stay with you the rest of today. * You may have had an I.V. today. If so, you may take the dressing off later today. Recommendations Call your doctor if: * Trouble breathing * Continuous vomiting for more than 24 hours * Temperature above 101 degrees * Severe abdominal pain or bloating * Pain not relieved by pain medicine ordered * There is increased drainage or redness from any incision * A large amount of rectal bleeding greater than 2-3 tablespoons. (If you had a polyp/s removed or have hemorrhoids, a small amount of blood - from the rectum is to be expected.) * You have any unanswered questions or concerns. IN THE EVENT OF A SERIOUS EMERGENCY, GO TO THE NEAREST EMERGENCY ROOM Your discharge instructions were prepared by provider Jac Cai. Patient Instructions Signature Page Abigail Desouza Patient (or Guardian) Signature/Date: I have read and understand the instructions given to me by my caregivers. Caregiver/RN/Doctor Signature/Date: The above-named patient and/or guardian has received patient instructions on this date. + Original Patient Signature Page (only) stays with chart. Please make copy for patient.
--- NOTE | 2017-07-28 12:39 | GI REPORT ---
Procedure Date: 07/28/2017 9:46 AM Procedure: ERCP Indications: Abdominal pain of suspected biliary origin, Abdominal pain of suspected pancreatic origin, Pancreas divisum Medicines: General Anesthesia, indocin 100 mg AK, LR 1000 ml during case. Complications: No immediate complications. Estimated blood loss: Minimal. Estimated Blood Loss: Estimated blood loss was minimal. Procedure: Pre-Anesthesia Assessment: - Prior to the procedure, a History and Physical was performed, and patient medications, allergies and sensitivities were reviewed. The patient's tolerance of previous anesthesia was reviewed. - The risks and benefits of the procedure and the sedation options and risks were discussed with the patient. All questions were answered and informed consent was obtained. - Patient identification and proposed procedure were verified prior to the procedure by the physician, the nurse and the octave board racker. The procedure was verified in the procedure room. - Pre-procedure physical examination revealed no contraindications to sedation. - ASA Grade Assessment: III - A patient with severe systemic disease. - After reviewing the risks and benefits, the patient was deemed in satisfactory condition to undergo the procedure. - The anesthesia plan was to use general anesthesia. - Immediately prior to administration of medications, the patient was re-assessed for adequacy to receive sedatives. - The heart rate, respiratory rate, oxygen saturations, blood pressure, adequacy of pulmonary ventilation, and response to care were monitored throughout the procedure. - The physical status of the patient was re-assessed after the procedure. After obtaining informed consent, the scope was passed under direct vision. Throughout the procedure, the patient's blood pressure, pulse, and oxygen saturations were monitored continuously. The SCOPE was introduced through the mouth, and advanced to the duodenum and used to cannulate the dorsal pancreatic duct. The ERCP was accomplished without difficulty. The patient tolerated the procedure well. Findings: A gyroscopic instrument tester film of the abdomen was obtained. Surgical clips, consistent with previous cholecystectomy, were seen in the area of the right upper quadrant of the abdomen. The esophagus was successfully intubated under direct vision without detailed examination of the pharynx, larynx, and associated structures, and upper GI tract. The upper GI tract was grossly normal. A biliary sphincterotomy had been performed. The sphincterotomy appeared open. The bile duct was deeply cannulated with the short-nosed traction sphincterotome (Omne 35) and 0.035 in Acrobat guidewire without difficulty. Contrast was injected. I personally interpreted the bile duct images. Contrast extended to the hepatic ducts. The main bile duct was normal. To discover objects, the biliary tree was swept with a 15 mm balloon starting at the bifurcation. Nothing was found. The minor papilla was not found despite over 30 minutes of dedicated time looking for the orifice. Impression: - Prior biliary endoscopic sphincterotomy appeared open. - The biliary tree was swept and nothing was found. Recommendation: - Observe patient in same day observation unit for 2 hours for observation. - Clear liquid diet today. - Referral to a tertiary center due to inability to identify the minor ampulla. Jac Cai D.O. Jac Cai, DO 07/28/2017 12:38:53 PM This report has been signed electronically. Note Initiated On: 07/28/2017 9:46 AM I attest to the content of the Intraoperative Record and orders documented therein, exceptions below
[2017-07-28] MEDS: LACTATED RINGER'S 1000ML 1,000 ML IV SCH ×2 (12:40→19:41)
--- NOTE | 2017-07-28 12:51 | Progress Note ---
Progress Note Date of Service Jul 28, 2017. Progress Note I saw the patient after her ERCP this afternoon. She notes having epigastric discomfort towards her back. After her last examination at [facility] 4 months ago she ended up in the emergency room 6 hours after the procedure. Given this I would like to do observation overnight in hopes of preventing any worrisome complications. Physical exam No obvious distress No scleral icterus Mild distention of the abdomen Impression: Patient with post procedural discomfort related to ERCP. I would like to place the patient into observation with internal medicine overnight. We will continue with IV hydration and pain management. Of note we did a cholangiogram without any specific findings. Our goal was to do a minor duct sphincterotomy, however the minor papilla could not be identified today. Plans Patient may have clear liquid diet today Bentyl 10 mg 3 times a day Dilaudid as needed LR at 200 mL per hour Patient to be placed onto observation with internal medicine
[2017-07-28] MEDS ORDERED: HYDROmorphone INJ 2 MG/ML SYR/VIAL ONE (12:56)
[2017-07-28] MEDS ORDERED: DICYCLOMINE HCL 10 MG CAP PO ONE (13:15)
[2017-07-28] MEDS ORDERED: DICY10CA55 PO (13:28)
[2017-07-28] MEDS ORDERED: IV FLUIDS COMPLETED PRN ×2 (13:30→14:00)
[2017-07-28] MEDS ORDERED: ZOLPIDEM TARTRATE 5 MG TAB PO PRN (13:30)
--- NOTE | 2017-07-28 13:46 | History and Physical ---
History & Physical Date & Time of Service: Jul 28, 2017 at 13:33 . Chief Complaint: abdominal pain . Primary Care Physician: Indy Diop D.O. . History of Present Illness Source: patient, clinic records, hospital records 67 YO female followed by Dr. Indy Diop for Family Medicine. History of chronic pancreatitis with pancreatic divisum. Biliary sphincterotomy performed at [facility] 03/27/17. Admitted to [facility] in April and again in June for recurrent pancreatitis. ERCP scheduled for today. The common bile duct appeared to be normal. Patient had some postprocedure abdominal pain and was referred to the hospital medicine service for hospitalization. Pain localized to the epigastrium. Patient rates the pain as 6 on 0-10 scale. No radiation. No associated nausea or vomiting. Pain improved with IV hydromorphone, but persists. . Past Medical/Surgical History Chronic and Resolved Medical Problems: (2) Carotid artery disease Status: Chronic (4) Chronic pancreatitis Status: Chronic (5) Diverticulosis Status: Chronic (6) Fatty liver Status: Chronic (7) GERD (gastroesophageal reflux disease) Status: Chronic (9) History of cholelithiasis Status: Chronic (10) HTN (hypertension) Status: Chronic (11) Hyperlipidemia Status: Chronic (12) Kidney disease, chronic, stage III (GFR 30-59 ml/min) Status: Chronic (13) Multiple sclerosis Status: Chronic (14) Pancreatic divisum Status: Chronic Surgical Problems: (1) History of abdominal hernia Status: Resolved (2) History of back surgery Status: Chronic (3) Hx of cholecystectomy Status: Chronic (4) S/P bilateral breast reduction Status: Chronic (5) S/P bladder repair Status: Chronic (6) s/p removal of fibroid in uterus Status: Chronic (7) S/P tubal ligation Status: Chronic . Family History MOTHER FH: cancer (Breast CA) SISTER FH: cancer (Breast CA) FH: brain aneurysm DAUGHTER FH: multiple sclerosis Relation not specified for: FH: hypertension Social History Smoking Status: Never Smoker Alcohol Use: occasionally Marital Status: in relationship Housing status: lives with significant other, other Occupational Status: employed Immunizations History of Influenza Vaccine: Yes History of Tetanus Vaccine?: Yes Tetanus Immunization Date: Jan 14, 2008 History of Pneumococcal: Yes Pneumococcal Date: Sep 15, 2013 History of Hepatitis B Vaccine: No Multi-Drug Resistant Organisms History of MDRO: No Allergies Coded Allergies: Ibuprofen (Verified Allergy, Mild, HIVES, 07/28/17) Morphine (Verified Allergy, Mild, pruritis, 07/28/17) Adhesives (Verified Allergy, Unknown, RASH, 07/28/17) Home Medications Scheduled Aspirin (Aspirin Ec), 325 MG PO HS Atorvastatin (Lipitor), 40 MG PO HS Calcium Citrate-Vitamin D (Calcium Citrate + D), 1 TAB PO DAILY Dicyclomine Hcl (Bentyl), 20 MG PO BID Furosemide (Lasix), 20 MG PO QAM Lisinopril (Prinivil), 5 MG PO QAM Multivitamin (Multivitamin), 1 TAB PO QAM Omeprazole (Prilosec), 20 MG PO QAM Ranitidine (Zantac), 300 MG PO HS Tamsulosin HCl (Tamsulosin HCl), 0.4 MG PO HS Scheduled PRN Melatonin (Melatonin), 5 MG PO HS PRN for Insomnia Polyethylene Glycol 3350 (Miralax), 17 GM PO DAILY PRN for Constipation Triamcinolone Acet (Aristocort 0.1%), 1 APPL TOP BID PRN for RASH Review of Systems Constitutional: No fever, No weight loss Eyes: No worsening of vision ENT: No nasal symptoms, No sore throat Respiratory: No cough Cardiovascular: No chest pain Abdomen: + problem reported (as noted above in HPI) Musculoskeletal: + joint pain (knee pain) Genitourinary - Female: No dysuria, No hematuria Neurologic: + problem reported (no headaches; MS quiescent) Endocrine: No excessive thirst, No excessive urination Hematologic / Lymphatic: + abnormal bleeding/bruising, No swollen lymph nodes Integumentary: No rash, No new/changing skin lesions Physical Exam Vital Signs Date Time Temp Pulse Resp B/P (MAP) Pulse Ox O2 Delivery O2 Flow Rate FiO2 07/28/17 12:05 36.4 60 20 216/86 97 Room Air 193/81 07/28/17 11:55 36.8 62 16 171/76 98 Room Air 07/28/17 11:45 36.8 60 16 189/74 98 Room Air 07/28/17 11:35 58 16 183/52 100 Oxymask 10 07/28/17 11:25 63 16 160/69 100 Oxymask 10 07/28/17 11:19 36.1 57 16 196/87 100 Oxymask 10 07/28/17 09:00 36.6 66 22 172/63 (99) 97 Room Air General Appearance: WD/WN, no apparent distress Head: normocephalic, atraumatic Eyes: normal inspection, PERRL, EOMI, sclerae normal ENT: hearing grossly normal, TMs normal, + pertinent finding (dentition poor) Neck: supple, no adenopathy, thyroid normal, trachea midline Respiratory/Chest: lungs clear, no respiratory distress, no accessory muscle use Cardiovascular: regular rate, rhythm, no edema, no gallop, no JVD, + systolic murmur (I/ systolic murmur at base) Abdomen/GI: soft, no organomegaly, no pulsatile mass, + tenderness (moderate epigastric tenderness without rebound or guarding), + pertinent finding (quiet bowel sounds) Extremities/Musculoskelatal: normal inspection, no calf tenderness, + pertinent finding (scd's applied) Neurologic/Psych: label paster II-XII nml as tested (PERRL, EOMI, no facial palsy, no dysarthria, tongue midline), no motor/sensory deficits (upper and lower extremity strength grossly intact), alert, normal mood/affect, oriented x 3 Skin: normal color, warm/dry Lymphatic: no adenopathy (cervical) Diagnostics Laboratory Results Results Past 24 Hours Test 07/28/17 12:52 Range/Units Impression Assessment and Plan PANCREATITIS Post-ERCP pancreatitis. Manage with bowel rest, IV fluids, analgesics, anti-emetics. GI consulted. HYPERTENSION Continue lisinopril. IV enalapril PRN. CKD III Serum creatinine 1.1, Follow. VTE PROPHYLAXIS No anticoagulants at this time due to ERCP. SCD's. Ambulate. DISPOSITION Observation status on Med-Surg Unit. Expected discharge to home. Family Medicine follow-up with Dr. Indy Diop. . VTE Prophylaxis VTE Risk Assessment Done? Y/N: Yes Risk Level: Low Given or contraindicated: SCD's
[2017-07-28 14:15] LABS: BASO % 0.1 %; BASO ABS # 0.01 K/uL (0-0.2); COMPLETE YES; EOS % 0.4 %; IG% 0.1 %; LYMPH % 21.4 %; LYMPH ABS # 1.62 K/uL (1.2-3.4); MEAN CELL VOLUME 92.5 fL (80-100); MEAN CORPUSCULAR HEMOGLOBIN 29.2 pg (25-34); MEAN CORPUSCULAR HGB CONC 31.6 g/dl (32-36); MEAN PLATELET VOLUME 11.1 fL (7.4-10.4); MONO % 7.9 %; NEUT % 70.1 %; PLATELET COUNT 242 K/uL (130-400); RED BLOOD COUNT 4.65 M/uL (4.2-5.4); WHITE BLOOD COUNT 7.56 K/uL (4.8-10.8)
[2017-07-28 14:34] LABS: BUN/CREATININE RATIO 15.8 (10-20); CALCIUM 8.9 mg/dl (8.5-10.1); CREATININE 1.1 mg/dl (0.60-1.20); POTASSIUM 4.2 mmol/L (3.5-5.1)
[2017-07-28 14:38] LABS: ALB/GLOB RATIO 1.1 (0.9-2)
[2017-07-28] MEDS ORDERED: ENALAPRILAT IV 0.625 MG in DEXTROSE 5% 25ML 25 ML IV PRN (16:45)
[2017-07-28] MEDS: LANSOPRAZOLE SOLUTAB 30 MG PO SCH (19:45)
[2017-07-28] MEDS: TAMSULOSIN HCL 0.4 MG CAP PO SCH (21:00)
[2017-07-29] MEDS: HYDROmorphone INJ 1 MG/ML SYR IV PRN ×3 (00:01→20:45)
[2017-07-29] MEDS: LACTATED RINGER'S 1000ML 1,000 ML IV SCH ×4 (04:08→13:11)
[2017-07-29 04:09] VITALS: BP 145/81; PULSE 65; TEMP 36.4; O2SAT 96
[2017-07-29 07:06] VITALS: BP 142/83; PULSE 63; TEMP 36.4; O2SAT 97
[2017-07-29 07:41] LABS: HEMATOCRIT 39.5 % (37-47); MEAN CELL VOLUME 92.9 fL (80-100); MEAN CORPUSCULAR HEMOGLOBIN 29.2 pg (25-34); MEAN CORPUSCULAR HGB CONC 31.4 g/dl (32-36); PLATELET COUNT 211 K/uL (130-400); RED BLOOD COUNT 4.25 M/uL (4.2-5.4); WHITE BLOOD COUNT 4.42 K/uL (4.8-10.8)
[2017-07-29 08:13] LABS: BUN/CREATININE RATIO 16.6 (10-20); CALCIUM 8.9 mg/dl (8.5-10.1); CREATININE 0.85 mg/dl (0.60-1.20); POTASSIUM 4.1 mmol/L (3.5-5.1)
[2017-07-29] MEDS: LANSOPRAZOLE SOLUTAB 30 MG PO SCH ×2 (09:08→20:45)
[2017-07-29] MEDS: LISINOPRIL 5 MG TAB PO SCH (09:10)
--- NOTE | 2017-07-29 10:09 | Gastroenterology Progress Note ---
Progress Note Date of Service: Jul 29, 2017 Subjective Pt evaluation today including: conversation w/ patient, physical exam The patient notes that her epigastric discomfort is much improved from yesterday evening. Her lipase has significantly improved as well. Review of Systems Constitutional: No fever, No chills, No sweats Respiratory: No cough, No sputum, No wheezing Cardiac: No chest pain, No PND, No palpitations Medications Current Inpatient Medications Medications (Trade) Dose Ordered Sig/Alycia Route Start Time Stop Time Status Last Admin Dose Admin Lactated Ringer's 1,800 ml @ 75 mls/hr Q24H IV 07/28/17 10:08 07/29/17 10:07 Lactated Ringer's 1,000 ml @ 200 mls/hr Q5H IV 07/28/17 12:45 07/29/17 16:00 07/29/17 09:08 200 MLS/HR Hydromorphone HCl (Dilaudid Inj) 1 mg Q2HWA PRN IV 07/28/17 13:00 08/11/17 12:59 07/29/17 00:01 1 MG Miscellaneous (Iv Fluids Completed) 1 ea PRN PRN N/A 07/28/17 13:30 07/28/18 13:29 Zolpidem Tartrate (Ambien Tab) 5 mg HSZ PRN PO 07/28/17 13:30 08/27/17 13:29 Enalaprilat 0.625 mg/Dextrose 25.5 ml @ 100 mls/hr Q6H PRN IV 07/28/17 16:45 08/27/17 16:44 Tamsulosin HCl (Flomax Cap) 0.4 mg HS PO 07/28/17 21:00 08/27/17 20:59 Lansoprazole (Prevacid Solutab) 30 mg BID PO 07/28/17 21:00 08/27/17 20:59 07/29/17 09:08 30 MG Lisinopril (Zestril Tab) 5 mg QAM PO 07/29/17 09:00 08/28/17 08:59 07/29/17 09:10 5 MG Objective Vital Signs Date Time Temp Pulse Resp B/P (MAP) Pulse Ox O2 Delivery O2 Flow Rate FiO2 07/29/17 07:30 Room Air 07/29/17 07:06 36.4 63 16 142/83 (102) 97 Room Air 07/29/17 04:09 36.4 65 16 145/81 (102) 96 Room Air 07/28/17 23:55 Room Air 07/28/17 23:32 36.3 59 16 132/79 (96) 97 Room Air 07/28/17 16:00 97 Room Air 07/28/17 15:37 36.7 64 18 130/75 (93) 97 Room Air 07/28/17 14:30 37.1 59 16 141/68 (92) 96 Room Air 07/28/17 14:30 96 Room Air 07/28/17 14:30 Room Air 07/28/17 14:20 36.7 64 20 96 Room Air 145/65 07/28/17 13:05 36.8 66 20 98 Room Air 165/73 07/28/17 12:35 68 20 97 Room Air 167/70 07/28/17 12:15 192/65 (107) 07/28/17 12:05 36.4 60 20 216/86 97 Room Air 193/81 07/28/17 11:55 36.8 62 16 171/76 98 Room Air 07/28/17 11:45 36.8 60 16 189/74 98 Room Air 07/28/17 11:35 58 16 183/52 100 Oxymask 10 07/28/17 11:25 63 16 160/69 100 Oxymask 10 07/28/17 11:19 36.1 57 16 196/87 100 Oxymask 10 Physical Exam General Appearance: no apparent distress Eyes: PERRL Neck: no JVD Respiratory/Chest: lungs clear Cardiovascular: regular rate, rhythm, no murmur Abdomen: soft, + tenderness (mild epigastric tenderness) Neurologic/Psych: oriented x 3 Skin: no rash Laboratory Results Last 24 Hours Test 07/28/17 14:09 07/28/17 14:41 07/29/17 07:13 White Blood Count 7.56 K/uL 4.42 K/uL Red Blood Count 4.65 M/uL 4.25 M/uL Hemoglobin 13.6 g/dL 12.4 g/dL Hematocrit 43.0 % 39.5 % Mean Corpuscular Volume 92.5 fL 92.9 fL Mean Corpuscular Hemoglobin 29.2 pg 29.2 pg Mean Corpuscular Hemoglobin Concent 31.6 g/dl 31.4 g/dl Platelet Count 242 K/uL 211 K/uL Mean Platelet Volume 11.1 fL 11.0 fL Neutrophils (%) (Auto) 70.1 % Lymphocytes (%) (Auto) 21.4 % Monocytes (%) (Auto) 7.9 % Eosinophils (%) (Auto) 0.4 % Basophils (%) (Auto) 0.1 % Neutrophils # (Auto) 5.29 K/uL Lymphocytes # (Auto) 1.62 K/uL Monocytes # (Auto) 0.60 K/uL Eosinophils # (Auto) 0.03 K/uL Basophils # (Auto) 0.01 K/uL RDW Standard Deviation 47.7 fL 47.7 fL RDW Coefficient of Variation 14.0 % 13.9 % Immature Granulocyte % (Auto) 0.1 % Immature Granulocyte # (Auto) 0.01 K/uL Sodium Level 141 mmol/L 143 mmol/L Potassium Level 4.2 mmol/L 4.1 mmol/L Chloride Level 106 mmol/L 108 mmol/L Carbon Dioxide Level 29 mmol/L 30 mmol/L Anion Gap 6.0 mmol/L 5.0 mmol/L Blood Urea Nitrogen 17 mg/dl 14 mg/dl Creatinine 1.10 mg/dl 0.85 mg/dl Est Creatinine Clear Calc Drug Dose 48.0 ml/min 62.2 ml/min Estimated GFR () 60.6 82.8 Estimated GFR (Non- 52.3 71.4 BUN/Creatinine Ratio 15.8 16.6 Random Glucose 155 mg/dl 84 mg/dl Calcium Level 8.9 mg/dl 8.9 mg/dl Total Bilirubin 0.8 mg/dl 0.9 mg/dl Aspartate Amino Transf (AST/SGOT) 17 U/L 16 U/L Alanine Aminotransferase (ALT/SGPT) 24 U/L 19 U/L Alkaline Phosphatase 131 U/L 126 U/L Total Protein 6.5 gm/dl 5.9 gm/dl Albumin 3.4 gm/dl 3.0 gm/dl Globulin 3.1 gm/dl 2.9 gm/dl Albumin/Globulin Ratio 1.1 1.0 Lipase 99294 U/L 3569 U/L Hepatitis C Antibody Screen NEG Assessment and Plan Patient with a history of pancreatic divisum status post attempted ERCP yesterday complicated by post-ERCP pancreatitis. Unfortunately we could not identify the minor duct and performed a minor ducts spincterotomy. As the patient does feel better today we should continue with IV hydration and advance her to a full liquid diet. If the patient remains pain-free tomorrow morning we can give her a regular low-fat diet and perhaps consider discharge early in the day. She will ultimately need to be referred back to a tertiary care center for repeat attempt at ERCP with minor duct sphincterotomy. Recommendations Full liquid diet today Continue with volume resuscitation Low-fat diet on Monday if pain-free Please call with any questions or concerns
--- NOTE | 2017-07-29 14:48 | Progress Note ---
Subjective Date of Service: Jul 29, 2017. Subjective Pt evaluation today including: conversation w/ patient, physical exam, lab review, review of studies, review of inpatient medication list Saw/examined the patient in room 386 No problems/issues to note Pain controlled Tolerating diet Eager to go home Problem List Medical Problems: (1) Dehydration Status: Acute (2) Epigastric abdominal pain Status: Acute (3) Hematuria Status: Acute (4) Intractable right lower quadrant abdominal pain Status: Acute (5) Left elbow contusion Status: Acute (6) Lisfranc fracture Status: Acute (7) Post-op pain Status: Acute (8) Renal insufficiency Status: Acute (9) Right upper quadrant abdominal pain Status: Acute (10) Work related injury Status: Acute Review of Systems Constitutional: No fever, No chills Abdomen: No pain (resolved), No nausea, No vomiting, No diarrhea, No constipation, No GI bleeding Medications Current Inpatient Medications Medications (Trade) Dose Ordered Sig/Alycia Route Start Time Stop Time Status Last Admin Dose Admin Lactated Ringer's 1,000 ml @ 200 mls/hr Q5H IV 07/28/17 12:45 07/29/17 16:00 07/29/17 13:11 200 MLS/HR Hydromorphone HCl (Dilaudid Inj) 1 mg Q2HWA PRN IV 07/28/17 13:00 08/11/17 12:59 07/29/17 10:49 1 MG Miscellaneous (Iv Fluids Completed) 1 ea PRN PRN N/A 07/28/17 13:30 07/28/18 13:29 Zolpidem Tartrate (Ambien Tab) 5 mg HSZ PRN PO 07/28/17 13:30 08/27/17 13:29 Enalaprilat 0.625 mg/Dextrose 25.5 ml @ 100 mls/hr Q6H PRN IV 07/28/17 16:45 08/27/17 16:44 Tamsulosin HCl (Flomax Cap) 0.4 mg HS PO 07/28/17 21:00 08/27/17 20:59 Lansoprazole (Prevacid Solutab) 30 mg BID PO 07/28/17 21:00 08/27/17 20:59 07/29/17 09:08 30 MG Lisinopril (Zestril Tab) 5 mg QAM PO 07/29/17 09:00 08/28/17 08:59 07/29/17 09:10 5 MG Objective Vital Signs Date Time Temp Pulse Resp B/P (MAP) Pulse Ox O2 Delivery O2 Flow Rate FiO2 07/29/17 07:30 Room Air 07/29/17 07:06 36.4 63 16 142/83 (102) 97 Room Air 07/29/17 04:09 36.4 65 16 145/81 (102) 96 Room Air 07/28/17 23:55 Room Air 07/28/17 23:32 36.3 59 16 132/79 (96) 97 Room Air 07/28/17 16:00 97 Room Air 07/28/17 15:37 36.7 64 18 130/75 (93) 97 Room Air Physical Exam General Appearance: no apparent distress Respiratory/Chest: no respiratory distress, no accessory muscle use Cardiovascular: regular rate, rhythm, no edema, no murmur Abdomen: normal bowel sounds, non tender, soft Laboratory Results Last 24 Hours Test 07/29/17 07:13 White Blood Count 4.42 K/uL Red Blood Count 4.25 M/uL Hemoglobin 12.4 g/dL Hematocrit 39.5 % Mean Corpuscular Volume 92.9 fL Mean Corpuscular Hemoglobin 29.2 pg Mean Corpuscular Hemoglobin Concent 31.4 g/dl RDW Standard Deviation 47.7 fL RDW Coefficient of Variation 13.9 % Platelet Count 211 K/uL Mean Platelet Volume 11.0 fL Sodium Level 143 mmol/L Potassium Level 4.1 mmol/L Chloride Level 108 mmol/L Carbon Dioxide Level 30 mmol/L Anion Gap 5.0 mmol/L Blood Urea Nitrogen 14 mg/dl Creatinine 0.85 mg/dl Est Creatinine Clear Calc Drug Dose 62.2 ml/min Estimated GFR () 82.8 Estimated GFR (Non- 71.4 BUN/Creatinine Ratio 16.6 Random Glucose 84 mg/dl Calcium Level 8.9 mg/dl Total Bilirubin 0.9 mg/dl Aspartate Amino Transf (AST/SGOT) 16 U/L Alanine Aminotransferase (ALT/SGPT) 19 U/L Alkaline Phosphatase 126 U/L Total Protein 5.9 gm/dl Albumin 3.0 gm/dl Globulin 2.9 gm/dl Albumin/Globulin Ratio 1.0 Lipase 3569 U/L Assessment and Plan This is a 67 year old female with chronic and recurrent pancreatitis, pancreatic divisum, multiple sclerosis, CKD stage 3, HLD, GERD presents with acute pancreatitis Acute, Recurrent Pancreatitis attempted ERCP on 07/28 failed due to difficulty passing through the acute pancreatitis lipase elevated again monitor overnight, tolerating full liquid continue IVFs pain controlled advance diet in AM, possible d/c home CKD stage 3 avoid nephrotoxic agents when possible HLD statin held, can continue on discharge DVT ppx SCDs FULL CODE
[2017-07-29 15:14] VITALS: BP 137/82; PULSE 62; TEMP 36.6; O2SAT 98
[2017-07-29] MEDS: TAMSULOSIN HCL 0.4 MG CAP PO SCH (21:12)
[2017-07-29 23:01] VITALS: BP 146/84; PULSE 61; TEMP 36.6; O2SAT 99
[2017-07-30 07:02] LABS: HEMATOCRIT 39.8 % (37-47); MEAN CELL VOLUME 91.5 fL (80-100); MEAN CORPUSCULAR HEMOGLOBIN 29.4 pg (25-34); MEAN CORPUSCULAR HGB CONC 32.2 g/dl (32-36); MEAN PLATELET VOLUME 11.2 fL (7.4-10.4); PLATELET COUNT 205 K/uL (130-400); RED BLOOD COUNT 4.35 M/uL (4.2-5.4); WHITE BLOOD COUNT 4.47 K/uL (4.8-10.8)
[2017-07-30 07:05] VITALS: BP 128/77; PULSE 60; TEMP 36.3; O2SAT 97
[2017-07-30 07:27] LABS: BUN/CREATININE RATIO 11.1 (10-20); CALCIUM 8.8 mg/dl (8.5-10.1); CREATININE 0.87 mg/dl (0.60-1.20); MAGNESIUM 2.1 mg/dl (1.8-2.4)
[2017-07-30] MEDS: LISINOPRIL 5 MG TAB PO SCH (08:24)
--- NOTE | 2017-07-30 09:00 | Gastroenterology Progress Note ---
Progress Note Date of Service: Jul 30, 2017 Subjective Pt evaluation today including: conversation w/ patient, physical exam The patient notes she does feel much better this morning. She would like to try a low-fat diet and perhaps go home if tolerated. Review of Systems Constitutional: + weakness, No fever, No chills, No weight loss Respiratory: + problem reported, No cough, No wheezing, No dyspnea at rest Medications Current Inpatient Medications Medications (Trade) Dose Ordered Sig/Alycia Route Start Time Stop Time Status Last Admin Dose Admin Hydromorphone HCl (Dilaudid Inj) 1 mg Q2HWA PRN IV 07/28/17 13:00 08/11/17 12:59 07/29/17 20:45 1 MG Miscellaneous (Iv Fluids Completed) 1 ea PRN PRN N/A 07/28/17 13:30 07/28/18 13:29 Zolpidem Tartrate (Ambien Tab) 5 mg HSZ PRN PO 07/28/17 13:30 08/27/17 13:29 Enalaprilat 0.625 mg/Dextrose 25.5 ml @ 100 mls/hr Q6H PRN IV 07/28/17 16:45 08/27/17 16:44 Tamsulosin HCl (Flomax Cap) 0.4 mg HS PO 07/28/17 21:00 08/27/17 20:59 07/29/17 21:12 0.4 MG Lansoprazole (Prevacid Solutab) 30 mg BID PO 07/28/17 21:00 08/27/17 20:59 07/29/17 20:45 30 MG Lisinopril (Zestril Tab) 5 mg QAM PO 07/29/17 09:00 08/28/17 08:59 07/30/17 08:24 5 MG Objective Vital Signs Date Time Temp Pulse Resp B/P (MAP) Pulse Ox O2 Delivery O2 Flow Rate FiO2 07/30/17 07:30 Room Air 07/30/17 07:05 36.3 60 16 128/77 (94) 97 Room Air 07/30/17 00:00 Room Air 07/29/17 23:01 36.6 61 16 146/84 (104) 99 Room Air 07/29/17 15:20 Room Air 07/29/17 15:14 36.6 62 18 137/82 (100) 98 Room Air Physical Exam General Appearance: no apparent distress Eyes: PERRL Neck: no JVD Respiratory/Chest: lungs clear Cardiovascular: regular rate, rhythm Skin: no jaundice Laboratory Results Last 24 Hours Test 07/30/17 06:24 White Blood Count 4.47 K/uL Red Blood Count 4.35 M/uL Hemoglobin 12.8 g/dL Hematocrit 39.8 % Mean Corpuscular Volume 91.5 fL Mean Corpuscular Hemoglobin 29.4 pg Mean Corpuscular Hemoglobin Concent 32.2 g/dl RDW Standard Deviation 48.1 fL RDW Coefficient of Variation 14.0 % Platelet Count 205 K/uL Mean Platelet Volume 11.2 fL Sodium Level 142 mmol/L Potassium Level 4.0 mmol/L Chloride Level 108 mmol/L Carbon Dioxide Level 29 mmol/L Anion Gap 5.0 mmol/L Blood Urea Nitrogen 10 mg/dl Creatinine 0.87 mg/dl Est Creatinine Clear Calc Drug Dose 60.7 ml/min Estimated GFR () 80.5 Estimated GFR (Non- 69.4 BUN/Creatinine Ratio 11.1 Random Glucose 90 mg/dl Calcium Level 8.8 mg/dl Magnesium Level 2.1 mg/dl Lipase 763 U/L Assessment and Plan Patient with a history of pancreatic divisum status post attempted ERCP yesterday complicated by post-ERCP pancreatitis. Unfortunately we could not identify the minor duct and performed a minor ducts spincterotomy. The patient appears much better this morning and could probably tolerate a low-fat diet. If this is tolerated I believe she could go home this afternoon. Recommendations Low-fat diet If diet tolerated patient can be discharged today Please call with any questions or concerns
[2017-07-30] MEDS: LANSOPRAZOLE SOLUTAB 30 MG PO SCH (09:09)
--- NOTE | 2017-07-30 14:40 | Progress Note ---
Subjective Date of Service: Jul 30, 2017. Subjective Pt evaluation today including: conversation w/ patient, physical exam, lab review, review of studies, review of inpatient medication list Saw/examined the patient in room 386 No problems/issues to note today Tolerating her diet, no fevers/chills, no abdominal pain/nausea/vomiting/ diarrhea Problem List Medical Problems: (1) Dehydration Status: Acute (2) Epigastric abdominal pain Status: Acute (3) Hematuria Status: Acute (4) Intractable right lower quadrant abdominal pain Status: Acute (5) Left elbow contusion Status: Acute (6) Lisfranc fracture Status: Acute (7) Post-op pain Status: Acute (8) Renal insufficiency Status: Acute (9) Right upper quadrant abdominal pain Status: Acute (10) Work related injury Status: Acute Review of Systems Constitutional: No fever, No chills Abdomen: No pain, No nausea, No vomiting, No diarrhea, No constipation, No GI bleeding Heme: No abnormal bleeding/bruising Medications Current Inpatient Medications Medications (Trade) Dose Ordered Sig/Alycia Route Start Time Stop Time Status Last Admin Dose Admin Hydromorphone HCl (Dilaudid Inj) 1 mg Q2HWA PRN IV 07/28/17 13:00 08/11/17 12:59 07/29/17 20:45 1 MG Miscellaneous (Iv Fluids Completed) 1 ea PRN PRN N/A 07/28/17 13:30 07/28/18 13:29 Zolpidem Tartrate (Ambien Tab) 5 mg HSZ PRN PO 07/28/17 13:30 08/27/17 13:29 Enalaprilat 0.625 mg/Dextrose 25.5 ml @ 100 mls/hr Q6H PRN IV 07/28/17 16:45 08/27/17 16:44 Tamsulosin HCl (Flomax Cap) 0.4 mg HS PO 07/28/17 21:00 08/27/17 20:59 07/29/17 21:12 0.4 MG Lansoprazole (Prevacid Solutab) 30 mg BID PO 07/28/17 21:00 08/27/17 20:59 07/30/17 09:09 30 MG Lisinopril (Zestril Tab) 5 mg QAM PO 07/29/17 09:00 08/28/17 08:59 07/30/17 08:24 5 MG Objective Vital Signs Date Time Temp Pulse Resp B/P (MAP) Pulse Ox O2 Delivery O2 Flow Rate FiO2 07/30/17 07:30 Room Air 07/30/17 07:05 36.3 60 16 128/77 (94) 97 Room Air 07/30/17 00:00 Room Air 07/29/17 23:01 36.6 61 16 146/84 (104) 99 Room Air 07/29/17 15:20 Room Air 07/29/17 15:14 36.6 62 18 137/82 (100) 98 Room Air Physical Exam General Appearance: no apparent distress Respiratory/Chest: no respiratory distress, no accessory muscle use Abdomen: normal bowel sounds, non tender, soft, no organomegaly, no pulsatile mass Laboratory Results Last 24 Hours Test 07/30/17 06:24 White Blood Count 4.47 K/uL Red Blood Count 4.35 M/uL Hemoglobin 12.8 g/dL Hematocrit 39.8 % Mean Corpuscular Volume 91.5 fL Mean Corpuscular Hemoglobin 29.4 pg Mean Corpuscular Hemoglobin Concent 32.2 g/dl RDW Standard Deviation 48.1 fL RDW Coefficient of Variation 14.0 % Platelet Count 205 K/uL Mean Platelet Volume 11.2 fL Sodium Level 142 mmol/L Potassium Level 4.0 mmol/L Chloride Level 108 mmol/L Carbon Dioxide Level 29 mmol/L Anion Gap 5.0 mmol/L Blood Urea Nitrogen 10 mg/dl Creatinine 0.87 mg/dl Est Creatinine Clear Calc Drug Dose 60.7 ml/min Estimated GFR () 80.5 Estimated GFR (Non- 69.4 BUN/Creatinine Ratio 11.1 Random Glucose 90 mg/dl Calcium Level 8.8 mg/dl Magnesium Level 2.1 mg/dl Lipase 763 U/L Assessment and Plan This is a 67 year old female with chronic and recurrent pancreatitis, pancreatic divisum, multiple sclerosis, CKD stage 3, HLD, GERD presents with acute pancreatitis Acute, Recurrent Pancreatitis 07/30 tolerating diet appreciate GI input will d/c home outpatient, tertiary care ERCP to be set up 07/29 attempted ERCP on 07/28 failed due to difficulty passing through the acute pancreatitis lipase elevated again monitor overnight, tolerating full liquid continue IVFs pain controlled advance diet in AM, possible d/c home CKD stage 3 avoid nephrotoxic agents when possible HLD statin held, can continue on discharge DVT ppx SCDs FULL CODE
--- NOTE | 2017-07-30 14:42 | Discharge Instructions ---
Discharge Instructions Date of Service Jul 30, 2017. Admission Reason for Admission: Recurrent Pancreatitis Discharge Discharge Diagnosis / Problem: Recurrent Pancreatitis Discharge Goals Goal(s): Decrease discomfort, Improve function, Diagnostic testing, Therapeutic intervention Activity Recommendations Activity Limitations: resume your previous activity . Instructions / Follow-Up Instructions / Follow-Up Please follow-up with Dr. Indy Diop on August 03 at 10:55AM * You will need an outpatient ERCP at [facility] Current Hospital Diet Patient's current hospital diet: Low Fat Diet Discharge Diet Recommended Diet: Low Fat Diet Procedures Procedures Performed: Endoscopic Retrograde Cholangiopancreatogram Pending Studies Studies pending at discharge: no Medical Emergencies . Who to Call and When: Medical Emergencies: If at any time you feel your situation is an emergency, please call 911 immediately. . Non-Emergent Contact Non-Emergency issues call your: Primary Care Provider, [employer] Processing Supervisor . . "Provider Documentation" section prepared by Donta Javed. . VTE Core Measure Inpt VTE Proph given/why not?: SCD's
--- NOTE | 2017-07-30 14:45 | Discharge Summary ---
Discharge Summary Date of Service Jul 30, 2017. Discharge Summary Admission Date: Jul 28, 2017 at 13:24 Discharge Date: Jul 30, 2017 Discharge Disposition: Home Principal Diagnosis: Recurrent Acute Pancreatitis; Pancreatic Divisum Medication Reconciliation Continued Medications: Aspirin (Aspirin Ec) 325 Mg Tab 325 MG PO HS ENCOURAGED TO CALL SURGEON OFFICE PER PRE OP INSTRUCTION - PT REPORTS STOPPED TAKING THIS 07/21/17 BECAUSE SHE WAS TOLD TO DO SO PRIOR TO HER LAST PROCEDURE OF THE SAME KIND Atorvastatin (Lipitor) 40 Mg Tab 40 MG PO HS, TAB Calcium Citrate-Vitamin D (Calcium Citrate + D) 1 Tab Tab 1 TAB PO DAILY ON HOLD PER PCP - HAS NOT BEEN TAKING OVER THE LAST FEW WEEKS Dicyclomine Hcl (Bentyl) 10 Mg Cap 20 MG PO BID, CAP Furosemide (Lasix) 20 Mg Tab 20 MG PO QAM for Ankle Swelling/Edema Lisinopril (Prinivil) 5 Mg Tab 5 MG PO QAM, TAB Melatonin (Melatonin) 5 Mg Tab 5 MG PO HS PRN for Insomnia Multivitamin (Multivitamin) Tab 1 TAB PO QAM Omeprazole (Prilosec) 20 Mg Capcr 20 MG PO QAM, CAP Polyethylene Glycol 3350 (Miralax) 1 Pow Pow 17 GM PO DAILY PRN for Constipation Ranitidine (Zantac) 300 Mg Tab 300 MG PO HS Tamsulosin HCl (Tamsulosin HCl) 0.4 Mg Cap 0.4 MG PO HS Triamcinolone Acet (Aristocort 0.1%) 90 Appln/30 Gm Cr 1 APPL TOP BID PRN for RASH Admission Information HPI (per Admitting provider): 67 YO female followed by Dr. Indy Diop for Family Medicine. History of chronic pancreatitis with pancreatic divisum. Biliary sphincterotomy performed at [facility] 03/27/17. Admitted to [facility] in April and again in June for recurrent pancreatitis. ERCP scheduled for today. The common bile duct appeared to be normal. Patient had some postprocedure abdominal pain and was referred to the hospital medicine service for hospitalization. Pain localized to the epigastrium. Patient rates the pain as 6 on 0-10 scale. No radiation. No associated nausea or vomiting. Pain improved with IV hydromorphone, but persists. . Physical Exam (per Admitting): General Appearance: WD/WN, no apparent distress Head: normocephalic, atraumatic Eyes: normal inspection, PERRL, EOMI, sclerae normal ENT: hearing grossly normal, TMs normal, + pertinent finding (dentition poor ) Neck: supple, no adenopathy, thyroid normal, trachea midline Respiratory/Chest: lungs clear, no respiratory distress, no accessory muscle use Cardiovascular: regular rate, rhythm, no edema, no gallop, no JVD, + systolic murmur (I/ systolic murmur at base) Abdomen/GI: soft, no organomegaly, no pulsatile mass, + tenderness ( moderate epigastric tenderness without rebound or guarding), + pertinent finding (quiet bowel sounds) Extremities/Musculoskelatal: normal inspection, no calf tenderness, + pertinent finding (scd's applied) Neurologic/Psych: 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 automatic II-XII nml as tested (PERRL, EOMI, no facial palsy, no dysarthria, tongue midline), no motor/sensory deficits (upper and lower extremity strength grossly intact), alert, normal mood/affect, oriented x 3 Skin: normal color, warm/dry Lymphatic: no adenopathy (cervical) Hospital Course This is a 67 year old female with chronic and recurrent pancreatitis, pancreatic divisum, multiple sclerosis, CKD stage 3, HLD, GERD presents with acute pancreatitis Acute, Recurrent Pancreatitis 07/30 tolerating diet appreciate GI input will d/c home outpatient, tertiary care ERCP to be set up 07/29 attempted ERCP on 07/28 failed due to difficulty passing through the acute pancreatitis lipase elevated again monitor overnight, tolerating full liquid continue IVFs pain controlled advance diet in AM, possible d/c home CKD stage 3 avoid nephrotoxic agents when possible HLD statin held, can continue on discharge DVT ppx SCDs FULL CODE Total time spent on discharge = 20 minutes This includes examination of the patient, discharge planning, medication reconciliation, and communication with other providers. Discharge Instructions Please follow-up with Dr. Indy Doip on August 03 at 10:55AM * You will need an outpatient [facility]
[2017-07-30 15:19] VITALS: BP 128/77; PULSE 60; TEMP 36.3; O2SAT 97
== END 2017-07-30 15:35 | disposition home or self-care (01) ==
LOC: C.ACU 08:31 → C.MSN 13:24 → ENRESERV 13:32
PROVIDERS: ADMIT Hospitalist; ATTEND Family Medicine
DX: K85.90 Acute pancreatitis without necrosis or infection, unspecified (principal); K86.89 Other specified diseases of pancreas; I65.29 Occlusion and stenosis of unspecified carotid artery; N18.3 Chronic kidney disease, stage 3 (moderate); I12.9 Hypertensive chronic kidney disease with stage 1 through stage 4 chronic kidney disease, or unspecified chronic kidney disease; E78.5 Hyperlipidemia, unspecified; K76.0 Fatty (change of) liver, not elsewhere classified; K21.9 Gastro-esophageal reflux disease without esophagitis; G35 Multiple sclerosis; Z79.82 Long term (current) use of aspirin; Z79.899 Other long term (current) drug therapy

== ENCOUNTER 2017-08-26 17:28 | Emergency (ER) | payer OTHER ==
[~2017-08-26] VITALS: Ht 153.7 cm; Wt 80.1 kg
[~2017-08-26 17:28] MED LIST changes: +DICY10CA55 PO; -LACTATED RINGER'S 1000ML 1,000 ML IV SCH
[2017-08-26 17:34] VITALS: TEMP 36.5; Ht 153.7 cm; Wt 80.1 kg
[2017-08-26] MEDS ORDERED: HYDROmorphone INJ 0.5 MG/0.5 ML SYR IV ONE (18:00)
[2017-08-26] MEDS ORDERED: SODIUM CHLORIDE 0.9% 1000ML 1,000 ML IV ONE (18:00)
[2017-08-26 18:11] LABS: BASO % 0.2 %; BASO ABS # 0.01 K/uL (0-0.2); COMPLETE YES; EOS % 1.4 %; HEMATOCRIT 40.2 % (37-47); IG% 0.2 %; LYMPH % 30.6 %; LYMPH ABS # 1.73 K/uL (1.2-3.4); MEAN CELL VOLUME 91.4 fL (80-100); MEAN CORPUSCULAR HEMOGLOBIN 29.8 pg (25-34); MEAN CORPUSCULAR HGB CONC 32.6 g/dl (32-36); MEAN PLATELET VOLUME 10.4 fL (7.4-10.4); MONO % 9.9 %; NEUT % 57.7 %; PLATELET COUNT 200 K/uL (130-400); WHITE BLOOD COUNT 5.65 K/uL (4.8-10.8)
[2017-08-26 18:30] LABS: BUN/CREATININE RATIO 19.6 (10-20); CALCIUM 8.7 mg/dl (8.5-10.1); CREATININE 1.1 mg/dl (0.60-1.20); POTASSIUM 3.7 mmol/L (3.5-5.1)
--- NOTE | 2017-08-26 18:48 | EMERGENCY ROOM VISIT NOTE ---
ED Visit Note First contact with patient: 17:41 I have seen and examined this patient with Devi Rosas and generally agree with the treatment plan as discussed. Problem List Medical Problems: (1) Acute pancreatitis Status: Resolved (2) Carotid artery disease Status: Chronic (3) Chronic pancreatitis Status: Chronic (4) Diverticulosis Status: Chronic (5) Fatty liver Status: Chronic (6) GERD (gastroesophageal reflux disease) Status: Chronic (7) History of cholelithiasis Status: Chronic (8) HTN (hypertension) Status: Chronic (9) Hyperlipidemia Status: Chronic (10) Kidney disease, chronic, stage III (GFR 30-59 ml/min) Status: Chronic (11) Multiple sclerosis Status: Chronic (12) Pancreatic divisum Status: Chronic Surgical Problems: (1) History of abdominal hernia Status: Resolved (2) History of back surgery Status: Chronic (3) Hx of cholecystectomy Status: Chronic (4) S/P bilateral breast reduction Status: Chronic (5) S/P bladder repair Status: Chronic (6) s/p removal of fibroid in uterus Status: Chronic (7) S/P tubal ligation Status: Chronic Current/Historical Medications Scheduled Aspirin (Aspirin Ec), 325 MG PO HS Atorvastatin (Lipitor), 40 MG PO HS Calcium Citrate-Vitamin D (Calcium Citrate + D), 1 TAB PO DAILY Dicyclomine Hcl (Bentyl), 20 MG PO BID Furosemide (Lasix), 20 MG PO QAM Lisinopril (Prinivil), 5 MG PO QAM Multivitamin (Multivitamin), 1 TAB PO QAM Omeprazole (Prilosec), 20 MG PO QAM Ranitidine (Zantac), 300 MG PO HS Tamsulosin HCl (Tamsulosin HCl), 0.4 MG PO QAM Scheduled PRN Melatonin (Melatonin), 5 MG PO HS PRN for Insomnia Polyethylene Glycol 3350 (Miralax), 17 GM PO DAILY PRN for Constipation Triamcinolone Acet (Aristocort 0.1%), 1 APPL TOP BID PRN for RASH Allergies Coded Allergies: Ibuprofen (Verified Allergy, Mild, HIVES, 08/26/17) Morphine (Verified Allergy, Mild, pruritis, 08/26/17) Adhesives (Verified Allergy, Unknown, RASH, 08/26/17) Vital Signs Date Time Temp Pulse Resp B/P (MAP) Pulse Ox O2 Delivery O2 Flow Rate FiO2 08/26/17 17:34 36.5 71 20 159/81 100 Room Air Laboratory Results 08/26/17 18:00 Red Blood Count 4.40, Mean Corpuscular Volume 91.4, Mean Corpuscular Hemoglobin 29.8, Mean Corpuscular Hemoglobin Concent 32.6, Mean Platelet Volume 10.4, Neutrophils (%) (Auto) 57.7, Lymphocytes (%) (Auto) 30.6, Monocytes (%) (Auto) 9.9, Eosinophils (%) (Auto) 1.4, Basophils (%) (Auto) 0.2, Neutrophils # (Auto) 3.26, Lymphocytes # (Auto) 1.73, Monocytes # (Auto) 0.56, Eosinophils # (Auto) 0.08, Basophils # (Auto) 0.01 08/26/17 18:00 Test 08/26/17 18:00 White Blood Count 5.65 K/uL (4.8-10.8) Red Blood Count 4.40 M/uL (4.2-5.4) Hemoglobin 13.1 g/dL (12.0-16.0) Hematocrit 40.2 % (37-47) Mean Corpuscular Volume 91.4 fL (80-100) Mean Corpuscular Hemoglobin 29.8 pg (25-34) Mean Corpuscular Hemoglobin Concent 32.6 g/dl (32-36) Platelet Count 200 K/uL (130-400) Mean Platelet Volume 10.4 fL (7.4-10.4) Neutrophils (%) (Auto) 57.7 % Lymphocytes (%) (Auto) 30.6 % Monocytes (%) (Auto) 9.9 % Eosinophils (%) (Auto) 1.4 % Basophils (%) (Auto) 0.2 % Neutrophils # (Auto) 3.26 K/uL (1.4-6.5) Lymphocytes # (Auto) 1.73 K/uL (1.2-3.4) Monocytes # (Auto) 0.56 K/uL (0.11-0.59) Eosinophils # (Auto) 0.08 K/uL (0-0.5) Basophils # (Auto) 0.01 K/uL (0-0.2) RDW Standard Deviation 47.2 fL (36.4-46.3) RDW Coefficient of Variation 14.2 % (11.5-14.5) Immature Granulocyte % (Auto) 0.2 % Immature Granulocyte # (Auto) 0.01 K/uL (0.00-0.02) Anion Gap 7.0 mmol/L (3-11) Est Creatinine Clear Calc Drug Dose 47.7 ml/min Estimated GFR () 60.6 Estimated GFR (Non- 52.3 BUN/Creatinine Ratio 19.6 (10-20) Calcium Level 8.7 mg/dl (8.5-10.1) Total Bilirubin 0.7 mg/dl (0.2-1) Direct Bilirubin 0.2 mg/dl (0-0.2) Aspartate Amino Transf (AST/SGOT) 19 U/L (15-37) Alanine Aminotransferase (ALT/SGPT) 21 U/L (12-78) Alkaline Phosphatase 116 U/L (45-117) Total Protein 6.9 gm/dl (6.4-8.2) Albumin 3.6 gm/dl (3.4-5.0) Lipase 210 U/L (73-393) Medications Administered Medications (Trade) Dose Ordered Sig/Alycia Route Start Time Stop Time Status Last Admin Dose Admin Sodium Chloride 1,000 ml @ 999 mls/hr Q1H1M ONCE IV 08/26/17 18:00 08/26/17 19:00 08/26/17 18:00 999 MLS/HR Hydromorphone HCl (Dilaudid Inj) 0.5 mg NOW ONCE IV 08/26/17 18:00 08/26/17 18:01 DC 08/26/17 18:00 0.5 MG Departure Information Referrals Indy Diop D.O. (PCP) Patient Instructions My [facility]
--- NOTE | 2017-08-26 18:51 | DIAGNOSTIC IMAGING REPORT ---
PA CHEST WITH ABDOMINAL SERIES CLINICAL HISTORY: Upper abdominal pain. FINDINGS: A PA chest radiograph is compared to study dated 05/05/2017. The cardiomediastinal silhouette is unremarkable. There are low lung volumes. The lungs and pleural spaces are clear. No pneumothorax is seen. The skeletal structures are osteopenic. There is degenerative change seen throughout the spine. S-shaped thoracal lumbar scoliosis is noted. Supine and erect abdominal radiographs are correlated with abdominal CT dated 07/12/2017. Call cystectomy clips are seen in the right upper quadrant. There is a nonobstructed abdominal bowel gas pattern. No evidence of intraperitoneal free air is seen. Mild to moderate colonic fecal retention is observed. Pneumobilia is suggested. This was also seen by CT on 07/12/2017. There are no abnormal abdominal calcifications. Phleboliths are seen in the pelvis. There is moderate lumbar scoliosis and spondylosis. The lumbosacral spine and bony pelvis appear intact. Sclerotic change is noted at the pubic symphysis. IMPRESSION: 1. Low lung volumes with no active disease in the chest. 2. Nonobstructed abdominal bowel gas pattern. 3. No intraperitoneal free air is seen. Electronically signed by: North Weber M.D. 08/26/2017 6:50 PM Dictated Date/Time: 08/26/2017 6:48 PM
--- NOTE | 2017-08-26 19:12 | EMERGENCY ROOM VISIT NOTE ---
History First contact with patient: 17:41 Chief Complaint: ABDOMINAL PAIN Stated Complaint: STOMACH PAIN Nursing Triage Summary: "I think I have pancreatitis" hx of pancreatitis 3 times this year nausea History of Present Illness The patient is a 67 year old female who presents to the Emergency Room with complaints of abdominal pain that started 4-5 days ago, progressively worsening. The pain is in the upper abdomen, radiates to the back, constant, dull ache with occasional sharp stabbing pains, worsened with eating, better with Tylenol, currently 8/10. She states she has nothing prescribed for severe pain and has only been taking Tylenol as needed. She complains of associated nausea, but denies vomiting, fevers/chills, blood in stool, urinary symptoms. Patient reports a history of multiple bouts of pancreatitis, states she has been admitted here for this multiple times this year, most recently in July. During her last admission, they attempted to do an ERCP but were unsuccessful per patient, she states she is scheduled to have an ERCP done at [facility] on October 02. She denies any chest pain, shortness of breath, dizziness or passing out. She does also note that a few weeks ago she was seen at an urgent care for urinary symptoms, found to have a UTI and treated with 3 days of Bactrim. She feels that her symptoms resolved at that time. Review of Systems A complete 10 point review of systems was reviewed with the patient with pertinent positives and negatives as per history of present illness. All else were negative. Past Medical/Surgical History Medical Problems: (1) Acute pancreatitis (2) Acute pancreatitis (3) Carotid artery disease (4) Chronic pancreatitis (5) Diverticulosis (6) Elevated liver enzymes (7) Fatty liver (8) GERD (gastroesophageal reflux disease) (9) History of cholelithiasis (10) HTN (hypertension) (11) Hyperlipidemia (12) Kidney disease, chronic, stage III (GFR 30-59 ml/min) (13) Multiple sclerosis (14) Pancreatic divisum Surgical Problems: (1) History of abdominal hernia (2) History of back surgery (3) Hx of cholecystectomy (4) S/P bilateral breast reduction (5) S/P bladder repair (6) s/p removal of fibroid in uterus (7) S/P tubal ligation Family History FH: brain aneurysm SISTER FH: cancer MOTHER (Breast CA) SISTER (Breast CA) FH: hypertension FH: multiple sclerosis DAUGHTER Social History Smoking Status: Never Smoker Alcohol Use: none Marital Status: in relationship Housing Status: lives with significant other Occupation Status: employed Current/Historical Medications Scheduled Aspirin (Aspirin Ec), 325 MG PO HS Atorvastatin (Lipitor), 40 MG PO HS Calcium Citrate-Vitamin D (Calcium Citrate + D), 1 TAB PO DAILY Cephalexin Monohydrate (Keflex), 500 MG PO TID Dicyclomine Hcl (Bentyl), 20 MG PO BID Furosemide (Lasix), 20 MG PO QAM Lisinopril (Prinivil), 5 MG PO QAM Multivitamin (Multivitamin), 1 TAB PO QAM Omeprazole (Prilosec), 20 MG PO QAM Ranitidine (Zantac), 300 MG PO HS Tamsulosin HCl (Tamsulosin HCl), 0.4 MG PO QAM Scheduled PRN Hydrocodone/Acetaminophen 5MG/325MG ([place] 5MG/325MG), 1 TABLET PO Q6H PRN for Pain Melatonin (Melatonin), 5 MG PO HS PRN for Insomnia Polyethylene Glycol 3350 (Miralax), 17 GM PO DAILY PRN for Constipation Triamcinolone Acet (Aristocort 0.1%), 1 APPL TOP BID PRN for RASH Allergies Coded Allergies: Ibuprofen (Verified Allergy, Mild, HIVES, 08/26/17) Morphine (Verified Allergy, Mild, pruritis, 08/26/17) Adhesives (Verified Allergy, Unknown, RASH, 08/26/17) Physical Exam Vital Signs Date Time Temp Pulse Resp B/P (MAP) Pulse Ox O2 Delivery O2 Flow Rate FiO2 08/26/17 22:35 60 136/61 98 Room Air 08/26/17 21:15 62 18 131/55 97 Room Air 08/26/17 19:26 68 18 150/68 97 Room Air 08/26/17 17:34 36.5 71 20 159/81 100 Room Air Physical Exam CONSTITUTIONAL: No acute distress. Well hydrated, well appearing and well nourished. Alert and oriented X 4 with normal affect. HEENT: Normocephalic, atraumatic. Pupils equal, round and reactive to light, EOMI. TMs normal. Pharynx normal. NECK: Supple, full active range of motion without discomfort. RESPIRATORY: Clear to auscultation bilaterally with no wheezing, crackles, rhonchi or stridor. Equal expansion bilaterally. CARDIOVASCULAR: Regular rate and rhythm with no murmurs, rubs or gallops. Normal peripheral perfusion. No edema. GASTROINTESTINAL: Moderately tender in the epigastric right upper quadrant, left upper quadrant region. No guarding, no rebound. Soft and nondistended. Normal bowel sounds in all quadrants. No CVA tenderness. MUSCULOSKELETAL: Full range of motion of all joints without discomfort. INTEGUMENTARY: No rash or other significant dermatologic conditions noted. NEUROLOGIC: Cranial nerves II-XII grossly intact. No focal neurologic deficits noted. Medical Decision & Procedures ER Provider Diagnostic Interpretation: PA CHEST WITH ABDOMINAL SERIES CLINICAL HISTORY: Upper abdominal pain. FINDINGS: A PA chest radiograph is compared to study dated 05/05/2017. The cardiomediastinal silhouette is unremarkable. There are low lung volumes. The lungs and pleural spaces are clear. No pneumothorax is seen. The skeletal structures are osteopenic. There is degenerative change seen throughout the spine. S-shaped thoracal lumbar scoliosis is noted. Supine and erect abdominal radiographs are correlated with abdominal CT dated 07/12/2017. Call cystectomy clips are seen in the right upper quadrant. There is a nonobstructed abdominal bowel gas pattern. No evidence of intraperitoneal free air is seen. Mild to moderate colonic fecal retention is observed. Pneumobilia is suggested. This was also seen by CT on 07/12/2017. There are no abnormal abdominal calcifications. Phleboliths are seen in the pelvis. There is moderate lumbar scoliosis and spondylosis. The lumbosacral spine and bony pelvis appear intact. Sclerotic change is noted at the pubic symphysis. IMPRESSION: 1. Low lung volumes with no active disease in the chest. 2. Nonobstructed abdominal bowel gas pattern. 3. No intraperitoneal free air is seen. ----- ULTRASOUND RIGHT UPPER QUADRANT ABDOMEN CLINICAL HISTORY: Right upper quadrant and epigastric abdominal pain. COMPARISON STUDY: Abdominal CT dated 07/12/2017. MRCP dated 07/13/2017. TECHNIQUE: Real-time, grayscale, and color flow sonography of the right upper quadrant of the abdomen was performed. Images are reviewed in the transverse and longitudinal planes. FINDINGS: Liver: The liver is normal in size and slightly heterogeneous in echotexture. There is mild central intrahepatic biliary ductal dilatation. Pneumobilia is noted and similar to previous. The main portal vein is patent. Gallbladder: The gallbladder is surgically absent. The common bile duct measures up to 0.4 cm in diameter. Pancreas: Not well visualized due to overlying bowel gas. Right kidney: Survey images of the right kidney demonstrate normal size and echotexture. There is no hydronephrosis. Ascites: None. IMPRESSION: 1. No acute sonographic abnormality is identified noting status post cholecystectomy. 2. Pneumobilia is noted and similar to prior studies. 3. The pancreas was not well visualized due to overlying bowel gas. Laboratory Results 08/26/17 18:00 Red Blood Count 4.40, Mean Corpuscular Volume 91.4, Mean Corpuscular Hemoglobin 29.8, Mean Corpuscular Hemoglobin Concent 32.6, Mean Platelet Volume 10.4, Neutrophils (%) (Auto) 57.7, Lymphocytes (%) (Auto) 30.6, Monocytes (%) (Auto) 9.9, Eosinophils (%) (Auto) 1.4, Basophils (%) (Auto) 0.2, Neutrophils # (Auto) 3.26, Lymphocytes # (Auto) 1.73, Monocytes # (Auto) 0.56, Eosinophils # (Auto) 0.08, Basophils # (Auto) 0.01 08/26/17 18:00 Test 08/26/17 18:00 08/26/17 19:25 White Blood Count 5.65 K/uL (4.8-10.8) Red Blood Count 4.40 M/uL (4.2-5.4) Hemoglobin 13.1 g/dL (12.0-16.0) Hematocrit 40.2 % (37-47) Mean Corpuscular Volume 91.4 fL (80-100) Mean Corpuscular Hemoglobin 29.8 pg (25-34) Mean Corpuscular Hemoglobin Concent 32.6 g/dl (32-36) Platelet Count 200 K/uL (130-400) Mean Platelet Volume 10.4 fL (7.4-10.4) Neutrophils (%) (Auto) 57.7 % Lymphocytes (%) (Auto) 30.6 % Monocytes (%) (Auto) 9.9 % Eosinophils (%) (Auto) 1.4 % Basophils (%) (Auto) 0.2 % Neutrophils # (Auto) 3.26 K/uL (1.4-6.5) Lymphocytes # (Auto) 1.73 K/uL (1.2-3.4) Monocytes # (Auto) 0.56 K/uL (0.11-0.59) Eosinophils # (Auto) 0.08 K/uL (0-0.5) Basophils # (Auto) 0.01 K/uL (0-0.2) RDW Standard Deviation 47.2 fL (36.4-46.3) RDW Coefficient of Variation 14.2 % (11.5-14.5) Immature Granulocyte % (Auto) 0.2 % Immature Granulocyte # (Auto) 0.01 K/uL (0.00-0.02) Anion Gap 7.0 mmol/L (3-11) Est Creatinine Clear Calc Drug Dose 47.7 ml/min Estimated GFR () 60.6 Estimated GFR (Non- 52.3 BUN/Creatinine Ratio 19.6 (10-20) Calcium Level 8.7 mg/dl (8.5-10.1) Total Bilirubin 0.7 mg/dl (0.2-1) Direct Bilirubin 0.2 mg/dl (0-0.2) Aspartate Amino Transf (AST/SGOT) 19 U/L (15-37) Alanine Aminotransferase (ALT/SGPT) 21 U/L (12-78) Alkaline Phosphatase 116 U/L (45-117) Total Protein 6.9 gm/dl (6.4-8.2) Albumin 3.6 gm/dl (3.4-5.0) Lipase 210 U/L (73-393) Urine Color YELLOW Urine Appearance CLEAR (CLEAR) Urine pH 6.0 (4.5-7.5) Urine Specific [place]ott 1.012 (1.000-1.030) Urine Protein NEG (NEG) Urine Glucose (UA) NEG (NEG) Urine Ketones NEG (NEG) Urine Occult Blood 1+ (NEG) Urine Nitrite NEG (NEG) Urine Bilirubin NEG (NEG) Urine Urobilinogen NEG (NEG) Urine Leukocyte Esterase LARGE (NEG) Urine WBC (Auto) 10-30 /hpf (0-5) Urine RBC (Auto) 5-10 /hpf (0-4) Urine Hyaline Casts (Auto) 1-5 /lpf (0-5) Urine Epithelial Cells (Auto) >30 /lpf (0-5) Urine Bacteria (Auto) 1+ (NEG) Urine Yeast (Auto) (NONE PRSENT) Medications Administered Medications (Trade) Dose Ordered Sig/Alycia Route Start Time Stop Time Status Last Admin Dose Admin Sodium Chloride 1,000 ml @ 999 mls/hr Q1H1M ONCE IV 08/26/17 18:00 08/26/17 19:00 DC 08/26/17 18:00 999 MLS/HR Hydromorphone HCl (Dilaudid Inj) 0.5 mg NOW ONCE IV 08/26/17 18:00 08/26/17 18:01 DC 08/26/17 18:00 0.5 MG Ceftriaxone Sodium (Rocephin Inj) 1 gm NOW STAT IV 08/26/17 20:13 08/26/17 20:17 DC 08/26/17 21:42 1 GM Acetaminophen/ Hydrocodone Bitart ([place] 5/325mg Home Pack) 1 homepack STK-MED ONCE .ROUTE 08/26/17 22:25 08/26/17 22:26 DC 08/26/17 22:32 1 HOMEPACK ECG Indication: abdominal pain Medical Decision CC: Patient presenting with complaint of abdominal pain and nausea Interpretation of Labs: No leukocytosis, no anemia, no significant electrolyte abnormalities, normal renal function, normal liver enzymes. Normal lipase. UA concerning for UTI, culture pending. Differential Diagnosis: Includes, but not limited to pancreatitis, cholelithiasis, choledocholithiasis, gastritis, peptic ulcer disease, bowel perforation, UTI, among others. Medication Reconciliation: I attest that I have personally reviewed the patient' s current medication list. Vital signs review: I reviewed the patient's vital signs and interpret them as follows: T: Afebrile; BP: Hypertensive; HR: Within normal limits; RR: Within normal limits; Pulse Ox: Within normal limits on room air. Blood pressure screening: The patient was found to have an elevated blood pressure and was referred to their primary doctor for recheck and further treatment. Summary: Patient was evaluated at bedside, history of physical exam performed. Patient is alert and in no acute distress, looks mildly uncomfortable, but is resting calmly in the stretcher. Patient has diffuse upper abdomen tenderness to palpation, but no exam findings concerning for acute abdomen. Review patient's chart reveals her recent admission in July with multiple imaging studies including CT and MRI. Given her recent imaging and patient's report that this is similar to her previous pancreatitis, we'll avoid a repeat CT at this time. Orders were placed at bedside for labs, UA, IV fluids for hydration, IV Dilaudid for pain, IV Zofran for nausea, acute abdominal series and right upper quadrant ultrasound to rule out gallstone pancreatitis and free air. Patient discussed with Dr. Esteban, who agrees with my assessment and plan. Labs reviewed as above, no acute abnormalities. Specifically, lipase is normal today. UA consistent with UTI, will treat for this. IV Rocephin in the ED, Rx for Keflex provided. Imaging unremarkable. Patient reassessed multiple times throughout ED stay, she is much improved after 1 dose of IV pain medicine and one bag of IV fluids. I updated her on all results and we discussed admission versus discharge. The patient prefers to be discharged home if possible. Since she does not have imaging or lab findings concerning for acute pancreatitis and her pain is well-controlled, I feel she can be safely discharged at this time. Patient was sent home with a prescription for [place] to continue managing her pain, as well as a prescription for Keflex to treat her UTI. Patient was instructed to follow closely with her PCP and to return for any worsening symptoms, she verbalized understanding. Patient was discharged home in stable condition and ambulatory. Impression Primary Impression: Abdominal pain Additional Impression: UTI (urinary tract infection) Departure Information Dispostion Home / Self-Care Condition GOOD Prescriptions Cephalexin Monohydrate (Keflex) 500 Mg Cap 500 MG PO TID for 7 Days, #21 CAP Prov: Devi Rosas CRNP 08/26/17 Hydrocodone/Acetaminophen 5MG/325MG ([place] 5MG/325MG) Tab 1 TABLET PO Q6H Y for Pain, #12 TAB For Initial Treatment Prov: Devi Rosas CRNP 08/26/17 Referrals Indy Diop D.O. (PCP) Patient Instructions ED Abdominal Pain Unkn Cause, ED UTI Cystitis Female, My [facility] Additional Instructions You have been treated in the Emergency Department your Abdominal Pain and a urinary tract infection (UTI). Laboratory results and imaging studies have ruled out any emergent causes for your abdominal pain which would warrant admission or surgery. You have been prescribed [place] to be used for SEVERE pain. This is a narcotic medication. You cannot drive or consume alcohol while on this medicine. This medicine should only be used for pain that cannot be controlled with over-the- counter pain medicines. You have been prescribed Keflex to be taken 3 times a day for 7 days. This is an antibiotic to treat your UTI. All antibiotics have the potential to cause diarrhea. Stop this medication and contact a medical provider if you were to develop any significant adverse side effects including: wheezing, shortness of breath, passing out, vomiting, or a diffuse rash. Always take antibiotics as directed and COMPLETE the ENTIRE course regardless of the improvement of your symptoms. For pain control, you can use the following [id number] medicines (if >12 yo): - Regular strength (325mg/tab) Tylenol (acetaminophen) 2 tabs every 4-6 hours as needed. Do not exceed 10 tablets in a 24 hour period. Avoid taking more than 3000 mg of Tylenol per day. This includes any other sources of acetaminophen you may take on a regular basis. - Regular strength (200 mg/tab) Advil (ibuprofen) 1-2 tabs every 4-6 hours as needed. Do not exceed a dose of 2400 mg per day. Drink plenty of fluids and stay well hydrated. As with any trip to the Emergency Department, you should follow-up with your Primary Care Provider from today's visit. Return to the emergency department if your symptoms persist despite treatment plan outlined above or if the following symptoms occur: increased fevers, chills , low back pain, nausea/vomiting, or blood in your urine. Problem Qualifiers Primary Impression: Abdominal pain Abdominal location: upper abdomen, unspecified Qualified Codes: R10.10 - Upper abdominal pain, unspecified Additional Impression: UTI (urinary tract infection) Urinary tract infection type: acute cystitis Hematuria presence: with hematuria Qualified Codes: N30.01 - Acute cystitis with hematuria
[2017-08-26 19:50] LABS: URINE APPEARANCE CLEAR (CLEAR); URINE BILIRUBIN NEG (NEG); URINE COLOR YELLOW; URINE EPITHELIAL CELL AUTO >30 /lpf (0-5); URINE NITRITE NEG (NEG); URINE SPECIFIC GRAVITY 1.012 (1.000-1.030); UROBILINOGEN NEG (NEG); ZZUR CULT IF INDIC CLEAN CATCH YES
[2017-08-26 19:56] LABS: MANUAL MICROSCOPIC REQUIRED? NO; REVIEW REQ? YES
[2017-08-26] MEDS ORDERED: CEFTRIAXONE SOD INJ 1 GM ADDVIAL IV STA (20:13)
--- NOTE | 2017-08-26 21:21 | DIAGNOSTIC IMAGING REPORT ---
ULTRASOUND RIGHT UPPER QUADRANT ABDOMEN CLINICAL HISTORY: Right upper quadrant and epigastric abdominal pain. COMPARISON STUDY: Abdominal CT dated 07/12/2017. MRCP dated 07/13/2017. TECHNIQUE: Real-time, grayscale, and color flow sonography of the right upper quadrant of the abdomen was performed. Images are reviewed in the transverse and longitudinal planes. FINDINGS: Liver: The liver is normal in size and slightly heterogeneous in echotexture. There is mild central intrahepatic biliary ductal dilatation. Pneumobilia is noted and similar to previous. The main portal vein is patent. Gallbladder: The gallbladder is surgically absent. The common bile duct measures up to 0.4 cm in diameter. Pancreas: Not well visualized due to overlying bowel gas. Right kidney: Survey images of the right kidney demonstrate normal size and echotexture. There is no hydronephrosis. Ascites: None. IMPRESSION: 1. No acute sonographic abnormality is identified noting status post cholecystectomy. 2. Pneumobilia is noted and similar to prior studies. 3. The pancreas was not well visualized due to overlying bowel gas. Electronically signed by: North Weber M.D. 08/26/2017 9:19 PM Dictated Date/Time: 08/26/2017 9:18 PM
[2017-08-26] MEDS ORDERED: CEPH500C PO (21:42)
[2017-08-26] MEDS ORDERED: HYDR-5688 PO (21:42)
[2017-08-26] MEDS ORDERED: NORCO 5/325MG HOME PACK PO ONE (21:45)
[2017-08-26] MEDS ORDERED: HYDROCODONE/ACETAMOPHEN 5/325MG TAB PO STA (21:45)
[2017-08-26] MEDS ORDERED: NORCO 5/325MG HOME PACK ONE (22:25)
[2017-08-26 22:35] VITALS: BP 136/61; PULSE 60; O2SAT 98
== END 2017-08-26 22:41 | disposition home or self-care (01) ==
LOC: C.EDB 17:29 → C.EDC 22:41
DX: R10.10 Upper abdominal pain, unspecified (principal); N30.01 Acute cystitis with hematuria; Z87.440 Personal history of urinary (tract) infections; I12.9 Hypertensive chronic kidney disease with stage 1 through stage 4 chronic kidney disease, or unspecified chronic kidney disease; G35 Multiple sclerosis; E78.5 Hyperlipidemia, unspecified; K21.9 Gastro-esophageal reflux disease without esophagitis; N18.3 Chronic kidney disease, stage 3 (moderate); Z98.51 Tubal ligation status; Z90.49 Acquired absence of other specified parts of digestive tract; Z98.890 Other specified postprocedural states; Z82.49 Family history of ischemic heart disease and other diseases of the circulatory system; Z80.3 Family history of malignant neoplasm of breast; Z82.0 Family history of epilepsy and other diseases of the nervous system; Z79.82 Long term (current) use of aspirin; Z79.899 Other long term (current) drug therapy

== ENCOUNTER 2017-09-11 19:41 | Inpatient (IN) | payer OTHER ==
[~2017-09-11] VITALS: Ht 154.9 cm; Wt 78.8 kg
[~2017-09-11 19:41] MED LIST changes: +HYDR-5688 PO
[2017-09-11] MEDS ORDERED: FAMOTIDINE 20MG/5ML IV PUSH IV STA (20:14)
[2017-09-11] MEDS ORDERED: ONDANSETRON INJ 2 MG/ML 2 ML VIAL IV STA (20:14)
[2017-09-11] MEDS ORDERED: SODIUM CHLORIDE 0.9% 1000ML 1,000 ML IV STA ×2 (20:14→20:51)
--- NOTE | 2017-09-11 20:24 | EMERGENCY ROOM VISIT NOTE ---
History Report prepared by [place]: Kaylene Isaacs Under the Supervision of: Dr. Armaan Hicks M.D. First contact with patient: 19:57 Chief Complaint: ABDOMINAL PAIN Stated Complaint: STOMACH PAIN History of Present Illness The patient is a 67 year old female who presents to the Emergency Room with complaints of waxing and waning abdominal pain that started 3 days ago. The patient states that her pain is an 10/10 in severity. She notes that her pain is sometimes a 2-3/10. The patient states she was at work [employer] and she started feeling abdominal pain. She notes that she avoids food when she is experiencing pain. She states that the pain did not go away on Monday when she stopped eating. The patient notes that the pain has been worse over the last 2 days. She states she vomited before coming to the ED today. She does not feel any better since vomiting. The patient reports that her pain normally gets worse later in the day. She notes that she takes 1 aspirin per day. She states that she is experiencing nausea and chills. She denies any fever or diarrhea. Source of History: patient Onset: 3 days ago Position: abdomen Symptom Intensity: 10/10 Timing: waxes/wanes Associated Symptoms: + chills, + nausea, + vomiting, No fevers, No diarrhea Review of Systems See HPI for pertinent positives and negatives. A total of ten systems were reviewed and were otherwise negative. Past Medical & Surgical Medical Problems: (1) Acute pancreatitis (2) Acute pancreatitis (3) Carotid artery disease (4) Chronic pancreatitis (5) Diverticulosis (6) Elevated liver enzymes (7) Fatty liver (8) GERD (gastroesophageal reflux disease) (9) History of cholelithiasis (10) HTN (hypertension) (11) Hyperlipidemia (12) Kidney disease, chronic, stage III (GFR 30-59 ml/min) (13) Multiple sclerosis (14) Pancreatic divisum Surgical Problems: (1) History of abdominal hernia (2) History of back surgery (3) Hx of cholecystectomy (4) S/P bilateral breast reduction (5) S/P bladder repair (6) s/p removal of fibroid in uterus (7) S/P tubal ligation Family History FH: brain aneurysm SISTER FH: cancer MOTHER (Breast CA) SISTER (Breast CA) FH: hypertension FH: multiple sclerosis DAUGHTER Social History Smoking Status: Never Smoker Alcohol Use: none Marital Status: in relationship Housing Status: lives with significant other Occupation Status: employed Current/Historical Medications Scheduled Aspirin (Aspirin Ec), 325 MG PO HS Atorvastatin (Lipitor), 40 MG PO HS Calcium Citrate-Vitamin D (Calcium Citrate + D), 1 TAB PO DAILY Dicyclomine Hcl (Bentyl), 20 MG PO BID Furosemide (Lasix), 20 MG PO QAM Lisinopril (Prinivil), 5 MG PO QAM Multivitamin (Multivitamin), 1 TAB PO QAM Omeprazole (Prilosec), 20 MG PO QAM Ranitidine (Zantac), 300 MG PO HS Sulfa/Trimethoprim (Bactrim Ds 800MG/160MG), 1 TAB PO BID Tamsulosin HCl (Tamsulosin HCl), 0.4 MG PO QAM Scheduled PRN Hydrocodone/Acetaminophen 5MG/325MG ([place] 5MG/325MG), 1 TABLET PO Q6H PRN for Pain Melatonin (Melatonin), 5 MG PO HS PRN for Insomnia Polyethylene Glycol 3350 (Miralax), 17 GM PO DAILY PRN for Constipation Triamcinolone Acet (Aristocort 0.1%), 1 APPL TOP BID PRN for RASH Allergies Coded Allergies: Ibuprofen (Verified Allergy, Mild, HIVES, 09/11/17) Morphine (Verified Allergy, Mild, pruritis, 09/11/17) Adhesives (Verified Allergy, Unknown, RASH, 09/11/17) Physical Exam Vital Signs Date Time Temp Pulse Resp B/P (MAP) Pulse Ox O2 Delivery O2 Flow Rate FiO2 09/11/17 19:54 36.7 74 20 149/79 96 Room Air Physical Exam GENERAL: Awake, alert, appears well-appearing, but reports 10/10 pain. HENT: Normocephalic, atraumatic. Oropharynx unremarkable. Dry mucus membranes. EYES: Normal conjunctiva. Sclera non-icteric. NECK: Supple. No nuchal rigidity. FROM. No JVD. RESPIRATORY: Clear to auscultation. CARDIAC: Regular rate, normal rhythm. Extremities warm and well perfused. Pulses equal. ABDOMEN: Mild RUQ epigastric tenderness, no peritoneal signs. Obese. No masses. RECTAL: Deferred. MUSCULOSKELETAL: Chest examination reveals no tenderness. The back is symmetrical on inspection without obvious abnormality. There is no CVA tenderness to palpation. No joint edema. LOWER EXTREMITIES: Calves are equal size bilaterally and non-tender. No edema. No discoloration. NEURO: Normal sensorium. No sensory or motor deficits noted. SKIN: No rash or jaundice noted. Medical Decision & Procedures ER Provider Diagnostic Interpretation: Radiology results as stated below per my review and radiologist interpretation: CT OF THE ABDOMEN AND PELVIS WITHOUT CONTRAST CLINICAL HISTORY: Epigastric pain. COMPARISON STUDY: CT of the abdomen and pelvis July 12, 2017, MRCP July 13, 2017 and abdominal ultrasound August 26, 2017. TECHNIQUE: Axial images of the abdomen and pelvis were obtained without IV contrast. Images were reviewed in the axial, sagittal, and coronal planes. A dose lowering technique was utilized adhering to the principles of ALARA. FINDINGS: Evaluation of the abdomen and pelvis is suboptimal on this unenhanced examination. Pneumobilia is again noted. The gallbladder is surgically absent. Unenhanced images of the liver, spleen, adrenal glands, kidneys and pancreas are normal. No peripancreatic infiltration is present. Caliber of small and large bowel is normal. The appendix is normal. There is sigmoid diverticulosis without evidence for acute diverticulitis. No ascites is present. There is no abscess or lymphadenopathy. No suspicious osseous lesions are present. There is moderate dextroscoliosis of the lumbar spine. IMPRESSION: 1. No acute process within the abdomen or pelvis on unenhanced exam. 2. Pneumobilia, as shown on prior exams. 3. No bowel obstruction. Normal appendix. 4. Sigmoid diverticulosis without evidence for acute diverticulitis. Electronically signed by: Roger Barboza M.D. 09/11/2017 9:41 PM Dictated Date/Time: 09/11/2017 9:33 PM Laboratory Results Test 09/11/17 20:00 09/11/17 20:18 Urine Color YELLOW Urine Appearance CLEAR (CLEAR) Urine pH 5.5 (4.5-7.5) Urine Specific [place] 1.020 (1.000-1.030) Urine Protein NEG (NEG) Urine Glucose (UA) NEG (NEG) Urine Ketones NEG (NEG) Urine Occult Blood 2+ (NEG) Urine Nitrite NEG (NEG) Urine Bilirubin NEG (NEG) Urine Urobilinogen NEG (NEG) Urine Leukocyte Esterase MODERATE (NEG) Urine WBC (Auto) >30 /hpf (0-5) Urine RBC (Auto) >30 /hpf (0-4) Urine Hyaline Casts (Auto) 5-10 /lpf (0-5) Urine Epithelial Cells (Auto) >30 /lpf (0-5) Urine Bacteria (Auto) NEG (NEG) Magnesium Level 2.0 mg/dl (1.8-2.4) Total Bilirubin 0.5 mg/dl (0.2-1) Direct Bilirubin 0.1 mg/dl (0-0.2) Aspartate Amino Transf (AST/SGOT) 20 U/L (15-37) Alanine Aminotransferase (ALT/SGPT) 25 U/L (12-78) Alkaline Phosphatase 131 U/L (45-117) Total Protein 7.8 gm/dl (6.4-8.2) Albumin 4.0 gm/dl (3.4-5.0) Lactic Acid Level 1.7 mmol/L (0.4-2.0) Laboratory results reviewed by me Medications Administered Medications (Trade) Dose Ordered Sig/Alycia Route Start Time Stop Time Status Last Admin Dose Admin Sodium Chloride 1,000 ml @ 999 mls/hr Q1H1M STAT IV 09/11/17 20:14 09/11/17 21:14 DC 09/11/17 20:25 999 MLS/HR Ondansetron HCl (Zofran Inj) 4 mg NOW STAT IV 09/11/17 20:14 09/11/17 20:17 DC 09/11/17 20:25 4 MG Famotidine (Pepcid 20mg Iv Push) 20 mg NOW STAT IV 09/11/17 20:14 09/11/17 20:17 DC 09/11/17 20:25 20 MG Sodium Chloride 1,000 ml @ 999 mls/hr Q1H1M STAT IV 09/11/17 20:51 09/11/17 21:51 DC 09/11/17 21:33 999 MLS/HR Hydromorphone HCl (Dilaudid Inj) 0.5 mg Q3H PRN IV 09/11/17 22:15 09/25/17 22:14 09/12/17 02:27 0.5 MG ED Course 1956: The patient was evaluated in room A12B. A complete history and physical exam was performed. 2013: Famotidine 20 mg IV, Zofran Inj 4 mg IV, Sodium Chloride 1000 ml @ 999 mls /hr IV. 2050: Sodium Chloride 1000 ml @ 999 mls/hr IV. 2053: The patient's lipase was elevated at 5000. I will order a CT. 2149: Upon reexamination, the patient was feeling better. I discussed the test results and treatment plan with her. The patient will be evaluated for further management by Dr. Nicholson, Hospitalist. Medical Decision I reviewed the patient's past medical history, medications, and the nursing notes as described above. Differential diagnosis includes but is not limited to: pancreatitis, peptic ulcer, gastritis, biliary ideology, diverticulitis. The patient is a 67-year-old woman status post cholecystectomy with a past medical history of chronic pancreatitis who presents to emergency department with epigastric pain with eating after being seen in the ED for similar symptoms 2 weeks prior per history of present illness. On arrival the patient is relatively well-appearing, in no acute distress, afebrile with stable vital signs. She reports 10 out of 10 pain but is smiling. Mild epigastric and right upper quadrant tenderness that she says is always there however it is the constant pain that brings her to the ED tonight. Patient is scheduled to have an ERCP next week for her persistent symptoms. w/u notable for Lipase elevated to 4000s up from 200s 2 weeks [employer]. Cr. 1.87 slighlty increased from prior. CT scan unremarkable but limited by noncon. Patient improved with IVF, zofran but still uncomfortable. Patient admitted to [facility] medicine service for further management. Medication Reconcilliation Current Medication List: was personally reviewed by me Blood Pressure Screening Patient's blood pressure: Elevated blood pressure Blood pressure disposition: Elevated BP felt to be situational Impression Primary Impression: Acute on chronic pancreatitis Scribe Attestation The scribe's documentation has been prepared under my direction and personally reviewed by me in its entirety. I confirm that the note above accurately reflects all work, treatment, procedures, and medical decision making performed by me. Departure Information Referrals Indy Diop D.O. (PCP) Patient Instructions My [facility]
[2017-09-11 20:37] LABS: BASO % 0.3 %; BASO ABS # 0.02 K/uL (0-0.2); COMPLETE YES; EOS % 0.6 %; HEMATOCRIT 42.9 % (37-47); IG% 0.1 %; LYMPH % 37.7 %; MEAN CELL VOLUME 93.3 fL (80-100); MEAN CORPUSCULAR HEMOGLOBIN 30.4 pg (25-34); MEAN CORPUSCULAR HGB CONC 32.6 g/dl (32-36); MEAN PLATELET VOLUME 10.8 fL (7.4-10.4); MONO % 9.1 %; NEUT % 52.2 %; PLATELET COUNT 244 K/uL (130-400)
[2017-09-11 20:44] LABS: BUN/CREATININE RATIO 13.1 (10-20); CREATININE 1.87 mg/dl (0.60-1.20); POTASSIUM 4.4 mmol/L (3.5-5.1)
[2017-09-11 20:45] LABS: URINE APPEARANCE CLEAR (CLEAR); URINE BILIRUBIN NEG (NEG); URINE COLOR YELLOW; URINE EPITHELIAL CELL AUTO >30 /lpf (0-5); URINE NITRITE NEG (NEG); URINE PH 5.5 (4.5-7.5); UROBILINOGEN NEG (NEG); ZZUR CULT IF INDIC CLEAN CATCH YES
[2017-09-11 20:49] LABS: MANUAL MICROSCOPIC REQUIRED? NO; REVIEW REQ? NO
[2017-09-11] MEDS ORDERED: SULF800T23 PO (21:11)
--- NOTE | 2017-09-11 21:42 | DIAGNOSTIC IMAGING REPORT ---
CT OF THE ABDOMEN AND PELVIS WITHOUT CONTRAST CLINICAL HISTORY: Epigastric pain. COMPARISON STUDY: CT of the abdomen and pelvis July 12, 2017, MRCP July 13, 2017 and abdominal ultrasound August 26, 2017. TECHNIQUE: Axial images of the abdomen and pelvis were obtained without IV contrast. Images were reviewed in the axial, sagittal, and coronal planes. A dose lowering technique was utilized adhering to the principles of ALARA. FINDINGS: Evaluation of the abdomen and pelvis is suboptimal on this unenhanced examination. Pneumobilia is again noted. The gallbladder is surgically absent. Unenhanced images of the liver, spleen, adrenal glands, kidneys and pancreas are normal. No peripancreatic infiltration is present. Caliber of small and large bowel is normal. The appendix is normal. There is sigmoid diverticulosis without evidence for acute diverticulitis. No ascites is present. There is no abscess or lymphadenopathy. No suspicious osseous lesions are present. There is moderate dextroscoliosis of the lumbar spine. IMPRESSION: 1. No acute process within the abdomen or pelvis on unenhanced exam. 2. Pneumobilia, as shown on prior exams. 3. No bowel obstruction. Normal appendix. 4. Sigmoid diverticulosis without evidence for acute diverticulitis. Electronically signed by: Roger Barboza M.D. 09/11/2017 9:41 PM Dictated Date/Time: 09/11/2017 9:33 PM
[2017-09-11] MEDS ORDERED: ONDANSETRON INJ 2 MG/ML 2 ML VIAL IV PRN (22:15)
[2017-09-11] MEDS ORDERED: TRAMADOL HCL 50 MG TAB PO PRN (22:15)
[2017-09-11 22:23] VITALS: BP 127/67; PULSE 63; TEMP 36.7; O2SAT 97; Ht 154.9 cm; Wt 78.8 kg
[2017-09-11] MEDS ORDERED: ACETAMINOPHEN 325 MG TAB PO PRN (22:45)
[2017-09-11] MEDS ORDERED: POLYETHYLENE (MIRALAX) 17 GM PACK PO PRN (22:45)
[2017-09-11] MEDS ORDERED: HYDROCODONE/ACETAMOPHEN 5/325MG TAB PO PRN (22:45)
--- NOTE | 2017-09-11 23:26 | HISTORY & PHYSICAL EXAMINATION ---
DATE OF ADMISSION: 09/11/2017 PRIMARY CARE PHYSICIAN: Indy Diop DO. CHIEF COMPLAINT: Abdominal pain. HISTORY OF PRESENT ILLNESS: History obtained form the patient and records. Medical history significant for recurrent pancreatitis status post biliary sphincterectomy, pancreatic divisum as per records, MS, hypertension, hyperlipidemia, GERD. Recent confinement July 2017 for post-ERCP pancreatitis. ERCP noted normal appearing common bile duct unable to identify the minor ampulla. As per discharge note, tertiary care ERCP to be scheduled next month. Patient had recurrent pancreatic symptoms about 2 weeks ago. Seen at the ER. Lipase was normal. A few days ago, the patient epigastric discomfort under her ribs, with nausea, emesis, good bowel movement. No fever, some chills. Poor appetite, no chest pain, no shortness. She was also seen at her PCP's office for dysuria symptoms recently. Urine culture grew pansensitive E. coli. PX started on Bactrim. Dysuria improving. MEDICAL HISTORY: As above. SURGERIES: She has had abdominal hernia, back surgery, cholecystectomy, bilateral breast reduction, bladder surgery, tubal ligation. HOME MEDICATIONS: Include melatonin, multivitamins, Prilosec, MiraLax, Zantac, Bactrim, tamsulosin, aspirin, Lipitor, calcium, Bentyl, Lasix, lisinopril. ALLERGIES: ADHESIVES, IBUPROFEN, MORPHINE. FAMILY HISTORY: Breast cancer, brain aneurysm and MS. PERSONAL AND SOCIAL HISTORY: Nonsmoker, no chronic intake of alcohol. [employer] employee. REVIEW OF SYSTEMS: As per HPI, all other ROS negative. PHYSICAL EXAMINATION: VITAL SIGNS: Blood pressure was noted to be 149/79, pulse rate 74, RR 26, sats 96 on room air. GENERAL: Noted to be comfortable, no respiratory distress, pleasant, obese. SKIN: Normal color, warm. HEENT: [place] palpebral conjunctiva. No ptosis. Dry mucosa. NECK: Short neck. No tenderness. CHEST: Clear to auscultate. No anterior chest wall tenderness. CV : RRR, palpable LE pulses ABDOMEN: Some distention, epigastric tenderness. EXTREMITIES: Minimal LE edema noted. No tenderness. No gross deformities NEUROLOGIC: Coherent. No gross focality. LABORATORY DATA: Hemoglobin was noted to be 14, hematocrit 42, white cell count 5.9, platelets 244. Sodium 141, potassium 4.5, chloride 103, CO2 of 29, BUN 25, creatinine 1.8, glucose 102, lipase was noted to be 4868. CT abdomen and pelvis did not show any acute process UA, white cells, WBC est positive. ASSESSMENT: 1. Recurrent pancreatiti history of pancreatic divisum as per records 2. Hypertension, slightly elevated 3. Partially treated urinary tract infection currently on Bactrim Rx pansensitive E. coli on outpatient urine CS Improved symptoms, patient not septic. 4. Acute renal failure multifactorial : Clinical dehydration secondary to pancreatitis Bactrim 5. stable multiple sclerosis PLAN: GMF analgesia, IV fluids. Bowel rest. GI consult RE recurrent pancreatitis Follow creatinine response to IV fluids. Hold ACEI until creatinine at baseline. Change Bactrim to IV Ceftriaxone while inpatient. DVT prophylaxis, Heparin subQ. Full code. MTDD
[2017-09-11] MEDS: LACTATED RINGER'S 1000ML 1,000 ML IV SCH (23:37)
[2017-09-11] MEDS: CEFTRIAXONE SOD INJ 1 GM in DEXTROSE 5% ADD-VANTAGE 50ML 50 ML IV SCH (23:38)
[2017-09-12] MEDS ORDERED: INFLUENZA VACCINE HIGH DOSE 65+ 0.5 ML SYR IM. ONE (00:45)
[2017-09-12] MEDS ORDERED: INFLUENZA ADMINISTRATION CHARGE ONE (00:45)
[2017-09-12] MEDS: HYDROmorphone INJ 0.5 MG/0.5 ML SYR IV PRN ×3 (02:27→18:31)
[2017-09-12] MEDS: LACTATED RINGER'S 1000ML 1,000 ML IV SCH ×5 (04:40→23:54)
[2017-09-12 05:16] LABS: BASO % 0.4 %; BASO ABS # 0.02 K/uL (0-0.2); COMPLETE YES; HEMATOCRIT 38.8 % (37-47); LYMPH % 36.4 %; LYMPH ABS # 1.88 K/uL (1.2-3.4); MEAN CELL VOLUME 93.3 fL (80-100); MEAN CORPUSCULAR HEMOGLOBIN 29.8 pg (25-34); MEAN PLATELET VOLUME 10.5 fL (7.4-10.4); MONO % 10.1 %; NEUT % 52.1 %; PLATELET COUNT 187 K/uL (130-400); RED BLOOD COUNT 4.16 M/uL (4.2-5.4); WHITE BLOOD COUNT 5.17 K/uL (4.8-10.8)
[2017-09-12 05:28] LABS: INR 0.9 (0.9-1.1); PROTHROMBIN TIME (PATIENT) 10.1 SECONDS (9.0-12.0)
[2017-09-12] MEDS: HEPARIN SOD 5000 UNIT/0.5 ML CARP SQ SCH ×4 (05:35→21:42)
[2017-09-12 05:53] LABS: BUN/CREATININE RATIO 16.1 (10-20); CALCIUM 8.5 mg/dl (8.5-10.1); CREATININE 1.39 mg/dl (0.60-1.20); POTASSIUM 4.3 mmol/L (3.5-5.1)
[2017-09-12 07:12] VITALS: BP 130/78; PULSE 59; TEMP 36.9; O2SAT 97
[2017-09-12] MEDS: PANTOprazole SOD 40 MG TAB PO SCH (07:55)
[2017-09-12] MEDS: MULTIVITAMIN TAB PO SCH (07:55)
[2017-09-12] MEDS ORDERED: TAMSULOSIN HCL 0.4 MG CAP PO SCH (08:00)
--- NOTE | 2017-09-12 09:29 | Gastrointestinal Consultation ---
Gastrointestinal Consultation Date of Consultation: Sep 12, 2017 Attending Physician: Wilder Consulting Physician: Dipti Reason for Consultation: pancreatitis History of Present Illness Patient is a 67 year old female w/ history of pancreatic divisum, recurrent pancreatitis and others listed below who presents to the ED for evaluation of abdominal pain, nausea, vomiting. GI was consulted for recommendations. Pt was seen and evaluated, chart reviewed. She tells me she developed mild abdominal symptoms on Monday with some mild intermittent epigastric pain. This progressed and worsened through the weekend. Yesterday developed severe and constant epigastric pain with radiation under both breast. Pain is dull 06/22. Associated with nausea and vomiting. No change in bowel function, no black or bloody stools. Today she reports her symptoms are about 50% improved. No longer having any nausea or vomiting. Has mild constant, epigastric pain w/ radiation 01/20. Is scheduled for ERCP with Dr. Hawk in September due to inability to find minor ampulla on ERCP in July. ETOH: none New medications: Colace, Bactrim CT ABD/Pelvis: No acute process within the abdomen or pelvis on unenhanced exam. Pneumobilia, as shown on prior exams. No bowel obstruction. Normal appendix. Sigmoid diverticulosis without evidence for acute diverticulitis ERCP 07/28/17: inability to find minor ampulla Past Medical/Surgical History Medical Problems: (1) Acute on chronic pancreatitis Status: Acute (2) Dehydration Status: Acute (3) Epigastric abdominal pain Status: Acute (4) Hematuria Status: Acute (5) Intractable right lower quadrant abdominal pain Status: Acute (6) Left elbow contusion Status: Acute (7) Lisfranc fracture Status: Acute (8) Post-op pain Status: Acute (9) Renal insufficiency Status: Acute (10) Right upper quadrant abdominal pain Status: Acute (11) UTI (urinary tract infection) Status: Acute (12) Work related injury Status: Acute Past Medical History: MS, CKD-3, HTN, GERD, hyperlipidemia, recurrent pancreatitis, and fatty liver disease and pancreas divisum. 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 Family History FH: brain aneurysm SISTER FH: cancer MOTHER (Breast CA) SISTER (Breast CA) FH: hypertension FH: multiple sclerosis DAUGHTER Social History Smoking Status: Never Smoker Alcohol Use: none Marital Status: in relationship Housing Status: lives with significant other Occupation Status: employed Allergies Coded Allergies: Ibuprofen (Verified Allergy, Mild, HIVES, 09/11/17) Morphine (Verified Allergy, Mild, pruritis, 09/11/17) Adhesives (Verified Allergy, Unknown, RASH, 09/11/17) Current Medications Home Meds and Scripts Medications Dose Route/Sig Max Daily Dose Days Date Category Dose Instructions Bactrim Ds 800MG/160MG (Trimethoprim/Sulfamethoxazole) Tab 1 Tab PO BID 7 09/11/17 Reported BEGIN 09/05/17 X 7 DAYS [place] 5MG/325MG (Acetaminophen/Hydrocodone Bitart) Tab 1 Tablet PO Q6H PRN 08/26/17 Rx For Initial Treatment Bentyl (Dicyclomine Hcl) 10 Mg Cap 20 Mg PO BID 07/28/17 Reported Aspirin Ec (Aspirin) 325 Mg Tab 325 Mg PO HS 07/12/17 Reported Aristocort 0.1% (Triamcinolone Acet) 90 Appln/30 Gm Cr 1 Appl TOP BID PRN 05/06/17 Reported Tamsulosin HCl 0.4 Mg Cap 0.4 Mg PO QAM 03/27/17 Reported Lipitor (Atorvastatin Calcium) 40 Mg Tab 40 Mg PO HS 03/27/17 Reported Prinivil (Lisinopril) 5 Mg Tab 5 Mg PO QAM 01/19/17 Reported Prilosec (Omeprazole) 20 Mg Capcr 20 Mg PO QAM 06/19/16 Reported Melatonin 5 Mg Tab 5 Mg PO HS PRN 10/23/15 Reported Lasix (Furosemide) 20 Mg Tab 20 Mg PO QAM 09/10/15 Reported Calcium Citrate + D (Calcium Citrate-Vitamin D) 1 Tab Tab 1 Tab PO DAILY 11/24/14 Reported Multivitamin (Multivitamins) Tab 1 Tab PO QAM 11/24/14 Reported Zantac (Ranitidine HCl) 300 Mg Tab 300 Mg PO HS 01/13/14 Reported Miralax (Polyethylene Glycol 3350) 1 Pow Pow 17 Gm PO DAILY PRN 01/13/14 Reported Review of Systems Constitutional: No fever, No chills ENT: No hearing loss Respiratory: No cough, No shortness of breath Cardiac: No chest pain, No edema Abdomen: + pain, No nausea, No vomiting, No diarrhea, No constipation Endo: No fatigue Physical Exam Date Time Temp Pulse Resp B/P (MAP) Pulse Ox O2 Delivery O2 Flow Rate FiO2 09/12/17 07:12 36.9 59 18 130/78 (95) 97 Room Air 09/11/17 22:48 64 18 127/50 95 09/11/17 22:23 36.7 63 18 127/67 97 Room Air 09/11/17 19:54 36.7 74 20 149/79 96 Room Air General Appearance: no apparent distress Eyes: PERRL ENT: hearing grossly normal Neck: supple Respiratory/Chest: lungs clear, normal breath sounds Cardiovascular: regular rate, rhythm, no JVD Abdomen: normal bowel sounds, soft, no organomegaly, no pulsatile mass, + pertinent finding (mild epigastric pain, bilateral upper quadrants) Extremities: normal range of motion Neurologic/Psych: alert, normal mood/affect, oriented x 3 Skin: normal color, no rash Laboratory Results Last 24 Hours Test 09/11/17 20:00 09/11/17 20:18 09/12/17 05:05 White Blood Count 6.90 K/uL 5.17 K/uL Red Blood Count 4.60 M/uL 4.16 M/uL Hemoglobin 14.0 g/dL 12.4 g/dL Hematocrit 42.9 % 38.8 % Mean Corpuscular Volume 93.3 fL 93.3 fL Mean Corpuscular Hemoglobin 30.4 pg 29.8 pg Mean Corpuscular Hemoglobin Concent 32.6 g/dl 32.0 g/dl Platelet Count 244 K/uL 187 K/uL Mean Platelet Volume 10.8 fL 10.5 fL Neutrophils (%) (Auto) 52.2 % 52.1 % Lymphocytes (%) (Auto) 37.7 % 36.4 % Monocytes (%) (Auto) 9.1 % 10.1 % Eosinophils (%) (Auto) 0.6 % 1.0 % Basophils (%) (Auto) 0.3 % 0.4 % Neutrophils # (Auto) 3.60 K/uL 2.70 K/uL Lymphocytes # (Auto) 2.60 K/uL 1.88 K/uL Monocytes # (Auto) 0.63 K/uL 0.52 K/uL Eosinophils # (Auto) 0.04 K/uL 0.05 K/uL Basophils # (Auto) 0.02 K/uL 0.02 K/uL RDW Standard Deviation 49.4 fL 49.3 fL RDW Coefficient of Variation 14.6 % 14.5 % Immature Granulocyte % (Auto) 0.1 % 0.0 % Immature Granulocyte # (Auto) 0.01 K/uL 0.00 K/uL Urine Color YELLOW Urine Appearance CLEAR Urine pH 5.5 Urine Specific [place] 1.020 Urine Protein NEG Urine Glucose (UA) NEG Urine Ketones NEG Urine Occult Blood 2+ Urine Nitrite NEG Urine Bilirubin NEG Urine Urobilinogen NEG Urine Leukocyte Esterase MODERATE Urine WBC (Auto) >30 /hpf Urine RBC (Auto) >30 /hpf Urine Hyaline Casts (Auto) 5-10 /lpf Urine Epithelial Cells (Auto) >30 /lpf Urine Bacteria (Auto) NEG Sodium Level 138 mmol/L 139 mmol/L Potassium Level 4.4 mmol/L 4.3 mmol/L Chloride Level 103 mmol/L 107 mmol/L Carbon Dioxide Level 29 mmol/L 27 mmol/L Anion Gap 6.0 mmol/L 5.0 mmol/L Blood Urea Nitrogen 25 mg/dl 22 mg/dl Creatinine 1.87 mg/dl 1.39 mg/dl Est Creatinine Clear Calc Drug Dose 27.8 ml/min 37.8 ml/min Estimated GFR () 31.9 45.7 Estimated GFR (Non- 27.5 39.4 BUN/Creatinine Ratio 13.1 16.1 Random Glucose 102 mg/dl 85 mg/dl Calcium Level 9.0 mg/dl 8.5 mg/dl Magnesium Level 2.0 mg/dl Total Bilirubin 0.5 mg/dl Direct Bilirubin 0.1 mg/dl Aspartate Amino Transf (AST/SGOT) 20 U/L Alanine Aminotransferase (ALT/SGPT) 25 U/L Alkaline Phosphatase 131 U/L Total Protein 7.8 gm/dl Albumin 4.0 gm/dl Lipase 4868 U/L 763 U/L Lactic Acid Level 1.7 mmol/L Prothrombin Time 10.1 SECONDS Prothromb Time International Ratio 0.9 Impression Patient is a 67 year old female admitted with upper abdominal pain, nausea, vomiting, normal LFTs and lipase 4,800. CT imaging without any abnormalities, likely acute on chronic pancreatitis. Plan - NPO for bowel rest - LR 200 ml/hr - antiemetic PRN - analgesia PRN - Lasix Class IA for acute pancreatitis - discontinue lasix - advise medication switch if diuresis is needed - ERCP with Dr. Hawk in September - GI will follow, please call with any questions or concerns I performed a history and physical examination of the patient, I have discussed the patient's management with Yamilet. Please refer to the PA's note for the documented findings and plan of care. Patient with recurrent idiopathic pancreatitis, previously investigated with imaging and EUS. Has pancreatic divisim but no evidence of upstream pancreatic duct dilatation. Scheduled for ERCP at [place] next month for possible minor papilla sphincterotomy. She has been on Lasix for many years and that can cause pancreatitis. Currently her acute episode is mild. Recommend: IV Hydration Clear liquid diet. Would avoid Lasix if possible. IgG-4 ERCP as previously planned next month.
[2017-09-12 14:43] VITALS: BP 117/69; PULSE 58; TEMP 36.7; O2SAT 97
[2017-09-12 16:00] VITALS: O2SAT 97
--- NOTE | 2017-09-12 18:34 | Progress Note ---
Medicine Progress Note Date & Time of Visit: Sep 12, 2017 at 12:54. Subjective 67 yo F with h/o recurrent pancreatitis 2/2 pancreas divisum presents with acute pancreatitis after symptoms began 5 days ago. -pt reports improvement in pain today which began 5 days ago. -she denies nausea and is requesting to eat food. -lipase improved from 4800 to 763 today. -WBC 5K -Creat improved from 1.9-->1.4 Objective Last 8 Hrs Date Time Temp Pulse Resp B/P (MAP) Pulse Ox O2 Delivery O2 Flow Rate FiO2 09/12/17 07:12 36.9 59 18 130/78 (95) 97 Room Air Physical Exam: GEN: WNWD, in no acute distress, alert and appropriate HEENT: NC/AT, PERRL, normal sclerae, MMM CARDIO: reg rate, S1/2 heard without m/g/r LUNGS: CTA bilaterally, no crackles, rales or wheezes, good diaphragmatic excursion ABD: soft, epigastric tenderness to palpation, non-distended, no rebound or guarding, +BS EXTREMITY: RP and DP palpable 2+ bilat, no LE swelling or edema, extremities are warm and well-perfused SKIN: warm and dry Laboratory Results: 09/12/17 05:05 Red Blood Count 4.16, Mean Corpuscular Volume 93.3, Mean Corpuscular Hemoglobin 29.8, Mean Corpuscular Hemoglobin Concent 32.0, Mean Platelet Volume 10.5, Neutrophils (%) (Auto) 52.1, Lymphocytes (%) (Auto) 36.4, Monocytes (%) (Auto) 10.1, Eosinophils (%) (Auto) 1.0, Basophils (%) (Auto) 0.4, Neutrophils # (Auto ) 2.70, Lymphocytes # (Auto) 1.88, Monocytes # (Auto) 0.52, Eosinophils # (Auto ) 0.05, Basophils # (Auto) 0.02 09/12/17 05:05 Test 09/11/17 20:00 09/11/17 20:18 09/12/17 05:05 09/12/17 13:07 Urine Color YELLOW Urine Appearance CLEAR (CLEAR) Urine pH 5.5 (4.5-7.5) Urine Specific [place] 1.020 (1.000-1.030) Urine Protein NEG (NEG) Urine Glucose (UA) NEG (NEG) Urine Ketones NEG (NEG) Urine Occult Blood 2+ (NEG) Urine Nitrite NEG (NEG) Urine Bilirubin NEG (NEG) Urine Urobilinogen NEG (NEG) Urine Leukocyte Esterase MODERATE (NEG) Urine WBC (Auto) >30 /hpf (0-5) Urine RBC (Auto) >30 /hpf (0-4) Urine Hyaline Casts (Auto) 5-10 /lpf (0-5) Urine Epithelial Cells (Auto) >30 /lpf (0-5) Urine Bacteria (Auto) NEG (NEG) Magnesium Level 2.0 mg/dl (1.8-2.4) Total Bilirubin 0.5 mg/dl (0.2-1) Direct Bilirubin 0.1 mg/dl (0-0.2) Aspartate Amino Transf (AST/SGOT) 20 U/L (15-37) Alanine Aminotransferase (ALT/SGPT) 25 U/L (12-78) Alkaline Phosphatase 131 U/L (45-117) Total Protein 7.8 gm/dl (6.4-8.2) Albumin 4.0 gm/dl (3.4-5.0) Lactic Acid Level 1.7 mmol/L (0.4-2.0) White Blood Count 5.17 K/uL (4.8-10.8) Red Blood Count 4.16 M/uL (4.2-5.4) Hemoglobin 12.4 g/dL (12.0-16.0) Hematocrit 38.8 % (37-47) Mean Corpuscular Volume 93.3 fL (80-100) Mean Corpuscular Hemoglobin 29.8 pg (25-34) Mean Corpuscular Hemoglobin Concent 32.0 g/dl (32-36) Platelet Count 187 K/uL (130-400) Mean Platelet Volume 10.5 fL (7.4-10.4) Neutrophils (%) (Auto) 52.1 % Lymphocytes (%) (Auto) 36.4 % Monocytes (%) (Auto) 10.1 % Eosinophils (%) (Auto) 1.0 % Basophils (%) (Auto) 0.4 % Neutrophils # (Auto) 2.70 K/uL (1.4-6.5) Lymphocytes # (Auto) 1.88 K/uL (1.2-3.4) Monocytes # (Auto) 0.52 K/uL (0.11-0.59) Eosinophils # (Auto) 0.05 K/uL (0-0.5) Basophils # (Auto) 0.02 K/uL (0-0.2) RDW Standard Deviation 49.3 fL (36.4-46.3) RDW Coefficient of Variation 14.5 % (11.5-14.5) Immature Granulocyte % (Auto) 0.0 % Immature Granulocyte # (Auto) 0.00 K/uL (0.00-0.02) Prothrombin Time 10.1 SECONDS (9.0-12.0) Prothromb Time International Ratio 0.9 (0.9-1.1) Anion Gap 5.0 mmol/L (3-11) Est Creatinine Clear Calc Drug Dose 37.8 ml/min Estimated GFR () 45.7 Estimated GFR (Non- 39.4 BUN/Creatinine Ratio 16.1 (10-20) Calcium Level 8.5 mg/dl (8.5-10.1) Lipase 763 U/L (73-393) Date/Time Source Procedure Growth Status 09/11/17 20:00 Urine , Clean Catch Urine Culture - Preliminary PIN-POINT GROWTH PRESENT, REINCUBATING. Resulted Last 24 Hours Test 09/11/17 20:00 09/11/17 20:18 09/12/17 05:05 White Blood Count 6.90 K/uL 5.17 K/uL Red Blood Count 4.60 M/uL 4.16 M/uL Hemoglobin 14.0 g/dL 12.4 g/dL Hematocrit 42.9 % 38.8 % Mean Corpuscular Volume 93.3 fL 93.3 fL Mean Corpuscular Hemoglobin 30.4 pg 29.8 pg Mean Corpuscular Hemoglobin Concent 32.6 g/dl 32.0 g/dl Platelet Count 244 K/uL 187 K/uL Mean Platelet Volume 10.8 fL 10.5 fL Neutrophils (%) (Auto) 52.2 % 52.1 % Lymphocytes (%) (Auto) 37.7 % 36.4 % Monocytes (%) (Auto) 9.1 % 10.1 % Eosinophils (%) (Auto) 0.6 % 1.0 % Basophils (%) (Auto) 0.3 % 0.4 % Neutrophils # (Auto) 3.60 K/uL 2.70 K/uL Lymphocytes # (Auto) 2.60 K/uL 1.88 K/uL Monocytes # (Auto) 0.63 K/uL 0.52 K/uL Eosinophils # (Auto) 0.04 K/uL 0.05 K/uL Basophils # (Auto) 0.02 K/uL 0.02 K/uL RDW Standard Deviation 49.4 fL 49.3 fL RDW Coefficient of Variation 14.6 % 14.5 % Immature Granulocyte % (Auto) 0.1 % 0.0 % Immature Granulocyte # (Auto) 0.01 K/uL 0.00 K/uL Urine Color YELLOW Urine Appearance CLEAR Urine pH 5.5 Urine Specific [place] 1.020 Urine Protein NEG Urine Glucose (UA) NEG Urine Ketones NEG Urine Occult Blood 2+ Urine Nitrite NEG Urine Bilirubin NEG Urine Urobilinogen NEG Urine Leukocyte Esterase MODERATE Urine WBC (Auto) >30 /hpf Urine RBC (Auto) >30 /hpf Urine Hyaline Casts (Auto) 5-10 /lpf Urine Epithelial Cells (Auto) >30 /lpf Urine Bacteria (Auto) NEG Sodium Level 138 mmol/L 139 mmol/L Potassium Level 4.4 mmol/L 4.3 mmol/L Chloride Level 103 mmol/L 107 mmol/L Carbon Dioxide Level 29 mmol/L 27 mmol/L Anion Gap 6.0 mmol/L 5.0 mmol/L Blood Urea Nitrogen 25 mg/dl 22 mg/dl Creatinine 1.87 mg/dl 1.39 mg/dl Est Creatinine Clear Calc Drug Dose 27.8 ml/min 37.8 ml/min Estimated GFR () 31.9 45.7 Estimated GFR (Non- 27.5 39.4 BUN/Creatinine Ratio 13.1 16.1 Random Glucose 102 mg/dl 85 mg/dl Calcium Level 9.0 mg/dl 8.5 mg/dl Magnesium Level 2.0 mg/dl Total Bilirubin 0.5 mg/dl Direct Bilirubin 0.1 mg/dl Aspartate Amino Transf (AST/SGOT) 20 U/L Alanine Aminotransferase (ALT/SGPT) 25 U/L Alkaline Phosphatase 131 U/L Total Protein 7.8 gm/dl Albumin 4.0 gm/dl Lipase 4868 U/L 763 U/L Lactic Acid Level 1.7 mmol/L Prothrombin Time 10.1 SECONDS Prothromb Time International Ratio 0.9 Date/Time Source Procedure Growth Status 09/11/17 20:00 Urine , Clean Catch Urine Culture - Preliminary PIN-POINT GROWTH PRESENT, REINCUBATING. Resulted Assessment & Plan 67 yo F with h/o recurrent pancreatitis 2/2 pancreas divisum presents with acute pancreatitis after symptoms began 5 days ago. 1. Acute pancreatitis-recent admission for post-ERCP pancreatitis. Symptoms began spontaneously 5 days ago and progressed, however. cont IVF and advance diet to clears with GI blessing. Cont supportive measures. Pt denies alcohol use and is s/p patt. 2. Hypertension-controlled, Lasix and lisinopril held in setting of MIKEL 3. MIKEL-likely 2/2/ prerenal azotemia 2/2 dehydration vs Bactrim use. 4. Ecoli UTI-partially treated with Bactrim. Continues on Rocephin at this time while treating MIKEL. 5. Multiple sclerosis-stable symptoms. Pt is able to ambulate without walker per her report. No urinary issues. DVT proph: Heparin SQ Full Code Dispo-to home once tolerating PO and pain controlled/resolved. Tamara Hdz DO [facility] Hospitalist Consultants: GI Current Inpatient Medications: Current Inpatient Medications Medications (Trade) Dose Ordered Sig/Alycia Route Start Time Stop Time Status Last Admin Dose Admin Lactated Ringer's 1,000 ml @ 200 mls/hr Q5H IV 09/11/17 23:30 10/11/17 23:29 09/12/17 09:43 200 MLS/HR Hydromorphone HCl (Dilaudid Inj) 0.5 mg Q3H PRN IV 09/11/17 22:15 09/25/17 22:14 09/12/17 12:02 0.5 MG Ondansetron HCl (Zofran Inj) 4 mg Q6H PRN IV 09/11/17 22:15 10/11/17 22:14 Ceftriaxone Sodium 1 gm/ Dextrose 50 ml @ 100 mls/hr Q24H IV 09/11/17 23:00 09/21/17 22:59 09/11/17 23:38 100 MLS/HR Heparin Sodium (Porcine) (Heparin Sq 5000 Unit/0.5ml) 5,000 unit Q8H SQ 09/12/17 06:00 10/12/17 05:59 09/12/17 06:25 5,000 UNIT Acetaminophen (Tylenol Tab) 650 mg Q4H PRN PO 09/11/17 22:45 10/11/17 22:44 Aspirin (Ecotrin Tab) 325 mg HS PO 09/12/17 21:00 10/12/17 20:59 Acetaminophen/ Hydrocodone Bitart ([place] 5/325 Tab) 1 tab Q4H PRN PO 09/11/17 22:45 09/25/17 22:44 09/12/17 07:54 1 TAB Multivitamins (Multivitamin Tab) 1 tab QAM PO 09/12/17 08:00 10/12/17 08:59 09/12/17 07:55 1 TAB Pantoprazole Sodium (Protonix Tab) 40 mg QAM PO 09/12/17 08:00 10/12/17 08:59 09/12/17 07:55 40 MG Polyethylene (Miralax Powder Packet) 17 gm DAILY PRN PO 09/11/17 22:45 10/11/17 22:44 Ranitidine HCl (zANTac TAB) 150 mg HS PO 09/12/17 21:00 10/12/17 20:59
[2017-09-12] MEDS: RANITIDINE HCL 150 MG TAB PO SCH (20:24)
[2017-09-12] MEDS: ASPIRIN 325 MG ECTAB PO SCH (20:25)
[2017-09-12] MEDS: CEFTRIAXONE SOD INJ 1 GM in DEXTROSE 5% ADD-VANTAGE 50ML 50 ML IV SCH (22:43)
[2017-09-12 22:47] VITALS: BP 125/76; PULSE 72; TEMP 36.5; O2SAT 96
[2017-09-13] MEDS: HYDROmorphone INJ 0.5 MG/0.5 ML SYR IV PRN (01:45)
[2017-09-13] MEDS: LACTATED RINGER'S 1000ML 1,000 ML IV SCH (04:50)
[2017-09-13] MEDS: HEPARIN SOD 5000 UNIT/0.5 ML CARP SQ SCH ×3 (04:51→20:59)
[2017-09-13 06:42] VITALS: BP 150/76; PULSE 54; TEMP 36.4; O2SAT 97
[2017-09-13] MEDS: MULTIVITAMIN TAB PO SCH (08:03)
[2017-09-13] MEDS: PANTOprazole SOD 40 MG TAB PO SCH (08:03)
[2017-09-13 08:22] LABS: BUN/CREATININE RATIO 10.1 (10-20); CALCIUM 8.7 mg/dl (8.5-10.1); CREATININE 1.13 mg/dl (0.60-1.20); POTASSIUM 4.1 mmol/L (3.5-5.1)
--- NOTE | 2017-09-13 09:10 | Gastroenterology Progress Note ---
Progress Note Date of Service: Sep 13, 2017 Subjective Pt evaluation today including: conversation w/ patient, physical exam, chart review, lab review Pt seen and evaluated, chart reviewed. No acute events noted overnight. Pt continues to improve, diet was advanced last night to clear liquids, pt tolerated without any abd pain, nausea or vomiting. She notes she had mild upper abd pain around 2 am, but it subsided, did not require any pain medication. She tells me this AM she feels well and wants to go home. Denies fever, chills, CP, SOB, abd pain, N/V/D. Review of Systems Constitutional: No fever, No chills Respiratory: No cough Cardiac: No chest pain Abdomen: No pain, No nausea, No vomiting, No diarrhea Medications Current Inpatient Medications Medications (Trade) Dose Ordered Sig/Alycia Route Start Time Stop Time Status Last Admin Dose Admin Lactated Ringer's 1,000 ml @ 200 mls/hr Q5H IV 09/11/17 23:30 10/11/17 23:29 09/13/17 04:50 200 MLS/HR Hydromorphone HCl (Dilaudid Inj) 0.5 mg Q3H PRN IV 09/11/17 22:15 09/25/17 22:14 09/13/17 01:45 0.5 MG Ondansetron HCl (Zofran Inj) 4 mg Q6H PRN IV 09/11/17 22:15 10/11/17 22:14 Ceftriaxone Sodium 1 gm/ Dextrose 50 ml @ 100 mls/hr Q24H IV 09/11/17 23:00 09/21/17 22:59 09/12/17 22:43 100 MLS/HR Heparin Sodium (Porcine) (Heparin Sq 5000 Unit/0.5ml) 5,000 unit Q8H SQ 09/12/17 06:00 10/12/17 05:59 09/12/17 21:42 5,000 UNIT Acetaminophen (Tylenol Tab) 650 mg Q4H PRN PO 09/11/17 22:45 10/11/17 22:44 Aspirin (Ecotrin Tab) 325 mg HS PO 09/12/17 21:00 10/12/17 20:59 09/12/17 20:25 325 MG Acetaminophen/ Hydrocodone Bitart ([place] 5/325 Tab) 1 tab Q4H PRN PO 09/11/17 22:45 09/25/17 22:44 09/12/17 07:54 1 TAB Multivitamins (Multivitamin Tab) 1 tab QAM PO 09/12/17 08:00 10/12/17 08:59 09/13/17 08:03 1 TAB Pantoprazole Sodium (Protonix Tab) 40 mg QAM PO 09/12/17 08:00 10/12/17 08:59 09/13/17 08:03 40 MG Polyethylene (Miralax Powder Packet) 17 gm DAILY PRN PO 09/11/17 22:45 10/11/17 22:44 Ranitidine HCl (zANTac TAB) 150 mg HS PO 09/12/17 21:00 10/12/17 20:59 09/12/17 20:24 150 MG Objective Vital Signs Date Time Temp Pulse Resp B/P (MAP) Pulse Ox O2 Delivery O2 Flow Rate FiO2 09/13/17 06:42 36.4 54 18 150/76 (100) 97 Room Air 09/13/17 00:00 Room Air 09/12/17 22:47 36.5 72 18 125/76 (92) 96 Room Air 09/12/17 16:00 97 Room Air 09/12/17 14:43 36.7 58 20 117/69 (85) 97 Room Air Physical Exam General Appearance: no apparent distress Eyes: PERRL ENT: hearing grossly normal Neck: supple Respiratory/Chest: lungs clear, normal breath sounds Cardiovascular: regular rate, rhythm Abdomen: normal bowel sounds, non tender, soft Neurologic/Psych: alert, normal mood/affect, oriented x 3 Skin: normal color Laboratory Results Last 24 Hours Test 09/12/17 13:07 09/13/17 07:18 Sodium Level 141 mmol/L Potassium Level 4.1 mmol/L Chloride Level 107 mmol/L Carbon Dioxide Level 29 mmol/L Anion Gap 5.0 mmol/L Blood Urea Nitrogen 11 mg/dl Creatinine 1.13 mg/dl Est Creatinine Clear Calc Drug Dose 46.5 ml/min Estimated GFR () 58.7 Estimated GFR (Non- 50.6 BUN/Creatinine Ratio 10.1 Random Glucose 83 mg/dl Calcium Level 8.7 mg/dl Assessment and Plan Patient is a 67 year old female admitted with upper abdominal pain, nausea, vomiting, normal LFTs and lipase 4,800. CT imaging without any abnormalities, likely acute on chronic pancreatitis. Hx of recurrent idiopathic pancreatitis, previously investigated with imaging and EUS. Has pancreatic divisum but no evidence of upstream pancreatic duct dilatation. Scheduled for ERCP at [place] next month for possible minor papilla sphincterotomy. She has been on Lasix for many years and that can cause pancreatitis. Currently her acute episode is mild. - Clear liquid --> advance to low fat diet as tolerated - antiemetic PRN - analgesia PRN - Lasix Class IA for acute pancreatitis - discontinue lasix - advise medication switch if diuresis is needed - Follow up IGG subclasses - ERCP with Dr. Hawk in September - if pt is readmitted in the interim, would advise pt be transferred to [place] for possible intervention during course of hospitalization - GI to sign off, please call with any questions or concerns. No GI contraindication to discharge if pt can tolerate low fat diet. I performed a history and physical examination of the patient, I have discussed the patient's management with Yamilet. Please refer to the PA's note for the documented findings and plan of care. Patient clinically improved and tolerated regular diet. Follow up as outpatient as previously scheduled.
[2017-09-13 15:09] VITALS: BP 113/69; PULSE 66; TEMP 36; O2SAT 99
--- NOTE | 2017-09-13 17:46 | Progress Note ---
Medicine Progress Note Date & Time of Visit: Sep 13, 2017 at 17:26. Subjective 67 yo F with h/o recurrent pancreatitis 2/2 pancreas divisum presents with acute pancreatitis after symptoms began one week ago. Diet advanced to solid foods at lunch today and pt seemed to be tolerating well. IVF were stopped this morning. Agreed to monitor her for food tolerance and pain, ideally not requiring pain medication, for goals of discharge. Objective Last 8 Hrs Date Time Temp Pulse Resp B/P (MAP) Pulse Ox O2 Delivery O2 Flow Rate FiO2 09/13/17 15:09 36.0 66 20 113/69 (84) 99 Room Air Physical Exam: GEN: WNWD, in no acute distress, alert and appropriate, ambulatory HEENT: NC/AT, normal sclerae, MMM CARDIO: reg rate, S1/2 heard without m/g/r LUNGS: CTA bilaterally, no crackles, rales or wheezes, good diaphragmatic excursion ABD: soft, mild tenderness in epigastric region-improved from yesterday, non- distended, no rebound or guarding, +BS EXTREMITY: RP and DP palpable 2+ bilat, no LE swelling or edema, extremities are warm and well-perfused SKIN: warm and dry Laboratory Results: 09/12/17 05:05 Red Blood Count 4.16, Mean Corpuscular Volume 93.3, Mean Corpuscular Hemoglobin 29.8, Mean Corpuscular Hemoglobin Concent 32.0, Mean Platelet Volume 10.5, Neutrophils (%) (Auto) 52.1, Lymphocytes (%) (Auto) 36.4, Monocytes (%) (Auto) 10.1, Eosinophils (%) (Auto) 1.0, Basophils (%) (Auto) 0.4, Neutrophils # (Auto ) 2.70, Lymphocytes # (Auto) 1.88, Monocytes # (Auto) 0.52, Eosinophils # (Auto ) 0.05, Basophils # (Auto) 0.02 09/13/17 07:18 Test 09/11/17 20:00 09/11/17 20:18 09/12/17 05:05 09/12/17 13:07 Urine Color YELLOW Urine Appearance CLEAR (CLEAR) Urine pH 5.5 (4.5-7.5) Urine Specific [place] 1.020 (1.000-1.030) Urine Protein NEG (NEG) Urine Glucose (UA) NEG (NEG) Urine Ketones NEG (NEG) Urine Occult Blood 2+ (NEG) Urine Nitrite NEG (NEG) Urine Bilirubin NEG (NEG) Urine Urobilinogen NEG (NEG) Urine Leukocyte Esterase MODERATE (NEG) Urine WBC (Auto) >30 /hpf (0-5) Urine RBC (Auto) >30 /hpf (0-4) Urine Hyaline Casts (Auto) 5-10 /lpf (0-5) Urine Epithelial Cells (Auto) >30 /lpf (0-5) Urine Bacteria (Auto) NEG (NEG) Magnesium Level 2.0 mg/dl (1.8-2.4) Total Bilirubin 0.5 mg/dl (0.2-1) Direct Bilirubin 0.1 mg/dl (0-0.2) Aspartate Amino Transf (AST/SGOT) 20 U/L (15-37) Alanine Aminotransferase (ALT/SGPT) 25 U/L (12-78) Alkaline Phosphatase 131 U/L (45-117) Total Protein 7.8 gm/dl (6.4-8.2) Albumin 4.0 gm/dl (3.4-5.0) Lactic Acid Level 1.7 mmol/L (0.4-2.0) White Blood Count 5.17 K/uL (4.8-10.8) Red Blood Count 4.16 M/uL (4.2-5.4) Hemoglobin 12.4 g/dL (12.0-16.0) Hematocrit 38.8 % (37-47) Mean Corpuscular Volume 93.3 fL (80-100) Mean Corpuscular Hemoglobin 29.8 pg (25-34) Mean Corpuscular Hemoglobin Concent 32.0 g/dl (32-36) Platelet Count 187 K/uL (130-400) Mean Platelet Volume 10.5 fL (7.4-10.4) Neutrophils (%) (Auto) 52.1 % Lymphocytes (%) (Auto) 36.4 % Monocytes (%) (Auto) 10.1 % Eosinophils (%) (Auto) 1.0 % Basophils (%) (Auto) 0.4 % Neutrophils # (Auto) 2.70 K/uL (1.4-6.5) Lymphocytes # (Auto) 1.88 K/uL (1.2-3.4) Monocytes # (Auto) 0.52 K/uL (0.11-0.59) Eosinophils # (Auto) 0.05 K/uL (0-0.5) Basophils # (Auto) 0.02 K/uL (0-0.2) RDW Standard Deviation 49.3 fL (36.4-46.3) RDW Coefficient of Variation 14.5 % (11.5-14.5) Immature Granulocyte % (Auto) 0.0 % Immature Granulocyte # (Auto) 0.00 K/uL (0.00-0.02) Prothrombin Time 10.1 SECONDS (9.0-12.0) Prothromb Time International Ratio 0.9 (0.9-1.1) Lipase 763 U/L (73-393) Test 09/13/17 07:18 Anion Gap 5.0 mmol/L (3-11) Est Creatinine Clear Calc Drug Dose 46.5 ml/min Estimated GFR () 58.7 Estimated GFR (Non- 50.6 BUN/Creatinine Ratio 10.1 (10-20) Calcium Level 8.7 mg/dl (8.5-10.1) Date/Time Source Procedure Growth Status 09/11/17 20:00 Urine , Clean Catch Urine Culture - Final GREATER THAN THREE TYPES OF ORGANISMS... Complete Last 24 Hours Test 09/13/17 07:18 Sodium Level 141 mmol/L Potassium Level 4.1 mmol/L Chloride Level 107 mmol/L Carbon Dioxide Level 29 mmol/L Anion Gap 5.0 mmol/L Blood Urea Nitrogen 11 mg/dl Creatinine 1.13 mg/dl Est Creatinine Clear Calc Drug Dose 46.5 ml/min Estimated GFR () 58.7 Estimated GFR (Non- 50.6 BUN/Creatinine Ratio 10.1 Random Glucose 83 mg/dl Calcium Level 8.7 mg/dl Assessment & Plan 67 yo F with h/o recurrent pancreatitis 2/2 pancreas divisum presents with acute pancreatitis after symptoms began one week ago. Diet advanced to solid foods at lunch today and pt seemed to be tolerating well. IVF were stopped this morning. Agreed to monitor her for food tolerance and pain, ideally not requiring pain medication, for goals of discharge. 1. Acute pancreatitis-recent admission for post-ERCP pancreatitis. Symptoms began spontaneously 6 days ago and progressed, however. IVF stopped and tolerating solid food. Monitor overnight and plan for DC in am. 2. Hypertension-controlled, restart lisinopril at half the dose. Will discontinue Lasix until PCP can re-evaluate as outpatient in setting of recurrent pancreatitis. 3. MIKEL in setting of CKD Stage III-resolved to baseline. 4. Ecoli UTI-partially treated with Bactrim. Seven day course completed. Repeat UCx negative during this admission. Asymptomatic. No further treatment required. 5. Multiple sclerosis-stable symptoms. Pt is able to ambulate without walker per her report. No urinary issues. DVT proph: Heparin SQ Full Code Dispo-to home in am. DO [facility]: GI Current Inpatient Medications: Current Inpatient Medications Medications (Trade) Dose Ordered Sig/Alycia Route Start Time Stop Time Status Last Admin Dose Admin Lactated Ringer's 1,000 ml @ 200 mls/hr Q5H IV 09/11/17 23:30 10/11/17 23:29 Future Hold 09/13/17 04:50 200 MLS/HR Hydromorphone HCl (Dilaudid Inj) 0.5 mg Q3H PRN IV 09/11/17 22:15 09/25/17 22:14 09/13/17 01:45 0.5 MG Ondansetron HCl (Zofran Inj) 4 mg Q6H PRN IV 09/11/17 22:15 10/11/17 22:14 Heparin Sodium (Porcine) (Heparin Sq 5000 Unit/0.5ml) 5,000 unit Q8H SQ 09/12/17 06:00 10/12/17 05:59 09/12/17 21:42 5,000 UNIT Acetaminophen (Tylenol Tab) 650 mg Q4H PRN PO 09/11/17 22:45 10/11/17 22:44 Aspirin (Ecotrin Tab) 325 mg HS PO 09/12/17 21:00 10/12/17 20:59 09/12/17 20:25 325 MG Acetaminophen/ Hydrocodone Bitart ([place] 5/325 Tab) 1 tab Q4H PRN PO 09/11/17 22:45 09/25/17 22:44 09/12/17 07:54 1 TAB Multivitamins (Multivitamin Tab) 1 tab QAM PO 09/12/17 08:00 10/12/17 08:59 09/13/17 08:03 1 TAB Pantoprazole Sodium (Protonix Tab) 40 mg QAM PO 09/12/17 08:00 10/12/17 08:59 09/13/17 08:03 40 MG Polyethylene (Miralax Powder Packet) 17 gm DAILY PRN PO 09/11/17 22:45 10/11/17 22:44 09/13/17 17:21 17 GM Ranitidine HCl (zANTac TAB) 150 mg HS PO 09/12/17 21:00 10/12/17 20:59 09/12/17 20:24 150 MG
[2017-09-13] MEDS: RANITIDINE HCL 150 MG TAB PO SCH (20:59)
[2017-09-13] MEDS: ASPIRIN 325 MG ECTAB PO SCH (20:59)
[2017-09-14 00:10] VITALS: BP 109/66; PULSE 57; TEMP 36.4; O2SAT 96
[2017-09-14 05:58] LABS: HEMATOCRIT 41.2 % (37-47); MEAN CELL VOLUME 93.4 fL (80-100); MEAN CORPUSCULAR HEMOGLOBIN 28.8 pg (25-34); MEAN CORPUSCULAR HGB CONC 30.8 g/dl (32-36); MEAN PLATELET VOLUME 10.9 fL (7.4-10.4); PLATELET COUNT 177 K/uL (130-400); RED BLOOD COUNT 4.41 M/uL (4.2-5.4); WHITE BLOOD COUNT 3.37 K/uL (4.8-10.8)
[2017-09-14] MEDS: HEPARIN SOD 5000 UNIT/0.5 ML CARP SQ SCH (06:00)
[2017-09-14 06:27] LABS: BUN/CREATININE RATIO 13.8 (10-20); CALCIUM 9.1 mg/dl (8.5-10.1); CREATININE 1.1 mg/dl (0.60-1.20); POTASSIUM 3.9 mmol/L (3.5-5.1)
[2017-09-14 07:26] VITALS: BP 153/78; PULSE 58; TEMP 36.3; O2SAT 100
[2017-09-14] MEDS: PANTOprazole SOD 40 MG TAB PO SCH (08:31)
[2017-09-14] MEDS: MULTIVITAMIN TAB PO SCH (08:31)
--- NOTE | 2017-09-14 10:25 | Discharge Instructions ---
Discharge Instructions Date of Service Sep 14, 2017. Admission Reason for Admission: Acute Pancreatitis Discharge Discharge Diagnosis / Problem: Acute pancreatitis Discharge Goals Goal(s): Decrease discomfort, Prevent Disease Progression Activity Recommendations Activity Limitations: per Instructions/Follow-up section . Instructions / Follow-Up Instructions / Follow-Up Please take all medications as instructed. You have a follow-up appointment scheduled for Mon, 09/18 @ 10:55am with Dr. Diop. Follow-up ERCP in [place] in Sep as scheduled. It was a pleasure taking care of you! Call if you have any questions or problems. You can reach a [facility] hospitalist on duty at [facility] 24 hours a day by calling [phone]. Take care of yourself. Tamara Hdz DO [facility] Hospitalist Current Hospital Diet Patient's current hospital diet: Low Fat Diet, AHA Diet (Heart Healthy) Discharge Diet Recommended Diet: AHA Diet (Heart Healthy) Procedures Procedures Performed: None. Pending Studies Studies pending at discharge: yes List of pending studies: IG panel-pending, GAYLE-pending Laboratory Results 09/14/17 05:33 09/14/17 05:33 Test 09/11/17 20:00 09/11/17 20:18 09/12/17 05:05 09/12/17 13:07 Urine Color YELLOW Urine Appearance CLEAR (CLEAR) Urine pH 5.5 (4.5-7.5) Urine Specific [place] 1.020 (1.000-1.030) Urine Protein NEG (NEG) Urine Glucose (UA) NEG (NEG) Urine Ketones NEG (NEG) Urine Occult Blood 2+ (NEG) Urine Nitrite NEG (NEG) Urine Bilirubin NEG (NEG) Urine Urobilinogen NEG (NEG) Urine Leukocyte Esterase MODERATE (NEG) Urine WBC (Auto) >30 /hpf (0-5) Urine RBC (Auto) >30 /hpf (0-4) Urine Hyaline Casts (Auto) 5-10 /lpf (0-5) Urine Epithelial Cells (Auto) >30 /lpf (0-5) Urine Bacteria (Auto) NEG (NEG) Magnesium Level 2.0 mg/dl (1.8-2.4) Total Bilirubin 0.5 mg/dl (0.2-1) Direct Bilirubin 0.1 mg/dl (0-0.2) Aspartate Amino Transf (AST/SGOT) 20 U/L (15-37) Alanine Aminotransferase (ALT/SGPT) 25 U/L (12-78) Alkaline Phosphatase 131 U/L (45-117) Total Protein 7.8 gm/dl (6.4-8.2) Albumin 4.0 gm/dl (3.4-5.0) Lactic Acid Level 1.7 mmol/L (0.4-2.0) Immature Granulocyte % (Auto) 0.0 % White Blood Count 5.17 K/uL (4.8-10.8) Red Blood Count 4.16 M/uL (4.2-5.4) Hemoglobin 12.4 g/dL (12.0-16.0) Hematocrit 38.8 % (37-47) Mean Corpuscular Volume 93.3 fL (80-100) Mean Corpuscular Hemoglobin 29.8 pg (25-34) Mean Corpuscular Hemoglobin Concent 32.0 g/dl (32-36) Platelet Count 187 K/uL (130-400) Mean Platelet Volume 10.5 fL (7.4-10.4) Neutrophils (%) (Auto) 52.1 % Lymphocytes (%) (Auto) 36.4 % Monocytes (%) (Auto) 10.1 % Eosinophils (%) (Auto) 1.0 % Basophils (%) (Auto) 0.4 % Neutrophils # (Auto) 2.70 K/uL (1.4-6.5) Lymphocytes # (Auto) 1.88 K/uL (1.2-3.4) Monocytes # (Auto) 0.52 K/uL (0.11-0.59) Eosinophils # (Auto) 0.05 K/uL (0-0.5) Basophils # (Auto) 0.02 K/uL (0-0.2) Immature Granulocyte # (Auto) 0.00 K/uL (0.00-0.02) Prothrombin Time 10.1 SECONDS (9.0-12.0) Prothromb Time International Ratio 0.9 (0.9-1.1) Lipase 763 U/L (73-393) Test 09/14/17 05:33 Red Blood Count 4.41 M/uL (4.2-5.4) Mean Corpuscular Volume 93.4 fL (80-100) Mean Corpuscular Hemoglobin 28.8 pg (25-34) Mean Corpuscular Hemoglobin Concent 30.8 g/dl (32-36) RDW Standard Deviation 47.0 fL (36.4-46.3) RDW Coefficient of Variation 13.8 % (11.5-14.5) Mean Platelet Volume 10.9 fL (7.4-10.4) Anion Gap 6.0 mmol/L (3-11) Est Creatinine Clear Calc Drug Dose 47.8 ml/min Estimated GFR () 60.6 Estimated GFR (Non- 52.3 BUN/Creatinine Ratio 13.8 (10-20) Calcium Level 9.1 mg/dl (8.5-10.1) Date/Time Source Procedure Growth Status 09/11/17 20:00 Urine , Clean Catch Urine Culture - Final GREATER THAN THREE TYPES OF ORGANISMS... Complete Medical Emergencies . Who to Call and When: Medical Emergencies: If at any time you feel your situation is an emergency, please call 911 immediately. . Non-Emergent Contact Non-Emergency issues call your: Primary Care Provider . . "Provider Documentation" section prepared by Tamara Hdz. . VTE Core Measure Inpt VTE Proph given/why not?: Unfractionated heparin SQ
[2017-09-14] MEDS ORDERED: LISINOPRIL 5 MG TAB PO SCH (10:45)
--- NOTE | 2017-09-14 10:52 | Discharge Summary ---
Discharge Summary Date of Service Sep 14, 2017. 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 Vaccinations: Flu Consultations: GI Pending Studies/Follow-Up: see instructions below. Medication Reconciliation Continued Medications: Aspirin (Aspirin Ec) 325 Mg Tab 325 MG PO HS Atorvastatin (Lipitor) 40 Mg Tab 40 MG PO HS, TAB Calcium Citrate-Vitamin D (Calcium Citrate + D) 1 Tab Tab 1 TAB PO DAILY Hydrocodone/Acetaminophen 5MG/325MG ([place] 5MG/325MG) Tab 1 TABLET PO Q6H PRN for Pain, #12 TAB For Initial Treatment Lisinopril (Prinivil) 5 Mg Tab 5 MG PO QAM, TAB Melatonin (Melatonin) 5 Mg Tab 5 MG PO HS PRN for Insomnia Multivitamin (Multivitamin) Tab 1 TAB PO QAM Omeprazole (Prilosec) 20 Mg Capcr 20 MG PO QAM, CAP Polyethylene Glycol 3350 (Miralax) 1 Pow Pow 17 GM PO DAILY PRN for Constipation Tamsulosin HCl (Tamsulosin HCl) 0.4 Mg Cap 0.4 MG PO QAM Triamcinolone Acet (Aristocort 0.1%) 90 Appln/30 Gm Cr 1 APPL TOP BID PRN for RASH Discontinued Medications: Dicyclomine Hcl (Bentyl) 10 Mg Cap 20 MG PO BID, CAP Furosemide (Lasix) 20 Mg Tab 20 MG PO QAM for Ankle Swelling/Edema Ranitidine (Zantac) 300 Mg Tab 300 MG PO HS Sulfa/Trimethoprim (Bactrim Ds 800MG/160MG) Tab 1 TAB PO BID for 7 Days, #6 TAB BEGIN 09/05/17 X 7 DAYS Admission Information HPI (per Admitting provider): History obtained form the patient and records. Medical history significant for recurrent pancreatitis status post biliary sphincterectomy, pancreatic divisum as per records, MS, hypertension, hyperlipidemia, GERD. Recent confinement July 2017 for post-ERCP pancreatitis. ERCP noted normal appearing common bile duct unable to identify the minor ampulla. As per discharge note, tertiary care ERCP to be scheduled next month. Patient had recurrent pancreatic symptoms about 2 weeks ago. Seen at the ER. Lipase was normal. A few days ago, the patient epigastric discomfort under her ribs, with nausea, emesis, good bowel movement. No fever, some chills. Poor appetite, no chest pain, no shortness. She was also seen at her PCP's office for dysuria symptoms recently. Urine culture grew pansensitive E. coli. PX started on Bactrim. Dysuria improving. Physical Exam (per Admitting): PHYSICAL EXAMINATION: VITAL SIGNS: Blood pressure was noted to be 149/79, pulse rate 74, RR 26, sats 96 on room air. GENERAL: Noted to be comfortable, no respiratory distress, pleasant, obese. SKIN: Normal color, warm. HEENT: [place] palpebral conjunctiva. No ptosis. Dry mucosa. NECK: Short neck. No tenderness. CHEST: Clear to auscultate. No anterior chest wall tenderness. CV : RRR, palpable LE pulses ABDOMEN: Some distention, epigastric tenderness. EXTREMITIES: Minimal LE edema noted. No tenderness. No gross deformities NEUROLOGIC: Coherent. No gross focality. Hospital Course 67 yo F with h/o recurrent pancreatitis 2/2 pancreas divisum presents with acute pancreatitis after symptoms began one week ago. IVF and supportive care with antiemetics and pain control was started. She was able to tolerate clear liquids within one day and advanced to solid foods shortly afterwards. She presented with MIKEL which was resolved with IVF resuscitation. She was admitted with a partially treated UTI on Bactrim and was switched to Ceftriaxone IV. Repeat Urine culture was negative and abx were stopped. GI was consulted and recommended avoiding diuretics such as Lasix in an effort to avoid dehydration. This was stopped at discharge. On discharge she was ambulating and mentating at baseline and was hemodynamically stable and afebrile, tolerating food for the past 24 hours without issue. Her epigastric pain was minimal. She was discharged in good condition with close PCP follow-up scheduled. Total time spent on discharge = 60 minutes This includes examination of the patient, discharge planning, medication reconciliation, and communication with other providers. Discharge Instructions [address] [address] Discharge Medical Patient Name: Abigail Desouza Unit Number: [id number] Date of : 1950 Patient Status: Admitted Inpatient Attending Doctor: Tamara Hdz DO DI: Medical v4 Discharge Instructions Date of Service Sep 14, 2017. Admission Reason for Admission: Acute Pancreatitis Discharge Discharge Diagnosis / Problem: Acute pancreatitis Discharge Goals Goal(s): Decrease discomfort, Prevent Disease Progression Activity Recommendations Activity Limitations: per Instructions/Follow-up section . Instructions / Follow-Up Instructions / Follow-Up Please take all medications as instructed. You have a follow-up appointment scheduled for Mon, 09/18 @ 10:55am with Dr. Diop. Follow-up ERCP in [place] in Sep as scheduled. It was a pleasure taking care of you! Call if you have any questions or problems. You can reach a [facility] hospitalist on duty at [facility] 24 hours a day by calling [phone]. Take care of yourself. Tamara Hdz DO [facility] Hospitalist Current Hospital Diet Patient's current hospital diet: Low Fat Diet, AHA Diet (Heart Healthy) Discharge Diet Recommended Diet: AHA Diet (Heart Healthy) Procedures Procedures Performed: None. Pending Studies Studies pending at discharge: yes List of pending studies: IG panel-pending, GAYLE-pending Laboratory Results 09/14/17 05:33 09/14/17 05:33 Test 09/11/17 20:00 09/11/17 20:18 09/12/17 05:05 09/12/17 13:07 Urine Color YELLOW Urine Appearance CLEAR (CLEAR) Urine pH 5.5 (4.5-7.5) Urine Specific [place] 1.020 (1.000-1.030) Urine Protein NEG (NEG) Urine Glucose (UA) NEG (NEG) Urine Ketones NEG (NEG) Urine Occult Blood 2+ (NEG) Urine Nitrite NEG (NEG) Urine Bilirubin NEG (NEG) Urine Urobilinogen NEG (NEG) Urine Leukocyte Esterase MODERATE (NEG) Urine WBC (Auto) >30 /hpf (0-5) Urine RBC (Auto) >30 /hpf (0-4) Urine Hyaline Casts (Auto) 5-10 /lpf (0-5) Urine Epithelial Cells (Auto) >30 /lpf (0-5) Urine Bacteria (Auto) NEG (NEG) Magnesium Level 2.0 mg/dl (1.8-2.4) Total Bilirubin 0.5 mg/dl (0.2-1) Direct Bilirubin 0.1 mg/dl (0-0.2) Aspartate Amino Transf (AST/SGOT) 20 U/L (15-37) Alanine Aminotransferase (ALT/SGPT) 25 U/L (12-78) Alkaline Phosphatase 131 U/L (45-117) Total Protein 7.8 gm/dl (6.4-8.2) Albumin 4.0 gm/dl (3.4-5.0) Lactic Acid Level 1.7 mmol/L (0.4-2.0) Immature Granulocyte % (Auto) 0.0 % White Blood Count 5.17 K/uL (4.8-10.8) Red Blood Count 4.16 M/uL (4.2-5.4) Hemoglobin 12.4 g/dL (12.0-16.0) Hematocrit 38.8 % (37-47) Mean Corpuscular Volume 93.3 fL (80-100) Mean Corpuscular Hemoglobin 29.8 pg (25-34) Mean Corpuscular Hemoglobin Concent 32.0 g/dl (32-36) Platelet Count 187 K/uL (130-400) Mean Platelet Volume 10.5 fL (7.4-10.4) Neutrophils (%) (Auto) 52.1 % Lymphocytes (%) (Auto) 36.4 % Monocytes (%) (Auto) 10.1 % Eosinophils (%) (Auto) 1.0 % Basophils (%) (Auto) 0.4 % Neutrophils # (Auto) 2.70 K/uL (1.4-6.5) Lymphocytes # (Auto) 1.88 K/uL (1.2-3.4) Monocytes # (Auto) 0.52 K/uL (0.11-0.59) Eosinophils # (Auto) 0.05 K/uL (0-0.5) Basophils # (Auto) 0.02 K/uL (0-0.2) Immature Granulocyte # (Auto) 0.00 K/uL (0.00-0.02) Prothrombin Time 10.1 SECONDS (9.0-12.0) Prothromb Time International Ratio 0.9 (0.9-1.1) Lipase 763 U/L (73-393) Test 09/14/17 05:33 Red Blood Count 4.41 M/uL (4.2-5.4) Mean Corpuscular Volume 93.4 fL (80-100) Mean Corpuscular Hemoglobin 28.8 pg (25-34) Mean Corpuscular Hemoglobin Concent 30.8 g/dl (32-36) RDW Standard Deviation 47.0 fL (36.4-46.3) RDW Coefficient of Variation 13.8 % (11.5-14.5) Mean Platelet Volume 10.9 fL (7.4-10.4) Anion Gap 6.0 mmol/L (3-11) Est Creatinine Clear Calc Drug Dose 47.8 ml/min Estimated GFR () 60.6 Estimated GFR (Non- 52.3 BUN/Creatinine Ratio 13.8 (10-20) Calcium Level 9.1 mg/dl (8.5-10.1) Date/Time Source Procedure Growth Status 09/11/17 20:00 Urine , Clean Catch Urine Culture - Final GREATER THAN THREE TYPES OF ORGANISMS... Complete Medical Emergencies . Who to Call and When: Medical Emergencies: If at any time you feel your situation is an emergency, please call 911 immediately. . Non-Emergent Contact Non-Emergency issues call your: Primary Care Provider . . "Provider Documentation" section prepared by Tamara Hdz. . VTE Core Measure Inpt VTE Proph given/why not?: Unfractionated heparin SQ Additional Copies To Indy Diop D.O.
[2017-09-14 11:05] VITALS: BP 153/78; PULSE 58; TEMP 36.3; O2SAT 100
[2017-09-14 21:38] LABS: IGG SERUM 883 mg/dL (694-1618)
== END 2017-09-14 11:40 | disposition home or self-care (01) | DRG 439 ==
LOC: C.EDB 19:42 → C.MS4W 22:15 → ENRESERV 22:31
PROVIDERS: ADMIT Hospitalist; ATTEND Hospitalist
DX: K85.90 Acute pancreatitis without necrosis or infection, unspecified (principal); Q45.3 Other congenital malformations of pancreas and pancreatic duct; N17.9 Acute kidney failure, unspecified; N39.0 Urinary tract infection, site not specified; K86.1 Other chronic pancreatitis; B96.20 Unspecified Escherichia coli [E. coli] as the cause of diseases classified elsewhere; R79.89 Other specified abnormal findings of blood chemistry; E86.0 Dehydration; G35 Multiple sclerosis; I12.9 Hypertensive chronic kidney disease with stage 1 through stage 4 chronic kidney disease, or unspecified chronic kidney disease; N18.3 Chronic kidney disease, stage 3 (moderate); E78.5 Hyperlipidemia, unspecified; K21.9 Gastro-esophageal reflux disease without esophagitis; K76.0 Fatty (change of) liver, not elsewhere classified; Z23 Encounter for immunization; Z79.82 Long term (current) use of aspirin; Z79.899 Other long term (current) drug therapy

== ENCOUNTER 2017-10-02 18:38 | Inpatient (IN) | payer OTHER ==
[~2017-10-02] VITALS: Ht 167.6 cm; Wt 79.6 kg
[~2017-10-02 18:38] MED LIST changes: -ASPI325T39 PO; -ATOR-24 PO; -CALC-310 PO; -DICY10CA55 PO; -FLM4 PO; -FURO-85 PO; -MELA1TAB54 PO; -MULT-506 PO; -POLY335019 PO; -PRLSR20 PO; -RANI300T2 PO; -TRMCR130WC TOP
[2017-10-02] MEDS ORDERED: SODIUM CHLORIDE 0.9% 1000ML 1,000 ML IV STA (18:47)
[2017-10-02] MEDS ORDERED: ONDANSETRON INJ 2 MG/ML 2 ML VIAL IV STA (18:47)
--- NOTE | 2017-10-02 18:53 | EMERGENCY ROOM VISIT NOTE ---
History Report prepared by [place]: Ira Oshea Under the Supervision of: Dr. Juan Hutchinson D.O. First contact with patient: 18:44 Chief Complaint: ABDOMINAL PAIN Stated Complaint: STOMACH PAIN Nursing Triage Summary: Pt states, "I was in [place] today and had an ERCP. I have a hx of pancreatitis. I am in so much pain in my upper abdomen. They told me I could get it again within 24 hrs of the procedure today." Nausea. History of Present Illness The patient is a 67 year old female who presents to the Emergency Room with complaints of persistent abdominal pain for the past 2 hours. She reports this morning she had an ERCP at [facility] in [place] by Dr. Hawk of [facility]. Approximately 2 hours prior to arrival, she started experiencing abdominal pain, nausea and vomiting. She rates her discomfort as an 8/10 in severity. She states [place] told her she may develop pancreatitis within 24 hours of the procedure, and she admits she has had pancreatitis 4 times in the past 1 year. She notes she no longer has her gallbladder but still has her appendix. The patient denies any back pain or urinary symptoms. Source of History: patient Onset: 2 hours [employer] Position: abdomen Symptom Intensity: 8/10 Timing: other (persistent) Associated Symptoms: + nausea, + vomiting, No back pain, No urinary symptoms Review of Systems See HPI for pertinent positives & negatives. A total of 10 systems reviewed and were otherwise negative. Past Medical & Surgical Medical Problems: (1) Acute pancreatitis (2) Acute pancreatitis (3) Carotid artery disease (4) Chronic pancreatitis (5) Diverticulosis (6) Elevated liver enzymes (7) Fatty liver (8) GERD (gastroesophageal reflux disease) (9) History of cholelithiasis (10) HTN (hypertension) (11) Hyperlipidemia (12) Kidney disease, chronic, stage III (GFR 30-59 ml/min) (13) Multiple sclerosis (14) Pancreatic divisum Surgical Problems: (1) History of abdominal hernia (2) History of back surgery (3) History of ERCP (4) Hx of cholecystectomy (5) S/P bilateral breast reduction (6) S/P bladder repair (7) s/p removal of fibroid in uterus (8) S/P tubal ligation Family History FH: brain aneurysm SISTER FH: cancer MOTHER (Breast CA) SISTER (Breast CA) FH: hypertension FH: multiple sclerosis DAUGHTER Social History Smoking Status: Never Smoker Alcohol Use: none Drug Use: none Marital Status: in relationship Housing Status: lives with significant other Occupation Status: employed Current/Historical Medications Scheduled Aspirin (Aspirin Ec), 325 MG PO DAILY Atorvastatin (Lipitor), 40 MG PO HS Calcium Citrate-Vitamin D (Calcium Citrate + D), 1 TAB PO DAILY Lisinopril (Prinivil), 5 MG PO QAM Multivitamin (Multivitamin), 1 TAB PO QAM Omeprazole (Prilosec), 20 MG PO QAM Tamsulosin HCl (Tamsulosin HCl), 0.4 MG PO QAM Scheduled PRN Hydrocodone/Acetaminophen 5MG/325MG ([place] 5MG/325MG), 1 TABLET PO Q6H PRN for Pain Melatonin (Melatonin), 5 MG PO HS PRN for Insomnia Polyethylene Glycol 3350 (Miralax), 17 GM PO DAILY PRN for Constipation Triamcinolone Acet (Aristocort 0.1%), 1 APPL TOP BID PRN for RASH Allergies Coded Allergies: Ibuprofen (Verified Allergy, Mild, HIVES, 10/02/17) Morphine (Verified Allergy, Mild, pruritis, 10/02/17) Adhesives (Verified Allergy, Unknown, RASH, 10/02/17) Physical Exam Vital Signs Date Time Temp Pulse Resp B/P (MAP) Pulse Ox O2 Delivery O2 Flow Rate FiO2 10/02/17 22:00 76 18 153/83 95 Room Air 10/02/17 21:08 79 18 155/89 97 Room Air 10/02/17 20:40 81 10/02/17 20:00 77 18 151/75 97 Room Air 10/02/17 19:07 73 18 171/87 98 Room Air 10/02/17 18:42 36.3 73 18 176/82 99 Room Air Physical Exam GENERAL: Patient is awake, alert, in no acute distress patient is resting comfortably and showing no signs of anxiety EYES: The conjunctivae are clear. The pupils are round and reactive. EARS, NOSE, MOUTH AND THROAT: The nose is without any evidence of any deformity. Mucous membranes are moist tongue is midline NECK: The neck is nontender and supple. RESPIRATORY: Normal respiratory effort is noted there is no evidence of wheezing rhonchi or rales CARDIOVASCULAR: Regular rate and rhythm noted there no murmurs rubs or gallops normal S1 normal S2 GASTROINTESTINAL: The abdomen is mildly distended but soft. Tenderness to the right upper and right middle quadrants. No guarding or rigidity noted. BACK: No midline tenderness or or step-off noted range of motion in flexion extension as well as rotation no signs of muscle spasm noted MUSCULOSKELETAL/EXTREMITIES: There is no evidence of gross deformity full range of motion is noted in the hips and shoulders SKIN: There is no obvious evidence of any rash. There are no petechiae, pallor or cyanosis noted. NEUROLOGIC: Patient is awake alert and oriented x3 Medical Decision & Procedures ER Provider Diagnostic Interpretation: Radiology results as stated below per my review and radiologist interpretation: ABDOMEN 2VIEW W/PA CHEST RTN CLINICAL HISTORY: ABDOMINAL PAIN/GI pain. Nausea. COMPARISON STUDY: 08/26/2017 FINDINGS: The soft tissues, psoas shadows, renal outlines and intestinal gas pattern appear normal. There is no evidence for bowel obstruction. There is no evidence for free intraperitoneal air. No abnormal abdominal calcifications are seen. A frontal view of the chest was performed and is unremarkable. IMPRESSION: Normal study. The above report was generated using voice recognition software. It may contain grammatical, syntax or spelling errors. Electronically signed by: Caleb Calle M.D. 10/02/2017 8:20 PM Laboratory Results Test 10/02/17 18:55 10/02/17 19:00 Urine Color YELLOW Urine Appearance CLEAR (CLEAR) Urine pH 7.5 (4.5-7.5) Urine Specific [place] <= 1.005 (1.000-1.030) Urine Protein NEG (NEG) Urine Glucose (UA) NEG (NEG) Urine Ketones NEG (NEG) Urine Occult Blood 3+ (NEG) Urine Nitrite NEG (NEG) Urine Bilirubin NEG (NEG) Urine Urobilinogen NEG (NEG) Urine Leukocyte Esterase SMALL (NEG) Urine RBC 5-10 /hpf (0-4) Urine WBC 5-10 /hpf (0-5) Urine Epithelial Cells >30 /lpf (0-5) Urine Bacteria 1+ (NEG) Immature Granulocyte % (Auto) 0.2 % White Blood Count 8.33 K/uL (4.8-10.8) Red Blood Count 4.68 M/uL (4.2-5.4) Hemoglobin 14.3 g/dL (12.0-16.0) Hematocrit 44.1 % (37-47) Mean Corpuscular Volume 94.2 fL (80-100) Mean Corpuscular Hemoglobin 30.6 pg (25-34) Mean Corpuscular Hemoglobin Concent 32.4 g/dl (32-36) Platelet Count 233 K/uL (130-400) Mean Platelet Volume 11.1 fL (7.4-10.4) Neutrophils (%) (Auto) 85.7 % Lymphocytes (%) (Auto) 10.0 % Monocytes (%) (Auto) 4.0 % Eosinophils (%) (Auto) 0.0 % Basophils (%) (Auto) 0.1 % Neutrophils # (Auto) 7.14 K/uL (1.4-6.5) Lymphocytes # (Auto) 0.83 K/uL (1.2-3.4) Monocytes # (Auto) 0.33 K/uL (0.11-0.59) Eosinophils # (Auto) 0.00 K/uL (0-0.5) Basophils # (Auto) 0.01 K/uL (0-0.2) Immature Granulocyte # (Auto) 0.02 K/uL (0.00-0.02) Prothrombin Time 10.3 SECONDS (9.0-12.0) Prothromb Time International Ratio 1.0 (0.9-1.1) Activated Partial Thromboplast Time 25.7 SECONDS (21.0-31.0) Partial Thromboplastin Ratio 1.0 Direct Bilirubin 0.2 mg/dl (0-0.2) Total Creatine Kinase 229 U/L (26-192) Creatine Kinase MB 4.5 ng/ml (0.5-3.6) Creatine Kinase MB Ratio 2.0 (0-3.0) Troponin I < 0.015 ng/ml (0-0.045) Laboratory results per my review. Medications Administered Medications (Trade) Dose Ordered Sig/Alycia Route Start Time Stop Time Status Last Admin Dose Admin Sodium Chloride 1,000 ml @ 999 mls/hr Q1H1M STAT IV 10/02/17 18:47 10/02/17 19:47 DC 10/02/17 19:03 999 MLS/HR Ondansetron HCl (Zofran Inj) 4 mg NOW STAT IV 10/02/17 18:47 10/02/17 18:49 DC 10/02/17 19:03 4 MG Fentanyl Citrate (Fentanyl Inj) 50 mcg Q15M PRN IV 10/02/17 19:00 10/03/17 01:35 DC 10/02/17 22:17 50 MCG Acetaminophen (Tylenol Tab) 650 mg Q4H PRN PO 10/02/17 22:00 11/01/17 21:59 10/03/17 05:11 650 MG Ondansetron HCl (Zofran Inj) 4 mg Q6H PRN IV 10/02/17 22:00 11/01/17 21:59 10/03/17 07:21 4 MG Hydromorphone HCl (Dilaudid Inj) 0.5 mg Q6 PRN IV 10/02/17 22:00 10/16/17 21:59 10/03/17 06:25 0.5 MG ECG Indication: abdominal pain Rate (beats per minute): 73 Rhythm: normal sinus Findings: no ectopy, other (No acute ST segment abnormalities) Change: no significant change (No change from 08/26/17) ED Course 1845: The patient was evaluated in room B2. A complete history and physical examination were performed. 1846: Zofran 4 mg IV, NSS 1000 ml @ 999 mls/hr IV. 1899: Fentanyl Citrate 50 mcg IV. 2102: Nursing informed me the patient is complaining of increased pain. 2114: I reevaluated the patient. She is resting comfortably but admits she does not feel like she can go home. I discussed my recommendation she remain in the hospital for further evaluation and management and she verbalized complete understanding and agreement. 2116: I discussed the patients case with Dr. Javed, [facility] Hospitalist. The patient will be further evaluated. Medical Decision Prior records/ancillary studies reviewed. Triage Nursing notes reviewed. The patient's history was concerning for abdominal pain. Differential diagnosis: Etiologies such as appendicitis, diverticulitis, PUD, biliary pathology, UTI, pancreatitis, obstruction, mesenteric ischemia, aortic pathology, infections, inflammatory bowel disease, renal colic, as well as others were entertained. The patient is a 67-year-old female who presented to the emergency department for upper abdominal pain. The patient has a history of pancreatitis. She has had a cholecystectomy in the past. 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 She was sent to [place] and had an ERCP recently. After this procedure she started to develop upper abdominal pain similar to what she has had in the past with pancreatitis. She was found have a very elevated lipase and amylase. The patient was treated with IV fluids IV pain medicine IV antiemetics. On subsequent reevaluation she was only minimally improved. [facility] agreed to evaluate the patient in the emergency department for further management and disposition. I discussed the patient's laboratory radiographic studies with her. Medication Reconcilliation Current Medication List: was personally reviewed by me Blood Pressure Screening Patient's blood pressure: Elevated blood pressure Blood pressure disposition: Elevated BP felt to be situational Consults Time Called: 2115 Consulting Physician: Luis Rocha [facility] Returned Call: 2116 I discussed the patients case with Luis Rocha. The patient will be further evaluated. Impression Primary Impression: Pancreatitis Additional Impression: Abdominal pain Scribe Attestation The scribe's documentation has been prepared under my direction and personally reviewed by me in its entirety. I confirm that the note above accurately reflects all work, treatment, procedures, and medical decision making performed by me. Departure Information Dispostion Being Evaluated By Hospitalist Referrals Indy Diop D.O. (PCP) Patient Instructions My [facility] Problem Qualifiers Primary Impression: Pancreatitis Chronicity: acute Pancreatitis type: unspecified pancreatitis type Acute pancreatitis complication: unspecified Qualified Codes: K85.90 - Acute pancreatitis without necrosis or infection, unspecified Additional Impression: Abdominal pain Abdominal location: right upper quadrant Qualified Codes: R10.11 - Right upper quadrant pain
[2017-10-02] MEDS: FENTANYL CITRATE INJ 50 MCG/1 ML 2 ML VIAL IV PRN ×3 (19:05→22:17)
[2017-10-02 19:11] LABS: BASO % 0.1 %; BASO ABS # 0.01 K/uL (0-0.2); HEMATOCRIT 44.1 % (37-47); HEMOGLOBIN 14.3 g/dL (12.0-16.0); IG# 0.02 K/uL (0.00-0.02); LYMPH ABS # 0.83 K/uL (1.2-3.4); MEAN CELL VOLUME 94.2 fL (80-100); MEAN CORPUSCULAR HEMOGLOBIN 30.6 pg (25-34); MEAN CORPUSCULAR HGB CONC 32.4 g/dl (32-36); MEAN PLATELET VOLUME 11.1 fL (7.4-10.4); MONO ABS # 0.33 K/uL (0.11-0.59); NEUT % 85.7 %; NEUT ABS # 7.14 K/uL (1.4-6.5); PLATELET COUNT 233 K/uL (130-400); RED CELL DISTRIBUTION WIDTH SD 48.1 fL (36.4-46.3); WHITE BLOOD COUNT 8.33 K/uL (4.8-10.8)
[2017-10-02 19:22] LABS: PTT PATIENT 25.7 SECONDS (21.0-31.0)
[2017-10-02 19:47] LABS: ALT/SGPT 24 U/L (12-78); BLOOD UREA NITROGEN 15 mg/dl (7-18); CALCIUM 9.4 mg/dl (8.5-10.1); CARBON DIOXIDE 27 mmol/L (21-32); CREATININE 1.14 mg/dl (0.60-1.20); GLUCOSE 135 mg/dl (70-99); POTASSIUM 3.8 mmol/L (3.5-5.1); SODIUM 139 mmol/L (136-145)
[2017-10-02 19:52] LABS: ALKALINE PHOSPHATASE 139 U/L (45-117); AST/SGOT 23 U/L (15-37); CKMB 4.5 ng/ml (0.5-3.6); TOTAL PROTEIN 7.7 gm/dl (6.4-8.2)
--- NOTE | 2017-10-02 20:22 | DIAGNOSTIC IMAGING REPORT ---
ABDOMEN 2VIEW W/PA CHEST RTN CLINICAL HISTORY: ABDOMINAL PAIN/GI pain. Nausea. COMPARISON STUDY: 08/26/2017 FINDINGS: The soft tissues, psoas shadows, renal outlines and intestinal gas pattern appear normal. There is no evidence for bowel obstruction. There is no evidence for free intraperitoneal air. No abnormal abdominal calcifications are seen. A frontal view of the chest was performed and is unremarkable. IMPRESSION: Normal study. The above report was generated using voice recognition software. It may contain grammatical, syntax or spelling errors. Electronically signed by: Caleb Calle M.D. 10/02/2017 8:20 PM Dictated Date/Time: 10/02/2017 8:20 PM
[2017-10-02 21:49] LABS: LIPASE > 90000 U/L (73-393)
--- NOTE | 2017-10-02 22:27 | History and Physical ---
History & Physical Date & Time of Service: Oct 02, 2017 at 22:03 Chief Complaint: Stomach Pain Primary Care Physician: Indy Diop D.O. History of Present Illness Source: patient, partner, clinic records, hospital records Pt is 67 y/o F with PMH recurrent pancreatitis, GERD, hyperlipidemia, HTN presented to ER with c/o abdominal pain. Pt had ERCP today at [facility] [place] by [place] Hawk and was d/c home. Pt reports no stent placed. Pt with multiple hospitalizations recently for recurrent pancreatitis with several ERCP's this year, last d/c . Hx pancreatic divisum. Pt states was feeling good after ERCP today and on way home stopped for dinner and ate some mashed potatoes and ham and then started with upper abdominal pain and nausea and dry heaves. Came to ER. Here given Zofran and fentanyl and pt reports feeling better with less abdominal pain. Had BM today and has been urinating normally. Afebrile, no leukocytosis. Lipase >90884, amylase: 4957. CXR/ABD XRAY negative. Pt reports finishing course of Macrobid for UTI. Denies fever/chills, diaphoresis, diarrhea, constipation, [place], dizziness, syncope, vision changes, neck pain, CP, SOB, orthopnea, palpitations, cough, sore throat, choking, otalgia, rhinorrhea, abdominal pain, paresthesias, weakness, extremity weakness, extremity edema, rashes, urinary symptoms. Past Medical/Surgical History Medical Problems: (1) Acute pancreatitis Status: Resolved (2) Carotid artery disease Status: Chronic (3) Chronic pancreatitis Status: Chronic (4) Diverticulosis Status: Chronic (5) Fatty liver Status: Chronic (6) GERD (gastroesophageal reflux disease) Status: Chronic (7) History of cholelithiasis Status: Chronic (8) HTN (hypertension) Status: Chronic (9) Hyperlipidemia Status: Chronic (10) Kidney disease, chronic, stage III (GFR 30-59 ml/min) Status: Chronic (11) Multiple sclerosis Status: Chronic (12) Pancreatic divisum Status: Chronic Surgical Problems: (1) History of abdominal hernia Status: Resolved (2) History of back surgery Status: Chronic (3) History of ERCP Permanent Comment: 10/02/17 - [facility] [place] Dr Hawk Status: Resolved (4) Hx of cholecystectomy Status: Chronic (5) S/P bilateral breast reduction Status: Chronic (6) S/P bladder repair Status: Chronic (7) s/p removal of fibroid in uterus Status: Chronic (8) S/P tubal ligation Status: Chronic Family History FH: brain aneurysm SISTER FH: cancer MOTHER (Breast CA) SISTER (Breast CA) FH: hypertension FH: multiple sclerosis DAUGHTER Social History Smoking Status: Never Smoker Smokeless Tobacco Use: No Alcohol Use: none Drug Use: none Marital Status: in relationship Housing status: lives with significant other, other Occupational Status: employed Immunizations History of Influenza Vaccine: Yes History of Tetanus Vaccine?: Yes Tetanus Immunization Date: Jan 14, 2008 History of Pneumococcal: Yes Pneumococcal Date: Sep 15, 2013 History of Hepatitis B Vaccine: No Multi-Drug Resistant Organisms History of MDRO: No Allergies Coded Allergies: Ibuprofen (Verified Allergy, Mild, HIVES, 10/02/17) Morphine (Verified Allergy, Mild, pruritis, 10/02/17) Adhesives (Verified Allergy, Unknown, RASH, 10/02/17) Home Medications Scheduled Aspirin (Aspirin Ec), 325 MG PO DAILY Atorvastatin (Lipitor), 40 MG PO HS Calcium Citrate-Vitamin D (Calcium Citrate + D), 1 TAB PO DAILY Lisinopril (Prinivil), 5 MG PO QAM Multivitamin (Multivitamin), 1 TAB PO QAM Omeprazole (Prilosec), 20 MG PO QAM Tamsulosin HCl (Tamsulosin HCl), 0.4 MG PO QAM Scheduled PRN Hydrocodone/Acetaminophen 5MG/325MG ([place] 5MG/325MG), 1 TABLET PO Q6H PRN for Pain Melatonin (Melatonin), 5 MG PO HS PRN for Insomnia Polyethylene Glycol 3350 (Miralax), 17 GM PO DAILY PRN for Constipation Triamcinolone Acet (Aristocort 0.1%), 1 APPL TOP BID PRN for RASH Review of Systems Constitutional: + problem reported (see HPI), No sweats, No weight loss Eyes: No eye pain, No redness, No discharge ENT: No nasal symptoms, No sore throat, No trouble swallowing Respiratory: No cough, No sputum, No wheezing, No shortness of breath, No hemoptysis Cardiovascular: + problem reported, No chest pain, No orthopnea, No PND, No edema, No palpitations Abdomen: + problem reported (see HPI), No GI bleeding Musculoskeletal: No joint pain, No muscle pain, No swelling, No calf pain Genitourinary - Female: No dysuria, No urinary frequency, No urinary urgency, No hematuria Neurologic: No weakness, No numbness/tingling, No vertigo Integumentary: No rash Physical Exam Vital Signs Date Time Temp Pulse Resp B/P (MAP) Pulse Ox O2 Delivery O2 Flow Rate FiO2 10/02/17 21:08 79 18 155/89 97 Room Air 10/02/17 20:40 81 10/02/17 20:00 77 18 151/75 97 Room Air 10/02/17 19:07 73 18 171/87 98 Room Air 10/02/17 18:42 36.3 73 18 176/82 99 Room Air General Appearance: WD/WN, no apparent distress Head: normocephalic, atraumatic Eyes: normal inspection, PERRL, EOMI, sclerae normal ENT: hearing grossly normal, pharynx normal, + pertinent finding (moist mucous membranes) Neck: supple, no JVD, trachea midline Respiratory/Chest: chest non-tender, lungs clear, normal breath sounds, no respiratory distress, no accessory muscle use Cardiovascular: regular rate, rhythm, no edema, no murmur, normal peripheral pulses Abdomen/GI: normal bowel sounds, soft, + tenderness (RUQ, epigastric, LUQ without rebound or guarding ) Extremities/Musculoskelatal: normal inspection, no calf tenderness, no pedal edema, normal range of motion, non-tender Neurologic/Psych: alert, normal mood/affect, oriented x 3 Skin: normal color, warm/dry, no rash Diagnostics Laboratory Results Results Past 24 Hours Test 10/02/17 18:55 10/02/17 19:00 Range/Units Urine Color YELLOW Urine Appearance CLEAR CLEAR Urine pH 7.5 4.5-7.5 Urine Specific [place] <= 1.005 1.000-1.030 Urine Protein NEG NEG Urine Glucose (UA) NEG NEG Urine Ketones NEG NEG Urine Occult Blood 3+ NEG Urine Nitrite NEG NEG Urine Bilirubin NEG NEG Urine Urobilinogen NEG NEG Urine Leukocyte Esterase SMALL NEG Urine RBC 5-10 0-4 /hpf Urine WBC 5-10 0-5 /hpf Urine Epithelial Cells >30 0-5 /lpf Urine Bacteria 1+ NEG White Blood Count 8.33 4.8-10.8 K/uL Red Blood Count 4.68 4.2-5.4 M/uL Hemoglobin 14.3 12.0-16.0 g/dL Hematocrit 44.1 37-47 % Mean Corpuscular Volume 94.2 80-100 fL Mean Corpuscular Hemoglobin 30.6 25-34 pg Mean Corpuscular Hemoglobin Concent 32.4 32-36 g/dl Platelet Count 233 130-400 K/uL Mean Platelet Volume 11.1 7.4-10.4 fL Neutrophils (%) (Auto) 85.7 % Lymphocytes (%) (Auto) 10.0 % Monocytes (%) (Auto) 4.0 % Eosinophils (%) (Auto) 0.0 % Basophils (%) (Auto) 0.1 % Neutrophils # (Auto) 7.14 1.4-6.5 K/uL Lymphocytes # (Auto) 0.83 1.2-3.4 K/uL Monocytes # (Auto) 0.33 0.11-0.59 K/uL Eosinophils # (Auto) 0.00 0-0.5 K/uL Basophils # (Auto) 0.01 0-0.2 K/uL RDW Standard Deviation 48.1 36.4-46.3 fL RDW Coefficient of Variation 14.0 11.5-14.5 % Immature Granulocyte % (Auto) 0.2 % Immature Granulocyte # (Auto) 0.02 0.00-0.02 K/uL Prothrombin Time 10.3 9.0-12.0 SECONDS Prothromb Time International Ratio 1.0 0.9-1.1 Activated Partial Thromboplast Time 25.7 21.0-31.0 SECONDS Partial Thromboplastin Ratio 1.0 Sodium Level 139 136-145 mmol/L Potassium Level 3.8 3.5-5.1 mmol/L Chloride Level 103 98-107 mmol/L Carbon Dioxide Level 27 21-32 mmol/L Anion Gap 9.0 3-11 mmol/L Blood Urea Nitrogen 15 7-18 mg/dl Creatinine 1.14 0.60-1.20 mg/dl Est Creatinine Clear Calc Drug Dose 51.6 ml/min Estimated GFR () 58.0 Estimated GFR (Non- 50.1 BUN/Creatinine Ratio 13.4 10-20 Random Glucose 135 70-99 mg/dl Calcium Level 9.4 8.5-10.1 mg/dl Total Bilirubin 0.9 0.2-1 mg/dl Direct Bilirubin 0.2 0-0.2 mg/dl Aspartate Amino Transf (AST/SGOT) 23 15-37 U/L Alanine Aminotransferase (ALT/SGPT) 24 12-78 U/L Alkaline Phosphatase 139 45-117 U/L Total Creatine Kinase 229 26-192 U/L Creatine Kinase MB 4.5 0.5-3.6 ng/ml Creatine Kinase MB Ratio 2.0 0-3.0 Troponin I < 0.015 0-0.045 ng/ml Total Protein 7.7 6.4-8.2 gm/dl Albumin 4.0 3.4-5.0 gm/dl Amylase Level 4957 25-115 U/L Lipase > 18690 73-393 U/L Diagnostic Radiology ABD 2 VIEW WITH PA CHEST XRAY: IMPRESSION: Normal study. EKG EKG: NSR, rate 73. no ST changes noted Impression Assessment and Plan PANCREATITIS Pt with hx recurrent pancreatitis with hx pancreatic divisum. Had ERCP at [facility] [place] today and after developed abd pain. Suspect post procedure pancreatitis. Afebrile, no leukocytosis. Lipase>61791, amylase: 4957 -NPO -D5 1/2NSS @125ml/hr -zofran prn -Dilaudid 0.5mg Q6 hrs prn pain -GI consult -Hold abdominal imaging at this time, consider if no improvement/worsening abdominal pain -cbc, cmp, lipase, amylase in am HTN -lisinopril GERD -continue omeprazole Hyperlipidemia -continue lipitor DVT PROPHYLAXIS -heparin SQ DISPOSITION -admit med/surg -Full Code as per discussion with pt -Follows with Dr Diop for routine care Pt was seen with Dr Grayson. See addendum Dr. Grayson Attending Physician, addendum I have seen and examine dthe patient with our hospitalist team PA and agree with the assessment and plan as above and would like to comment: This is a 67 year old s/p ERCP performed at [facility] [place], subsequently sent home and afterwards developed abdominal discomfort. Patient arrived to the ED and is hemodynamically stable. Abdominal discomfort is minimal. Patient is awake and alert and breathing on room air. Patient receiving pain medications and IV fluids, keep NPO, to treat likely post- procedural pancreatitis given very elevated amylase and lipase. Would not do additional imaging at this time unless patient's has worsening of symptoms. Level of Care Med/Surg Resuscitation Status FULL RESUSCITATION VTE Prophylaxis Risk Level: Moderate Given or contraindicated: Unfractionated heparin SQ Additional Copies To Indy Diop D.O.
--- NOTE | 2017-10-02 23:10 | NUR ---
A: ARRIVED FROM ED TO ROOM 362. ORIENTED TO ROOM/CALL [place]. SIGNED CODE W[employer] FALL AGREEMENT FORMS. VS DOCUMENTED. PRIMARY RN ASSESSED PT. CALL [place] IN REACH.
[2017-10-02 23:11] VITALS: BP 149/83; PULSE 64; TEMP 36.9; O2SAT 99
[2017-10-02] MEDS: HYDROmorphone INJ 0.5 MG/0.5 ML SYR IV PRN (23:26)
[2017-10-02 23:38] VITALS: Ht 167.6 cm; Wt 79.6 kg
[2017-10-03] MEDS: ACETAMINOPHEN 325 MG TAB PO PRN ×2 (01:03→05:11)
[2017-10-03] MEDS: ONDANSETRON INJ 2 MG/ML 2 ML VIAL IV PRN ×4 (01:04→19:57)
[2017-10-03] MEDS: D5W AND 1/2NSS 1,000 ML IV SCH ×2 (02:14→09:11)
[2017-10-03] MEDS: HEPARIN SOD 5000 UNIT/0.5 ML CARP SQ SCH ×4 (05:11→21:28)
[2017-10-03] MEDS: HYDROmorphone INJ 0.5 MG/0.5 ML SYR IV PRN ×3 (06:25→19:57)
[2017-10-03 06:49] VITALS: BP 126/69; PULSE 63; TEMP 36.7; O2SAT 96
[2017-10-03 07:28] LABS: HEMATOCRIT 39.2 % (37-47); HEMOGLOBIN 12.5 g/dL (12.0-16.0); MEAN CORPUSCULAR HGB CONC 31.9 g/dl (32-36); MEAN PLATELET VOLUME 10.4 fL (7.4-10.4); PLATELET COUNT 190 K/uL (130-400); RED CELL DISTRIBUTION WIDTH CV 13.9 % (11.5-14.5); RED CELL DISTRIBUTION WIDTH SD 47.9 fL (36.4-46.3); WHITE BLOOD COUNT 6.66 K/uL (4.8-10.8)
[2017-10-03 07:59] LABS: CALCIUM 8.4 mg/dl (8.5-10.1); CREATININE 1.03 mg/dl (0.60-1.20); POTASSIUM 3.8 mmol/L (3.5-5.1)
[2017-10-03] MEDS: PANTOprazole SOD 40 MG TAB PO SCH (09:08)
[2017-10-03] MEDS: TAMSULOSIN HCL 0.4 MG CAP PO SCH (09:10)
[2017-10-03] MEDS: ASPIRIN 325 MG ECTAB PO SCH (09:10)
[2017-10-03] MEDS: LISINOPRIL 5 MG TAB PO SCH (09:10)
--- NOTE | 2017-10-03 10:06 | NUR ---
ID NOTE: pt is alert and oriented x4. clear lung sounds on room air. vitals stable. IV fluids infusing as ordered. pt is NPO. PO AND IV pain meds controlling pain. ambulating independently in room with IV pole. GI consulted. plans for d/c are unclear at this time.
--- NOTE | 2017-10-03 10:28 | Gastrointestinal Consultation ---
Gastrointestinal Consultation Date of Consultation: Oct 03, 2017 Attending Physician: Dr. Dewitt Consulting Physician: Dr. Asher Fischer Reason for Consultation: Pancreatitis History of Present Illness Patient is a 67 year old female with a hx of pancreas divisum and recurrent pancreatitis, s/p multiple ERCPs in the past, most recent 10/02/[address] Hawk in [place] [facility]. The prior sphincterotomy appeared open, and limited cholangiogram was normal. He was unable to find the minor papillary orifice, despite the use of secretin and the procedure was aborted. She stopped for dinner on her way home last evening, and ate a small amount of ham, a few bites of mashed potatoes and a dinner roll without butter, soon after developing upper abdominal pain, nausea and dry heaves. She presented to the ED here for evaluation and was found to have a significantly elevated amylase and lipase. She has been kept NPO except meds and has been hydrated and is feeling better this morning, with less abdominal pain and no current nausea. Past Medical/Surgical History Medical Problems: (1) Abdominal pain Status: Acute (2) Acute on chronic pancreatitis Status: Acute (3) Dehydration Status: Acute (4) Epigastric abdominal pain Status: Acute (5) Hematuria Status: Acute (6) Intractable right lower quadrant abdominal pain Status: Acute (7) Left elbow contusion Status: Acute (8) Lisfranc fracture Status: Acute (9) Pancreatitis Status: Acute (10) Post-op pain Status: Acute (11) Renal insufficiency Status: Acute (12) Right upper quadrant abdominal pain Status: Acute (13) UTI (urinary tract infection) Status: Acute (14) Work related injury Status: Acute Past Medical History: Recurrent pancreatitis, pancreas divisum, HLD, GERD, HTN, Fatty liver, CKD, Multiple sclerosis Past Surgical History: cholecystectomy, tubal ligation, hernia repair, back surgery, breast reduction - bilateral, bladder repair, removal of uterine fibroid Family History FH: brain aneurysm SISTER FH: cancer MOTHER (Breast CA) SISTER (Breast CA) FH: hypertension FH: multiple sclerosis DAUGHTER Social History Smoking Status: Never Smoker Alcohol Use: none Drug Use: none Marital Status: in relationship Housing Status: lives with significant other Occupation Status: employed Allergies Coded Allergies: Ibuprofen (Verified Allergy, Mild, HIVES, 10/02/17) Morphine (Verified Allergy, Mild, pruritis, 10/02/17) Adhesives (Verified Allergy, Unknown, RASH, 10/02/17) Current Medications Home Meds and Scripts Medications Dose Route/Sig Max Daily Dose Days Date Category Dose Instructions [place] 5MG/325MG (Acetaminophen/Hydrocodone Bitart) Tab 1 Tablet PO Q6H PRN 08/26/17 Rx For Initial Treatment Aspirin Ec (Aspirin) 325 Mg Tab 325 Mg PO DAILY 07/12/17 Reported Aristocort 0.1% (Triamcinolone Acet) 90 Appln/30 Gm Cr 1 Appl TOP BID PRN 05/06/17 Reported Tamsulosin HCl 0.4 Mg Cap 0.4 Mg PO QAM 03/27/17 Reported Lipitor (Atorvastatin Calcium) 40 Mg Tab 40 Mg PO HS 03/27/17 Reported Prinivil (Lisinopril) 5 Mg Tab 5 Mg PO QAM 01/19/17 Reported Prilosec (Omeprazole) 20 Mg Capcr 20 Mg PO QAM 06/19/16 Reported Melatonin 5 Mg Tab 5 Mg PO HS PRN 10/23/15 Reported Calcium Citrate + D (Calcium Citrate-Vitamin D) 1 Tab Tab 1 Tab PO DAILY 11/24/14 Reported Multivitamin (Multivitamins) Tab 1 Tab PO QAM 11/24/14 Reported Miralax (Polyethylene Glycol 3350) 1 Pow Pow 17 Gm PO DAILY PRN 01/13/14 Reported Review of Systems Constitutional: No fever, No chills Eyes: No worsening of vision, No eye pain ENT: No hearing loss Respiratory: No cough, No shortness of breath Cardiac: No chest pain Abdomen: + see HPI Musculoskeletal: No joint pain Female : No dysuria, No urinary frequency Neuro: No problem reported Psych: No problem reported Heme: No abnormal bleeding/bruising Endo: No excessive thirst, No excessive urination Skin: No rash, No itch Physical Exam Date Time Temp Pulse Resp B/P (MAP) Pulse Ox O2 Delivery O2 Flow Rate FiO2 10/03/17 07:15 Room Air 10/03/17 06:49 36.7 63 18 126/69 (88) 96 Room Air 10/02/17 23:30 Room Air 10/02/17 23:30 Room Air 10/02/17 23:11 36.9 64 17 149/83 (105) 99 Room Air 10/02/17 22:00 76 18 153/83 95 Room Air 10/02/17 21:08 79 18 155/89 97 Room Air 10/02/17 20:40 81 10/02/17 20:00 77 18 151/75 97 Room Air 10/02/17 19:07 73 18 171/87 98 Room Air 10/02/17 18:42 36.3 73 18 176/82 99 Room Air General Appearance: no apparent distress Eyes: normal inspection ENT: hearing grossly normal Neck: supple Respiratory/Chest: lungs clear, normal breath sounds, no respiratory distress, no accessory muscle use Cardiovascular: regular rate, rhythm Abdomen: normal bowel sounds, soft, no organomegaly, no pulsatile mass, + tenderness (mild upper abdominal tenderness) Extremities: no pedal edema Neurologic/Psych: alert, normal mood/affect Skin: normal color, no jaundice, warm/dry, no rash Laboratory Results Last 24 Hours Test 10/02/17 18:55 10/02/17 19:00 10/03/17 07:11 Urine Color YELLOW Urine Appearance CLEAR Urine pH 7.5 Urine Specific [place] <= 1.005 Urine Protein NEG Urine Glucose (UA) NEG Urine Ketones NEG Urine Occult Blood 3+ Urine Nitrite NEG Urine Bilirubin NEG Urine Urobilinogen NEG Urine Leukocyte Esterase SMALL Urine RBC 5-10 /hpf Urine WBC 5-10 /hpf Urine Epithelial Cells >30 /lpf Urine Bacteria 1+ White Blood Count 8.33 K/uL 6.66 K/uL Red Blood Count 4.68 M/uL 4.17 M/uL Hemoglobin 14.3 g/dL 12.5 g/dL Hematocrit 44.1 % 39.2 % Mean Corpuscular Volume 94.2 fL 94.0 fL Mean Corpuscular Hemoglobin 30.6 pg 30.0 pg Mean Corpuscular Hemoglobin Concent 32.4 g/dl 31.9 g/dl Platelet Count 233 K/uL 190 K/uL Mean Platelet Volume 11.1 fL 10.4 fL Neutrophils (%) (Auto) 85.7 % Lymphocytes (%) (Auto) 10.0 % Monocytes (%) (Auto) 4.0 % Eosinophils (%) (Auto) 0.0 % Basophils (%) (Auto) 0.1 % Neutrophils # (Auto) 7.14 K/uL Lymphocytes # (Auto) 0.83 K/uL Monocytes # (Auto) 0.33 K/uL Eosinophils # (Auto) 0.00 K/uL Basophils # (Auto) 0.01 K/uL RDW Standard Deviation 48.1 fL 47.9 fL RDW Coefficient of Variation 14.0 % 13.9 % Immature Granulocyte % (Auto) 0.2 % Immature Granulocyte # (Auto) 0.02 K/uL Prothrombin Time 10.3 SECONDS Prothromb Time International Ratio 1.0 Activated Partial Thromboplast Time 25.7 SECONDS Partial Thromboplastin Ratio 1.0 Sodium Level 139 mmol/L 141 mmol/L Potassium Level 3.8 mmol/L 3.8 mmol/L Chloride Level 103 mmol/L 108 mmol/L Carbon Dioxide Level 27 mmol/L 27 mmol/L Anion Gap 9.0 mmol/L 6.0 mmol/L Blood Urea Nitrogen 15 mg/dl 17 mg/dl Creatinine 1.14 mg/dl 1.03 mg/dl Est Creatinine Clear Calc Drug Dose 51.6 ml/min 57.2 ml/min Estimated GFR () 58.0 65.6 Estimated GFR (Non- 50.1 56.6 BUN/Creatinine Ratio 13.4 16.7 Random Glucose 135 mg/dl 114 mg/dl Calcium Level 9.4 mg/dl 8.4 mg/dl Total Bilirubin 0.9 mg/dl 0.7 mg/dl Direct Bilirubin 0.2 mg/dl Aspartate Amino Transf (AST/SGOT) 23 U/L 18 U/L Alanine Aminotransferase (ALT/SGPT) 24 U/L 18 U/L Alkaline Phosphatase 139 U/L 105 U/L Total Creatine Kinase 229 U/L Creatine Kinase MB 4.5 ng/ml Creatine Kinase MB Ratio 2.0 Troponin I < 0.015 ng/ml Total Protein 7.7 gm/dl 6.0 gm/dl Albumin 4.0 gm/dl 3.0 gm/dl Amylase Level 5092 U/L 1925 U/L Lipase > 46632 U/L 72046 U/L Globulin 3.0 gm/dl Albumin/Globulin Ratio 1.0 Impression Patient is a 67 year old female with a hx of pancreas divisum and recurrent pancreatitis, admitted with post ERCP pancreatitis Plan Continue IV hydration. Pain medication and anti-emetics as needed. Monitor electrolytes. Keep NPO at least through today. Consider clears tomorrow. Will d/ w attending. I performed a history and physical examination of the patient. I have discussed the patient's case, impression and plan with Susanne Marquez PA-C. Her note reflects my findings and plan. NPO and hydration. If patient continues to improve, advance to liquids tomorrow. Asher Fischer MD
[2017-10-03] MEDS: LACTATED RINGER'S 1000ML 1,000 ML IV SCH ×3 (11:10→22:33)
--- NOTE | 2017-10-03 12:23 | NUR ---
Pt identified as a case find as a 30 day readmission. Spoke with Pt. Pt lives at home with her significant other, Davis. Pt is independent with ADL's. She states that Don is able to help her at home. She also has a daughter that lives locally that can help at discharge. Pt plans to return home at discharge. Case Management will follow.
--- NOTE | 2017-10-03 14:57 | Progress Note ---
Internal Med Progress Note Date of Service: Oct 03, 2017. Provider Documentation: SUBJECTIVE: Patient had ercp yesterday at [place] and on the way back home she had food when she developed severe abdominal pain and came to the ER Still has some epigastric discomfort but much better no nausea no sob afebrile OBJECTIVE: Vital Signs-as noted below Exam: General-alert and oriented. Not in distress ENT-Normal hearing Neck-no neck masses Lungs-CTA b/l no wheezing or crackles Heart-S1 and S2 heard. Regular rate and rhythm, no murmurs Abdomen-Soft Bowel sounds present Mild epigastric tenderness present no distension Extremities-no edema no erythema Neuro-alert and awake moves extremities Lab data as noted below. ASSESSMENT & PLAN: PANCREATITIS h hx recurrent pancreatitis with hx pancreatic divisum. HAD ERCP at [place] yesterday 10/02/17 and later developed abdominal pain Post procedure pancreatitis lipase> 24250 on presentation lipase 39491 today continue NPO status aggressive fluids iv pain meds and antiemetics prn GI on board. HTN on lisinopril GERD omeprazole Hyperlipidemia lipitor DVT PROPHYLAXIS heparin SQ FULL CODE DISPOSITION Monitor in med/surg Expect to d/c home and followup with PCP and GI Vital Signs: Date Time Temp Pulse Resp B/P (MAP) Pulse Ox O2 Delivery O2 Flow Rate FiO2 10/03/17 07:15 Room Air 10/03/17 06:49 36.7 63 18 126/69 (88) 96 Room Air 10/02/17 23:30 Room Air 10/02/17 23:30 Room Air 10/02/17 23:11 36.9 64 17 149/83 (105) 99 Room Air 10/02/17 22:00 76 18 153/83 95 Room Air 10/02/17 21:08 79 18 155/89 97 Room Air 10/02/17 20:40 81 10/02/17 20:00 77 18 151/75 97 Room Air 10/02/17 19:07 73 18 171/87 98 Room Air 10/02/17 18:42 36.3 73 18 176/82 99 Room Air Lab Results: Results Past 24 Hours Test 10/02/17 18:55 10/02/17 19:00 10/03/17 07:11 Range/Units Urine Color YELLOW Urine Appearance CLEAR CLEAR Urine pH 7.5 4.5-7.5 Urine Specific [place] <= 1.005 1.000-1.030 Urine Protein NEG NEG Urine Glucose (UA) NEG NEG Urine Ketones NEG NEG Urine Occult Blood 3+ NEG Urine Nitrite NEG NEG Urine Bilirubin NEG NEG Urine Urobilinogen NEG NEG Urine Leukocyte Esterase SMALL NEG Urine RBC 5-10 0-4 /hpf Urine WBC 5-10 0-5 /hpf Urine Epithelial Cells >30 0-5 /lpf Urine Bacteria 1+ NEG White Blood Count 8.33 6.66 4.8-10.8 K/uL Red Blood Count 4.68 4.17 4.2-5.4 M/uL Hemoglobin 14.3 12.5 12.0-16.0 g/dL Hematocrit 44.1 39.2 37-47 % Mean Corpuscular Volume 94.2 94.0 80-100 fL Mean Corpuscular Hemoglobin 30.6 30.0 25-34 pg Mean Corpuscular Hemoglobin Concent 32.4 31.9 32-36 g/dl Platelet Count 233 190 130-400 K/uL Mean Platelet Volume 11.1 10.4 7.4-10.4 fL Neutrophils (%) (Auto) 85.7 % Lymphocytes (%) (Auto) 10.0 % Monocytes (%) (Auto) 4.0 % Eosinophils (%) (Auto) 0.0 % Basophils (%) (Auto) 0.1 % Neutrophils # (Auto) 7.14 1.4-6.5 K/uL Lymphocytes # (Auto) 0.83 1.2-3.4 K/uL Monocytes # (Auto) 0.33 0.11-0.59 K/uL Eosinophils # (Auto) 0.00 0-0.5 K/uL Basophils # (Auto) 0.01 0-0.2 K/uL RDW Standard Deviation 48.1 47.9 36.4-46.3 fL RDW Coefficient of Variation 14.0 13.9 11.5-14.5 % Immature Granulocyte % (Auto) 0.2 % Immature Granulocyte # (Auto) 0.02 0.00-0.02 K/uL Prothrombin Time 10.3 9.0-12.0 SECONDS Prothromb Time International Ratio 1.0 0.9-1.1 Activated Partial Thromboplast Time 25.7 21.0-31.0 SECONDS Partial Thromboplastin Ratio 1.0 Sodium Level 139 141 136-145 mmol/L Potassium Level 3.8 3.8 3.5-5.1 mmol/L Chloride Level 103 108 98-107 mmol/L Carbon Dioxide Level 27 27 21-32 mmol/L Anion Gap 9.0 6.0 3-11 mmol/L Blood Urea Nitrogen 15 17 7-18 mg/dl Creatinine 1.14 1.03 0.60-1.20 mg/dl Est Creatinine Clear Calc Drug Dose 51.6 57.2 ml/min Estimated GFR () 58.0 65.6 Estimated GFR (Non- 50.1 56.6 BUN/Creatinine Ratio 13.4 16.7 10-20 Random Glucose 135 114 70-99 mg/dl Calcium Level 9.4 8.4 8.5-10.1 mg/dl Total Bilirubin 0.9 0.7 0.2-1 mg/dl Direct Bilirubin 0.2 0-0.2 mg/dl Aspartate Amino Transf (AST/SGOT) 23 18 15-37 U/L Alanine Aminotransferase (ALT/SGPT) 24 18 12-78 U/L Alkaline Phosphatase 139 105 45-117 U/L Total Creatine Kinase 229 26-192 U/L Creatine Kinase MB 4.5 0.5-3.6 ng/ml Creatine Kinase MB Ratio 2.0 0-3.0 Troponin I < 0.015 0-0.045 ng/ml Total Protein 7.7 6.0 6.4-8.2 gm/dl Albumin 4.0 3.0 3.4-5.0 gm/dl Amylase Level 5092 1925 25-115 U/L Lipase > 16632 34394 73-393 U/L Globulin 3.0 2.5-4.0 gm/dl Albumin/Globulin Ratio 1.0 0.9-2
[2017-10-03 15:26] VITALS: BP 108/72; PULSE 55; TEMP 36.7; O2SAT 97
[2017-10-03] MEDS ORDERED: NURSING VERBAL MED ORDER ONE (18:00)
[2017-10-03] MEDS: ATORVASTATIN 40 MG TAB PO SCH (21:25)
[2017-10-03 23:04] VITALS: BP 96/60; PULSE 67; TEMP 36.6; O2SAT 95
[2017-10-04] MEDS: HYDROmorphone INJ 0.5 MG/0.5 ML SYR IV PRN (03:00)
[2017-10-04] MEDS: LACTATED RINGER'S 1000ML 1,000 ML IV SCH ×4 (03:22→19:48)
[2017-10-04] MEDS: HEPARIN SOD 5000 UNIT/0.5 ML CARP SQ SCH ×3 (05:47→21:01)
[2017-10-04 07:00] VITALS: BP 133/76; PULSE 61; TEMP 36.8; O2SAT 94
[2017-10-04 07:51] VITALS: O2SAT 98
[2017-10-04 07:54] VITALS: BP 146/78; TEMP 36.6; O2SAT 98
[2017-10-04] MEDS: ASPIRIN 325 MG ECTAB PO SCH (08:30)
[2017-10-04] MEDS: PANTOprazole SOD 40 MG TAB PO SCH (08:30)
[2017-10-04] MEDS: TAMSULOSIN HCL 0.4 MG CAP PO SCH (08:30)
[2017-10-04] MEDS: LISINOPRIL 5 MG TAB PO SCH (08:30)
[2017-10-04 08:33] LABS: BASO % 0.4 %; BASO ABS # 0.02 K/uL (0-0.2); EOS % 0.7 %; EOS ABS # 0.03 K/uL (0-0.5); HEMATOCRIT 38.3 % (37-47); IG# 0.01 K/uL (0.00-0.02); LYMPH % 39.2 %; LYMPH ABS # 1.79 K/uL (1.2-3.4); MEAN CELL VOLUME 95.3 fL (80-100); MEAN CORPUSCULAR HEMOGLOBIN 29.9 pg (25-34); MEAN CORPUSCULAR HGB CONC 31.3 g/dl (32-36); MEAN PLATELET VOLUME 10.6 fL (7.4-10.4); MONO % 8.5 %; MONO ABS # 0.39 K/uL (0.11-0.59); NEUT ABS # 2.33 K/uL (1.4-6.5); PLATELET COUNT 160 K/uL (130-400); RED CELL DISTRIBUTION WIDTH CV 13.9 % (11.5-14.5); RED CELL DISTRIBUTION WIDTH SD 48.3 fL (36.4-46.3); WHITE BLOOD COUNT 4.57 K/uL (4.8-10.8)
[2017-10-04 09:12] LABS: CALCIUM 8.8 mg/dl (8.5-10.1); CREATININE 0.85 mg/dl (0.60-1.20); POTASSIUM 3.7 mmol/L (3.5-5.1)
--- NOTE | 2017-10-04 09:56 | Gastroenterology Progress Note ---
Progress Note Date of Service: Oct 04, 2017 Subjective Pt evaluation today including: conversation w/ patient, physical exam, chart review, lab review, review of studies, review of inpatient medication list Abigail is feeling better today with much less abdominal pain/nausea. She moved her bowels last night, reporting a moderate amount of loose, non-bloody stool. Labs today show a lipase improved at 1398. She is walking the halls and appears in very good spirits. Review of Systems Constitutional: No fever, No chills Eyes: No worsening of vision, No eye pain ENT: No hearing loss Respiratory: No cough, No wheezing, No shortness of breath Cardiac: No chest pain Abdomen: + see HPI Musculoskeletal: No joint pain Female : No dysuria, No urinary frequency Neuro: No problem reported Psych: No problem reported Heme: No abnormal bleeding/bruising Endo: No excessive thirst, No excessive urination Skin: No rash, No itch Medications Current Inpatient Medications Medications (Trade) Dose Ordered Sig/Alycia Route Start Time Stop Time Status Last Admin Dose Admin Heparin Sodium (Porcine) (Heparin Sq 5000 Unit/0.5ml) 5,000 unit Q8H SQ 10/03/17 06:00 11/02/17 05:59 10/04/17 05:47 5,000 UNIT Acetaminophen (Tylenol Tab) 650 mg Q4H PRN PO 10/02/17 22:00 11/01/17 21:59 10/03/17 05:11 650 MG Ondansetron HCl (Zofran Inj) 4 mg Q6H PRN IV 10/02/17 22:00 11/01/17 21:59 10/03/17 19:57 4 MG Hydromorphone HCl (Dilaudid Inj) 0.5 mg Q6 PRN IV 10/02/17 22:00 10/16/17 21:59 10/04/17 03:00 0.5 MG Aspirin (Ecotrin Tab) 325 mg DAILY PO 10/03/17 09:00 11/02/17 08:59 10/04/17 08:30 325 MG Atorvastatin Calcium (Lipitor Tab) 40 mg HS PO 10/03/17 21:00 11/02/17 20:59 10/03/17 21:25 40 MG Lisinopril (Zestril Tab) 5 mg QAM PO 10/03/17 09:00 11/02/17 08:59 10/04/17 08:30 5 MG Tamsulosin HCl (Flomax Cap) 0.4 mg QAM PO 10/03/17 09:00 11/02/17 08:59 10/04/17 08:30 0.4 MG Pantoprazole Sodium (Protonix Tab) 40 mg QAM PO 10/03/17 09:00 11/02/17 08:59 10/04/17 08:30 40 MG Lactated Ringer's 1,000 ml @ 200 mls/hr Q5H IV 10/03/17 10:45 11/02/17 10:44 10/04/17 08:31 200 MLS/HR Objective Vital Signs Date Time Temp Pulse Resp B/P (MAP) Pulse Ox O2 Delivery O2 Flow Rate FiO2 10/04/17 07:54 36.6 18 146/78 (100) 98 Room Air 10/04/17 07:51 98 Room Air 10/04/17 07:30 Room Air 10/04/17 07:00 36.8 61 16 133/76 (95) 94 Room Air 10/03/17 23:14 Room Air 10/03/17 23:04 36.6 67 16 96/60 (72) 95 Room Air 10/03/17 15:26 36.7 55 16 108/72 (84) 97 Room Air 10/03/17 15:25 Room Air Physical Exam General Appearance: no apparent distress Eyes: normal inspection ENT: hearing grossly normal Neck: supple Respiratory/Chest: lungs clear, normal breath sounds, no respiratory distress, no accessory muscle use Cardiovascular: regular rate, rhythm, no edema Abdomen: normal bowel sounds, + tenderness (very mild upper abdominal tenderness) Extremities: no pedal edema Neurologic/Psych: alert Skin: normal color, no jaundice, warm/dry Laboratory Results Last 24 Hours Test 10/04/17 07:57 White Blood Count 4.57 K/uL Red Blood Count 4.02 M/uL Hemoglobin 12.0 g/dL Hematocrit 38.3 % Mean Corpuscular Volume 95.3 fL Mean Corpuscular Hemoglobin 29.9 pg Mean Corpuscular Hemoglobin Concent 31.3 g/dl Platelet Count 160 K/uL Mean Platelet Volume 10.6 fL Neutrophils (%) (Auto) 51.0 % Lymphocytes (%) (Auto) 39.2 % Monocytes (%) (Auto) 8.5 % Eosinophils (%) (Auto) 0.7 % Basophils (%) (Auto) 0.4 % Neutrophils # (Auto) 2.33 K/uL Lymphocytes # (Auto) 1.79 K/uL Monocytes # (Auto) 0.39 K/uL Eosinophils # (Auto) 0.03 K/uL Basophils # (Auto) 0.02 K/uL RDW Standard Deviation 48.3 fL RDW Coefficient of Variation 13.9 % Immature Granulocyte % (Auto) 0.2 % Immature Granulocyte # (Auto) 0.01 K/uL Sodium Level 143 mmol/L Potassium Level 3.7 mmol/L Chloride Level 109 mmol/L Carbon Dioxide Level 27 mmol/L Anion Gap 8.0 mmol/L Blood Urea Nitrogen 11 mg/dl Creatinine 0.85 mg/dl Est Creatinine Clear Calc Drug Dose 69.3 ml/min Estimated GFR () 82.8 Estimated GFR (Non- 71.4 BUN/Creatinine Ratio 13.1 Random Glucose 75 mg/dl Calcium Level 8.8 mg/dl Magnesium Level 1.9 mg/dl Lipase 1398 U/L Assessment and Plan 67 year old female admitted with post ERCP pancreatitis. Will advance to clear liquids today and OK to advance further to low fat/low residual tomorrow if she does well on clears today. Would continue to monitor labs/electrolytes. I performed a history and physical examination of the patient. I have discussed the patient's case, impression and plan with Susanne Marquez PA-C. Her note reflects my findings and plan. Doing well. Tolerating liquid diet. I would advance to low fat breakfast tomorrow and if tolerates, send home on low fat diet. Asher Fischer MD
--- NOTE | 2017-10-04 10:49 | NUR ---
Reviewed chart. Pt is independent in the room. She plans to return home at discharge. her significant other can help her at home. No Case Management needs identified at this time. Case management will continue to follow.
[2017-10-04] MEDS: ACETAMINOPHEN 325 MG TAB PO PRN ×2 (10:56→18:16)
--- NOTE | 2017-10-04 11:31 | NUR ---
ID note: Pt. resting in bed. she ambulates in the halls independently. Medicated with Tylenol for c/o headache. She is tolerating her PO diet. She plans to go home upon discharge. Discharge possible today. Call epperson within reach.
--- NOTE | 2017-10-04 14:07 | NUR ---
Pastoral Care, initial visit. Pt appears to be a ease, expects to go home soon, did not mention a taoist affiliation or express any spiritual or taoist needs or concerns. I briefly introduced our service and wished her well.
[2017-10-04 15:13] VITALS: BP 116/71; PULSE 54; TEMP 36.5; O2SAT 97
--- NOTE | 2017-10-04 16:35 | Progress Note ---
Internal Med Progress Note Date of Service: Oct 04, 2017. Provider Documentation: SUBJECTIVE: abdominal pain improved tolerating clears afebrile no nausea ambulating fine denies any other complaints OBJECTIVE: Vital Signs-as noted below Exam: General-alert and oriented. Not in distress ENT-Normal hearing Neck-no neck masses Lungs-CTA b/l no wheezing or crackles Heart-S1 and S2 heard. Regular rate and rhythm, no murmurs Abdomen-Soft Bowel sounds present no tenderness present no distension Extremities-mild pedal edema no erythema Neuro-alert and awake moves extremities Lab data as noted below. ASSESSMENT & PLAN: PANCREATITIS h hx recurrent pancreatitis with hx pancreatic divisum. HAD ERCP at [place] yesterday 10/02/17 and later developed abdominal pain Post procedure pancreatitis lipase> 59648 on presentation lipase 1300 today improving tolerating clears iv fluids iv pain meds and antiemetics prn GI on board. plan to advance diet in am HTN on lisinopril GERD omeprazole Hyperlipidemia lipitor DVT PROPHYLAXIS heparin SQ FULL CODE DISPOSITION Monitor in med/surg Expect to d/c home and followup with PCP and GI Vital Signs: Date Time Temp Pulse Resp B/P (MAP) Pulse Ox O2 Delivery O2 Flow Rate FiO2 10/04/17 15:15 Room Air 10/04/17 15:13 36.5 54 16 116/71 (86) 97 Room Air 10/04/17 07:54 36.6 18 146/78 (100) 98 Room Air 10/04/17 07:51 98 Room Air 10/04/17 07:30 Room Air 10/04/17 07:00 36.8 61 16 133/76 (95) 94 Room Air 10/03/17 23:14 Room Air 10/03/17 23:04 36.6 67 16 96/60 (72) 95 Room Air Lab Results: Results Past 24 Hours Test 10/04/17 07:57 Range/Units White Blood Count 4.57 4.8-10.8 K/uL Red Blood Count 4.02 4.2-5.4 M/uL Hemoglobin 12.0 12.0-16.0 g/dL Hematocrit 38.3 37-47 % Mean Corpuscular Volume 95.3 80-100 fL Mean Corpuscular Hemoglobin 29.9 25-34 pg Mean Corpuscular Hemoglobin Concent 31.3 32-36 g/dl Platelet Count 160 130-400 K/uL Mean Platelet Volume 10.6 7.4-10.4 fL Neutrophils (%) (Auto) 51.0 % Lymphocytes (%) (Auto) 39.2 % Monocytes (%) (Auto) 8.5 % Eosinophils (%) (Auto) 0.7 % Basophils (%) (Auto) 0.4 % Neutrophils # (Auto) 2.33 1.4-6.5 K/uL Lymphocytes # (Auto) 1.79 1.2-3.4 K/uL Monocytes # (Auto) 0.39 0.11-0.59 K/uL Eosinophils # (Auto) 0.03 0-0.5 K/uL Basophils # (Auto) 0.02 0-0.2 K/uL RDW Standard Deviation 48.3 36.4-46.3 fL RDW Coefficient of Variation 13.9 11.5-14.5 % Immature Granulocyte % (Auto) 0.2 % Immature Granulocyte # (Auto) 0.01 0.00-0.02 K/uL Sodium Level 143 136-145 mmol/L Potassium Level 3.7 3.5-5.1 mmol/L Chloride Level 109 98-107 mmol/L Carbon Dioxide Level 27 21-32 mmol/L Anion Gap 8.0 3-11 mmol/L Blood Urea Nitrogen 11 7-18 mg/dl Creatinine 0.85 0.60-1.20 mg/dl Est Creatinine Clear Calc Drug Dose 69.3 ml/min Estimated GFR () 82.8 Estimated GFR (Non- 71.4 BUN/Creatinine Ratio 13.1 10-20 Random Glucose 75 70-99 mg/dl Calcium Level 8.8 8.5-10.1 mg/dl Magnesium Level 1.9 1.8-2.4 mg/dl Lipase 1398 73-393 U/L
[2017-10-04] MEDS: ATORVASTATIN 40 MG TAB PO SCH (20:59)
[2017-10-04 23:14] VITALS: BP 98/62; PULSE 58; TEMP 36.5; O2SAT 95
[2017-10-05] MEDS: LACTATED RINGER'S 1000ML 1,000 ML IV SCH ×2 (01:31→08:05)
[2017-10-05] MEDS: HEPARIN SOD 5000 UNIT/0.5 ML CARP SQ SCH ×2 (05:37→13:09)
[2017-10-05 06:11] LABS: BASO % 0.3 %; BASO ABS # 0.01 K/uL (0-0.2); EOS % 1.8 %; EOS ABS # 0.06 K/uL (0-0.5); HEMATOCRIT 35.4 % (37-47); HEMOGLOBIN 11.3 g/dL (12.0-16.0); IG# 0.01 K/uL (0.00-0.02); LYMPH % 37.7 %; LYMPH ABS # 1.25 K/uL (1.2-3.4); MEAN CELL VOLUME 92.9 fL (80-100); MEAN CORPUSCULAR HEMOGLOBIN 29.7 pg (25-34); MEAN CORPUSCULAR HGB CONC 31.9 g/dl (32-36); MEAN PLATELET VOLUME 10.2 fL (7.4-10.4); MONO % 11.4 %; MONO ABS # 0.38 K/uL (0.11-0.59); NEUT % 48.5 %; NEUT ABS # 1.61 K/uL (1.4-6.5); PLATELET COUNT 151 K/uL (130-400); RED CELL DISTRIBUTION WIDTH CV 13.6 % (11.5-14.5); RED CELL DISTRIBUTION WIDTH SD 46.6 fL (36.4-46.3); WHITE BLOOD COUNT 3.32 K/uL (4.8-10.8)
[2017-10-05 06:42] LABS: CALCIUM 8.7 mg/dl (8.5-10.1); CREATININE 0.83 mg/dl (0.60-1.20); POTASSIUM 3.5 mmol/L (3.5-5.1)
[2017-10-05 07:05] VITALS: BP 121/68; PULSE 57; TEMP 36.8; O2SAT 96
[2017-10-05] MEDS: TAMSULOSIN HCL 0.4 MG CAP PO SCH (08:05)
[2017-10-05] MEDS: PANTOprazole SOD 40 MG TAB PO SCH (08:05)
[2017-10-05] MEDS: ASPIRIN 325 MG ECTAB PO SCH (08:05)
[2017-10-05] MEDS: LISINOPRIL 5 MG TAB PO SCH (08:06)
--- NOTE | 2017-10-05 10:26 | NUR ---
ID NOTE: pt is alert and oriented x4. clear lung sounds on room air. vitals stable. IV fluids infusing as ordered. pt is tolerating clear liquids. PO AND IV pain meds controlling pain. ambulating independently in room with IV pole. plans for d/c are unclear at this time. pt reports wanting to return home upon discharge.
--- NOTE | 2017-10-05 15:14 | Discharge Instructions ---
Discharge Instructions Date of Service Oct 05, 2017. Admission Reason for Admission: Pancreatitis Discharge Discharge Diagnosis / Problem: pancreatitis Discharge Goals Goal(s): Decrease discomfort, Improve function Activity Recommendations Activity Limitations: resume your previous activity . Instructions / Follow-Up Instructions / Follow-Up FOLLOWUP WITH FAMILY DOCTOR IN ONE WEEK Current Hospital Diet Patient's current hospital diet: Low Fiber Diet Discharge Diet Recommended Diet: AHA Diet (Heart Healthy) Pending Studies Studies pending at discharge: no Medical Emergencies . Who to Call and When: Medical Emergencies: If at any time you feel your situation is an emergency, please call 911 immediately. . Non-Emergent Contact Non-Emergency issues call your: Primary Care Provider . . "Provider Documentation" section prepared by Khadar Dewitt. . VTE Core Measure Inpt VTE Proph given/why not?: Unfractionated heparin SQ
[2017-10-05 15:35] VITALS: BP 121/68; PULSE 57; TEMP 36.8; O2SAT 96
--- NOTE | 2017-10-05 15:54 | Progress Note ---
Internal Med Progress Note Date of Service: Oct 05, 2017. Provider Documentation: SUBJECTIVE: abdominal pain resolved tolerated soft diet no nausea wants to be discharged OBJECTIVE: Vital Signs-as noted below Exam: General-alert and oriented. Not in distress ENT-Normal hearing Neck-no neck masses Lungs-CTA b/l no wheezing or crackles Heart-S1 and S2 heard. Regular rate and rhythm, no murmurs Abdomen-Soft Bowel sounds present no tenderness present no distension Extremities-mild pedal edema no erythema Neuro-alert and awake moves extremities Lab data as noted below. ASSESSMENT & PLAN: PANCREATITIS h hx recurrent pancreatitis with hx pancreatic divisum. HAD ERCP at [place] yesterday 10/02/17 and later developed abdominal pain Post procedure pancreatitis lipase> 21752 on presentation lipase 1300 today improving tolerating clears iv fluids iv pain meds and antiemetics prn GI on board. tolerating soft diet to d/c home HTN on lisinopril GERD omeprazole Hyperlipidemia lipitor DVT PROPHYLAXIS heparin SQ FULL CODE DISPOSITION discharged home Vital Signs: Date Time Temp Pulse Resp B/P (MAP) Pulse Ox O2 Delivery O2 Flow Rate FiO2 10/05/17 15:35 36.8 57 18 96 Room Air 10/05/17 07:45 Room Air 10/05/17 07:05 36.8 57 18 121/68 (85) 96 Room Air 10/04/17 23:14 36.5 58 18 98/62 (74) 95 Room Air 10/04/17 23:10 Room Air Lab Results: Results Past 24 Hours Test 10/05/17 06:01 Range/Units White Blood Count 3.32 4.8-10.8 K/uL Red Blood Count 3.81 4.2-5.4 M/uL Hemoglobin 11.3 12.0-16.0 g/dL Hematocrit 35.4 37-47 % Mean Corpuscular Volume 92.9 80-100 fL Mean Corpuscular Hemoglobin 29.7 25-34 pg Mean Corpuscular Hemoglobin Concent 31.9 32-36 g/dl Platelet Count 151 130-400 K/uL Mean Platelet Volume 10.2 7.4-10.4 fL Neutrophils (%) (Auto) 48.5 % Lymphocytes (%) (Auto) 37.7 % Monocytes (%) (Auto) 11.4 % Eosinophils (%) (Auto) 1.8 % Basophils (%) (Auto) 0.3 % Neutrophils # (Auto) 1.61 1.4-6.5 K/uL Lymphocytes # (Auto) 1.25 1.2-3.4 K/uL Monocytes # (Auto) 0.38 0.11-0.59 K/uL Eosinophils # (Auto) 0.06 0-0.5 K/uL Basophils # (Auto) 0.01 0-0.2 K/uL RDW Standard Deviation 46.6 36.4-46.3 fL RDW Coefficient of Variation 13.6 11.5-14.5 % Immature Granulocyte % (Auto) 0.3 % Immature Granulocyte # (Auto) 0.01 0.00-0.02 K/uL Sodium Level 142 136-145 mmol/L Potassium Level 3.5 3.5-5.1 mmol/L Chloride Level 108 98-107 mmol/L Carbon Dioxide Level 26 21-32 mmol/L Anion Gap 8.0 3-11 mmol/L Blood Urea Nitrogen 8 7-18 mg/dl Creatinine 0.83 0.60-1.20 mg/dl Est Creatinine Clear Calc Drug Dose 70.9 ml/min Estimated GFR () 85.2 Estimated GFR (Non- 73.5 BUN/Creatinine Ratio 9.3 10-20 Random Glucose 89 70-99 mg/dl Calcium Level 8.7 8.5-10.1 mg/dl Magnesium Level 1.8 1.8-2.4 mg/dl Lipase 226 73-393 U/L
--- NOTE | 2017-10-05 16:05 | NUR ---
A: Patient gathered belongings. IV removed with cath tip intact. Discharge instructions discussed. Patient delivered to front entrance via wheelchair by [employer].
--- NOTE | 2017-10-05 17:53 | Discharge Summary ---
Discharge Summary Date of Service Oct 05, 2017. Discharge Summary Admission Date: Oct 02, 2017 at 22:13 Discharge Date: Oct 05, 2017 Discharge Disposition: Home Principal Diagnosis: PANCREATITIS Secondary Diagnoses/Problems: (1) Acute pancreatitis Status: Resolved (2) Carotid artery disease Status: Chronic (3) Chronic pancreatitis Status: Chronic (4) Diverticulosis Status: Chronic (5) Fatty liver Status: Chronic (6) GERD (gastroesophageal reflux disease) Status: Chronic (7) History of cholelithiasis Status: Chronic (8) HTN (hypertension) Status: Chronic (9) Hyperlipidemia Status: Chronic (10) Kidney disease, chronic, stage III (GFR 30-59 ml/min) Status: Chronic (11) Multiple sclerosis Status: Chronic (12) Pancreatic divisum Status: Chronic Procedures: CHEST/ABDOMINAL XRAY: Normal study. Consultations: GI Medication Reconciliation Continued Medications: Aspirin (Aspirin Ec) 325 Mg Tab 325 MG PO DAILY Atorvastatin (Lipitor) 40 Mg Tab 40 MG PO HS, TAB Calcium Citrate-Vitamin D (Calcium Citrate + D) 1 Tab Tab 1 TAB PO DAILY Hydrocodone/Acetaminophen 5MG/325MG ([place] 5MG/325MG) Tab 1 TABLET PO Q6H PRN for Pain, #12 TAB For Initial Treatment Lisinopril (Prinivil) 5 Mg Tab 5 MG PO QAM, TAB Melatonin (Melatonin) 5 Mg Tab 5 MG PO HS PRN for Insomnia Multivitamin (Multivitamin) Tab 1 TAB PO QAM Omeprazole (Prilosec) 20 Mg Capcr 20 MG PO QAM, CAP Polyethylene Glycol 3350 (Miralax) 1 Pow Pow 17 GM PO DAILY PRN for Constipation Tamsulosin HCl (Tamsulosin HCl) 0.4 Mg Cap 0.4 MG PO QAM Triamcinolone Acet (Aristocort 0.1%) 90 Appln/30 Gm Cr 1 APPL TOP BID PRN for RASH Admission Information HPI (per Admitting provider): Pt is 67 y/o F with PMH recurrent pancreatitis, GERD, hyperlipidemia, HTN presented to ER with c/o abdominal pain. Pt had ERCP today at [facility] by [place] Hawk and was d/c home. Pt reports no stent placed. Pt with multiple hospitalizations recently for recurrent pancreatitis with several ERCP's this year, last d/c . Hx pancreatic divisum. Pt states was feeling good after ERCP today and on way home stopped for dinner and ate some mashed potatoes and ham and then started with upper abdominal pain and nausea and dry heaves. Came to ER. Here given Zofran and fentanyl and pt reports feeling better with less abdominal pain. Had BM today and has been urinating normally. Afebrile, no leukocytosis. Lipase >67738, amylase: 4957. CXR/ABD XRAY negative. Pt reports finishing course of Macrobid for UTI. Denies fever/chills, diaphoresis, diarrhea, constipation, VERDUGO, dizziness, syncope, vision changes, neck pain, CP, SOB, orthopnea, palpitations, cough, sore throat, choking, otalgia, rhinorrhea, abdominal pain, paresthesias, weakness, extremity weakness, extremity edema, rashes, urinary symptoms. Physical Exam (per Admitting): General Appearance: WD/WN, no apparent distress Head: normocephalic, atraumatic Eyes: normal inspection, PERRL, EOMI, sclerae normal ENT: hearing grossly normal, pharynx normal, + pertinent finding (moist mucous membranes) Neck: supple, no JVD, trachea midline Respiratory/Chest: chest non-tender, lungs clear, normal breath sounds, no respiratory distress, no accessory muscle use Cardiovascular: regular rate, rhythm, no edema, no murmur, normal peripheral pulses Abdomen/GI: normal bowel sounds, soft, + tenderness (RUQ, epigastric, LUQ without rebound or guarding ) Extremities/Musculoskelatal: normal inspection, no calf tenderness, no pedal edema, normal range of motion, non-tender Neurologic/Psych: alert, normal mood/affect, oriented x 3 Skin: normal color, warm/dry, no rash Hospital Course PANCREATITIS h hx recurrent pancreatitis with hx pancreatic divisum. HAD ERCP at [place] yesterday 10/02/17 and later developed abdominal pain Post procedure pancreatitis lipase> 15820 on presentation lipase 1300 today improving tolerating clears iv fluids iv pain meds and antiemetics prn GI on board. tolerating soft diet to d/c home HTN on lisinopril GERD omeprazole Hyperlipidemia lipitor DVT PROPHYLAXIS heparin SQ FULL CODE DISPOSITION discharged home Total time spent on discharge = 35MINUTES This includes examination of the patient, discharge planning, medication reconciliation, and communication with other providers. Discharge Instructions Discharge Instructions Date of Service Oct 05, 2017. Admission Reason for Admission: Pancreatitis Discharge Discharge Diagnosis / Problem: pancreatitis Discharge Goals Goal(s): Decrease discomfort, Improve function Activity Recommendations Activity Limitations: resume your previous activity . Instructions / Follow-Up Instructions / Follow-Up FOLLOWUP WITH FAMILY DOCTOR IN ONE WEEK Current Hospital Diet Patient's current hospital diet: Low Fiber Diet Discharge Diet Recommended Diet: AHA Diet (Heart Healthy) Pending Studies Studies pending at discharge: no Medical Emergencies . Who to Call and When: Medical Emergencies: If at any time you feel your situation is an emergency, please call 911 immediately. . Non-Emergent Contact Non-Emergency issues call your: Primary Care Provider . . "Provider Documentation" section prepared by Khadar Dewitt. . VTE Core Measure Inpt VTE Proph given/why not?: Unfractionated heparin SQ
[2017-10-12] MEDS ORDERED: PRLSR20 PO (02:07)
[2017-10-12] MEDS ORDERED: TRMCR130WC TOP (02:27)
[2017-10-12] MEDS ORDERED: MELA1TAB54 PO (09:13)
[2017-10-12] MEDS ORDERED: CALC-310 PO (11:06)
[2017-10-12] MEDS ORDERED: MULT-506 PO (11:06)
[2017-10-12] MEDS ORDERED: FLM4 PO (18:14)
[2017-10-12] MEDS ORDERED: ATOR-24 PO (18:14)
[2017-10-12] MEDS ORDERED: POLY335019 PO (20:22)
[2017-10-12] MEDS ORDERED: ASPI325T39 PO (21:18)
[2017-10-12] MEDS ORDERED: CEPH500C2 PO (23:12)
[2018-06-22] MEDS ORDERED: MULT-1092 PO (15:45)
[2018-06-22] MEDS ORDERED: [UNRECOGNIZED DRUG - OTHER] PO (15:45)
[2018-06-22] MEDS ORDERED: CALC1TAB9 PO (15:45)
== END 2017-10-05 16:10 | disposition home or self-care (01) | DRG 440 ==
LOC: C.EDB 18:39 → C.MSW 22:13 → ENRESERV 22:18
PROVIDERS: ADMIT Hospitalist; ATTEND Internal Medicine
DX: K85.90 Acute pancreatitis without necrosis or infection, unspecified (principal); I12.9 Hypertensive chronic kidney disease with stage 1 through stage 4 chronic kidney disease, or unspecified chronic kidney disease; K21.9 Gastro-esophageal reflux disease without esophagitis; N18.3 Chronic kidney disease, stage 3 (moderate); E78.5 Hyperlipidemia, unspecified; Z51.81 Encounter for therapeutic drug level monitoring; Z79.899 Other long term (current) drug therapy; Z79.82 Long term (current) use of aspirin; Z87.19 Personal history of other diseases of the digestive system; Z86.69 Personal history of other diseases of the nervous system and sense organs; Z82.49 Family history of ischemic heart disease and other diseases of the circulatory system; Z80.3 Family history of malignant neoplasm of breast; Z82.0 Family history of epilepsy and other diseases of the nervous system; Y83.8 Other surgical procedures as the cause of abnormal reaction of the patient, or of later complication, without mention of misadventure at the time of the procedure

== ENCOUNTER 2017-12-18 12:18 | Emergency (ER) | payer OTHER ==
[~2017-12-18] VITALS: Ht 152.4 cm; Wt 79.7 kg
[~2017-12-18 12:18] MED LIST changes: +ASPI325T39 PO; +ATOR-24 PO; +CALC-310 PO; +CEPH500C2 PO; +FLM4 PO; +MELA1TAB54 PO; +MULT-506 PO; +POLY335019 PO; +PRLSR20 PO; +TRMCR130WC TOP
[2017-12-18 12:41] VITALS: Ht 152.4 cm; Wt 79.7 kg
[2017-12-18] MEDS ORDERED: ONDANSETRON INJ 2 MG/ML 2 ML VIAL IV STA (15:14)
[2017-12-18] MEDS ORDERED: SODIUM CHLORIDE 0.9% 1000ML 1,000 ML IV STA (15:14)
[2017-12-18] MEDS ORDERED: HYDROmorphone INJ 0.5 MG/0.5 ML SYR IV STA ×2 (15:14→17:43)
--- NOTE | 2017-12-18 15:22 | EMERGENCY ROOM VISIT NOTE ---
History First contact with patient: 15:04 Chief Complaint: ABDOMINAL PAIN Stated Complaint: STOMACH PAIN Nursing Triage Summary: Pt reports mid abd pain radiating into back. Started last night. decreased appetite, nasuea. Hx of Pancreatitis, recently admitted History of Present Illness The patient is a 67 year old female who presents to the Emergency Room via private vehicle with complaints of "abdominal pain". The patient states that she has history of pancreatitis, and notes that she has mid abdominal pain radiating around to the right side of which is classic for pancreatitis. She states that this began around 2:30 AM this morning and it is not nearly as severe as previous episodes and is hoping to catch this early. She has been nothing by mouth throughout the day and attempt to make this better. She has not taken any medications for this. She rates her current pain as a 7/10. Her last GI follow-up was as prior to . She has associated nausea but no chest pain or shortness of breath. There has been no vomiting. Review of Systems A complete 10-point Review of Systems was discussed with the patient, with pertinent positives and negatives listed in the History of Present Illness. All remaining Review of Systems questions can be considered negative unless otherwise specified. Past Medical/Surgical History Medical Problems: (1) Acute pancreatitis (2) Acute pancreatitis (3) Carotid artery disease (4) Chronic pancreatitis (5) Diverticulosis (6) Elevated liver enzymes (7) Fatty liver (8) GERD (gastroesophageal reflux disease) (9) History of cholelithiasis (10) HTN (hypertension) (11) Hyperlipidemia (12) Kidney disease, chronic, stage III (GFR 30-59 ml/min) (13) Multiple sclerosis (14) Pancreatic divisum Surgical Problems: (1) History of abdominal hernia (2) History of back surgery (3) History of ERCP (4) Hx of cholecystectomy (5) S/P bilateral breast reduction (6) S/P bladder repair (7) s/p removal of fibroid in uterus (8) S/P tubal ligation Family History FH: brain aneurysm SISTER FH: cancer MOTHER (Breast CA) SISTER (Breast CA) FH: hypertension FH: multiple sclerosis DAUGHTER Social History Smoking Status: Never Smoker Alcohol Use: none Drug Use: none Marital Status: in relationship Housing Status: lives with significant other Occupation Status: employed Current/Historical Medications Scheduled Aspirin (Aspirin Ec), 325 MG PO QPM Atorvastatin (Lipitor), 40 MG PO HS Calcium Citrate-Vitamin D (Calcium Citrate + D), 1 TAB PO DAILY Multivitamin (Multivitamin), 1 TAB PO QAM Omeprazole (Prilosec), 20 MG PO QAM Tamsulosin HCl (Tamsulosin HCl), 0.4 MG PO QAM Scheduled PRN Hydrocodone/Acetaminophen 5MG/325MG (Preston 5MG/325MG), 1 TABLET PO Q6H PRN for Pain Hydrocodone/Acetaminophen 5MG/325MG (Preston 5MG/325MG), 1-2 TABLET PO Q6 PRN for Pain Melatonin (Melatonin), 5 MG PO HS PRN for Insomnia Polyethylene Glycol 3350 (Miralax), 17 GM PO DAILY PRN for Constipation Triamcinolone Acet (Aristocort 0.1%), 1 APPL TOP BID PRN for RASH Allergies Coded Allergies: Ibuprofen (Verified Allergy, Mild, HIVES, 12/18/17) Morphine (Verified Allergy, Mild, pruritis, 12/18/17) Adhesives (Verified Allergy, Unknown, RASH, 12/18/17) Physical Exam Vital Signs Date Time Temp Pulse Resp B/P (MAP) Pulse Ox O2 Delivery O2 Flow Rate FiO2 12/18/17 19:26 12/18/17 19:00 36.6 66 18 141/87 97 Room Air 12/18/17 17:23 66 18 152/76 97 Room Air 12/18/17 16:18 70 12/18/17 15:32 Room Air 12/18/17 15:32 36.8 66 18 163/90 99 Room Air 12/18/17 12:41 36.7 83 18 173/75 98 Room Air Physical Exam VITAL SIGNS - Vital signs and nursing notes were reviewed. Stable. GENERAL - 67-year-old female appearing her stated age who is in no acute distress. Communicates well with provider and answers questions appropriately. SKIN - Without rashes. HEAD - NC/AT. EYES - Sclera anicteric. EARS - No deformities of external structures noted on gross examination bilaterally. NOSE - Midline and without cyanosis. MOUTH/OROPHARYNX - Without perioral cyanosis. LUNGS - Chest wall symmetric without accessory muscle use, intercostals retractions, or central cyanosis. Normal vesicular breath sounds CTA B/L. No wheezes, rales, or rhonchi appreciated. CARDIAC - RRR with S1/S2. No murmur, rubs, or gallops appreciated. ABDOMEN - Abdominal contour normal without pulsations or visible masses. BS normoactive all four quadrants.No tenderness. No palpable masses, hepatosplenomegaly, or ascites noted. Medical Decision & Procedures ER Provider Diagnostic Interpretation: ABDOMEN 2VIEW W/PA CHEST RTN CLINICAL HISTORY: 67 years-old Female presenting with Epigastric abd pain. TECHNIQUE: PA view of the chest and supine and upright views of the abdomen were obtained. COMPARISON: Chest x-ray from 10/12/2017 and abdominal radiograph 10/02/2017. FINDINGS: Atherosclerosis of the aortic arch. Cardiac silhouette normal in size. Lungs and pleural spaces clear. Cholecystectomy clips noted. Moderate stool burden throughout the transverse and left colon. Nonobstructive bowel gas pattern. No gross pneumoperitoneum. Allowing for bowel gas and stool, no calcifications to suggest nephrolithiasis. Dextroscoliotic curvature of the midthoracic spine and S-shaped scoliotic curvature of the lumbar spine. Osteopenia suspected. IMPRESSION: 1. No acute cardiopulmonary disease. 2. Moderate stool burden consistent with constipation. 3. No bowel obstruction or free air. 4. Scoliosis. Electronically signed by: Tommy Vargas M.D. 12/18/2017 4:31 PM Dictated Date/Time: 12/18/2017 4:29 PM BILIARY ULTRASOUND CLINICAL HISTORY: Epigastric abd pain, hx pancreatitis COMPARISON STUDY: 08/26/2017 FINDINGS: The pancreas was poorly visualized due to overlying bowel gas shadowing. There are no peripancreatic fluid collections identified.. No focal hepatic masses are visualized. There is pneumobilia. The gallbladder is surgically absent. The common bile duct measured 7 mm. There is no right-sided hydronephrosis. IMPRESSION: 1. Surgically absent gallbladder 2. Pneumobilia 3. 7 mm common bile duct 4. Suboptimal visualization of the pancreas. No peripancreatic fluid collections identified Electronically signed by: Jose Olivares M.D. 12/18/2017 6:48 PM Dictated Date/Time: 12/18/2017 6:46 PM Laboratory Results 12/18/17 15:30 Red Blood Count 4.98, Mean Corpuscular Volume 92.6, Mean Corpuscular Hemoglobin 30.5, Mean Corpuscular Hemoglobin Concent 33.0, Mean Platelet Volume 11.4, Neutrophils (%) (Auto) 60.4, Lymphocytes (%) (Auto) 31.1, Monocytes (%) (Auto) 6.8, Eosinophils (%) (Auto) 1.4, Basophils (%) (Auto) 0.3, Neutrophils # (Auto) 3.81, Lymphocytes # (Auto) 1.96, Monocytes # (Auto) 0.43, Eosinophils # (Auto) 0.09, Basophils # (Auto) 0.02 12/18/17 15:30 Test 12/18/17 15:30 12/18/17 15:39 White Blood Count 6.31 K/uL (4.8-10.8) Red Blood Count 4.98 M/uL (4.2-5.4) Hemoglobin 15.2 g/dL (12.0-16.0) Hematocrit 46.1 % (37-47) Mean Corpuscular Volume 92.6 fL (80-100) Mean Corpuscular Hemoglobin 30.5 pg (25-34) Mean Corpuscular Hemoglobin Concent 33.0 g/dl (32-36) Platelet Count 194 K/uL (130-400) Mean Platelet Volume 11.4 fL (7.4-10.4) Neutrophils (%) (Auto) 60.4 % Lymphocytes (%) (Auto) 31.1 % Monocytes (%) (Auto) 6.8 % Eosinophils (%) (Auto) 1.4 % Basophils (%) (Auto) 0.3 % Neutrophils # (Auto) 3.81 K/uL (1.4-6.5) Lymphocytes # (Auto) 1.96 K/uL (1.2-3.4) Monocytes # (Auto) 0.43 K/uL (0.11-0.59) Eosinophils # (Auto) 0.09 K/uL (0-0.5) Basophils # (Auto) 0.02 K/uL (0-0.2) RDW Standard Deviation 46.4 fL (36.4-46.3) RDW Coefficient of Variation 13.8 % (11.5-14.5) Immature Granulocyte % (Auto) 0.0 % Immature Granulocyte # (Auto) 0.00 K/uL (0.00-0.02) Anion Gap 6.0 mmol/L (3-11) Est Creatinine Clear Calc Drug Dose 45.8 ml/min Estimated GFR () 58.7 Estimated GFR (Non- 50.6 BUN/Creatinine Ratio 16.2 (10-20) Calcium Level 9.6 mg/dl (8.5-10.1) Total Bilirubin 1.3 mg/dl (0.2-1) Aspartate Amino Transf (AST/SGOT) 28 U/L (15-37) Alanine Aminotransferase (ALT/SGPT) 28 U/L (12-78) Alkaline Phosphatase 138 U/L (45-117) Troponin I < 0.015 ng/ml (0-0.045) Total Protein 8.0 gm/dl (6.4-8.2) Albumin 4.0 gm/dl (3.4-5.0) Globulin 4.0 gm/dl (2.5-4.0) Albumin/Globulin Ratio 1.0 (0.9-2) Amylase Level 58 U/L (25-115) Lipase 164 U/L (73-393) Chemistry Specimen Hemolysis Urine Color YELLOW Urine Appearance CLEAR (CLEAR) Urine pH 6.0 (4.5-7.5) Urine Specific [place] 1.012 (1.000-1.030) Urine Protein NEG (NEG) Urine Glucose (UA) NEG (NEG) Urine Ketones NEG (NEG) Urine Occult Blood 2+ (NEG) Urine Nitrite NEG (NEG) Urine Bilirubin NEG (NEG) Urine Urobilinogen NEG (NEG) Urine Leukocyte Esterase NEG (NEG) Urine WBC (Auto) 1-5 /hpf (0-5) Urine RBC (Auto) 10-30 /hpf (0-4) Urine Hyaline Casts (Auto) 0 /lpf (0-5) Urine Epithelial Cells (Auto) 5-10 /lpf (0-5) Urine Bacteria (Auto) NEG (NEG) Medications Administered Medications (Trade) Dose Ordered Sig/Alycia Route Start Time Stop Time Status Last Admin Dose Admin Sodium Chloride 1,000 ml @ 999 mls/hr Q1H1M STAT IV 12/18/17 15:14 12/18/17 16:14 DC 12/18/17 15:37 999 MLS/HR Hydromorphone HCl (Dilaudid Inj) 0.5 mg NOW STAT IV 12/18/17 15:14 12/18/17 15:23 DC 12/18/17 15:49 0.5 MG Ondansetron HCl (Zofran Inj) 4 mg NOW STAT IV 12/18/17 15:14 12/18/17 15:23 DC 12/18/17 15:49 4 MG Hydromorphone HCl (Dilaudid Inj) 0.5 mg NOW STAT IV 12/18/17 17:43 12/18/17 17:46 DC 12/18/17 17:57 0.5 MG Medical Decision Patient was seen and evaluated as above. She presents to us today with epigastric abdominal pain she notes this is exactly how her pancreatitis feels but notes the pain is much less than what it usually feels like. She is concerned that she could be developing pancreatitis therefore like to be evaluated to hopefully keep this from becoming a large pain/problem. She notes recent ERCP performed in the fall, and has been doing well. She states that her current pain as a 7/10. IV access was initiated, and the above workup was performed. She was given Dilaudid for pain. As well as Zofran for nausea and hydrated with normal saline. She was nothing by mouth. CBC reveals no concerning leukocytosis or anemia. Metabolic panel reveals no evidence of kidney or liver failure emergently. Troponin negative. Bilirubin 1.3. Alkaline phosphatase high at 138. Urine 2+ occult blood, otherwise no concerning findings. Plain view of the chest and abdomen no acute process. Ultrasound was obtained and does reveal pneumobilia and 7 mm common bile duct. I find these to be nonemergent findings. Pneumobilia likely from the ERCP that was performed in the fall. She appears stable from patient management. She'll be given Preston for pain. No red flag identified and the [place] drug monitoring system. Case was discussed with the attending physician. Patient was happy throughout her stay, and was thoroughly invited back for any new/ concerning symptoms. She was educated upon management, educated upon worrisome symptoms which to return, had questions answered prior to discharge, and was discharged home in good condition. I suspect she is likely experiencing either a mild gastritis, or perhaps stool given the finding on the x-ray. In evaluation and treatment of this patient following differential diagnoses were entertained: Pancreatitis, cholecystitis, ascending cholangitis, biliary colic, RI, among others. Impression Primary Impression: Abdominal pain Departure Information Dispostion Home / Self-Care Condition GOOD Prescriptions Hydrocodone/Acetaminophen 5MG/325MG (Preston 5MG/325MG) Tab 1-2 TABLET PO Q6 Y for Pain, #15 TAB For Initial Treatment Prov: Earle Cooper PA-C 12/18/17 Referrals Indy Diop D.O. (PCP) Patient Instructions My [facility] Additional Instructions You have been treated in the Emergency Department your Abdominal Pain. Laboratory results and imaging studies have ruled out any emergent causes for your abdominal pain which would warrant admission or surgery. You have been prescribed NORCO to be used for pain control. This is a narcotic medication. You cannot drive or consume alcohol while on this medicine. This medicine should only be used for pain that cannot be controlled with over-the- counter pain medicines. PLEASE NO TYLENOL WITH THIS!! For pain control, you can use the following [id number] medicines (if >12 yo): - Regular strength (325mg/tab) Tylenol (acetaminophen) 2 tabs every 4-6 hours as needed. Do not exceed 12 tablets in a 24 hour period. Avoid taking more than 3 grams (3000 mg) of Tylenol per day. This includes any other sources of acetaminophen you may take on a regular basis. - Regular strength (200 mg/tab) Advil (ibuprofen) 1-2 tabs every 4-6 hours as needed. Do not exceed a dose of 3200 mg per day. Drink plenty of water and stay well hydrated. As with any trip to the Emergency Department, you should follow-up with your Primary Care Provider from today's visit. Return to the emergency department if your symptoms persist despite treatment plan outlined above or if the following symptoms occur: increased fevers, chills , worsening nausea/vomiting, blood in your stool or urine.
[2017-12-18 15:47] LABS: BASO % 0.3 %; BASO ABS # 0.02 K/uL (0-0.2); EOS % 1.4 %; EOS ABS # 0.09 K/uL (0-0.5); HEMATOCRIT 46.1 % (37-47); HEMOGLOBIN 15.2 g/dL (12.0-16.0); LYMPH % 31.1 %; LYMPH ABS # 1.96 K/uL (1.2-3.4); MEAN CELL VOLUME 92.6 fL (80-100); MEAN CORPUSCULAR HEMOGLOBIN 30.5 pg (25-34); MEAN PLATELET VOLUME 11.4 fL (7.4-10.4); MONO % 6.8 %; MONO ABS # 0.43 K/uL (0.11-0.59); NEUT % 60.4 %; NEUT ABS # 3.81 K/uL (1.4-6.5); PLATELET COUNT 194 K/uL (130-400); RED CELL DISTRIBUTION WIDTH CV 13.8 % (11.5-14.5); RED CELL DISTRIBUTION WIDTH SD 46.4 fL (36.4-46.3); WHITE BLOOD COUNT 6.31 K/uL (4.8-10.8)
[2017-12-18 16:31] LABS: ALKALINE PHOSPHATASE 138 U/L (45-117); ALT/SGPT 28 U/L (12-78); AST/SGOT 28 U/L (15-37); BLOOD UREA NITROGEN 18 mg/dl (7-18); CALCIUM 9.6 mg/dl (8.5-10.1); CARBON DIOXIDE 28 mmol/L (21-32); CREATININE 1.13 mg/dl (0.60-1.20); GLUCOSE 95 mg/dl (70-99); LIPASE 164 U/L (73-393); POTASSIUM 3.9 mmol/L (3.5-5.1); SODIUM 139 mmol/L (136-145)
--- NOTE | 2017-12-18 16:32 | DIAGNOSTIC IMAGING REPORT ---
ABDOMEN 2VIEW W/PA CHEST RTN CLINICAL HISTORY: 67 years-old Female presenting with Epigastric abd pain. TECHNIQUE: PA view of the chest and supine and upright views of the abdomen were obtained. COMPARISON: Chest x-ray from 10/12/2017 and abdominal radiograph 10/02/2017. FINDINGS: Atherosclerosis of the aortic arch. Cardiac silhouette normal in size. Lungs and pleural spaces clear. Cholecystectomy clips noted. Moderate stool burden throughout the transverse and left colon. Nonobstructive bowel gas pattern. No gross pneumoperitoneum. Allowing for bowel gas and stool, no calcifications to suggest nephrolithiasis. Dextroscoliotic curvature of the midthoracic spine and S-shaped scoliotic curvature of the lumbar spine. Osteopenia suspected. IMPRESSION: 1. No acute cardiopulmonary disease. 2. Moderate stool burden consistent with constipation. 3. No bowel obstruction or free air. 4. Scoliosis. Electronically signed by: Tommy Vargas M.D. 12/18/2017 4:31 PM Dictated Date/Time: 12/18/2017 4:29 PM
--- NOTE | 2017-12-18 18:49 | DIAGNOSTIC IMAGING REPORT ---
BILIARY ULTRASOUND CLINICAL HISTORY: Epigastric abd pain, hx pancreatitis COMPARISON STUDY: 08/26/2017 FINDINGS: The pancreas was poorly visualized due to overlying bowel gas shadowing. There are no peripancreatic fluid collections identified.. No focal hepatic masses are visualized. There is pneumobilia. The gallbladder is surgically absent. The common bile duct measured 7 mm. There is no right-sided hydronephrosis. IMPRESSION: 1. Surgically absent gallbladder 2. Pneumobilia 3. 7 mm common bile duct 4. Suboptimal visualization of the pancreas. No peripancreatic fluid collections identified Electronically signed by: Jose Olivares M.D. 12/18/2017 6:48 PM Dictated Date/Time: 12/18/2017 6:46 PM
[2017-12-18 19:00] VITALS: BP 141/87; PULSE 66; TEMP 36.6; O2SAT 97
[2017-12-18] MEDS ORDERED: HYDR-5688 PO (19:11)
== END 2017-12-18 19:27 | disposition home or self-care (01) ==
LOC: C.EDB 12:21
DX: R10.9 Unspecified abdominal pain (principal); I12.9 Hypertensive chronic kidney disease with stage 1 through stage 4 chronic kidney disease, or unspecified chronic kidney disease; E78.5 Hyperlipidemia, unspecified; K21.9 Gastro-esophageal reflux disease without esophagitis; N18.3 Chronic kidney disease, stage 3 (moderate); G35 Multiple sclerosis; Z90.49 Acquired absence of other specified parts of digestive tract; Z98.51 Tubal ligation status; Z98.890 Other specified postprocedural states; Z82.49 Family history of ischemic heart disease and other diseases of the circulatory system; Z82.0 Family history of epilepsy and other diseases of the nervous system; Z80.3 Family history of malignant neoplasm of breast; Z79.82 Long term (current) use of aspirin; Z79.899 Other long term (current) drug therapy

== ENCOUNTER 2018-01-13 11:29 | Emergency (ER) | payer OTHER ==
[~2018-01-13] VITALS: Ht 167.6 cm; Wt 78.5 kg
[~2018-01-13 11:29] MED LIST changes: -CEPH500C2 PO; -LISI-729 PO
[2018-01-13 11:36] VITALS: TEMP 36.4; Ht 167.6 cm; Wt 78.5 kg
[2018-01-13] MEDS ORDERED: SODIUM CHLORIDE 0.9% 1000ML 1,000 ML IV STA (12:04)
[2018-01-13] MEDS ORDERED: SODIUM CHLORIDE 0.9% 500ML 500 ML IV STA (12:04)
--- NOTE | 2018-01-13 12:09 | EMERGENCY ROOM VISIT NOTE ---
History Report prepared by [place]: Ira Oshea Under the Supervision of: Dr. Rosalba Dumas M.D. First contact with patient: 11:59 Chief Complaint: ABDOMINAL PAIN Stated Complaint: PAIN IN STOMACH Nursing Triage Summary: Pt states "I've been having some sharp pain in my chest - pointing to epigastric area-. I had a hernia operation once. I've had two episodes, one about 6 weeks ago and one last week. It's a little painful. I had to gasp for my breath." Denies pain at present. Denies n/v with episodes. History of Present Illness The patient is a 67 year old female who presents to the Emergency Room with complaints of intermittent abdominal pain for the past 6 weeks. She states the episodes of pain are "sharp" in nature and located in the same area as her upper abdomen, where she previously experienced a hiatal hernia. About a week ago, she experienced the pain again and states "it took my breath away", so she came to the ED today, the first day she was off work after the episode. Pt denies any symptoms currently. The patient admits she has not been eating and drinking as much as normal. The last time she ate was last night when she had a glass of milk and ate "a couple neymar snaps". She denies any recent nausea or vomiting. The patient reports she was in the hospital 4 times last year for pancreatitis. Her automation technologist is Dr. Jac Cai with [facility]. She has undergone a cholecystectomy previously. Source of History: patient Onset: 6 weeks [employer] Position: abdomen Quality: sharp Timing: intermittent Associated Symptoms: No nausea, No vomiting Review of Systems See HPI for pertinent positives & negatives. A total of 10 systems reviewed and were otherwise negative. Past Medical & Surgical Medical Problems: (1) Acute pancreatitis (2) Acute pancreatitis (3) Carotid artery disease (4) Chronic pancreatitis (5) Diverticulosis (6) Elevated liver enzymes (7) Fatty liver (8) GERD (gastroesophageal reflux disease) (9) History of cholelithiasis (10) HTN (hypertension) (11) Hyperlipidemia (12) Kidney disease, chronic, stage III (GFR 30-59 ml/min) (13) Multiple sclerosis (14) Pancreatic divisum Surgical Problems: (1) History of abdominal hernia (2) History of back surgery (3) History of ERCP (4) Hx of cholecystectomy (5) S/P bilateral breast reduction (6) S/P bladder repair (7) s/p removal of fibroid in uterus (8) S/P tubal ligation Family History FH: brain aneurysm SISTER FH: cancer MOTHER (Breast CA) SISTER (Breast CA) FH: hypertension FH: multiple sclerosis DAUGHTER Social History Smoking Status: Never Smoker Alcohol Use: none Drug Use: none Marital Status: in relationship Housing Status: lives with significant other Occupation Status: employed Current/Historical Medications Scheduled Aspirin (Aspirin Ec), 325 MG PO QPM Atorvastatin (Lipitor), 40 MG PO HS Calcium Citrate-Vitamin D (Calcium Citrate + D), 1 TAB PO QAM Ciprofloxacin Tab (Cipro), 250 MG PO BID Multivitamin (Multivitamin), 1 TAB PO QAM Omeprazole (Prilosec), 20 MG PO QAM Tamsulosin HCl (Tamsulosin HCl), 0.4 MG PO HS Scheduled PRN Hydrocodone/Acetaminophen 5MG/325MG ([place] 5MG/325MG), 1-2 TABLET PO Q6H PRN for Pain Melatonin (Melatonin), 5 MG PO HS PRN for Insomnia Polyethylene Glycol 3350 (Miralax), 17 GM PO DAILY PRN for Constipation Triamcinolone Acet (Aristocort 0.1%), 1 APPL TOP BID PRN for RASH Allergies Coded Allergies: Ibuprofen (Verified Allergy, Mild, HIVES, 01/13/18) Morphine (Verified Allergy, Mild, pruritis, 01/13/18) Adhesives (Verified Allergy, Unknown, RASH, 01/13/18) Physical Exam Vital Signs Date Time Temp Pulse Resp B/P (MAP) Pulse Ox O2 Delivery O2 Flow Rate FiO2 01/13/18 15:06 68 18 153/69 100 01/13/18 13:51 66 18 167/73 98 Room Air 01/13/18 13:01 65 01/13/18 12:12 78 18 179/78 96 Room Air 01/13/18 11:36 36.4 74 18 98 Room Air Physical Exam Vital signs reviewed. General: Well-appearing 67 year old female, in no significant distress. HEENT: No scleral icterus, PERRLA, neck supple. Atraumatic. Cardiovascular: Regular rate and rhythm, no extra sounds. Pulmonary: Clear to auscultation bilaterally, normal work of breathing. Abdomen: Soft, mild epigastric tenderness on exam, no rebound, minimal guarding , nondistended, positive bowel sounds. Musculoskeletal: Atraumatic, no peripheral edema. No CVA tenderness. Neurologic: Patient awake alert and oriented x 3 Skin: Warm, dry, no rash Medical Decision & Procedures ER Provider Diagnostic Interpretation: Radiology results as stated below per my review and radiologist interpretation: ABDOMEN LIMITED (US) CLINICAL HISTORY: 67 years-old Female presenting with pancreatitis. TECHNIQUE: Real-time grayscale and limited color Doppler ultrasound imaging of the abdomen limited to the right upper quadrant was performed. COMPARISON: Ultrasound from 12/18/[address] from 09/11/2017. FINDINGS: Pancreas: Largely obscured due to overlying bowel gas. Liver: Hyperechogenic parenchyma with heterogeneous echotexture, likely indicating fibrosis or steatosis. The liver measures 13.6 cm in maximal sagittal dimension. No sonographic evidence of hepatic mass. Main portal vein patent with normal directional flow. Biliary: No intrahepatic biliary ductal dilatation. Pneumobilia noted. Common bile duct measures up to 5 mm in diameter. Gallbladder: Surgically absent. Right kidney: Normal in appearance. No hydronephrosis. Ascites: None. IMPRESSION: Nonvisualization of pancreas secondary to bowel gas. No biliary ductal dilatation. Chronic pneumobilia. Electronically signed by: Tommy Vargas M.D. 01/13/2018 1:42 PM Laboratory Results 01/13/18 12:00 Red Blood Count 4.83, Mean Corpuscular Volume 91.3, Mean Corpuscular Hemoglobin 29.6, Mean Corpuscular Hemoglobin Concent 32.4, Mean Platelet Volume 11.1, Neutrophils (%) (Auto) 60.1, Lymphocytes (%) (Auto) 27.1, Monocytes (%) (Auto) 10.5, Eosinophils (%) (Auto) 1.7, Basophils (%) (Auto) 0.4, Neutrophils # (Auto ) 3.22, Lymphocytes # (Auto) 1.45, Monocytes # (Auto) 0.56, Eosinophils # (Auto ) 0.09, Basophils # (Auto) 0.02 01/13/18 12:00 Test 01/13/18 12:00 White Blood Count 5.35 K/uL (4.8-10.8) Red Blood Count 4.83 M/uL (4.2-5.4) Hemoglobin 14.3 g/dL (12.0-16.0) Hematocrit 44.1 % (37-47) Mean Corpuscular Volume 91.3 fL (80-100) Mean Corpuscular Hemoglobin 29.6 pg (25-34) Mean Corpuscular Hemoglobin Concent 32.4 g/dl (32-36) Platelet Count 209 K/uL (130-400) Mean Platelet Volume 11.1 fL (7.4-10.4) Neutrophils (%) (Auto) 60.1 % Lymphocytes (%) (Auto) 27.1 % Monocytes (%) (Auto) 10.5 % Eosinophils (%) (Auto) 1.7 % Basophils (%) (Auto) 0.4 % Neutrophils # (Auto) 3.22 K/uL (1.4-6.5) Lymphocytes # (Auto) 1.45 K/uL (1.2-3.4) Monocytes # (Auto) 0.56 K/uL (0.11-0.59) Eosinophils # (Auto) 0.09 K/uL (0-0.5) Basophils # (Auto) 0.02 K/uL (0-0.2) RDW Standard Deviation 46.3 fL (36.4-46.3) RDW Coefficient of Variation 13.7 % (11.5-14.5) Immature Granulocyte % (Auto) 0.2 % Immature Granulocyte # (Auto) 0.01 K/uL (0.00-0.02) Urine Color YELLOW Urine Appearance CLEAR (CLEAR) Urine pH 5.5 (4.5-7.5) Urine Specific [place] 1.018 (1.000-1.030) Urine Protein NEG (NEG) Urine Glucose (UA) NEG (NEG) Urine Ketones NEG (NEG) Urine Occult Blood 3+ (NEG) Urine Nitrite NEG (NEG) Urine Bilirubin NEG (NEG) Urine Urobilinogen NEG (NEG) Urine Leukocyte Esterase MODERATE (NEG) Urine WBC (Auto) 5-10 /hpf (0-5) Urine RBC (Auto) 5-10 /hpf (0-4) Urine Hyaline Casts (Auto) 1-5 /lpf (0-5) Urine Epithelial Cells (Auto) >30 /lpf (0-5) Urine Bacteria (Auto) NEG (NEG) Urine Crystals AMORPHOUS SEDIMENT (NONE Anion Gap 7.0 mmol/L (3-11) Est Creatinine Clear Calc Drug Dose 53.2 ml/min Estimated GFR () 60.6 Estimated GFR (Non- 52.3 BUN/Creatinine Ratio 17.2 (10-20) Calcium Level 9.0 mg/dl (8.5-10.1) Total Bilirubin 1.3 mg/dl (0.2-1) Direct Bilirubin 0.3 mg/dl (0-0.2) Aspartate Amino Transf (AST/SGOT) 21 U/L (15-37) Alanine Aminotransferase (ALT/SGPT) 24 U/L (12-78) Alkaline Phosphatase 134 U/L (45-117) Total Protein 7.2 gm/dl (6.4-8.2) Albumin 3.5 gm/dl (3.4-5.0) Lipase 146 U/L (73-393) Laboratory results per my review. Medications Administered Medications (Trade) Dose Ordered Sig/Alycia Route Start Time Stop Time Status Last Admin Dose Admin Sodium Chloride 500 ml @ 999 mls/hr Q31M STAT IV 01/13/18 12:04 01/13/18 12:34 DC 01/13/18 12:04 999 MLS/HR Sodium Chloride 1,000 ml @ 125 mls/hr Q8H STAT IV 01/13/18 12:04 01/13/18 15:51 DC 01/13/18 13:52 125 MLS/HR Ciprofloxacin (Cipro Tab) 250 mg NOW STAT PO 01/13/18 14:30 01/13/18 14:31 DC 01/13/18 15:02 250 MG ED Course 1203: Past medical records reviewed. The patient was evaluated in room C2. A complete history and physical examination was performed. 1204: NSS 1000 ml @ 125 mls/hr IV, NSS 500 ml @ 125 mls/hr IV. 1430: Cipro 250 mg PO. 1435: I reevaluated the patient. She is feeling well and resting comfortably. I discussed her results and discharge instructions and she verbalized complete understanding and agreement. Medical Decision Abdominal Pain: Etiologies such as appendicitis, diverticulitis, PUD, biliary pathology, UTI, pancreatitis, obstruction, mesenteric ischemia, aortic pathology, infections, inflammatory bowel disease, renal colic, as well as others were entertained. This pt was evaluated and appeared to be in no distress. Pt was not experiencing any symptoms at the time of evaluation. Records indicate a significant h/o pancreatitis. Lab work is fairly unrevealing. US is read as "nonvisualization of pancreas secondary to bowel gas. No biliary ductal dilatation. Chronic pneumobilia." I do not suspect an acute issue. UA is likely contaminated, but questionable for infection. Pt was tx with cipro 250 mg po and given a Rx for 3 days. She was encouraged to f/u with GI and PCP for further management. Pt will return to the ED for worsening of symptoms or any medical concerns. Medication Reconcilliation Current Medication List: was personally reviewed by me Blood Pressure Screening Patient's blood pressure: Elevated blood pressure Blood pressure disposition: Referred to PCP Impression Primary Impression: UTI (urinary tract infection) Scribe Attestation The scribe's documentation has been prepared under my direction and personally reviewed by me in its entirety. I confirm that the note above accurately reflects all work, treatment, procedures, and medical decision making performed by me. Departure Information Dispostion Home / Self-Care Prescriptions Ciprofloxacin Tab (Cipro) 250 Mg Tab 250 MG PO BID for 3 Days, #6 TAB Prov: Rosalba Dumas M.D. 01/13/18 Referrals Indy Diop D.O. (PCP) Patient Instructions My [facility] Additional Instructions Diagnosis: UTI Please follow-up with your primary care physician this week for reevaluation. You should have your blood pressure rechecked. Cipro 250 mg twice daily for 3 days. Drink plenty of clear fluids. Return to the emergency department for worsening of symptoms or any medical concerns.
[2018-01-13 12:18] LABS: BASO % 0.4 %; BASO ABS # 0.02 K/uL (0-0.2); EOS % 1.7 %; EOS ABS # 0.09 K/uL (0-0.5); HEMATOCRIT 44.1 % (37-47); HEMOGLOBIN 14.3 g/dL (12.0-16.0); IG# 0.01 K/uL (0.00-0.02); LYMPH % 27.1 %; LYMPH ABS # 1.45 K/uL (1.2-3.4); MEAN CELL VOLUME 91.3 fL (80-100); MEAN CORPUSCULAR HEMOGLOBIN 29.6 pg (25-34); MEAN CORPUSCULAR HGB CONC 32.4 g/dl (32-36); MEAN PLATELET VOLUME 11.1 fL (7.4-10.4); MONO % 10.5 %; MONO ABS # 0.56 K/uL (0.11-0.59); NEUT % 60.1 %; NEUT ABS # 3.22 K/uL (1.4-6.5); PLATELET COUNT 209 K/uL (130-400); RED CELL DISTRIBUTION WIDTH CV 13.7 % (11.5-14.5); RED CELL DISTRIBUTION WIDTH SD 46.3 fL (36.4-46.3); WHITE BLOOD COUNT 5.35 K/uL (4.8-10.8)
[2018-01-13 12:25] LABS: ALBUMIN 3.5 gm/dl (3.4-5.0); CREATININE 1.1 mg/dl (0.60-1.20); POTASSIUM 3.7 mmol/L (3.5-5.1)
[2018-01-13 12:29] LABS: TOTAL PROTEIN 7.2 gm/dl (6.4-8.2)
[2018-01-13] MEDS ORDERED: HYDR-5688 PO (12:31)
--- NOTE | 2018-01-13 13:43 | DIAGNOSTIC IMAGING REPORT ---
ABDOMEN LIMITED (US) CLINICAL HISTORY: 67 years-old Female presenting with pancreatitis. TECHNIQUE: Real-time grayscale and limited color Doppler ultrasound imaging of the abdomen limited to the right upper quadrant was performed. COMPARISON: Ultrasound from 12/18/[address] from 09/11/2017. FINDINGS: Pancreas: Largely obscured due to overlying bowel gas. Liver: Hyperechogenic parenchyma with heterogeneous echotexture, likely indicating fibrosis or steatosis. The liver measures 13.6 cm in maximal sagittal dimension. No sonographic evidence of hepatic mass. Main portal vein patent with normal directional flow. Biliary: No intrahepatic biliary ductal dilatation. Pneumobilia noted. Common bile duct measures up to 5 mm in diameter. Gallbladder: Surgically absent. Right kidney: Normal in appearance. No hydronephrosis. Ascites: None. IMPRESSION: Nonvisualization of pancreas secondary to bowel gas. No biliary ductal dilatation. Chronic pneumobilia. Electronically signed by: Tommy Vargas M.D. 01/13/2018 1:42 PM Dictated Date/Time: 01/13/2018 1:40 PM
[2018-01-13] MEDS ORDERED: CIPROFLOXACIN 500 MG TAB PO STA (14:30)
[2018-01-13] MEDS ORDERED: CIPR1TAB11 PO (14:40)
[2018-01-13 15:06] VITALS: BP 153/69; PULSE 68; O2SAT 100
== END 2018-01-13 15:07 | disposition home or self-care (01) ==
LOC: C.EDB 11:30 → C.EDC 15:07
DX: N39.0 Urinary tract infection, site not specified (principal); K83.8 Other specified diseases of biliary tract; Z87.19 Personal history of other diseases of the digestive system; K57.90 Diverticulosis of intestine, part unspecified, without perforation or abscess without bleeding; K76.0 Fatty (change of) liver, not elsewhere classified; K21.9 Gastro-esophageal reflux disease without esophagitis; I12.9 Hypertensive chronic kidney disease with stage 1 through stage 4 chronic kidney disease, or unspecified chronic kidney disease; E78.5 Hyperlipidemia, unspecified; N18.3 Chronic kidney disease, stage 3 (moderate); G35 Multiple sclerosis; Z79.82 Long term (current) use of aspirin; Z88.6 Allergy status to analgesic agent; Z91.048 Other nonmedicinal substance allergy status; Z82.49 Family history of ischemic heart disease and other diseases of the circulatory system; Z80.3 Family history of malignant neoplasm of breast; Z82.0 Family history of epilepsy and other diseases of the nervous system

== ENCOUNTER 2018-01-28 13:18 | Emergency (ER) | payer OTHER ==
[~2018-01-28] VITALS: Ht 152.4 cm; Wt 79.4 kg
[2018-01-28 13:26] VITALS: TEMP 36.4; Ht 152.4 cm; Wt 79.4 kg
[2018-01-28] MEDS ORDERED: SODIUM CHLORIDE 0.9% 1000ML 1,000 ML IV STA ×2 (13:39→17:26)
[2018-01-28] MEDS ORDERED: ACETAMINOPHEN 500 MG TAB PO STA (13:39)
--- NOTE | 2018-01-28 13:49 | EMERGENCY ROOM VISIT NOTE ---
History Report prepared by Sonia: Florentino Hamilton Under the Supervision of: Dr. Armaan Hicks M.D. First contact with patient: 13:37 Chief Complaint: ABDOMINAL PAIN Stated Complaint: STOMACH PAIN Nursing Triage Summary: pt reports brian around belly button. feels like she is starving but when she eats feels full after 2-3 bittes. has been intermittent pain for last 3 weeks. has lump at umbilicus. denies any n//v/d History of Present Illness The patient is a 67 year old female who presents to the Emergency Room with complaints of intermittent abdominal pain that began a couple of weeks ago. Patient states that the pain is located near her belly button. She states that the pain became "severe" this morning when she woke up. She describes the pain as a 6-7/10 in severity. She states that the pain is worsened when she sits. She states that some of the painful episodes are "so bad that she has to gasp for air". Patient adds that she has a distended stomach. She states that she had a normal bowel movement this morning that did not cause her to strain. She adds that she feels hungry but eats a couple of bites of food and is full. Patient denies nausea, vomiting, diarrhea, fevers, chills, and congestion. Patient adds that she was diagnosed with pancreatitis in September. She states the pancreatitis was believed to be caused by medication she was taking. She states that her current symptoms feel different than when she had pancreatitis. Patient states that she has had "abdominal pain all the time" since being admitted in September for pancreatitis. She states that her abdominal pain is worse than her last 2 ER visits. Patient states that she took Tylenol for her pain last night and nothing today. Patient states that she gets a rash with ibuprofen. Pertinent past surgical history includes a cholecystectomy. 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 Cai. Source of History: patient Onset: Couple of weeks ago Position: abdomen (Belly button) Symptom Intensity: 6-7/10 Timing: intermittent Modifying Factors (Worsening): other (Sitting) Modifying Factors (Relieving): other (None) Associated Symptoms: No fevers, No chills, No nausea, No vomiting, No diarrhea Note: Patient has a distended stomach. She denies congestion. Review of Systems See HPI for pertinent positives and negatives. A total of ten systems were reviewed and were otherwise negative. Past Medical & Surgical Medical Problems: (1) Acute pancreatitis (2) Acute pancreatitis (3) Carotid artery disease (4) Chronic pancreatitis (5) Diverticulosis (6) Elevated liver enzymes (7) Fatty liver (8) GERD (gastroesophageal reflux disease) (9) History of cholelithiasis (10) HTN (hypertension) (11) Hyperlipidemia (12) Kidney disease, chronic, stage III (GFR 30-59 ml/min) (13) Multiple sclerosis (14) Pancreatic divisum Surgical Problems: (1) History of abdominal hernia (2) History of back surgery (3) History of ERCP (4) Hx of cholecystectomy (5) S/P bilateral breast reduction (6) S/P bladder repair (7) s/p removal of fibroid in uterus (8) S/P tubal ligation Family History FH: brain aneurysm SISTER FH: cancer MOTHER (Breast CA) SISTER (Breast CA) FH: hypertension FH: multiple sclerosis DAUGHTER Social History Smoking Status: Never Smoker Alcohol Use: none Drug Use: none Marital Status: in relationship Housing Status: lives with significant other Occupation Status: employed Current/Historical Medications Scheduled Aspirin (Aspirin Ec), 325 MG PO QPM Atorvastatin (Lipitor), 40 MG PO HS Calcium Citrate-Vitamin D (Calcium Citrate + D), 1 TAB PO QAM Ciprofloxacin (Ciprofloxacin HCl), 1 TAB PO BID Metronidazole (Flagyl), 500 MG PO TID Multivitamin (Multivitamin), 1 TAB PO QAM Omeprazole (Prilosec), 20 MG PO QAM Saccharomyces Boulardii (Florastor), 1 CAP PO BID Tamsulosin HCl (Tamsulosin HCl), 0.4 MG PO HS Scheduled PRN Hydrocodone/Acetaminophen 5MG/325MG ([place] 5MG/325MG), 1-2 TABLET PO Q6H PRN for Pain Melatonin (Melatonin), 5 MG PO HS PRN for Insomnia Polyethylene Glycol 3350 (Miralax), 17 GM PO DAILY PRN for Constipation Triamcinolone Acet (Aristocort 0.1%), 1 APPL TOP BID PRN for RASH Allergies Coded Allergies: Ibuprofen (Verified Allergy, Mild, HIVES, 01/13/18) Morphine (Verified Allergy, Mild, pruritis, 01/13/18) Adhesives (Verified Allergy, Unknown, RASH, 01/13/18) Physical Exam Vital Signs Date Time Temp Pulse Resp B/P (MAP) Pulse Ox O2 Delivery O2 Flow Rate FiO2 01/28/18 19:04 64 20 158/71 98 Room Air 01/28/18 18:38 63 16 148/67 96 Room Air 01/28/18 17:33 70 16 144/70 97 Room Air 01/28/18 16:07 77 16 164/72 96 Room Air 01/28/18 15:08 84 16 138/65 96 Room Air 01/28/18 14:13 84 01/28/18 13:26 36.4 87 18 183/91 97 Room Air Physical Exam GENERAL: Awake, alert, well-appearing, in no distress HENT: Normocephalic, atraumatic. Oropharynx unremarkable. Dry mucous membranes. EYES: Normal conjunctiva. Sclera non-icteric. NECK: Supple. No nuchal rigidity. FROM. No JVD. RESPIRATORY: Clear to auscultation. CARDIAC: Regular rate, normal rhythm. Extremities warm and well perfused. Pulses equal. ABDOMEN: Soft, non-distended. Mild periumbilical tenderness to palpation. No peritoneal signs. No rebound or guarding. No masses. RECTAL: Deferred. MUSCULOSKELETAL: Chest examination reveals no tenderness. The back is symmetrical on inspection without obvious abnormality. There is no CVA tenderness to palpation. No joint edema. LOWER EXTREMITIES: Calves are equal size bilaterally and non-tender. No edema. No discoloration. NEURO: Normal sensorium. No sensory or motor deficits noted. SKIN: No rash or jaundice noted. Medical Decision & Procedures ER Provider Diagnostic Interpretation: Radiology results as stated below per my review and radiologist interpretation: ABDOMEN AND PELVIS CT WITH IV CONTRAST CT DOSE: 555.29 mGy.cm HISTORY: Acute mid abdominal pain periumbilical abd pain TECHNIQUE: Multiaxial CT images of the abdomen and pelvis were performed following the use of intravenous contrast. A dose lowering technique was utilized adhering to the principles of ALARA. COMPARISON STUDY: CT abdomen and pelvis 09/11/2017. FINDINGS: Lung bases are generally clear. There is no pneumatosis or pneumoperitoneum. Few cardiac chambers are unremarkable. Prior cholecystectomy with unchanged pneumobilia compatible with incompetent sphincter of Oddi. No focal hepatic mass lesions. The spleen, pancreas and adrenal glands are unremarkable. 8 mm low attenuating lesion of the screw pole right kidney suggests renal cyst. There is no renal calculi or obstructive uropathy. Mild urinary bladder distention. Uterus and adnexa are unremarkable. Mild to moderate atherosclerosis of the aorta without aneurysm. No bulky adenopathy. Small sliding-type hiatal hernia. No bowel obstruction. Moderate sigmoid diverticulosis with minimal wall thickening and adjacent mesenteric haziness of the descending sigmoid colon junction as seen on image 255 of series 3. Normal appendix. Soft tissues are unremarkable. The bones appear intact. Mild dextroscoliosis of the lumbar spine. IMPRESSION: 1. Colonic diverticulosis with mild wall thickening and subtle adjacent mesenteric hazy stranding within the descending sigmoid colon junction distribution suspicious for early acute diverticulitis or colitis within the appropriate clinical setting. 2. No bowel obstruction. 3. Prior cholecystectomy with unchanged pneumobilia compatible with incompetent sphincter of Oddi. Electronically signed by: Alfa Miller M.D. 01/28/2018 4:56 PM Laboratory Results 01/28/18 14:10 Red Blood Count 4.75, Mean Corpuscular Volume 90.9, Mean Corpuscular Hemoglobin 29.9, Mean Corpuscular Hemoglobin Concent 32.9, Mean Platelet Volume 11.0, Neutrophils (%) (Auto) 68.9, Lymphocytes (%) (Auto) 17.0, Monocytes (%) (Auto) 10.9, Eosinophils (%) (Auto) 2.6, Basophils (%) (Auto) 0.4, Neutrophils # (Auto ) 3.16, Lymphocytes # (Auto) 0.78, Monocytes # (Auto) 0.50, Eosinophils # (Auto ) 0.12, Basophils # (Auto) 0.02 01/28/18 14:10 Test 01/28/18 14:10 White Blood Count 4.59 K/uL (4.8-10.8) Red Blood Count 4.75 M/uL (4.2-5.4) Hemoglobin 14.2 g/dL (12.0-16.0) Hematocrit 43.2 % (37-47) Mean Corpuscular Volume 90.9 fL (80-100) Mean Corpuscular Hemoglobin 29.9 pg (25-34) Mean Corpuscular Hemoglobin Concent 32.9 g/dl (32-36) Platelet Count 177 K/uL (130-400) Mean Platelet Volume 11.0 fL (7.4-10.4) Neutrophils (%) (Auto) 68.9 % Lymphocytes (%) (Auto) 17.0 % Monocytes (%) (Auto) 10.9 % Eosinophils (%) (Auto) 2.6 % Basophils (%) (Auto) 0.4 % Neutrophils # (Auto) 3.16 K/uL (1.4-6.5) Lymphocytes # (Auto) 0.78 K/uL (1.2-3.4) Monocytes # (Auto) 0.50 K/uL (0.11-0.59) Eosinophils # (Auto) 0.12 K/uL (0-0.5) Basophils # (Auto) 0.02 K/uL (0-0.2) RDW Standard Deviation 46.0 fL (36.4-46.3) RDW Coefficient of Variation 13.8 % (11.5-14.5) Immature Granulocyte % (Auto) 0.2 % Immature Granulocyte # (Auto) 0.01 K/uL (0.00-0.02) Urine Color YELLOW Urine Appearance CLEAR (CLEAR) Urine pH 5.5 (4.5-7.5) Urine Specific [place] 1.016 (1.000-1.030) Urine Protein NEG (NEG) Urine Glucose (UA) NEG (NEG) Urine Ketones NEG (NEG) Urine Occult Blood 3+ (NEG) Urine Nitrite NEG (NEG) Urine Bilirubin NEG (NEG) Urine Urobilinogen NEG (NEG) Urine Leukocyte Esterase SMALL (NEG) Urine WBC (Auto) 1-5 /hpf (0-5) Urine RBC (Auto) 5-10 /hpf (0-4) Urine Hyaline Casts (Auto) 0 /lpf (0-5) Urine Epithelial Cells (Auto) 20-30 /lpf (0-5) Urine Bacteria (Auto) NEG (NEG) Urine Yeast (Auto) (NONE PRSENT) Anion Gap 7.0 mmol/L (3-11) Est Creatinine Clear Calc Drug Dose 38.5 ml/min Estimated GFR () 47.7 Estimated GFR (Non- 41.2 BUN/Creatinine Ratio 15.1 (10-20) Bedside Lactic Acid Venous 1.79 mmol/L (0.90-1.70) Calcium Level 9.0 mg/dl (8.5-10.1) Total Bilirubin 1.0 mg/dl (0.2-1) Direct Bilirubin 0.2 mg/dl (0-0.2) Aspartate Amino Transf (AST/SGOT) 24 U/L (15-37) Alanine Aminotransferase (ALT/SGPT) 26 U/L (12-78) Alkaline Phosphatase 152 U/L (45-117) Total Protein 7.6 gm/dl (6.4-8.2) Albumin 3.7 gm/dl (3.4-5.0) Lipase 322 U/L (73-393) Laboratory results reviewed by me Medications Administered Medications (Trade) Dose Ordered Sig/Alycia Route Start Time Stop Time Status Last Admin Dose Admin Sodium Chloride 1,000 ml @ 999 mls/hr Q1H1M STAT IV 01/28/18 13:39 01/28/18 14:39 DC 01/28/18 13:39 999 MLS/HR Acetaminophen (Tylenol Tab) 1,000 mg NOW STAT PO 01/28/18 13:39 01/28/18 13:45 DC 01/28/18 14:17 1,000 MG Sodium Chloride 1,000 ml @ 999 mls/hr Q1H1M STAT IV 01/28/18 17:26 01/28/18 18:26 DC 01/28/18 17:26 999 MLS/HR Ciprofloxacin/ Dextrose (Cipro / D5W) 400 mg NOW STAT IV 01/28/18 17:26 01/28/18 17:28 DC 01/28/18 17:44 400 MG Metronidazole (Flagyl / Nss) 500 mg NOW STAT IV 01/28/18 17:26 01/28/18 17:28 DC 01/28/18 18:02 500 MG ED Course 1319: The patient was evaluated in room B4B. A complete history and physical exam was performed. 1621: I reevaluated the patient. Discussed results and discharge instructions. She verbalized understanding and agreement. The patient is ready for discharge. Medical Decision I reviewed the patient's past medical history, medications, and the nursing notes as described above. Differential diagnosis: Etiologies such as appendicitis, diverticulitis, PUD, biliary pathology, UTI, pancreatitis, obstruction, mesenteric ischemia, aortic pathology, infections, inflammatory bowel disease, renal colic, as well as others were entertained. The patient is a 67-year-old woman with a past medical history of pancreatitis who presents emergency department with periumbilical abdominal pain over the past week per hpi. On arrival, the patient is in no acute distress, afebrile stable vital signs. On exam the patient has mild periumbilical tenderness but no peritoneal signs. Labs are consistent with mild dehydration with creatinine slightly elevated from baseline. Lactate 1.7 in the setting of the patient's clinically dry status. She is feeling improved with IV fluid hydration. CT scan demonstrates possible early diverticulitis. I discussed with the patient and we agreed to give initial IV dose of antibiotics and will discharge the patient with oral regimen and PCP follow-up. Findings and plan for follow-up reviewed with patient. Patient agreeable and d/c'd per discharge instructions. Medication Reconcilliation Current Medication List: was personally reviewed by me Blood Pressure Screening Patient's blood pressure: Elevated blood pressure Blood pressure disposition: Elevated BP felt to be situational Impression Primary Impression: Diverticulitis Scribe Attestation The scribe's documentation has been prepared under my direction and personally reviewed by me in its entirety. I confirm that the note above accurately reflects all work, treatment, procedures, and medical decision making performed by me. Departure Information Dispostion Home / Self-Care Prescriptions Saccharomyces Boulardii (Florastor) 250 Mg Cap 1 CAP PO BID for 10 Days, #20 CAP Prov: Armaan Hicks M.D. 01/28/18 Metronidazole (Flagyl) 500 Mg Tab 500 MG PO TID for 10 Days, #30 TAB Prov: Armaan Hicks M.D. 01/28/18 Ciprofloxacin (Ciprofloxacin HCl) 500 Mg Tab 1 TAB PO BID for 10 Days, #20 TABS Prov: Armaan Hicks M.D. 01/28/18 Referrals Indy Diop D.O. (PCP) Patient Instructions ED Diverticulitis, [facility] Additional Instructions Please follow up with your primary care physician next week for re-evaluation. Your symptoms are most likely due to an early diverticulitis. Otherwise, your exam, lab results, and CT scan did not show signs of an emergent condition at this time. Acetaminophen for pain and fevers as needed. Antibiotics as directed. Florastor, probiotic, to help prevent antibiotic associated diarrhea. Drink plenty of fluids to ensure hydration. Return to the emergency department for worsening symptoms as described in the accompanying instructions.
[2018-01-28 14:27] LABS: BASO % 0.4 %; BASO ABS # 0.02 K/uL (0-0.2); EOS % 2.6 %; EOS ABS # 0.12 K/uL (0-0.5); HEMATOCRIT 43.2 % (37-47); HEMOGLOBIN 14.2 g/dL (12.0-16.0); IG# 0.01 K/uL (0.00-0.02); LYMPH ABS # 0.78 K/uL (1.2-3.4); MEAN CELL VOLUME 90.9 fL (80-100); MEAN CORPUSCULAR HEMOGLOBIN 29.9 pg (25-34); MEAN CORPUSCULAR HGB CONC 32.9 g/dl (32-36); MONO % 10.9 %; NEUT % 68.9 %; NEUT ABS # 3.16 K/uL (1.4-6.5); PLATELET COUNT 177 K/uL (130-400); RED CELL DISTRIBUTION WIDTH CV 13.8 % (11.5-14.5); WHITE BLOOD COUNT 4.59 K/uL (4.8-10.8)
[2018-01-28 14:45] LABS: ALBUMIN 3.7 gm/dl (3.4-5.0); CREATININE 1.34 mg/dl (0.60-1.20); POTASSIUM 3.6 mmol/L (3.5-5.1)
[2018-01-28 14:48] LABS: TOTAL PROTEIN 7.6 gm/dl (6.4-8.2)
[2018-01-28] MEDS ORDERED: OPTIRAY 320 IV PRN (16:30)
--- NOTE | 2018-01-28 16:57 | DIAGNOSTIC IMAGING REPORT ---
ABDOMEN AND PELVIS CT WITH IV CONTRAST CT DOSE: 555.29 mGy.cm HISTORY: Acute mid abdominal pain periumbilical abd pain TECHNIQUE: Multiaxial CT images of the abdomen and pelvis were performed following the use of intravenous contrast. A dose lowering technique was utilized adhering to the principles of ALARA. COMPARISON STUDY: CT abdomen and pelvis 09/11/2017. FINDINGS: Lung bases are generally clear. There is no pneumatosis or pneumoperitoneum. Few cardiac chambers are unremarkable. Prior cholecystectomy with unchanged pneumobilia compatible with incompetent sphincter of Oddi. No focal hepatic mass lesions. The spleen, pancreas and adrenal glands are unremarkable. 8 mm low attenuating lesion of the screw pole right kidney suggests renal cyst. There is no renal calculi or obstructive uropathy. Mild urinary bladder distention. Uterus and adnexa are unremarkable. Mild to moderate atherosclerosis of the aorta without aneurysm. No bulky adenopathy. Small sliding-type hiatal hernia. No bowel obstruction. Moderate sigmoid diverticulosis with minimal wall thickening and adjacent mesenteric haziness of the descending sigmoid colon junction as seen on image 255 of series 3. Normal appendix. Soft tissues are unremarkable. The bones appear intact. Mild dextroscoliosis of the lumbar spine. IMPRESSION: 1. Colonic diverticulosis with mild wall thickening and subtle adjacent mesenteric hazy stranding within the descending sigmoid colon junction distribution suspicious for early acute diverticulitis or colitis within the appropriate clinical setting. 2. No bowel obstruction. 3. Prior cholecystectomy with unchanged pneumobilia compatible with incompetent sphincter of Oddi. Electronically signed by: Alfa Miller M.D. 01/28/2018 4:56 PM Dictated Date/Time: 01/28/2018 4:45 PM
[2018-01-28] MEDS ORDERED: CIPROFLOXACIN 400MG / 200ML D5W IV STA (17:26)
[2018-01-28] MEDS ORDERED: METRONIDAZOLE 500MG / 100ML NSS IV STA (17:26)
[2018-01-28] MEDS ORDERED: SACC250C3 PO (18:37)
[2018-01-28] MEDS ORDERED: CPR500 PO (18:37)
[2018-01-28] MEDS ORDERED: METR-163 PO (18:37)
[2018-01-28 19:04] VITALS: BP 158/71; PULSE 64; O2SAT 98
== END 2018-01-28 19:10 | disposition home or self-care (01) ==
LOC: C.EDB 13:19
DX: K57.92 Diverticulitis of intestine, part unspecified, without perforation or abscess without bleeding (principal); R94.4 Abnormal results of kidney function studies; E86.0 Dehydration; K85.90 Acute pancreatitis without necrosis or infection, unspecified; I12.9 Hypertensive chronic kidney disease with stage 1 through stage 4 chronic kidney disease, or unspecified chronic kidney disease; E78.5 Hyperlipidemia, unspecified; N18.3 Chronic kidney disease, stage 3 (moderate); Z79.82 Long term (current) use of aspirin; Z91.048 Other nonmedicinal substance allergy status; Z88.8 Allergy status to other drugs, medicaments and biological substances; Z88.6 Allergy status to analgesic agent; Z82.0 Family history of epilepsy and other diseases of the nervous system; Z80.3 Family history of malignant neoplasm of breast; Z82.49 Family history of ischemic heart disease and other diseases of the circulatory system

== ENCOUNTER → 2018-02-28 | Outpatient (CLI) | payer OTHER ==
[~2018-02-28] MED LIST changes: +CPR500 PO
== END | disposition home or self-care (01) ==
LOC: C.LABSPEC 16:56
PROVIDERS: ATTEND Urology
DX: N39.0 Urinary tract infection, site not specified (principal)

== ENCOUNTER 2018-12-19 13:10 | Observation (INO) ==
[2018-12-19 14:18] LABS: Basophils # (auto) 0.02 K/uL (0-0.2); Basophils % (auto) 0.3 %; Eosinophils # (auto) 0.08 K/uL (0-0.5); Eosinophils % (auto) 1.4 %; Hematocrit (blood only) 44.8 % (37-47); Hemoglobin 14.3 g/dL (12.0-16.0); Immature Granulocytes # (auto) 0.01 K/uL (0.00-0.02); Immature Granulocytes % (auto) 0.2 %; Lymphocytes # (auto) 1.52 K/uL (1.2-3.4); Lymphocytes % (auto) 25.8 %; Mean Corpuscular Hgb Conc 31.9 g/dL (32-36); Mean Platelet Volume 11.4 fL (7.4-10.4); Monocytes # (auto) 0.68 K/uL (0.11-0.59); Monocytes % (auto) 11.5 %; Neutrophils # (auto) 3.58 K/uL (1.4-6.5); Neutrophils % (auto) 60.8 %; Platelet Count 228 K/uL (130-400); RDW Coefficient of Variation 15.2 % (11.5-14.5); RDW Standard Deviation 51.2 fL (36.4-46.3); Red Blood Count 4.87 M/uL (4.2-5.4); White Blood Count 5.89 K/uL (4.8-10.8)
--- NOTE | 2018-12-19 14:23 | XRay Report ---
XR chest 1V portable CLINICAL HISTORY: 68 years-old Female presenting with Chest Pain. TECHNIQUE: Portable upright AP view of the chest was obtained. COMPARISON: 11/23/2018. FINDINGS: Atherosclerosis of the aortic arch. Cardiac silhouette top normal in size. No focal opacity. No large effusion or pneumothorax. Osseous structures normal. Cholecystectomy clips noted. IMPRESSION: 1. No acute cardiopulmonary disease. Electronically signed by: Tommy Vargas M.D. 12/19/2018 2:21 PM
[2018-12-19 14:36] LABS: Albumin Level 3.7 gm/dl (3.4-5.0); Calcium 8.9 mg/dl (8.5-10.1); Creatinine Clr Calc Pharmacy 40.4 ml/min; Est GFR (African American) 51.5; Est GFR (Non-African American) 44.5; Potassium 3.6 mmol/L (3.5-5.1)
[2018-12-19 14:39] LABS: Bilirubin,Total 0.7 mg/dl (0.2-1); Globulin 3.7 gm/dl (2.5-4.0); Total Protein 7.4 gm/dl (6.4-8.2)
--- NOTE | 2018-12-19 16:13 | History & Physical Report ---
Date of Service December 19, 2018 Assessment & Plan (1) Chest pain: (2) Epigastric pain: This is a 68-year-old female with a PMH of HTN, HLD, pre-diabetes, GERD, history of chronic pancreatitis, multiple sclerosis and other medical problems listed below who presents with exertional pain of left chest/epigastrium. -Pain resolved prior to arrival, last episode earlier today -GERD likely contributing -R/o ACS; risk factors include HTN, HLD, pre-diabetes -Initial troponin negative -EKG without acute ischemic changes -CXR without acute cardiopulmonary changes -Trend serial cardiac enzymes -Check resting 2D echo -Repeat EKG in am -NPO after midnight for possible exercise stress test in AM (3) UTI (urinary tract infection): Diagnosed on 12/16 at urgent care -Has completed 4/7 days of Macrobid with resolution of symptoms -Continue home Hiprex, per out-patient urology (4) HTN (hypertension): Elevated in setting of anxiety -Possibly contributing to chest pain -States that home BP is usually <140/70 but becomes nervous in health care setting -Not on any antihypertensives currently -Monitor BP and add antihypertensive agent if indicated (5) GERD (gastroesophageal reflux disease): Continue omeprazole 20mg BID -May consider addition of H2 negin if chest/epigastric pain thought to be 2/2 GERD (6) Chronic pancreatitis: Multiple episodes of pancreatitis, most recently last year -Has not recurred since discontinuation of Lisinopril, per [facility] [place] service -Lipase is normal at 260 -Denies any LUQ pain (7) Kidney disease, chronic, stage III (GFR 30-59 ml/min): Kidney function at baseline -Continue monitoring with daily BMP DVT Ppx: SQ Lovenox Code status: FULL PCP: Maral Diop Dispo: Observation telemetry. Plan to return home once medically stable. Patient seen in collaboration with Dr. Espinosa. Please see addendum. History of Present Illness Chief Complaint: chest/epigastric pain Primary Care Provider: Indy Diop This is a 68-year-old female with a PMH of HTN, HLD, pre-diabetes, GERD, history of chronic pancreatitis, multiple sclerosis and other medical problems listed below who presents with exertional pain of left chest/epigastrium. Had an episode last week when working around house and another over the weekend. States that episode would involve chest/epigastric pressure and an inability to catch her breath. Resolved after 10-15 seconds. This morning, patient experienced a longer episode of left chest pain that resolved prior to arrival. Denies any history of chest pain or SD. No history of stress testing. Echo from 2005 was normal with EF of 60%. States that pain from last week felt like GERD but today felt different. Also has history of chronic pancreatitis but states that this pain is higher in epigastrium/chest. Stopped taking lisinopril last year under direction from [facility] and pancreatitis has not recurred. Monitors BP at home and its usually below 140/70. Has lost around 40 pounds over the past 9 months with diet and exercise. Recently went to urgent care for UTI and has completed 4/7 days of Macrobid. Feels much better. Denies fever, chills, lightheadedness, palpitations, SOB, nausea, vomiting, abdominal pain, dysuria, diarrhea, constipation or LE swelling. Allergies Allergy/AdvReac Type Severity Reaction Status Date / Time ibuprofen Allergy Mild HIVES Verified 12/19/18 14:49 morphine Allergy Mild pruritis Verified 12/19/18 14:49 adhesive Allergy Unknown RASH Verified 12/19/18 14:49 Home Medications Home Medications Medication Instructions Recorded Confirmed Type melatonin 5 mg PO HS PRN #0 10/23/15 12/19/18 History omeprazole 20 mg PO BID #0 06/19/16 12/19/18 History atorvastatin 40 mg PO HS #0 03/27/17 12/19/18 History tamsulosin 0.4 mg PO HS #0 03/27/17 12/19/18 History aspirin 325 mg PO QPM #0 07/12/17 12/19/18 History calcium citrate-vitamin D3 1 tab PO QAM #0 06/22/18 12/19/18 History [Citracal + D Maximum] methenamine hippurate 1 g PO HS #0 06/22/18 12/19/18 History pirgorgy-mft-wknw-FA-lutein 1 tab PO QAM #0 06/22/18 12/19/18 History [Centrum Silver Women] ondansetron 4 mg PO Q6H PRN #10 tab 11/23/18 12/19/18 Rx hydrocodone-acetaminophen 1 tab PO Q6H PRN 12/19/18 12/19/18 History nitrofurantoin monohyd/m-cryst 100 mg PO BID 12/19/18 12/19/18 History [Macrobid] Past Med/Surg History Medical History HTN (hypertension) (Chronic) Carotid artery disease (Chronic) Fatty liver (Chronic) History of cholelithiasis (Chronic) Chronic pancreatitis (Chronic) with pancreatic divisum GERD (gastroesophageal reflux disease) (Chronic) Kidney disease, chronic, stage III (GFR 30-59 ml/min) (Chronic) Diverticulosis (Chronic) Surgical History S/P tubal ligation (Resolved) History of back surgery (Resolved) S/P bilateral breast reduction (Resolved) S/P bladder repair (Resolved) History of abdominal hernia (Resolved) Hx of cholecystectomy (Resolved) Family History Father COPD (chronic obstructive pulmonary disease) Mother CVA (cerebral vascular accident) Social History marital status: Single Current Living Situation: Spouse current occupational status: employed Other Information That Helps Us Care for You: No Feels Safe at Home: Yes Safety Concerns: Feels Safe At This Time Smoking Status: Never smoker Do You Dip or Chew Tobacco: No Second Hand Exposure: No Tobacco Cessation Education Requested by Patient: No Hx Alcohol Use: No Hx Substance Use: No Beliefs That Will Affect Care: None Preferred Language: Yi Communication Ability: Effective Review of Systems All systems reviewed & are unremarkable except as noted in HPI & below Physical Exam 2 Vital Signs (Past 24 Hours): Last Vital Signs Temp 36.5 C 12/19/18 13:17 Pulse 67 12/19/18 13:17 Resp 20 12/19/18 13:17 BP 183/81 H 12/19/18 13:17 Pulse Ox 96 12/19/18 13:44 Physical Exam: General Appearance: WD/WN, no apparent distress, resting comfortably Head: normocephalic, atraumatic Eyes: normal inspection, PERRL, EOMI ENT: hearing grossly normal, pharynx normal (moist mucous membranes) Neck: supple, no JVD, no adenopathy Respiratory/Chest: No chest wall tenderness, lungs clear to auscultation. No wheezes, rales or rhonci. No respiratory distress or accessory muscle use Cardiovascular: regular rate, rhythm, no murmur, normal peripheral pulses, no lower extremity edema Abdomen/GI: normal bowel sounds, soft, non-tender to palpation Extremities/Musculoskelatal: normal inspection, no calf tenderness, normal capillary refill, no pedal edema Neurologic/Psych: alert, normal mood/affect, oriented x 3 Skin: normal color, warm/dry Results & Data Laboratory Results Short CBC 12/19/18 Range/Units 13:35 WBC 5.89 (4.8-10.8) K/uL Hgb 14.3 (12.0-16.0) g/dL Hct 44.8 (37-47) % Plt Count 228 (130-400) K/uL BMP 12/19/18 13:35 Sodium 142 Potassium 3.6 Chloride 105 Carbon Dioxide 28 BUN 20 H Creatinine 1.25 H Glucose 116 H Calcium 8.9 Liver Function 12/19/18 Range/Units 13:35 Total Bilirubin 0.7 (0.2-1) mg/dl AST 28 (15-37) U/L ALT 29 (12-78) U/L Alkaline Phosphatase 120 H (45-117) U/L Albumin 3.7 (3.4-5.0) gm/dl Diagnostic Findings CXR: IMPRESSION: 1. No acute cardiopulmonary disease. ECG Rhythm: sinus rhythm Findings: + PAC Supervising Physician Co-Signing Physician Notes Patient is a 68-year-old female who presents with history of exertional left- sided chest/epigastric pain which is very transient lasting for 10-15 seconds on 2 different occasions last week and this week. Reports associated dyspnea with the episode. Currently denies any chest pain, dyspnea, nausea, cough, fever. No know H/O CAD. On exam patient is moderately built and nourished, no distress, lungs are clear to auscultation, normal sinus rhythm, no murmur, abdomen is soft, no focal deficits on exam, no pedal edema. Patient is admitted for Chest pain work up to R/O ACS. Initial troponin negative, EKG showed no signs of ischemia, chest x-ray is normal. Patient is admitted under observation , plan to trend cardiac enzymes, repeat EKG in the morning, n.p.o. after midnight. Patient is also noted to have elevated high blood pressure which she attributes to having white coat syndrome. Uncontrolled hypertension could be contributing to current symptoms. Control HTN as needed. Plan to complete antibiotics for recent UTI. Continue PPI for GERD. I personally reviewed the record. Patient is interviewed and examined at bedside. Patient's care is coordinated with Maggie Alvarez PA-C. Please refer to the documentation above for details of patient's presentation and for discussion of other issues.
[2018-12-19] MEDS ORDERED: ACETAMINOPHEN 325 MG TAB PO PRN (16:54)
[2018-12-19] MEDS ORDERED: ONDANSETRON INJ 2 MG/ML 2 ML VIAL IV PRN (16:54)
[2018-12-19] MEDS ORDERED: NITROGLYCERIN SL 0.4 MG/TAB TAB SL PRN (16:54)
[2018-12-19] MEDS ORDERED: ONDANSETRON 4 MG OD TAB PO PRN (16:54)
[2018-12-19] MEDS ORDERED: HYDROCODONE/ACETAMOPHEN 5/325MG TAB PO PRN (16:54)
[2018-12-19] MEDS ORDERED: ALUMINUM/MAGNESIUM SUSP 30 ML UDC PO PRN (16:54)
--- NOTE | 2018-12-19 18:35 | Emergency Department Note ---
Entered by Caitlin Lutz acting as a scribe for History of Present Illness General Chief complaint: Chest Pain Stated complaint: CHEST PAIN Source: patient History of Present Illness Onset (ago): week(s) 1 Location: chest Radiation: neck and extremity (shoulder blades) Pain Consistency: + intermittent Exacerbated By: + movement (exertion); not by eating Associated symptoms: + denies other symptoms (abdominal pain, diarrhea, black or bloody stools, leg swelling, leg pain), + diaphoresis, + headaches and + shortness of breath; no fever/chills (fever) and no nausea/vomiting (vomiting) The patient is a 68 year old female who presents to the Emergency Room with complaints of intermittent chest pain starting a week ago. The patient states that the pain is in the middle of her lower chest. She states that the episodes last 5-10 seconds. She notes that only sometimes does she feel short of breath. She states that twice she has had the feeling of someone choking her and she couldnt catch her breath. She states that the episodes lasted 10 seconds each. She notes that exertion seems to make it worse. She notes that she also becomes intermittently diaphoretic. She states that she decided to come to the ED today because the pain has now radiated into her shoulder blades, base of her neck, and given her a headache. She notes that she is currently being treated for a UTI. The patient denies eating making it worse, ever having this before, abdominal pain, fever, vomiting, diarrhea, black or bloody stools, leg swelling , leg pain, recent long trips, being bed ridden, a history of diabetes, a cardiac history, a family history of cardiac problems, being a smoker, and ever having an appendectomy. Home Medications Home Medications Medication Instructions Recorded Confirmed Type melatonin 5 mg PO HS PRN #0 10/23/15 12/19/18 History omeprazole 20 mg PO BID #0 06/19/16 12/19/18 History atorvastatin 40 mg PO HS #0 03/27/17 12/19/18 History tamsulosin 0.4 mg PO HS #0 03/27/17 12/19/18 History aspirin 325 mg PO QPM #0 07/12/17 12/19/18 History calcium citrate-vitamin D3 1 tab PO QAM #0 06/22/18 12/19/18 History [Citracal + D Maximum] methenamine hippurate 1 g PO HS #0 06/22/18 12/19/18 History pfihqtbm-qbo-mrrv-FA-lutein 1 tab PO QAM #0 06/22/18 12/19/18 History [Centrum Silver Women] ondansetron 4 mg PO Q6H PRN #10 tab 11/23/18 12/19/18 Rx hydrocodone-acetaminophen 1 tab PO Q6H PRN 12/19/18 12/19/18 History nitrofurantoin monohyd/m-cryst 100 mg PO BID 12/19/18 12/19/18 History [Macrobid] Allergies Allergy/AdvReac Type Severity Reaction Status Date / Time ibuprofen Allergy Mild HIVES Verified 12/19/18 14:49 morphine Allergy Mild pruritis Verified 12/19/18 14:49 adhesive Allergy Unknown RASH Verified 12/19/18 14:49 Past Med/Surg History Medical History HTN (hypertension) (Chronic) Carotid artery disease (Chronic) Fatty liver (Chronic) History of cholelithiasis (Chronic) Chronic pancreatitis (Chronic) with pancreatic divisum GERD (gastroesophageal reflux disease) (Chronic) Kidney disease, chronic, stage III (GFR 30-59 ml/min) (Chronic) Diverticulosis (Chronic) Surgical History S/P tubal ligation (Resolved) History of back surgery (Resolved) S/P bilateral breast reduction (Resolved) S/P bladder repair (Resolved) History of abdominal hernia (Resolved) Hx of cholecystectomy (Resolved) Family History Father COPD (chronic obstructive pulmonary disease) Mother CVA (cerebral vascular accident) Social History marital status: Single Current Living Situation: Spouse current occupational status: employed Other Information That Helps Us Care for You: No Feels Safe at Home: Yes Safety Concerns: Feels Safe At This Time Smoking Status: Never smoker Do You Dip or Chew Tobacco: No Second Hand Exposure: No Tobacco Cessation Education Requested by Patient: No Hx Alcohol Use: No Hx Substance Use: No Beliefs That Will Affect Care: None Preferred Language: Cymro Communication Ability: Effective Review of Systems See HPI for pertinent positives & negatives. and A total of 10 systems reviewed and were otherwise negative Physical Exam Vital Signs Vital Signs - 24 hr 12/19/18 13:17 12/19/18 13:44 12/19/18 16:26 Temperature 36.5 C Temperature Source Oral Sepsis Recent Fever Within 48 Hours No Sepsis Action Taken by Nursing No Action Required Pulse Rate 67 72 Pulse Rate [Left Brachial] Pulse Rhythm Regular Pulse Rhythm [Left Brachial] Pulse Strength Normal Pulse Strength [Left Brachial] Respiratory Rate 20 19 Respiratory Effort / Characteristics Non-Labored Spontaneous Respiratory Depth Normal Respiratory Pattern Regular Blood Pressure 183/81 H 175/92 H Blood Pressure [Left Arm] Blood Pressure Mean 115 Blood Pressure Mean [Left Arm] Blood Pressure Position [Left Arm] Pulse Oximetry 99 96 98 Oxygen Delivery Method Room Air Room Air Room Air 12/19/18 17:07 Temperature 36.7 C Temperature Source Oral Sepsis Recent Fever Within 48 Hours Sepsis Action Taken by Nursing Pulse Rate Pulse Rate [Left Brachial] 67 Pulse Rhythm Pulse Rhythm [Left Brachial] Regular Pulse Strength Pulse Strength [Left Brachial] Normal Respiratory Rate 18 Respiratory Effort / Characteristics Non-Labored Spontaneous Normal for Patient Respiratory Depth Normal Respiratory Pattern Regular Blood Pressure Blood Pressure [Left Arm] 184/92 H Blood Pressure Mean Blood Pressure Mean [Left Arm] 122 Blood Pressure Position [Left Arm] Sitting Pulse Oximetry 98 Oxygen Delivery Method Room Air Constitutional: Vital signs reviewed. Eyes: Pupils are equal round reactive to light. Conjunctiva are noninjected. ENT: Pharynx is clear without erythema or exudate. Mucous membranes are moist. Neck supple without meningeal signs. Respiratory: Clear to auscultation bilaterally. Breath sounds are equal bilaterally. Cardiovascular: Regular rate and rhythm. No rubs or gallops. GI: Soft, nondistended and nontender. Bowel sounds are present. Musculoskeletal: No peripheral edema. No lower extremity tenderness. Integumentary: No cyanosis. Neurological: The patient is awake and alert. No focal deficits. Psychiatric: Normal affect. Slightly anxious appearing. Course 1403: Past medical records reviewed. The patient was evaluated in room B9, and a complete history and physical examination were performed. 1456: I reevaluated the patient and updated her on her test results. She states that she does have a history of kidney disease. She currently denies any chest pain. I discussed the treatment plan with her. She verbally agrees and understands. 1504: I reviewed the patient's case with JOSIANE Cubaist. She will evaluate the patient for further management. Consultations Consultation #1: I reviewed the patient's case with JOSIANE Cuba. She will evaluate the patient for further management. Time: 15:04 Medical Decision Making Differential Diagnosis Differential diagnoses include unstable angina, LA, GERD, pleurisy, pneumonia. Medical Records Attestation: I reviewed the patient's medical records. Home Medications Current Medication List: was personally reviewed by me Laboratory Data Attestation: I reviewed the patient's lab results. Result diagrams: 12/19/18 13:35 12/19/18 13:35 Lab Results 12/19/18 12/19/18 12/19/18 Range/Units 13:35 13:35 14:03 WBC 5.89 (4.8-10.8) K/uL RBC 4.87 (4.2-5.4) M/uL Hgb 14.3 (12.0-16.0) g/dL Hct 44.8 (37-47) % MCV 92.0 (80-100) fL MCH 29.4 (25-34) pg MCHC 31.9 L (32-36) g/dL RDW Std Deviation 51.2 H (36.4-46.3) fL RDW Coeff of Vin 15.2 H (11.5-14.5) % Plt Count 228 (130-400) K/uL MPV 11.4 H (7.4-10.4) fL Immature Gran % (Auto) 0.2 % Neut % (Auto) 60.8 % Lymph % (Auto) 25.8 % [place] % (Auto) 11.5 % Eos % (Auto) 1.4 % Baso % (Auto) 0.3 % Immature Gran # (Auto) 0.01 (0.00-0.02) K/uL Neut # (Auto) 3.58 (1.4-6.5) K/uL Lymph # (Auto) 1.52 (1.2-3.4) K/uL [place] # (Auto) 0.68 H (0.11-0.59) K/uL Eos # (Auto) 0.08 (0-0.5) K/uL Baso # (Auto) 0.02 (0-0.2) K/uL Sodium 142 (136-145) mmol/L Potassium 3.6 (3.5-5.1) mmol/L Chloride 105 (98-107) mmol/L Carbon Dioxide 28 (21-32) mmol/L Anion Gap 8.0 (3-11) BUN 20 H (7-18) mg/dl Creatinine 1.25 H (0.6-1.2) mg/dl Est Cr Clr Drug Dosing 40.4 ml/min Est GFR ( Amer) 51.5 Est GFR (Non-Af Amer) 44.5 BUN/Creatinine Ratio 16.0 (10-20) Glucose 116 H (70-99) mg/dl Calcium 8.9 (8.5-10.1) mg/dl Total Bilirubin 0.7 (0.2-1) mg/dl AST 28 (15-37) U/L ALT 29 (12-78) U/L Alkaline Phosphatase 120 H (45-117) U/L POC Troponin I < 0.03 (0-0.045) ng/ml Total Protein 7.4 (6.4-8.2) gm/dl Albumin 3.7 (3.4-5.0) gm/dl Globulin 3.7 (2.5-4.0) gm/dl Albumin/Globulin Ratio 1.0 (0.9-2) Lipase 260 (73-393) U/L Imaging Data Radiologist's Impression: Radiology results as stated below per my review and the radiologist's interpretation: XR chest 1V portable CLINICAL HISTORY: 68 years-old Female presenting with Chest Pain. TECHNIQUE: Portable upright AP view of the chest was obtained. COMPARISON: 11/23/2018. FINDINGS: Atherosclerosis of the aortic arch. Cardiac silhouette top normal in size. No focal opacity. No large effusion or pneumothorax. Osseous structures normal. Cholecystectomy clips noted. IMPRESSION: 1. No acute cardiopulmonary disease. Electronically signed by: Tommy Vargas M.D. 12/19/2018 2:21 PM ECG Data Attestation: I personally reviewed and interpreted this ECG as follows: Indication: chest pain Rate (beats per minute): 68 Rhythm: sinus rhythm Findings: + PVC; no ST elevation Blood Pressure Blood Pressure Findings: Elevated blood pressure Blood Pressure Disposition: Referred to patients primary care provider MDM Narrative I did perform a limited focused review of portions of the patient's old chart on the electronic medical record. The patient has had no recent pertinent visits to this hospital. I did evaluate the patient as noted above. Patient is presenting with chest pain. She does state exertion makes it worse. IV access was established. The patient was placed on a continuous awake overnight monitor. I did order and personally review the patient's 12-lead EKG and chest x-ray as described above. Her twelve -lead EKG does not demonstrate any ischemia. Chest x-ray is unremarkable. I did order and review the patient's blood work as noted in the electronic medical record. Troponin is negative. I did discuss the test results with the patient. She is not currently having any chest pain. I did recommend hospitalization for repeat cardiac enzymes and further evaluation. She was agreeable with this plan. I did discuss case with the hospitalist and nurse case management. Impression & Plan Chest pain, exertional Discharge Plan Visit Data *Final* Discharge Date/Time: 12/19/18 16:26 Chief Complaint: Chest Pain Stated Complaint: CHEST PAIN ED Provider: Florentino Bell Discharge Problem: Chest pain, exertional Patient Disposition: Admitted As Inpatient Discharge Instructions Interventions: ED Discharge Assessment Last Done: 12/19/18 16:26 The makaylaibe's documentation has been prepared under my direction and personally reviewed by me in its entirety. I confirm that the note above accurately reflects all work, treatment, procedures, and medical decision making performed by me.
[2018-12-19] MEDS: PANTOprazole 40 MG TAB PO SCH (20:39)
[2018-12-19] MEDS: NITROFURANTOIN MONOHYDRATE 100 MG CAP PO SCH (20:39)
[2018-12-19] MEDS ORDERED: AMLODIPINE BESYLATE 5 MG TAB PO ONE (20:50)
[2018-12-19] MEDS ORDERED: ATORVASTATIN 40 MG TAB PO SCH (21:00)
[2018-12-19] MEDS ORDERED: ASPIRIN 325 MG ECTAB PO SCH (21:00)
[2018-12-19] MEDS ORDERED: TAMSULOSIN HCL 0.4 MG CAP PO SCH (21:00)
[2018-12-19] MEDS ORDERED: LABETALOL HCL IV 5 MG/ML 20ML IV PRN (21:23)
[2018-12-20 02:29] LABS: Hematocrit (blood only) 43.2 % (37-47); Hemoglobin 13.9 g/dL (12.0-16.0); Mean Corpuscular Hgb Conc 32.2 g/dL (32-36); Mean Corpuscular Volume 91.5 fL (80-100); Mean Platelet Volume 10.9 fL (7.4-10.4); Platelet Count 186 K/uL (130-400); RDW Coefficient of Variation 15.1 % (11.5-14.5); RDW Standard Deviation 50.9 fL (36.4-46.3); Red Blood Count 4.72 M/uL (4.2-5.4)
[2018-12-20 02:46] LABS: BUN Creatinine Ratio 14.8 (10-20); Blood Urea Nitrogen 17 mg/dl (7-18); Calcium 8.6 mg/dl (8.5-10.1); Carbon Dioxide 27 mmol/L (21-32); Chloride 109 mmol/L (98-107); Est GFR (African American) 58.2; Est GFR (Non-African American) 50.3; Glucose 114 mg/dl (70-99); Potassium 3.6 mmol/L (3.5-5.1); Sodium 142 mmol/L (136-145)
[2018-12-20 02:50] LABS: Troponin I < 0.015 ng/ml (0-0.045)
[2018-12-20] MEDS: NITROFURANTOIN MONOHYDRATE 100 MG CAP PO SCH (08:07)
[2018-12-20] MEDS: PANTOprazole 40 MG TAB PO SCH (08:07)
[2018-12-20] MEDS ORDERED: MULTIVITAMIN TAB PO SCH (09:00)
[2018-12-20] MEDS ORDERED: CALCIUM 600MG + VIT D 400 IU TAB PO SCH (09:00)
--- NOTE | 2018-12-20 11:52 | Discharge Summary ---
Date of Service December 20, 2018 Admission HPI Per Admitting Provider This is a 68-year-old female with a PMH of HTN, HLD, pre-diabetes, GERD, history of chronic pancreatitis, multiple sclerosis and other medical problems listed below who presents with exertional pain of left chest/epigastrium. Had an episode last week when working around house and another over the weekend. States that episode would involve chest/epigastric pressure and an inability to catch her breath. Resolved after 10-15 seconds. This morning, patient experienced a longer episode of left chest pain that resolved prior to arrival. Denies any history of chest pain or WI. No history of stress testing. Echo from 2005 was normal with EF of 60%. States that pain from last week felt like GERD but today felt different. Also has history of chronic pancreatitis but states that this pain is higher in epigastrium/chest. Stopped taking lisinopril last year under direction from [facility] and pancreatitis has not recurred. Monitors BP at home and its usually below 140/70. Has lost around 40 pounds over the past 9 months with diet and exercise. Recently went to urgent care for UTI and has completed 4/7 days of Macrobid. Feels much better. Denies fever, chills, lightheadedness, palpitations, SOB, nausea, vomiting, abdominal pain, dysuria, diarrhea, constipation or LE swelling. Admission Exam Per Admitting Provider General Appearance: WD/WN, no apparent distress, resting comfortably Head: normocephalic, atraumatic Eyes: normal inspection, PERRL, EOMI ENT: hearing grossly normal, pharynx normal (moist mucous membranes) Neck: supple, no JVD, no adenopathy Respiratory/Chest: No chest wall tenderness, lungs clear to auscultation. No wheezes, rales or rhonci. No respiratory distress or accessory muscle use Cardiovascular: regular rate, rhythm, no murmur, normal peripheral pulses, no lower extremity edema Abdomen/GI: normal bowel sounds, soft, non-tender to palpation Extremities/Musculoskelatal: normal inspection, no calf tenderness, normal capillary refill, no pedal edema Neurologic/Psych: alert, normal mood/affect, oriented x 3 Skin: normal color, warm/dry Principal Diagnosis Atypical CP UTI HTN CKD GERD Discharge Exam ROS-No Headache, No Visual Changes, No Fever, No Chills, No Neck Pain or Stiffness, No Chest Pain, No Palpitations, No SOB, No LASSITER, No Cough, No Sputum, No Wheezing, No Abdominal Pain, No Diarrhea, No Hematemesis, No Hemoptysis, No Unexpected Weight Loss, No Flank pain, No Melena, No Hematochezia, No Frequency , No Urgency, No Burning, No Hematuria, No Rashes, No Diaphoresis. Appetite is Normal Physical Exam Gen-AAO x 3, NAD, Afebrile, obese Head-NCAT, EOMI, PERRLA, Anicteric Sclera, No Posterior Pharyngeal Erythema Neck-Supple, No JVD, No Thyromegaly, No Masses, No LAD, No Bruits Lungs-Clear to Auscultation Bilaterally, No Rales, No Rhonchi, No Wheezing, No Crepitus Chest-No S4, +S1, +S2, No S3, No Murmurs, No Rubs, No Gallops, No Ectopy Abdomen-Soft, Bowel Sounds Present, Non Tender, Non Distended, No Hepatomegaly, No Splenomegaly, No Palpable Masses, No Rebound, No Rigidity, No Guarding Musculoskeletal-Full Range of Motion Bilaterally, No CVAT Extremities-No Cyanosis, No Clubbing, No Edema Nuero-Cranial Nerves II-XII grossly intact, Motor WNL, DTRs WNL, Strength WNL, No Focal Psych-Normal Mood Discharge Data Allergies Allergy/AdvReac Type Severity Reaction Status Date / Time ibuprofen Allergy Mild HIVES Verified 12/19/18 14:49 morphine Allergy Mild pruritis Verified 12/19/18 14:49 adhesive Allergy Unknown RASH Verified 12/19/18 14:49 Consultations 12/19/18 15:17 ED Decision to Admit Stat Current Diagnoses Essential (primary) hypertension (12/19/18) Gastro-esophageal reflux disease without esophagitis (12/19/18) Other chronic pancreatitis (12/19/18) Chronic kidney disease, stage 3 (moderate) (12/19/18) Urinary tract infection, site not specified (12/19/18) Chest pain, unspecified (12/19/18) Epigastric pain (12/19/18) Allergies ibuprofen Allergy (Mild, Verified 12/19/18 14:49) HIVES morphine Allergy (Mild, Verified 12/19/18 14:49) pruritis adhesive Allergy (Unknown, Verified 12/19/18 14:49) RASH Height/Weight/Isolation Height 5 ft Weight 73 kg Chemistry 12/19/18 12/20/18 13:35 02:10 Sodium 142 142 Potassium 3.6 3.6 Chloride 105 109 H Carbon Dioxide 28 27 Anion Gap 8.0 6.0 BUN 20 H 17 Creatinine 1.25 H 1.13 Glucose 116 H 114 H Hospital Course (1) Chest pain: (2) Epigastric pain: This is a 68-year-old female with a PMH of HTN, HLD, pre-diabetes, GERD, history of chronic pancreatitis, multiple sclerosis and other medical problems listed below who presents with exertional pain of left chest/epigastrium. -Cp Reproducible on palpation, add low dose nsaid x 5 days -Pain resolved prior to arrival, last episode earlier today -GERD likely contributing, Omeprezole 20 BID, Add Zantac at HS 150 mg -R/o ACS; risk factors include HTN, HLD, pre-diabetes -Trops are neg -EKG without acute ischemic changes -CXR without acute cardiopulmonary changes -2D echo (3) UTI (urinary tract infection): Diagnosed on 2 at urgent care -Has completed 5/7 days of Macrobid with resolution of symptoms -Continue at home per out-patient Urology (4) HTN (hypertension): Elevated in setting of anxiety -Possibly contributing to chest pain -States that home BP is usually <140/70 but becomes nervous in health care setting -Not on any antihypertensives currently (5) GERD (gastroesophageal reflux disease): Continue omeprazole 20mg BID -H2 negin at HS could be 2/2 GERD (6) Chronic pancreatitis: Multiple episodes of pancreatitis, most recently last year -Has not recurred since discontinuation of Lisinopril, per [facility] service (7) Kidney disease, chronic, stage III (GFR 30-59 ml/min): Kidney function at baseline -Continue monitoring with daily BMP DVT Ppx: SQ Lovenox Code status: FULL PCP: Maral Diop Dispo: DC home and f/u c pcp Total Time Total Time Spent Total Time Spent (In Minutes): 50 mins Total Time Includes: Examination of the Patient, Discharge Planning, Medication Reconciliation and Communication With Other Providers Discharge Plan Discharge Items Patient Disposition: Home - Self-Care Reason For Visit: CHEST/EPIGASTRIC PAIN Discharge Diagnosis: Atypical CP/Costochondritis/GERD HTN Anxiety GERD CAD CKD Discharge Goals: Decrease discomfort and Improve function Activity: Resume your previous activity Lifting: Gradually increase as tolerated Bathing: No limitations Sexual Activity: When tolerated Exercise/Sports: Gradually increase as tolerated Driving/Machine Use: No limitations Weightbearing: Left weightbearing and Right weightbearing Non-emergency contact: Primary Care Provider and Payment Analyst Call non-emergency contact if: you have any medication questions and your symptoms worsen Follow-up/Referrals: Indy Diop DO [Primary Care Provider] - Florentino Diop DO [Payment Analyst] - (Call for first opening) Diet: Heart Healthy Addtl Provider Instructions: Monitor BP Prescriptions: New ranitidine HCl 150 mg capsule 150 mg PO HS Qty: 30 RF: 0 naproxen [Naprosyn] 500 mg tablet 500 mg PO BID Qty: 10 RF: 0 Continue melatonin 5 mg Tablet 5 mg PO HS PRN (Reason: Insomnia) Qty: 0 RF: 0 omeprazole 20 mg Tablet,Delayed Release (Dr/Ec) 20 mg PO BID Qty: 0 RF: 0 atorvastatin 40 mg Tablet 40 mg PO HS Qty: 0 RF: 0 tamsulosin 0.4 mg Capsule 0.4 mg PO HS Qty: 0 RF: 0 aspirin 325 mg Tablet 325 mg PO QPM Qty: 0 RF: 0 methenamine hippurate 1 gram Tablet 1 g PO HS Qty: 0 RF: 0 calcium citrate-vitamin D3 [Citracal + D Maximum] 315-250 mg-unit Tablet 1 tab PO QAM Qty: 0 RF: 0 [id number]-lutein [Centrum Silver Women] 8 mg iron-400 mcg-300 mcg Tablet 1 tab PO QAM Qty: 0 RF: 0 nitrofurantoin monohyd/m-cryst [Macrobid] 100 mg Capsule 100 mg PO BID RF: 0 hydrocodone-acetaminophen 5-325 mg Tablet 1 tab PO Q6H PRN (Reason: Pain) RF: 0 ondansetron 4 mg tablet,disintegrating 4 mg PO Q6H PRN (Reason: nausea and vomiting) Qty: 10 RF: 0 Stand-Alone Forms: [facility]charge Orders: Discharge Order (Routine); Ordered 12/20/18 Ordered By: Reilly Ernandez Admission Data Admit Date/Time: 12/19/18 16:05 Attending Provider: Reilly Ernandez Admit Provider: Willard Espinosa Primary Care Provider: Indy Diop Other Providers: Willard Espinosa Service: Telemetry Other Pending Studies at Discharge: Yes Studies:: echo
== END 2018-12-20 12:53 | disposition home or self-care (01) ==
LOC: ED 13:10 → 2S 13:10

== ENCOUNTER 2020-09-08 14:34 | Observation (INO) ==
[2020-09-08] MEDS ORDERED: ONDANSETRON INJ 2 MG/ML 2 ML VIAL IV STA (14:52)
[2020-09-08] MEDS ORDERED: SODIUM CHLORIDE 0.9% 1000ML 1,000 ML IV ONE (14:52)
[2020-09-08] MEDS ORDERED: HYDROmorphone INJ 0.5 MG/0.5 ML SYR IV STA (15:01)
--- NOTE | 2020-09-08 15:10 | Emergency Department Note ---
Impression & Plan Epigastric pain, Nausea & vomiting ED Provider Note Provider: Joel Ornelas MD DATE OF SERVICE:09/08/2020 CHIEF COMPLAINT: Abdominal pain, nausea HISTORY OF PRESENT ILLNESS: Patient is a 70-year-old female history of hypertension, pancreatitis, CKD, diverticulosis, hernia, GERD presenting here today reporting over the past week and a half she is experiencing upper abdominal pain with radiation through to her mid to low back. Denies any trauma. Denies fever. Denies URI symptoms or shortness of breath. Patient denies any chest pain or heartburn symptoms. Patient endorses some nausea and has not been able to take down any food but has been able to drink some water. Denies significant constipation but states a little bit of loose stools. Nonbloody. Patient states feels very similar previous history of pancreatitis always been about 3 years since she thought after she switched her blood pressure medicine but this had resolved the issue. Patient states she is gone follow-up with her doctor but this appointment had to be rescheduled and she cannot wait till October. Has been using Tylenol with minimal effect of the pain. Denies any recent alcohol use or sick contacts. Patient states prior cholecystectomy REVIEW OF SYSTEMS: A total of 10 review of systems was obtained and negative except as stated above in the HPI. PAST MEDICAL HISTORY: As noted above MEDICATIONS: Reviewed home medication list SOCIAL HISTORY: Lives at home with boyfriend, denies alcohol usage in the last several years. PHYSICAL EXAM: GENERAL: alert and oriented in no acute distress on stretcher Head: normocephalic and atraumatic EYES: No injection, discharge or icterus. NECK: Trachea midline. Supple. LUNGS: Airway patent. No retractions. Breath sounds clear HEART: Regular rate and rhythm. No chest wall tenderness ABDOMEN: Soft with some slight epigastric to right upper quadrant discomfort. SKIN: Acyanotic, warm, dry, without rashes EXTREMITIES: Without swelling, tenderness or deformity NEUROLOGICAL: No focal deficits. No aphasia. No facial droop or slurred speech. Normal strength and tone in the extremities. Sensation to gross touch normal. Ambulatory. EK beats per normal sinus rhythm without PVC or PAC. No acute ST segment elevation or depression. Normal QTC. CONTINUOUS CARDIAC MONITORING: was ordered and showed a heart rate of 88 bpm in normal sinus rhythm PDMP was checked without noted issue. Patient's laboratory studies and imaging reviewed. Differential includes Infection, dehydration, metabolic abnormality, hypo/hyperglycemia, electrolyte disturbance, anemia, hypoxia, cardiac sources, intracerebral event, toxicologic, neurologic, as well as other pathologies. IMPRESSION/MEDICAL DECISION MAKING: Patient presents with epigastric discomfort similar prior history of pancreatitis and concerning for this. Not peritoneal and no lower abdominal tenderness less likely to be diverticulitis. No trauma reported and doubt traumatic injury. Denies any severe shortness of breath or chest pain however did complete an EKG and troponin. CT scan of the abdomen pelvis was ordered. Chest x-ray obtained to exclude thoracic component again which is less likely in my estimation. Prior cholecystectomy noted. Treated symptomatic with IV fluid, Zofran, and some hydromorphone which she says she is utilized before without issue. Laboratory studies show no significant anemia or leukocytosis. Chest x- ray per radiology report on my review without evidence of pneumonia, pneumothorax, significant cardiomegaly, or free air under the diaphragm. Labo ratory studies without significant leukocytosis or anemia. No significant electrolyte abnormality. Renal function at baseline. Troponin is undetectable and lipase is not elevated. Doubt pancreatitis. Doubt acute ACS at this time. Urinalysis not convincing for infection. CT scan of the abdomen pelvis per radiology without evidence of acute obstruction, pancreatitis, or acute process. They question a new T10 endplate compression fracture compared to previous CT from November 2018 but the patient denies recent trauma and unsure that this is related. Discussed with the patient options of treatment home with some nausea medicine and perhaps a small little pain medicine but given her history she stated that she was to stay for further observation. The hospitalist was contacted. May have some component of chronic pancreatitis causing her pain. Patient states her pain significantly improved on reevaluation and her nausea has resolved. Was willing to try some sips of liquid. DIAGNOSIS: Epigastric pain, nausea and vomiting DISPOSITION: Hospitalist will evaluate Patient was agreeable with this plan. Past Med/Surg History Medical History (Updated 09/08/20 @ 19:22 by Una Rivera PA-C) Carotid artery disease Diverticulosis Fatty liver GERD (gastroesophageal reflux disease) History of cholelithiasis History of recurrent UTIs HLD (hyperlipidemia) HTN (hypertension) Kidney disease, chronic, stage III (GFR 30-59 ml/min) Recurrent pancreatitis with pancreatic divisum Surgical History History of abdominal hernia History of back surgery Hx of cholecystectomy S/P bilateral breast reduction S/P bladder repair S/P tubal ligation Family History Father COPD (chronic obstructive pulmonary disease) Mother Stroke Social History Smoking Status: Never smoker Second Hand Exposure: No; Hx Alcohol Use: No Hx Substance Use: No Preferred Language: Mongolian Communication Ability: Effective High School Guidance Counselor Required: No Beliefs That Will Affect Care: None marital status: Single Current Living Situation: Significant Other current occupational status: employed Other Information That Helps Us Care for You: No Feels Safe at Home: Yes Safety Concerns: Feels Safe At This Time Assistive Devices: Denture - Upper, Denture - Lower and Glasses Allergies Allergies Allergy/AdvReac Type Severity Reaction Status Date / Time ibuprofen Allergy Mild HIVES Verified 09/08/20 17:51 morphine Allergy Mild pruritis Verified 09/08/20 17:51 adhesive Allergy Unknown RASH Verified 09/08/20 17:51 Home Meds Home Medications Medication Instructions Recorded Confirmed melatonin 5 mg PO HS PRN #0 10/23/15 09/08/20 omeprazole 20 mg PO BID #0 06/19/16 09/08/20 atorvastatin 40 mg PO HS #0 03/27/17 09/08/20 Centrum Silver Women 1 tab PO QAM #0 06/22/18 09/08/20 calcium citrate-vitamin D3 1 tab PO QAM #0 06/22/18 09/08/20 [Citracal + D Maximum] hydrocodone-acetaminophen 1 tab PO Q6H PRN 12/19/18 09/08/20 acetaminophen [Tylenol Extra 1,000 mg PO Q6H PRN 09/08/20 09/08/20 Strength] amlodipine [Norvasc] 5 mg PO DAILY 09/08/20 09/08/20 aspirin [Aspir-81] 81 mg PO QPM 09/08/20 09/08/20 tamsulosin 0.4 mg PO HS 09/08/20 09/08/20 Previous Rx's Medication Instructions Recorded ondansetron 4 mg PO Q6H PRN #10 tab 11/23/18 trimethoprim 100 mg tablet 100 mg PO DAILY #90 tab 05/01/20 methenamine hippurate 1 gram tablet 1 g PO DAILY #90 tab 08/05/20 Results & Data (ED) Vital Signs Vital Signs - 24 hr 09/08/20 14:44 09/08/20 15:33 09/08/20 15:35 Temperature 36.6 C Temperature Source Oral Pulse Rate 92 H 81 Pulse Rate [Left Finger] 83 Pulse Rate from SpO2 Sensor 81 Respiratory Rate 18 17 Respiratory Effort / Characteristics Non-Labored Spontaneous Respiratory Depth Normal Respiratory Pattern Regular Blood Pressure 170/94 H 166/75 H Blood Pressure [Left Arm] 166/75 H Blood Pressure Mean 119 98 Blood Pressure Mean [Left Arm] 105 Blood Pressure Position Sitting Pulse Oximetry 100 99 95 Oxygen Delivery Method Room Air Room Air Room Air Sepsis Recent Fever Within 48 Hours No Sepsis New/Unexplained Change in Mental Status No Sepsis Action Taken by Nursing No Action Required 09/08/20 15:42 09/08/20 15:50 09/08/20 16:00 Temperature Temperature Source Pulse Rate 81 81 78 Pulse Rate [Left Finger] Pulse Rate from SpO2 Sensor 80 81 79 Respiratory Rate 17 19 21 Respiratory Effort / Characteristics Respiratory Depth Respiratory Pattern Blood Pressure 160/67 H Blood Pressure [Left Arm] Blood Pressure Mean 93 Blood Pressure Mean [Left Arm] Blood Pressure Position Pulse Oximetry 94 93 98 Oxygen Delivery Method Sepsis Recent Fever Within 48 Hours Sepsis New/Unexplained Change in Mental Status Sepsis Action Taken by Nursing 09/08/20 16:10 09/08/20 16:20 09/08/20 16:40 Temperature Temperature Source Pulse Rate 82 82 89 Pulse Rate [Left Finger] Pulse Rate from SpO2 Sensor 82 82 90 Respiratory Rate 16 18 16 Respiratory Effort / Characteristics Respiratory Depth Respiratory Pattern Blood Pressure Blood Pressure [Left Arm] Blood Pressure Mean Blood Pressure Mean [Left Arm] Blood Pressure Position Pulse Oximetry 97 97 99 Oxygen Delivery Method Sepsis Recent Fever Within 48 Hours Sepsis New/Unexplained Change in Mental Status Sepsis Action Taken by Nursing 09/08/20 16:50 09/08/20 17:00 09/08/20 17:10 Temperature Temperature Source Pulse Rate 85 89 90 Pulse Rate [Left Finger] Pulse Rate from SpO2 Sensor 85 88 89 Respiratory Rate 17 20 16 Respiratory Effort / Characteristics Respiratory Depth Respiratory Pattern Blood Pressure 153/70 H Blood Pressure [Left Arm] Blood Pressure Mean 90 Blood Pressure Mean [Left Arm] Blood Pressure Position Pulse Oximetry 95 97 93 Oxygen Delivery Method Sepsis Recent Fever Within 48 Hours Sepsis New/Unexplained Change in Mental Status Sepsis Action Taken by Nursing 09/08/20 17:20 09/08/20 17:30 09/08/20 17:43 Temperature Temperature Source Pulse Rate 87 92 H 88 Pulse Rate [Left Finger] Pulse Rate from SpO2 Sensor 89 91 H 88 Respiratory Rate 19 18 16 Respiratory Effort / Characteristics Respiratory Depth Respiratory Pattern Blood Pressure 160/74 H Blood Pressure [Left Arm] Blood Pressure Mean 101 Blood Pressure Mean [Left Arm] Blood Pressure Position Pulse Oximetry 96 96 97 Oxygen Delivery Method Sepsis Recent Fever Within 48 Hours Sepsis New/Unexplained Change in Mental Status Sepsis Action Taken by Nursing 09/08/20 17:50 Temperature Temperature Source Pulse Rate 82 Pulse Rate [Left Finger] Pulse Rate from SpO2 Sensor 82 Respiratory Rate 18 Respiratory Effort / Characteristics Respiratory Depth Respiratory Pattern Blood Pressure Blood Pressure [Left Arm] Blood Pressure Mean Blood Pressure Mean [Left Arm] Blood Pressure Position Pulse Oximetry 95 Oxygen Delivery Method Sepsis Recent Fever Within 48 Hours Sepsis New/Unexplained Change in Mental Status Sepsis Action Taken by Nursing Laboratory Data Result diagrams: 09/08/20 15:24 09/08/20 15:24 Lab Results 09/08/20 09/08/20 09/08/20 Range/Units 15:24 15:24 15:35 WBC 6.37 (4.8-10.8) K/uL RBC 4.96 (4.2-5.4) M/uL Hgb 14.8 (12.0-16.0) g/dL Hct 45.3 (37-47) % MCV 91.3 (80-100) fL MCH 29.8 (25-34) pg MCHC 32.7 (32-36) g/dL RDW Std Deviation 46.6 H (36.4-46.3) fL RDW Coeff of Vin 14.0 (11.5-14.5) % Plt Count 213 (130-400) K/uL MPV 10.8 H (7.4-10.4) fL Immature Gran % (Auto) 0.0 % Neut % (Auto) 67.7 % Lymph % (Auto) 21.7 % Lynn % (Auto) 9.7 % Eos % (Auto) 0.6 % Baso % (Auto) 0.3 % Neut # (Auto) 4.31 (1.4-6.5) K/uL Lymph # (Auto) 1.38 (1.2-3.4) K/uL Lynn # (Auto) 0.62 H (0.11-0.59) K/uL Eos # (Auto) 0.04 (0-0.5) K/uL Baso # (Auto) 0.02 (0-0.2) K/uL Immature Gran # (Auto) 0.00 (0.00-0.02) K/uL Sodium 139 (136-145) mmol/L Potassium 4.3 (3.5-5.1) mmol/L Chloride 105 (98-107) mmol/L Carbon Dioxide 30 (21-32) mmol/L Anion Gap 3.0 (3-11) BUN 15 (7-18) mg/dl Creatinine 1.34 H (0.6-1.2) mg/dl Est Cr Clr Drug Dosing 35.2 ml/min Est GFR ( Amer) 46.7 Est GFR (Non-Af Amer) 40.3 BUN/Creatinine Ratio 10.8 (10-20) Glucose 103 H (70-99) mg/dl Calcium 9.8 (8.5-10.1) mg/dl Total Bilirubin 0.9 (0.2-1) mg/dl AST 17 (15-37) U/L ALT 23 (12-78) U/L Alkaline Phosphatase 117 (45-117) U/L Troponin I < 0.015 (0-0.045) ng/ml Total Protein 7.4 (6.4-8.2) gm/dl Albumin 3.8 (3.4-5.0) gm/dl Globulin 3.6 (2.5-4.0) gm/dl Albumin/Globulin Ratio 1.1 (0.9-2) Lipase 109 (73-393) U/L Urine Color Yellow Urine Appearance Clear (Clear) Urine pH 5.5 (4.5-7.5) Ur Specific Wyckoff 1.013 (1.000-1.030) Urine Protein Negative (Negative) Urine Glucose (UA) Negative (Negative) Urine Ketones Negative (Negative) Urine Blood 2+ H (Negative) Urine Nitrite Negative (Negative) Urine Bilirubin Negative (Negative) Urine Urobilinogen Negative (Negative) Ur Leukocyte Esterase Trace H (Negative) Urine WBC (Auto) 1-5 (0-5) /hpf Urine RBC (Auto) 10-30 H (0-4) /hpf U Hyaline Cast (Auto) 1-5 (0-5) /lpf U Epithel Cells (Auto) >30 H (0-5) /lpf Urine Bacteria (Auto) Negative (Negative) Administered Medications Hydromorphone HCl (Hydromorphone Inj 0.5 Mg/0.5 Ml Syr) 0.5 mg IV Q4H PRN PRN Reason: Pain Stop: 09/22/20 19:09 Last Admin: 09/08/20 20:03 Dose: 0.5 mg Documented by: [id number] Lactated Ringer's (Lr) 1,000 mls @ 200 mls/hr IV .Q5H TAY Stop: 10/08/20 19:09 Last Admin: 09/08/20 20:02 Dose: 200 mls/hr Documented by: [id number] Ondansetron HCl (Ondansetron Inj 2 Mg/Ml 2 Ml Vial) 4 mg IV Q6H PRN PRN Reason: Nausea Stop: 10/08/20 19:09 Last Admin: 09/08/20 20:03 Dose: 4 mg Documented by: [id number] Discontinued Medications Hydromorphone HCl (Hydromorphone Inj 0.5 Mg/0.5 Ml Syr) 0.5 mg IV NOW STA Stop: 09/08/20 15:02 Last Admin: 09/08/20 15:30 Dose: 0.5 mg Documented by: [id number] Sodium Chloride (Nss 1000ml) 1,000 mls @ 999 mls/hr IV .Q1H1M ONE Stop: 09/08/20 15:52 Last Infusion: 09/08/20 16:44 Dose: 0 mls/hr Documented by: [id number] Admin: 09/08/20 15:30 Dose: 999 mls/hr Documented by: [id number] Ioversol (Ioversol 100ml) 95 ml IV ONCE ONE Stop: 09/08/20 16:35 Last Admin: 09/08/20 16:35 Dose: 95 ml Documented by: [id number] Ondansetron HCl (Ondansetron Inj 2 Mg/Ml 2 Ml Vial) 4 mg IV NOW STA Stop: 09/08/20 14:53 Last Admin: 09/08/20 15:30 Dose: 4 mg Documented by: [id number] Discharge Plan Visit Data Chief Complaint: Abdominal Pain Stated Complaint: UPPER ABD PAIN INTO LOWER BACK ED Provider: Joel Ornelas Discharge Problem: Epigastric pain, Nausea & vomiting Patient Disposition: Admitted As Inpatient Discharge Instructions Interventions: ED Discharge Assessment Last Done: 09/08/20 18:54
--- NOTE | 2020-09-08 15:27 | XRay Report ---
XR chest 1V portable HISTORY: 70 years-old Female epigastric pain acute epigastric abdominal pain COMPARISON: Chest radiograph 12/19/2018 TECHNIQUE: Portable AP view of the chest FINDINGS: Cardiomediastinal and hilar silhouettes are within normal limits. There is no pneumothorax, pleural e ffusion, airspace consolidation or overt pulmonary edema. Bones of the chest appear grossly intact. M ild sigmoidal thoracolumbar scoliosis. IMPRESSION: No acute process. ACT 112: Negative or not required by law. The above report was generated using voice recognition software. It may contain grammatical, syntax o r spelling errors. Electronically signed by: Alfa Millre M.D. 09/08/2020 3:26 PM
[2020-09-08 15:38] LABS: Basophils # (auto) 0.02 K/uL (0-0.2); Basophils % (auto) 0.3 %; Eosinophils # (auto) 0.04 K/uL (0-0.5); Eosinophils % (auto) 0.6 %; Hematocrit (blood only) 45.3 % (37-47); Hemoglobin 14.8 g/dL (12.0-16.0); Lymphocytes # (auto) 1.38 K/uL (1.2-3.4); Lymphocytes % (auto) 21.7 %; Mean Corpuscular Hemoglobin 29.8 pg (25-34); Mean Corpuscular Hgb Conc 32.7 g/dL (32-36); Mean Corpuscular Volume 91.3 fL (80-100); Mean Platelet Volume 10.8 fL (7.4-10.4); Monocytes # (auto) 0.62 K/uL (0.11-0.59); Monocytes % (auto) 9.7 %; Neutrophils # (auto) 4.31 K/uL (1.4-6.5); Neutrophils % (auto) 67.7 %; Platelet Count 213 K/uL (130-400); RDW Standard Deviation 46.6 fL (36.4-46.3); Red Blood Count 4.96 M/uL (4.2-5.4); White Blood Count 6.37 K/uL (4.8-10.8)
[2020-09-08 15:53] LABS: Appearance Urine Clear (Clear); Bacteria Urine Automated Negative (Negative); Bilirubin Urine Negative (Negative); Blood Urine 2+ (Negative); Color Urine Yellow; Epithelial Cell Urine Auto >30 /lpf (0-5); Glucose Urine UA Negative (Negative); Ketones Urine Negative (Negative); Leukocyte Esterase Urine Trace (Negative); Nitrite Urine Negative (Negative); Protein Urine Negative (Negative); Specific Gravity Urine 1.013 (1.000-1.030); Urobilinogen Urine Negative (Negative); pH Urine 5.5 (4.5-7.5)
[2020-09-08 15:58] LABS: Alanine Aminotransferase 23 U/L (12-78); Albumin Level 3.8 gm/dl (3.4-5.0); Aspartate Aminotransferase 17 U/L (15-37); BUN Creatinine Ratio 10.8 (10-20); Blood Urea Nitrogen 15 mg/dl (7-18); Calcium 9.8 mg/dl (8.5-10.1); Carbon Dioxide 30 mmol/L (21-32); Chloride 105 mmol/L (98-107); Creatinine Clr Calc Pharmacy 35.2 ml/min; Est GFR (African American) 46.7; Est GFR (Non-African American) 40.3; Glucose 103 mg/dl (70-99); Lipase 109 U/L (73-393); Potassium 4.3 mmol/L (3.5-5.1); Sodium 139 mmol/L (136-145)
[2020-09-08 16:14] LABS: Albumin Globulin Ratio 1.1 (0.9-2); Alkaline Phosphatase 117 U/L (45-117); Bilirubin,Total 0.9 mg/dl (0.2-1); Globulin 3.6 gm/dl (2.5-4.0); Total Protein 7.4 gm/dl (6.4-8.2); Troponin I < 0.015 ng/ml (0-0.045)
[2020-09-08] MEDS ORDERED: IOVERSOL 100ml IV ONE (16:34)
--- NOTE | 2020-09-08 16:52 | CT Scan Report ---
ABDOMEN AND PELVIS CT WITH IV CONTRAST CT DOSE: 532.31 mGy.cm HISTORY: Acute epigastric abdominal pain with radiation to the back. epigastric to back pain, hx trujillo creatitis TECHNIQUE: Multiaxial CT images of the abdomen and pelvis were performed following the IV administrat ion of 95 cc of Optiray 320, A dose lowering technique was utilized adhering to the principles of AL BESSY. COMPARISON STUDY: CT abdomen and pelvis 11/24/2018 FINDINGS: Minimal subsegmental bibasilar atelectasis. No pneumatosis or pneumoperitoneum. Coronary artery calci fications. Mild cardiomegaly. The spleen, adrenal glands and pancreas are unremarkable. There is no p ancreatic ductal dilation or CT evidence of acute pancreatitis. Cholecystectomy with unchanged pneumo bilia and mild biliary dilation, likely postsurgical. Patency of the hepatic and portal veins. Probable cyst of the superior pole right kidney, 2.2 cm. No hydronephrosis. Mild urinary bladder dist ention. Unremarkable uterus and adnexa. Mixed plaque of the abdominal aorta without aneurysm. There i s no adenopathy.. There is mild wall thickening at the gastroesophageal junction. Mildly prominent di stal esophageal lymph node, 8 mm. No bowel obstruction. Colonic diverticulosis without acute divertic ulitis. Mild wall thickening of the hepatic flexure is likely secondary to partial distention. The ap pendix is not definitively seen. No secondary signs of acute appendicitis. Stool-filled loops of dist al ileum. Soft tissues are unremarkable. Bones appear intact. No acute fracture. Dextroscoliosis of t he mid lumbar spine. 30% anterior endplate T10 compression deformity without retropulsion, new from c omparison. IMPRESSION: 1. No bowel obstruction or bowel wall thickening. 2. No CT evidence of acute pancreatitis. 3. Colonic diverticulosis. 4. 30% anterior endplate compression deformity at T10 without retropulsion is age-indeterminate, new from 11/24/2018. 5. Cholecystectomy with unchanged pneumobilia. ACT 112: Negative or not required by law. The above report was generated using voice recognition software. It may contain grammatical, syntax o r spelling errors. Electronically signed by: Alfa Miller M.D. 09/08/2020 4:51 PM
--- NOTE | 2020-09-08 17:56 | History & Physical Report ---
Date of Service September 08, 2020 Assessment & Plan (1) Epigastric pain: (2) Recurrent pancreatitis: This is a 70-year-old female with a PMH of HTN, HLD, pre-diabetes, GERD, history of recurrent pancreatitis, multiple sclerosis and other medical problems listed below who presents with abdominal pain x 1.5 weeks was found to have suspected pancreatitis. -Epigastric abdominal pain and nausea x 4 days made worse with eating -History of recurrent pancreatitis in the past with known pancreatic divisum. No admissions for pancreatitis in the past 3 years since discontinuing lisinopril -Afebrile, no leukocytosis, no electrolyte abnormalities, normal lipase. CT abdomen/pelvis with no bowel obstruction or bowel wall thickening and no CT evidence of acute pancreatitis -IV LR @ 200, antiemetics, pain control, routine GI consult, fasting lipid panel in AM, NPO @ [place] (3) Kidney disease, chronic, stage III (GFR 30-59 ml/min): Kidney function at baseline. Daily BMP (4) HTN (hypertension): Continue amlodipine (5) GERD (gastroesophageal reflux disease): Continue Protonix (6) HLD (hyperlipidemia): Continue statin (7) History of recurrent UTIs: Follows with [facility] urology. Continue methenamine, trimethoprim DVT Ppx: SQ heparin Code status: FULL PCP: Jadon Dispo: Observation med surg. Plan to return home once medically stable. Patient seen in collaboration with Dr. Solo. Please see addendum. History of Present Illness Chief Complaint: abdominal pain Primary Care Provider: Indy Diop, This is a 70-year-old female with a PMH of HTN, HLD, pre-diabetes, GERD, histo ry of recurrent pancreatitis, multiple sclerosis and other medical problems listed below who presents with abdominal pain x 1.5 weeks. Describes pain as intermittent, burning epigastric pain with radiation to her back that is exacerbated by eating. Has tried Tylenol at home with minimal improvement. Endorses nausea but no vomiting. Decreased p.o. intake secondary to pain. Has been having loose stools but still formed. Has history of recurrent pancreatitis with pancreatic divisum but has not had bout since she discontinued lisinopril about 3 years ago. Denies any other medication changes. Non-smoker, nondrinker. Tried to be seen this week by PCP and GI but no available appointments. Went to ED for further evaluation when pain persisted. Denies any fever, chills, headache, lightheadedness, cough, chest pain, palpitations, vomiting, dysuria, hematuria or constipation. Allergies Allergy/AdvReac Type Severity Reaction Status Date / Time ibuprofen Allergy Mild HIVES Verified 09/08/20 17:51 morphine Allergy Mild pruritis Verified 09/08/20 17:51 adhesive Allergy Unknown RASH Verified 09/08/20 17:51 Home Medications Home Medications Medication Instructions Recorded Confirmed Type melatonin 5 mg PO HS PRN #0 10/23/15 09/08/20 History omeprazole 20 mg PO BID #0 06/19/16 09/08/20 History atorvastatin 40 mg PO HS #0 03/27/17 09/08/20 History Centrum Silver Women 1 tab PO QAM #0 06/22/18 09/08/20 History calcium citrate-vitamin D3 1 tab PO QAM #0 06/22/18 09/08/20 History [Citracal + D Maximum] ondansetron 4 mg PO Q6H PRN #10 tab 11/23/18 09/08/20 Rx hydrocodone-acetaminophen 1 tab PO Q6H PRN 12/19/18 09/08/20 History trimethoprim 100 mg tablet 100 mg PO DAILY #90 tab 05/01/20 09/08/20 Rx methenamine hippurate 1 gram tablet 1 g PO DAILY #90 tab 08/05/20 09/08/20 Rx acetaminophen [Tylenol Extra 1,000 mg PO Q6H PRN 09/08/20 09/08/20 History Strength] amlodipine [Norvasc] 5 mg PO DAILY 09/08/20 09/08/20 History aspirin [Aspir-81] 81 mg PO QPM 09/08/20 09/08/20 History tamsulosin 0.4 mg PO HS 09/08/20 09/08/20 History Past Med/Surg History Medical History (Updated 09/08/20 @ 19:22 by Una Rivera PA-C) Carotid artery disease Diverticulosis Fatty liver GERD (gastroesophageal reflux disease) History of cholelithiasis History of recurrent UTIs HLD (hyperlipidemia) HTN (hypertension) Kidney disease, chronic, stage III (GFR 30-59 ml/min) Recurrent pancreatitis with pancreatic divisum Surgical History History of abdominal hernia History of back surgery Hx of cholecystectomy S/P bilateral breast reduction S/P bladder repair S/P tubal ligation Family History Father COPD (chronic obstructive pulmonary disease) Mother Stroke Social History Smoking Status: Never smoker Second Hand Exposure: No; Hx Alcohol Use: No Hx Substance Use: No Preferred Language: Montenegrin Communication Ability: Effective 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 Physical Exam Physical Exam: General Appearance: WD/WN, vitals as above, NAD, sitting up in bed, pleasant, conversing easily Head: normocephalic, atraumatic Eyes: normal inspection, PERRL, conjunctivae normal, anicteric sclerae ENT: external ear and nose normal, oropharynx normal Neck: normal visual inspection, trachea midline, no thyromegaly Respiratory: normal respiratory effort, lungs clear to auscultation, no wheeze, rales, rhonchi. No accessory muscle use Cardiovascular: regular rate, rhythm, no murmur, normal peripheral pulses, no BLE edema. Vessels: no JVD Chest: normal inspection of chest Abdomen/GI: normal bowel sounds, soft, epigastric TTP, no guarding, no hepatosplenomegaly Extremities/Musculoskeletal: no cyanosis or clubbing, extremities motor strength 5/5 Neurologic: PERRL, EOMI, accommodation nl, no face palsy, no dysarthria, CN's II-XI intact bilaterally and moves all extremities Psychiatric: A+Ox3, euthymic affect Skin: no rashes, normal color, warm/dry Results & Data Results & Data ([facility]) Vital Signs (Past 12 Hours) Vital Signs Temp Pulse Pulse Resp BP BP Pulse Ox 09/08/20 16:40 89 16 99 09/08/20 16:20 82 18 97 09/08/20 16:10 82 16 97 09/08/20 16:00 78 21 160/67 H 98 09/08/20 15:50 81 19 93 09/08/20 15:42 81 17 94 09/08/20 15:35 81 83 17 166/75 H 166/75 H 95 09/08/20 15:33 99 09/08/20 14:44 36.6 C 92 H 18 170/94 H 100 Laboratory Results Short CBC 09/08/20 Range/Units 15:24 WBC 6.37 (4.8-10.8) K/uL Hgb 14.8 (12.0-16.0) g/dL Hct 45.3 (37-47) % Plt Count 213 (130-400) K/uL BMP 09/08/20 15:24 Sodium 139 Potassium 4.3 Chloride 105 Carbon Dioxide 30 BUN 15 Creatinine 1.34 H Glucose 103 H Calcium 9.8 Cardiac Enzymes 09/08/20 Range/Units 15:24 Troponin I < 0.015 (0-0.045) ng/ml Liver Function 09/08/20 Range/Units 15:24 Total Bilirubin 0.9 (0.2-1) mg/dl AST 17 (15-37) U/L ALT 23 (12-78) U/L Alkaline Phosphatase 117 (45-117) U/L Albumin 3.8 (3.4-5.0) gm/dl Urine 09/08/20 Range/Units 15:35 Urine Color Yellow Urine Appearance Clear (Clear) Urine pH 5.5 (4.5-7.5) Ur Specific [place] 1.013 (1.000-1.030) Urine Protein Negative (Negative) Urine Glucose (UA) Negative (Negative) Diagnostic Findings CXR: IMPRESSION: No acute process. CT abd/pelvis: IMPRESSION: 1. No bowel obstruction or bowel wall thickening. 2. No CT evidence of acute pancreatitis. 3. Colonic diverticulosis. 4. 30% anterior endplate compression deformity at T10 without retropulsion is age-indeterminate, new from 11/24/2018. 5. Cholecystectomy with unchanged pneumobilia. Supervising Physician Co-Signing Physician Notes Attending Addendum: care coordinated with SHILA Rivera please refer to her notes for full details, I agree with her notes patient seen and examined, records reviewed by myself as well on exam, patient seen resting in bed, not in distress reports abdominal pain has improved since receiving analgesic denies active nausea, chest pain, dyspnea no other symptoms VS noted and reviewed oriented x 3, not in distress, speaks in sentences with no effort nor accessory muscle use normal rate, regular rhythm, no murmurs clear breath sounds bilaterally non distended, soft, mild epigastric tenderness no bipedal edema, erythema, warmth no neuro deficits WBC 6.3 Hg 14.8 Crea 1.[address] abd/pelv: 1. No bowel obstruction or bowel wall thickening. 2. No CT evidence of acute pancreatitis. 3. Colonic diverticulosis. 4. 30% anterior endplate compression deformity at T10 without retropulsion is age-indeterminate, new from 11/24/2018. 5. Cholecystectomy with unchanged pneumobilia. ASSESSMENT AND PLAN ABDOMINAL PAIN, POSSIBLE RECURRENCE OF PANCREATITIS symptoms reminiscent of previous pancreatitis although lipase normal, no CT evidence could also be gastritis, peptic ulcer disease NPO, IV fluids, Protonix, GI consult for possible EGD in AM CKD 3 at baseline other diagnoses and plan of care as per SHILA Soni'neris notes Adrian Solo MD
[2020-09-08] MEDS ORDERED: ACETAMINOPHEN 1,000 MG/100 ML VIAL IV PRN (18:27)
[2020-09-08] MEDS ORDERED: ONDANSETRON INJ 2 MG/ML 2 ML VIAL IV PRN (19:10)
[2020-09-08] MEDS: LACTATED RINGER'S 1,000 ML IV SCH (20:02)
[2020-09-08] MEDS: HYDROmorphone INJ 0.5 MG/0.5 ML SYR IV PRN (20:03)
[2020-09-09] MEDS: LACTATED RINGER'S 1,000 ML IV SCH ×3 (00:10→05:46)
[2020-09-09] MEDS: HYDROmorphone INJ 0.5 MG/0.5 ML SYR IV PRN (01:05)
[2020-09-09 07:37] LABS: Hematocrit (blood only) 40.7 % (37-47); Hemoglobin 13.1 g/dL (12.0-16.0); Mean Corpuscular Hemoglobin 29.6 pg (25-34); Mean Corpuscular Hgb Conc 32.2 g/dL (32-36); Mean Corpuscular Volume 92.1 fL (80-100); Mean Platelet Volume 10.8 fL (7.4-10.4); Platelet Count 175 K/uL (130-400); RDW Coefficient of Variation 14.2 % (11.5-14.5); RDW Standard Deviation 48.1 fL (36.4-46.3); Red Blood Count 4.42 M/uL (4.2-5.4); White Blood Count 3.79 K/uL (4.8-10.8)
[2020-09-09 08:09] LABS: BUN Creatinine Ratio 10.9 (10-20); Calcium 8.6 mg/dl (8.5-10.1); Creatinine Clr Calc Pharmacy 49.5 ml/min; Est GFR (African American) 70.8; Est GFR (Non-African American) 61.1; Potassium 3.8 mmol/L (3.5-5.1)
[2020-09-09] MEDS ORDERED: LORazepam 0.25 MG/0.5 ML VIAL IV PRN (08:53)
--- NOTE | 2020-09-09 09:26 | Hospitalist Progress Note ---
Date of Service September 09, 2020 Assessment & Plan (1) Epigastric pain: (2) Recurrent pancreatitis: History of recurrent pancreatitis, less likely to be acute pancreatitis on this presentation Pancreatic divisum -This is a 70-year-old female with a PMH of HTN, HLD, pre-diabetes, GERD, hist ory of recurrent pancreatitis, multiple sclerosis and other medical problems listed below who presents with abdominal pain. Although the admission History and Physical documents that abdominal discomfort of 1.5 week, patient discussed that the abdominal pain was around 1 day for which she came to emergency room on 09/08/2020 -History of recurrent pancreatitis in the past with known pancreatic divisum. No admissions for pancreatitis in the past 3 years since discontinuing lisinopril -In the ED, afebrile, no leukocytosis, no electrolyte abnormalities, normal lipase. CT abdomen/pelvis with no bowel obstruction or bowel wall thickening and no CT evidence of acute pancreatitis -no constipation -Patient was started on lactated ringer's solution which is discontinued on 09/09/2020 AM. Patient to get MRCP as per gastroenterology. Patient to get Chest X ray to assess the fluid status and because of dry cough (3) GERD (gastroesophageal reflux disease): -Continue Protonix (4) HTN (hypertension): -Continue amlodipine (5) Kidney disease, chronic, stage III (GFR 30-59 ml/min): Acute kidney Injury on Chronic Kidney Disease Stage III -creatinine downtrended from 1.34 to 0.95 after IV fluids (6) History of recurrent UTIs: -Follows with [facility] urology. Continue methenamine, trimethoprim -no bacteria in 09/08/2020 urine analysis DVT Ppx: SCDs Code status: FULL (7) HLD (hyperlipidemia): -Continue statin Admission and Anticipated Discharge Date Admission Date: September 08, 2020 Subjective Patient seen and examined at the bedside with LR running at 200 cc/hr. patient reports that since being in hospital she has been on her 4th bag of IV fluids. Patient reports that abdominal discomfort for which she presented for has resolved. Patient reports normal bowel movement. She had cough without expectorate on exam. Breathing on room air. No acute dyspnea. No chest pain. No other symptoms of pain elsewhere. Patient denies fever Review of Systems Review of Systems: All systems reviewed & are unremarkable except as noted in Subjective Physical Exam Constitutional: comfortable Eyes: PERRL, conjunctivae normal, anicteric sclerae EOM intact bilaterally ENMT: external ear and nose normal, oropharynx normal Neck: normal visual inspection Respiratory: normal respiratory effort, lungs clear to auscultation + cough Cardiovascular: Rate/Rhythm: + bradycardic Gastrointestinal (Abdomen): Inspection/Auscultation: normal bowel sounds Percussion/Palpation: abdomen soft scar around umbilical area Musculoskeletal: Head/Neck/Chest: normocephalic and head atraumatic Neurologic: PERRL, EOMI, accommodation nl, no face palsy, no dysarthria Psychiatric: A+Ox3, euthymic affect Results & Data Results & Data ([facility]) Vital Signs (Past 12 Hours) Vital Signs Temp Pulse Resp BP Pulse Ox 09/09/20 07:33 36.6 C 60 20 133/71 96 09/08/20 23:00 36.6 C 65 18 135/69 97
--- NOTE | 2020-09-09 10:23 | Gastrointestinal Consultation ---
Date of Consultation September 09, 2020 Assessment & Plan (1) Epigastric pain: (2) Nausea & vomiting: Pt is a 70 y/o female w hx of MS and pancreatitis, pancreas divisum who presented w epigastric abd pain and n/v. Suspected to have pancreatitis recurrence but LFTs, lipase, and CT scan w/o signs of pancreatitis. She feels well today, symptoms have resolved. - Will obtain MRCP to r/o obstruction; depending on results she may/may not need repeat ERCP - Restart diet as tolerated after MRCP - No contraindication for DC home today after MRCP obtained Supervising Physician Co-Signing Physician Notes I performed a history and physical examination of the patient today, including specifically on physical exam - soft abdomen. I have discussed the patient's management with the advanced practitioner. Please refer to the nurse practitioner's note for the documented findings and plan of care. No clear evidence of pancreatitis, normal CT scan and lipase level. Obtain MRCP to check if there is any PD dilation related to her Divisum. History of Present Illness Reason for Consultation: Pancreatitis Requesting Physician: Dr. Reilly Grayson Attending Physician: Dr. Remigio Resendez History of Present Illness Pt is a 70 y/o female w PMHx of MS, pancreatic divisium, pancreatitis who presented w symptoms of epigastric abd pain x 1.5 weeks, and n/v in last 4 days. She felt it may be similar to previous pancreatitis episodes. Her last pancreatitis was about 3 yrs ago. She denies tobacco, ETOH, sick contact, travels, new meds. Her LFTs and lipase were normal. CT abd/pelvis w/o signs of pancreatitis, bowel wall thickening or obstruction. She is s/p cholecystectomy. Upon chart review, she had prior EUS/ERCP procedures (last being [address] Christiano Hawk in [facility]) for biliary sphincterectomy, her minor papillary orifice has been difficult to find in the past. Recommended to be referred to Dr. Miguel Lanza ([place]) who has largest pancreatic divisum in the if she needs repeat ERCP in the future. Allergies Allergy/AdvReac Type Severity Reaction Status Date / Time ibuprofen Allergy Mild HIVES Verified 09/08/20 17:51 morphine Allergy Mild pruritis Verified 09/08/20 17:51 adhesive Allergy Unknown RASH Verified 09/08/20 17:51 Home Medications Home Medications Medication Instructions Recorded Confirmed Type melatonin 5 mg PO HS PRN #0 10/23/15 09/08/20 History omeprazole 20 mg PO BID #0 06/19/16 09/08/20 History atorvastatin 40 mg PO HS #0 03/27/17 09/08/20 History Centrum Silver Women 1 tab PO QAM #0 06/22/18 09/08/20 History calcium citrate-vitamin D3 1 tab PO QAM #0 06/22/18 09/08/20 History [Citracal + D Maximum] ondansetron 4 mg PO Q6H PRN #10 tab 11/23/18 09/08/20 Rx hydrocodone-acetaminophen 1 tab PO Q6H PRN 12/19/18 09/08/20 History trimethoprim 100 mg tablet 100 mg PO DAILY #90 tab 05/01/20 09/08/20 Rx methenamine hippurate 1 gram tablet 1 g PO DAILY #90 tab 08/05/20 09/08/20 Rx amlodipine [Norvasc] 5 mg PO DAILY 09/08/20 09/08/20 History aspirin 81 mg PO QPM 09/08/20 09/08/20 History tamsulosin 0.4 mg PO HS 09/08/20 09/08/20 History Patient History Medical History Carotid artery disease Diverticulosis Fatty liver GERD (gastroesophageal reflux disease) History of cholelithiasis History of recurrent UTIs HLD (hyperlipidemia) HTN (hypertension) Kidney disease, chronic, stage III (GFR 30-59 ml/min) Recurrent pancreatitis with pancreatic divisum Surgical History History of abdominal hernia History of back surgery Hx of cholecystectomy S/P bilateral breast reduction S/P bladder repair S/P tubal ligation Family History Father COPD (chronic obstructive pulmonary disease) Mother Stroke Social History Smoking Status: Never smoker Second Hand Exposure: No; Hx Alcohol Use: No Hx Substance Use: No Preferred Language: Lithuanian Communication Ability: Effective 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 Beliefs That Will Affect Care: None marital status: Single Current Living Situation: Significant Other current occupational status: employed Other Information That Helps Us Care for You: No Feels Safe at Home: Yes Safety Concerns: Feels Safe At This Time Assistive Devices: None Review of Systems Review of Systems: All systems reviewed & are unremarkable except as noted in HPI & below Physical Exam Constitutional: WD/WN, vitals as above well groomed, cooperative and comfortable Eyes: PERRL, conjunctivae normal, anicteric sclerae ENMT: external ear and nose normal, oropharynx normal Respiratory: normal respiratory effort, lungs clear to auscultation Cardiovascular: RRR, no murmur, no edema Gastrointestinal (Abdomen): normal bowel sounds, soft, nontender, no hepatosplenomegaly Skin: no rashes, warm and dry Psychiatric: A+Ox3, euthymic affect Lymphatic: no lymphedema Results & Data ([facility]) Vital Signs (Past 12 Hours) Vital Signs Temp Pulse Resp BP Pulse Ox 09/09/20 07:33 36.6 C 60 20 133/71 96 09/08/20 23:00 36.6 C 65 18 135/69 97
--- NOTE | 2020-09-09 10:56 | XRay Report ---
XR chest 2V PA/lateral HISTORY: 70 years-old Female cough acute cough COMPARISON: Chest radiograph and CT abdomen and pelvis 09/08/2020 TECHNIQUE: PA and lateral views of the chest FINDINGS: Cardiomediastinal and hilar silhouettes are within normal limits. No pneumothorax, pleural effusion, airspace consolidation or overt pulmonary edema. Bones of the chest appear grossly intact. Sigmoidal thoracolumbar scoliosis. Cholecystectomy. IMPRESSION: No acute process. ACT 112: Negative or not required by law. The above report was generated using voice recognition software. It may contain grammatical, syntax o r spelling errors. Electronically signed by: Alfa Miller M.D. 09/09/2020 10:55 AM
--- NOTE | 2020-09-09 12:55 | Magnetic Resonance Report ---
MRCP CLINICAL HISTORY: pancreatitis, eval for divisum, biliary obstruction TECHNIQUE: Utilizing a 1.5 Nathaly magnet and dedicated coil, multiplanar, multiecho imaging of the [facility] er abdomen was performed utilizing heavily T2 weighted pulsing sequences without IV contrast. COMPARISON STUDY: CT of the abdomen and pelvis September 08, 2020. MRCP July 13, 2017. FINDINGS: This exam is mildly compromised by motion artifact. Mild biliary ductal dilatation is uncha nged since MRCP of July 13, 2017. No common bile duct calculi are identified. Sensitivity for detec tion of small calculi is diminished but none are identified. Pneumobilia is better depicted on CT of September 08, 2020. The gallbladder surgically absent. No peripancreatic infiltration or fluid is noted . Pancreas divisum is noted. No peripancreatic fluid collections are present. No hepatic lesions are identified on this unenhanced examination. There are several bilateral renal cysts, better depicted o n prior contrast enhanced CT. The spleen and adrenal glands are unremarkable. No abdominal adenopathy or ascites is noted. The caliber of visualized small and large bowel are normal. IMPRESSION: 1. No change in mild biliary ductal dilatation since MRCP of July 13, 2017. This is likely related to previous cholecystectomy. No common bile duct calculi identified although exam mildly compromised by motion artifact. 2. Pancreas divisum. No peripancreatic infiltration or fluid. ACT 112: Negative or not required by law. Electronically signed by: Roger Barboza M.D. 09/09/2020 12:54 PM
--- NOTE | 2020-09-09 14:42 | Discharge Summary ---
Date of Service September 09, 2020 Admission HPI Per Admitting Provider This is a 70-year-old female with a PMH of HTN, HLD, pre-diabetes, GERD, history of recurrent pancreatitis, multiple sclerosis and other medical problems listed below who presents with abdominal pain x 1.5 weeks. Describes pain as intermittent, burning epigastric pain with radiation to her back that is exacerbated by eating. Has tried Tylenol at home with minimal improvement. Endorses nausea but no vomiting. Decreased p.o. intake secondary to pain. Has been having loose stools but still formed. Has history of recurrent pancreatitis with pancreatic divisum but has not had bout since she discontinued lisinopril about 3 years ago. Denies any other medication changes. Non-smoker, nondrinker. Tried to be seen this week by PCP and GI but no available appointments. Went to ED for further evaluation when pain persisted. Denies any fever, chills, headache, lightheadedness, cough, chest pain, palpitations, vomiting, dysuria, hematuria or constipation. Principal Diagnosis Epigastric pain History of recurrent pancreatitis, Pancreas divisum Acute kidney Injury on Chronic Kidney Disease Stage III History of recurrent UTIs HTN (hypertension) Discharge Exam Constitutional comfortable Eyes PERRL, conjunctivae normal, anicteric sclerae EOM intact bilaterally ENMT external ear and nose normal, oropharynx normal Neck normal visual inspection Respiratory normal respiratory effort, lungs clear to auscultation Cardiovascular Rate/Rhythm: + bradycardic Gastrointestinal (Abdomen) Inspection/Auscultation: normal bowel sounds Percussion/Palpation: abdomen soft Musculoskeletal Head/Neck/Chest: normocephalic and head atraumatic Neurologic PERRL, EOMI, accommodation nl, no face palsy, no dysarthria Psychiatric A+Ox3, euthymic affect Discharge Data Allergies Allergy/AdvReac Type Severity Reaction Status Date / Time ibuprofen Allergy Mild HIVES Verified 09/08/20 17:51 morphine Allergy Mild pruritis Verified 09/08/20 17:51 adhesive Allergy Unknown RASH Verified 09/08/20 17:51 Consultations 09/08/20 17:44 ED Decision to Admit Stat 09/08/20 19:10 Consult Gastroenterology Routine Ordered Studies 09/08/20 15:01 CT abd pelvis IV con only Stat 09/09/20 08:20 MR MRCP Routine Hospital Course (1) Epigastric pain: (2) Recurrent pancreatitis: History of recurrent pancreatitis, less likely to be acute pancreatitis on this presentation Pancreatic divisum -This is a 70-year-old female with a PMH of HTN, HLD, pre-diabetes, GERD, history of recurrent pancreatitis, multiple sclerosis and other medical problems listed below who presents with abdominal pain. Although the admission History and Physical documents that abdominal discomfort of 1.5 week, patient discussed that the abdominal pain was around 1 day for which she came to emergency room on 09/08/2020 -History of recurrent pancreatitis in the past with known pancreatic divisum. No admissions for pancreatitis in the past 3 years since discontinuing lisinopril -In the ED, afebrile, no leukocytosis, no electrolyte abnormalities, normal lipase. CT abdomen/pelvis with no bowel obstruction or bowel wall thickening and no CT evidence of acute pancreatitis -no constipation -Patient was started on lactated ringer's solution on presentation which is discontinued on 09/09/2020 AM. 2 View Chest X ray 09/09/2020 (Cardiomediastinal and hilar silhouettes are within normal limits. No pneumothorax, pleural effusion, airspace consolidation or overt pulmonary edema. Bones of the chest appear grossly intact. Sigmoidal thoracolumbar scoliosis. Cholecystectomy. IMPRESSION: No acute process.) MRCP 09/09/2020 MRCP (FINDINGS: This exam is mildly compromised by motion artifact. Mild biliary ductal dilatation is unchanged since MRCP of July 13, 2017. No common bile duct calculi are identified. Sensitivity for detection of small calculi is diminished but none are identified. Pneumobilia is better depicted on CT of September 08, 2020. The gallbladder surgically absent. No peripancreatic infiltration or fluid is noted. Pancreas divisum is noted. No peripancreatic fluid collections are present. No hepatic lesions are identified on this unenhanced examination. There are several bilateral renal cysts, better depicted on prior contrast enhanced CT. The spleen and adrenal glands are unremarkable. No abdominal adenopathy or ascites is noted. The caliber of visualized small and large bowel are normal. IMPRESSION: 1. No change in mild biliary ductal dilatation since MRCP of July 13, 2017. This is likely related to previous cholecystectomy. No common bile duct calculi identified although exam mildly compromised by motion artifact. 2. Pancreas divisum. No peripancreatic infiltration or fluid.) -patient was evaluated by gastroenterology service and no acute procedures at this time -patient has felt clinically improved and abdominal pain free since the IV fluids on the hospital stay and prefers to be discharge to home on 09/09/2020 and she will continue outpatient followup with her primary care and outpatient gastroenterology clinic. Patient agrees to low fat diet since she lacks a gallbladder. (3) GERD (gastroesophageal reflux disease): -Continue Protonix (4) HTN (hypertension): -Continue amlodipine (5) Kidney disease, chronic, stage III (GFR 30-59 ml/min): Acute kidney Injury on Chronic Kidney Disease Stage III -creatinine downtrended from 1.34 to 0.95 after IV fluids (6) History of recurrent UTIs: -Follows with [facility] urology. Continue methenamine, trimethoprim -no bacteria in 09/08/2020 urine analysis DVT Ppx: SCDs Code status: FULL (7) HLD (hyperlipidemia): -Continue statin Total Time Total Time Spent Total Time Spent (In Minutes): 40 minutes Total Time Includes: Examination of the Patient, Discharge Planning, Medication Reconciliation and Communication With Other Providers Discharge Plan Discharge Items Patient Disposition: Home - Self-Care Reason For Visit: SUSPECTED PANCREATITIS Discharge Diagnosis: Epigastric pain History of recurrent pancreatitis, Pancreas divisum Acute kidney Injury on Chronic Kidney Disease Stage III History of recurrent UTIs HTN (hypertension) Condition on Discharge: Good Activity: Resume your previous activity Non-emergency contact: Primary Care Provider and [employer] Call non-emergency contact if: you have any medication questions Follow-up/Referrals: Indy Diop DO [Primary Care Provider] - (Date & Time 09/16/2020 11:10 AM Provider Indy Diop DO Department [facility] ) Diet: Low Fat Diet Comment: Patient is advised low fat diet Addtl Attending Provider Instructions: 09/16/2020 11:10 AM Provider Indy Diop DO Department [facility] 10/16/2020 1:00 PM Provider aJc Cai DO Department Gastroenterology, [facility] 11/04/2020 8:30 AM Provider Indy Diop DO Department [facility] [employer] Compliance Monitor Provider Instructions: MRCP 09/09/2020 FINDINGS: This exam is mildly compromised by motion artifact. Mild biliary ductal dilatation is unchanged since MRCP of July 13, 2017. No common bile duct calculi are identified. Sensitivity for detection of small calculi is diminished but none are identified. Pneumobilia is better depicted on CT of September 08, 2020. The gallbladder surgically absent. No peripancreatic infiltration or fluid is noted. Pancreas divisum is noted. No peripancreatic fluid collections are present. No hepatic lesions are identified on this unenhanced examination. There are several bilateral renal cysts, better depicted on prior contrast enhanced CT. The spleen and adrenal glands are unremarkable. No abdominal adenopathy or ascites is noted. The caliber of visualized small and large bowel are normal. IMPRESSION: 1. No change in mild biliary ductal dilatation since MRCP of July 13, 2017. This is likely related to previous cholecystectomy. No common bile duct calculi identified although exam mildly compromised by motion artifact. 2. Pancreas divisum. No peripancreatic infiltration or fluid. Pending Studies at Discharge: No Stand-Alone Forms: [facility] [employer], Smoking Cessation Medications and DC Order Prescriptions: Continued melatonin 5 mg Tablet 5 mg PO HS PRN (Reason: Insomnia) Qty: 0 RF: 0 omeprazole 20 mg Tablet,Delayed Release (Dr/Ec) 20 mg PO BID Qty: 0 RF: 0 atorvastatin 40 mg Tablet 40 mg PO HS Qty: 0 RF: 0 calcium citrate-vitamin D3 [Citracal + D Maximum] 315-250 mg-unit Tablet 1 tab PO QAM Qty: 0 RF: 0 Centrum Silver Women 8 mg iron-400 mcg-300 mcg Tablet 1 tab PO QAM Qty: 0 RF: 0 trimethoprim 100 mg tablet 100 mg PO DAILY Qty: 90 RF: 3 methenamine hippurate 1 gram tablet 1 g PO DAILY Qty: 90 RF: 3 hydrocodone-acetaminophen 5-325 mg Tablet 1 tab PO Q6H PRN (Reason: Pain) RF: 0 ondansetron 4 mg tablet,disintegrating 4 mg PO Q6H PRN (Reason: nausea and vomiting) Qty: 10 RF: 0 aspirin [Aspir-81] 81 mg Tablet,Delayed Release (Dr/Ec) 81 mg PO QPM RF: 0 tamsulosin 0.4 mg capsule 0.4 mg PO HS RF: 0 amlodipine [Norvasc] 5 mg tablet 5 mg PO DAILY RF: 0 Discontinued acetaminophen [Tylenol Extra Strength] 500 mg Tablet 1,000 mg PO Q6H PRN (Reason: Pain) RF: 0 Discharge Orders: Discharge Order (Routine); Ordered 09/09/20 Ordered By: Reilly Grayson Admission Data Admit Date/Time: 09/08/20 17:51 Attending Provider: Reilly Grayson Admit Provider: Adrian Solo Primary Care Provider: Indy Diop Other Providers: Adrian Solo ; Remigio Resendez
--- NOTE | 2020-09-10 05:40 | Electrocardiogram Report ---
Test Reason : Blood Pressure : / mmHG Vent. Rate : 090 BPM Atrial Rate : 090 BPM P-R Int : 200 ms QRS Dur : 076 ms QT Int : 348 ms P-R-T Axes : 047 -01 040 degrees QTc Int : 425 ms Poor data quality, interpretation may be adversely affected Normal sinus rhythm Normal ECG When compared with ECG of 20-DEC-2018 06:22, Vent. rate has increased BY 32 BPM Confirmed by Jabari Chino ([id number]) on 09/10/2020 5:40:14 AM Referred By: REFERRED SELF Confirmed By:Jabari Chino
== END 2020-09-09 15:11 | disposition home or self-care (01) ==
LOC: ED 14:34 → 2N 14:34 → SUATTDRO 17:51 → 2N 18:54